=== PATIENT | male | born 1935 | race Caucasian/White ===

== ENCOUNTER → 2017-04-15 11:48 | Outpatient (CLI) | payer MEDICARE, SELFPAY ==
[2017-04-15 09:27] VITALS: BP 134/61; PULSE 59; RESP 16; TEMP 36.6; O2SAT 95; BMI 31.5
--- NOTE | 2017-04-15 09:35 | SDCEKG_ITS ---
Test Reason : Blood Pressure : / mmHG Vent. Rate : 053 BPM Atrial Rate : 053 BPM P-R Int : 226 ms QRS Dur : 088 ms QT Int : 392 ms P-R-T Axes : 031 030 054 degrees QTc Int : 367 ms Sinus bradycardia with 1st degree A-V block Otherwise normal ECG Confirmed by SUSAN HUDSON, LIANET ([id number]), fan mail editor NICKOLAS CAR ([id number]) on 04/18/2017 1:09:29 PM Referred By: Vincent Bennett Confirmed By:LIANET DAVIS MD
[2017-04-15 09:57] LABS: Hematocrit 47.8 % (40-54); Hemoglobin 15.9 g/dl (13.0-16.5); Mean Corp Hgb Conc 33.3 g/gl (32-36); Mean Corpuscular Hgb 31.1 pg (27.0-32.0); Mean Corpuscular Volume 93.4 fL (80-94); Mean Platelet Vol. 9.5 fl (6.2-12.0); Platelet Count 196 K/mm3 (150-450); RBC Distribution Width CV 12.6 % (11.6-14.6); RBC Distribution Width SD 42.6 fl (35.1-43.9); Red Blood Count 5.12 M/mm3 (4.6-6.2); Scan Indicated on CBC? Y/N NO; White Blood Count 6.9 K/mm3 (4.4-11.0)
[2017-04-15 10:30] LABS: Hemoglobin A1c 5.7 % (4.2-6.3)
[2017-04-15 10:33] LABS: Anion Gap 7 (5-15); BUN 23 mg/dL (7-18); BUN/Creat Ratio 14.9 RATIO (10-20); Chloride 103 mmol/L (98-107); Creatinine, Serum 1.54 mg/dL (0.70-1.30); EST Glomerular Filtration Rate 46 mL/min (>60); Est Glom Filt Rate - Afr Amer 56 mL/min (>60); Estimated Creatinine Clearance 37.01 ml/min; Glucose 100 mg/dL (70-110); Potassium 4.5 mmol/L (3.5-5.1); Sodium Level 137 mmol/L (136-145); Thyroid Stim Hormone (TSH) 4.84 uIU/mL (0.358-3.74)
--- OUTSIDE RECORDS SUMMARY | 2017-05-24 13:21 | XMS RPT_ITS | Clinical Summary ---
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 stenosis stenosis, CT) MANAGER INSIDE-C left Family Z82.49 Active Alexx A Family history history of (ICD-10-CM 04/23 04/23 Shields of ischemic ischemic ) MANAGER INSIDE-C heart disease heart disease and other and other diseases of the diseases of circulatory the system circulatory system Chest pain, 957205835 Resolved Alexx A Angina pectoris unspecified (SNOMED 04/20 04/[address]) MANAGER INSIDE-C Body mass Z68.30 Active Alexx A Body mass index index (BMI) (ICD-10-CM 04/23 04/23 Shields (BMI) 30.0-30.9, ) MANAGER INSIDE-C 30.0-30.9, adult adult Chest pain, 223853867 Removed Yahaira Angina pectoris unspecified (SNOMED 04/20 04/[address]) RN Carotid [id number] Inactive Yahaira Carotid bruit bruit, left (SNOMED 04/20 04/[address]) RN Hyperlipidemi 39665099 Active Yahaira Hyperlipidemia a (SNOMED 04/20 04/[address]) RN Hypertension 34399227 Active Yahaira Hypertensive (SNOMED 04/20 04/[address]) RN Medications Medication Instructions Start Stop Generic Name NDC Provider Date Date CLOPIDOGREL One tablet by CLOPIDOGREL [id number] Yahaira BISULFATE 75 MG TABS mouth daily 2/02 BISULFATE Roseann Escobedo PA-C PRAVASTATIN SODIUM One tablet by PRAVASTATIN SODIUM 30228264435 Yahaira 20 MG TABS mouth daily 04/20 L Mik SALVADOR LEVOTHYROXINE SODIUM One tablet by LEVOTHYROXINE SODIUM 83819861550 Yahaira 50 MCG TABS mouth daily 04/20 L Mik SALVADOR HYDROCHLOROTHIAZIDE One tablet by HYDROCHLOROTHIAZIDE 36924832758 Lilly M 25 MG TABS mouth daily 04/24 MADELEINE Lea HYDROCHLOROTHIAZIDE One tablet by HYDROCHLOROTHIAZIDE 24992970400 Lilly M 25 MG TABS mouth daily 04/24 04/24 MADELEINE Lea ASPIRIN EC 81 MG One tablet by ASPIRIN 71003379212 Yahaira TBEC mouth daily 04/20 L Mik SALVADOR BENICAR 40 MG TABS One tablet by OLMESARTAN MEDOXOMIL 81986023814 Yahaira mouth daily 04/20 L Mik SALVADOR VITAMIN D 2000 UNIT One tablet by CHOLECALCIFEROL 95607066859 Alexx A TABS mouth daily 04/23 Shields MANAGER INSIDE-C CO Q-10 100 MG CAPS One tablet by COENZYME Q10 86707353636 Alexx A mouth daily 04/23 Shields MANAGER INSIDE-C VITAMIN B-12 1000 One tablet by CYANOCOBALAMIN 77247708012 Alexx A MCG TABS mouth daily 04/23 Shields MANAGER INSIDE-C GLUCOSAMINE-CHONDROI One tablet by GLUCOSAMINE-CHONDROI 42708099483 Alexx A TIN CAPS mouth daily 04/23 TIN CAPS Shields MANAGER INSIDE-C [facility] SAW PALMETTO 450 One tablet by SAW PALMETTO 72050404959 Alexx A MG CAPS mouth daily 04/23 (SERENOA REPENS) Shields MANAGER INSIDE-C PRAVASTATIN SODIUM One tablet by PRAVASTATIN SODIUM 37544188598 Alexx A 20 MG TABS mouth daily 04/20 [facility] MANAGER INSIDE-C LEVOTHYROXINE SODIUM One tablet by LEVOTHYROXINE SODIUM 50630629882 Alexx A 50 MCG TABS mouth daily 04/20 [facility]s MANAGER INSIDE-C Medications Administered No information available. 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 Dietary management education, guidance, and counseling (procedure) MEDS REVIEW Done Documentation of current medications ( procedure) Plan of Care Type Date Detail Appointment 02:30 PM Tom Melton MD, [address], [address] , [place], [address], Referral Vascular Surgery Hernan Abbott MD, [address], [place], [address] Pending order Carotid duplex Pending order DJN Pending order Follow Up Appt 6 months Procedures Code Procedure Name Date Entry Date [id number] Vascular Surgery CD Carotid duplex F/U DJN DJN FUA 6 months Follow Up Appt 6 months Vital Signs Date Name Value Unit Description BMI (Body Mass Index) 31.75 kg/m2 Body Mass Index [Ratio] BP Diastolic 70 mm[Hg] blood pressure, diastolic - 8462-4 BP Systolic 152 mm[Hg] blood pressure, systolic - 8480-6 BSA (Body Surface Area) 2.13 body surface area Heart Rate 60 /min pulse rate E&M - 8867-4 Height 69 [in_us] height E&M - 8302-2 O2 % BldC Oximetry 96 pulse oximetry, first reading Respiratory Rate 16 /min respiratory rate E&M - 9279-1 Weight Measured 215 [lb_av] weight E&M - 3141-9
--- OUTSIDE RECORDS SUMMARY | 2017-05-24 13:21 | XMS RPT_ITS | Clinical Summary ---
:1935 External Reference #:[id number] Author Organization 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0-30.9, adult adult Chest pain, 777057523 Removed Yahaira Angina pectoris unspecified (SNOMED 04/20 04/[address]) RN Carotid [id number] Inactive Yahaira Carotid bruit bruit, left (SNOMED 04/20 04/[address]) RN Hyperlipidemi 26527788 Active Yahaira Hyperlipidemia a (SNOMED 04/20 04/[address]) RN Hypertension 53350858 Active Yahaira Hypertensive (SNOMED 04/20 04/[address]) RN Medications Medication Instructions Start Stop Generic Name NDC Provider Date Date CLOPIDOGREL One tablet by CLOPIDOGREL 26036000286 Yahaira BISULFATE 75 MG TABS mouth daily 05/03 BISULFATE Roseann Escobedo PA-C FISH OIL CAPS One tablet by OMEGA-3 FATTY ACIDS 31567182860 [place] S mouth daily CAPS MD Yamila LORATADINE 10 MG as needed LORATADINE 22126597845 Matheus S TABS MD Yamila PRAVASTATIN SODIUM One tablet by PRAVASTATIN SODIUM 98142220196 Yahaira 20 MG TABS mouth daily 04/20 L Mik SALVADOR LEVOTHYROXINE SODIUM One tablet by LEVOTHYROXINE SODIUM 56818809833 Yahaira 50 MCG TABS mouth daily 04/20 L Mik SALVADOR HYDROCHLOROTHIAZIDE One tablet by HYDROCHLOROTHIAZIDE 90015538417 Lilly M 25 MG TABS mouth daily 04/24 MADELEINE Lea HYDROCHLOROTHIAZIDE One tablet by HYDROCHLOROTHIAZIDE 53144562384 Lilly M 25 MG TABS mouth daily 04/24 04/24 MADELEINE Lea ASPIRIN EC 81 MG One tablet by ASPIRIN 03731228804 Yahaira TBEC mouth daily 04/20 L Mik SALVADOR BENICAR 40 MG TABS One tablet by OLMESARTAN MEDOXOMIL 17081791485 Yahaira mouth daily 04/20 L Mik SALVADOR VITAMIN D 2000 UNIT One tablet by CHOLECALCIFEROL 79254417795 Alexx A TABS mouth daily 04/23 [facility]s TRADITIONAL MAORI HEALTH PRACTITIONER-C CO Q-10 100 MG CAPS One tablet by COENZYME Q10 19839116517 Alexx A mouth daily 04/23 Shields TRADITIONAL MAORI HEALTH PRACTITIONER-C VITAMIN B-12 1000 One tablet by CYANOCOBALAMIN 18749815049 Alexx A MCG TABS mouth daily 04/23 Shields TRADITIONAL MAORI HEALTH PRACTITIONER-C GLUCOSAMINE-CHONDROI One tablet by GLUCOSAMINE-CHONDROI 23001797109 Alexx A TIN CAPS mouth daily 04/23 TIN CAPS Shields TRADITIONAL MAORI HEALTH PRACTITIONER-C [facility] SAW PALMETTO 450 One tablet by SAW PALMETTO 12922409089 Alexx A MG CAPS mouth daily 04/23 (SERENOA REPENS) Shields TRADITIONAL MAORI HEALTH PRACTITIONER-C PRAVASTATIN SODIUM One tablet by PRAVASTATIN SODIUM 84098709378 Alexx A 20 MG TABS mouth daily 04/20 Shields TRADITIONAL MAORI HEALTH PRACTITIONER-C LEVOTHYROXINE SODIUM One tablet by LEVOTHYROXINE SODIUM 36103212813 Alexx A 50 MCG TABS mouth daily 04/20 Shields TRADITIONAL MAORI HEALTH PRACTITIONER-C Medications Administered No information available. Allergies, Adverse Reactions, Alerts Allergy Name Reaction Description Start Date Severity Status Provider CRESTOR Myalgia Severe Active Alexx A Shields TRADITIONAL MAORI HEALTH PRACTITIONER-C LIPITOR depression Severe Active Alexx A Shields TRADITIONAL MAORI HEALTH PRACTITIONER-C SULFA Itching Severe Active Yahaira Houser RN Results Date Name Value Unit Range Flag Description Clinical Lists Update: Preload SMOK STATUS Never smoker Tobacco use [facility] Office Visit DIET RN CARDIAC REHAB yes Dietary management education, guidance, and counseling (procedure) MEDS REVIEW Done Documentation of current medications ( procedure) Plan of Care Type Date Detail Appointment 09:30 AM Yahaira Escobedo PA-C, [address], [address], [place], [address], Referral Vascular Surgery Hernan Abbott MD, [address] [facility] [address], [place], [address] Pending order MMM Pending order Follow Up Appt 6 months Pending order Follow Up Appt Other Pending order *Hepatic Function Panel Pending order *Lipid Profile CC PCP Pending order Echocardiogram (complete) Pending order Echocardiogram (complete) Pending order Carotid duplex Pending order DJN Pending order Follow Up Appt 6 months Procedures Code Procedure Name Date Entry Date F/U MMM MMM FUA 6 months Follow Up Appt 6 months F/U Appt Follow Up Appt Other [id number] Vascular Surgery CD Carotid duplex F/U DJN DJN FUA 6 months Follow Up Appt 6 months Vital Signs Date Name Value Unit Description BMI (Body Mass Index) 30.42 kg/m2 Body Mass Index [Ratio] BP Diastolic 70 mm[Hg] blood pressure, diastolic - 8462-4 BP Systolic 136 mm[Hg] blood pressure, systolic - 8480-6 Heart Rate 56 /min pulse rate E&M - 8867-4 Height 69 [in_us] height E&M - 8302-2 Respiratory Rate 16 /min respiratory rate E&M - 9279-1 Weight Measured 206 [lb_av] weight E&M - 3141-9 BSA (Body Surface Area) 2.13 body surface area O2 % BldC Oximetry 96 pulse oximetry, first reading
--- OUTSIDE RECORDS SUMMARY | 2017-05-24 13:21 | XMS RPT_ITS | Clinical Summary ---
:1935 External Reference #:[id number] Author Organization [facility] Address [address] [place] [address] Phone Care Team Providers Name Role Phone Vincent Bennett MD Conditions or Problems Problem Name Problem Onset Status Entry Provider Comment Standard Annotate Code Date Date Description Abnormal [id number] Active Lilly Whitfield Electrocardiogra electrocardi (SNOMED yuan Lea abnormal ogram CT) RN Body mass Z68.30 Active Matheus Drew Body mass index index (BMI) (ICD-10-CM MD Yamila (BMI) 30.0-30.9, 30.0-30.99, ) adult adult Carotid 13603840 Active Alexx A Carotid artery artery (SNOMED 04/20 04/20 Shields stenosis stenosis, CT) 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 Family Z82.49 Active Alexx A Family history history of (ICD-10-CM 04/23 04/23 Shields of ischemic ischemic ) COPIER AND PRINTER FIELD TECHNICIAN-C heart disease heart and other disease and diseases of the other circulatory diseases of system the circulatory system Chest pain, 593933530 2017/0 Resolved Alexx A Angina pectoris unspecified (SNOMED 04/20 04/[address]) COPIER AND PRINTER FIELD TECHNICIAN-C Body mass Z68.30 Active Alexx A Body mass index index (BMI) (ICD-10-CM 04/23 04/23 Shields (BMI) 30.0-30.9, 30.0-30.9, ) COPIER AND PRINTER FIELD TECHNICIAN-C adult adult Chest pain, 207539357 Removed Yahaira Angina pectoris unspecified (SNOMED 04/20 04/[address]) RN Carotid 057353849 Inactive Yahaira Carotid bruit bruit, left (SNOMED 04/20 04/[address]) RN Hyperlipidem 53172706 Active Yahaira Hyperlipidemia ia (SNOMED 04/20 04/[address]) RN Hypertension 49167495 Active Yahaira Hypertensive (SNOMED 04/20 04/[address]) RN Medications Medication Instructions Start Stop Generic Name ND Provider Date Date CLOPIDOGREL One tablet by CLOPIDOGREL 47825918993 Yahaira BISULFATE 75 MG TABS mouth daily 05/03 BISULFATE Yuan Escobedo PA-C FISH OIL CAPS One tablet by OMEGA-3 FATTY ACIDS 80491161531 [place] S mouth daily CAPS MD Yamila LORATADINE 10 MG as needed LORATADINE 37804764286 [place] S TABS MD Yamila PRAVASTATIN SODIUM One tablet by PRAVASTATIN SODIUM 16266118813 Yahaira 20 MG TABS mouth daily 04/20 L Mik SALVADOR LEVOTHYROXINE SODIUM One tablet by LEVOTHYROXINE SODIUM 04558928531 Yahaira 50 MCG TABS mouth daily 04/20 L Mik SALVADOR HYDROCHLOROTHIAZIDE One tablet by HYDROCHLOROTHIAZIDE 18769921785 Lilly M 25 MG TABS mouth daily 04/24 MADELEINE Lea HYDROCHLOROTHIAZIDE One tablet by HYDROCHLOROTHIAZIDE 34551008034 Lilly M 25 MG TABS mouth daily 04/24 04/24 MADELEINE Lea ASPIRIN EC 81 MG One tablet by ASPIRIN 77296733434 Yahaira TBEC mouth daily 04/20 L Mik SALVADOR BENICAR 40 MG TABS One tablet by OLMESARTAN MEDOXOMIL 48936594909 Yahaira mouth daily 04/20 L Mik RN VITAMIN D 2000 UNIT One tablet by CHOLECALCIFEROL 18212317254 Alexx A TABS mouth daily 04/23 Shields COPIER AND PRINTER FIELD TECHNICIAN-C CO Q-10 100 MG CAPS One tablet by COENZYME Q10 68609212016 Alexx A mouth daily 04/23 Shields COPIER AND PRINTER FIELD TECHNICIAN-C VITAMIN B-12 1000 One tablet by CYANOCOBALAMIN 46706697260 Alexx A MCG TABS mouth daily 04/23 Shields COPIER AND PRINTER FIELD TECHNICIAN-C GLUCOSAMINE-CHONDROI One tablet by GLUCOSAMINE-CHONDROI 46711623817 Alexx A TIN CAPS mouth daily 04/23 TIN CAPS Shields COPIER AND PRINTER FIELD TECHNICIAN-C [facility] SAW PALMETTO 450 One tablet by SAW PALMETTO 21551555447 Alexx A MG CAPS mouth daily 04/23 (SERENOA REPENS) Shields COPIER AND PRINTER FIELD TECHNICIAN-C PRAVASTATIN SODIUM One tablet by PRAVASTATIN SODIUM 77266057637 Alexx A 20 MG TABS mouth daily 04/20 Shields COPIER AND PRINTER FIELD TECHNICIAN-C LEVOTHYROXINE SODIUM One tablet by LEVOTHYROXINE SODIUM 19014578487 Alexx A 50 MCG TABS mouth daily 04/20 Shields COPIER AND PRINTER FIELD TECHNICIAN-C Medications Administered No information available. 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 Dietary management education, guidance, and counseling (procedure) MEDS REVIEW Done Documentation of current medications ( procedure) Clinical Lists Update: Preload CARDEFECHO 65 % Left ventricular Ejection fraction Lab Report: CREATININE FINGERSTICK ZZ-GE-unk 32.0000 mL/min >60 L GE use only - for [employer] import when terms are not otherwise specified Plan of Care Type Date Detail Appointment 09:30 AM Yahaira Escobedo PA-C, [address], [address], [place], [address], Referral Vascular Surgery Hernan Abbott MD, [address] [facility] [address], [place], [address] Pending order MMM Pending order Follow Up Appt 6 months Pending order Follow Up Appt Other Pending order *Hepatic Function Panel Pending order *Lipid Profile CC PCP Pending order Echocardiogram (complete) Pending order Carotid duplex Pending order DJN Pending order Follow Up Appt 6 months Procedures Code Procedure Name Date Entry Date Echo Echocardiogram (complete) F/U MMM MMM FUA 6 months Follow Up Appt 6 months F/U Appt Follow Up Appt Other [id number] Vascular Surgery CD Carotid duplex F/U DJN [...]
--- OUTSIDE RECORDS SUMMARY | 2017-05-24 13:21 | XMS RPT_ITS | Clinical Summary ---
:1935 External Reference #:[id number] Author Organization [place] [email or web address] Address [facility] [place] [address] Phone Care Team Providers Name Role Phone Candy Gunter RN Unavailable Unavailable Conditions or Problems Problem Name Problem Onset Status Entry Provider Comment Standard Annotate Code Date Date Description Abnormal 167473412 Active Lilly Whitfield Electrocardiogra electrocardi (SNOMED yuan Lea abnormal ogram CT) MADELEINE Body mass Z68.30 Active Matheus Drew Body mass index index (BMI) (ICD-10-CM MD Yamila (BMI) 30.0-30.9, 30.0-30.99, ) adult adult Carotid 02143649 Active Alexx A Carotid artery artery (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/20 04/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 stenosis stenosis, CT) TRUCKING SUPERVISOR-C left Family Z82.49 Active Alexx A Family history history of (ICD-10-CM 04/23 04/23 Shields of ischemic ischemic ) TRUCKING SUPERVISOR-C heart disease heart and other disease and diseases of the other circulatory diseases of system the circulatory system Chest pain, 433365750 2017/0 Resolved Alexx A Angina pectoris unspecified (SNOMED 04/20 04/[address]) TRUCKING SUPERVISOR-C Body mass Z68.30 Active Alexx A Body mass index index (BMI) (ICD-10-CM 04/23 04/23 Shields (BMI) 30.0-30.9, 30.0-30.9, ) TRUCKING SUPERVISOR-C adult adult Chest pain, 026394421 2017/0 Removed Yahaira Angina pectoris unspecified (SNOMED 04/20 04/[address]) MADELEINE Carotid 395202472 Inactive Yahaira Carotid bruit bruit, left (SNOMED 04/20 04/[address]) RN Hyperlipidem 81796312 Active Yahaira Hyperlipidemia ia (SNOMED 04/20 04/[address]) RN Hypertension 35612211 Active Yahaira Hypertensive (SNOMED 04/20 04/[address]) RN Medications Medication Instructions Start Stop Generic Name NDC Provider Date Date CLOPIDOGREL One tablet by CLOPIDOGREL 81409601439 Yahaira BISULFATE 75 MG TABS mouth daily 05/03 BISULFATE Yuan Escobedo PA-C FISH OIL CAPS One tablet by OMEGA-3 FATTY ACIDS 89478569224 [place] S mouth daily CAPS MD Yamila LORATADINE 10 MG as needed LORATADINE 57315154118 Matheus S TABS MD Yamila PRAVASTATIN SODIUM One tablet by PRAVASTATIN SODIUM 83453878369 Yahaira 20 MG TABS mouth daily 04/20 L Mik SALVADOR LEVOTHYROXINE SODIUM One tablet by LEVOTHYROXINE SODIUM 12998588927 Yahaira 50 MCG TABS mouth daily 04/20 L Mik RN HYDROCHLOROTHIAZIDE One tablet by HYDROCHLOROTHIAZIDE 67616568453 Lilly M 25 MG TABS mouth daily 04/24 [facility], RN HYDROCHLOROTHIAZIDE One tablet by HYDROCHLOROTHIAZIDE 57593290351 Lilly M 25 MG TABS mouth daily 04/24 04/24 Venu, RN ASPIRIN EC 81 MG One tablet by ASPIRIN 82025304760 Yahaira TBEC mouth daily 04/20 L Mik RN BENICAR 40 MG TABS One tablet by OLMESARTAN MEDOXOMIL 78581996505 Yahaira mouth daily 04/20 L Mik RN VITAMIN D 2000 UNIT One tablet by CHOLECALCIFEROL 23828215846 Alexx A TABS mouth daily 04/23 Shields TRUCKING SUPERVISOR-C CO Q-10 100 MG CAPS One tablet by COENZYME Q10 05596334497 Alexx A mouth daily 04/23 Shields TRUCKING SUPERVISOR-C VITAMIN B-12 1000 One tablet by CYANOCOBALAMIN 88738476159 Alexx A MCG TABS mouth daily 04/23 Shields TRUCKING SUPERVISOR-C GLUCOSAMINE-CHONDROI One tablet by GLUCOSAMINE-CHONDROI 29916522098 Alexx A TIN CAPS mouth daily 04/23 TIN CAPS Shields TRUCKING SUPERVISOR-C [facility] SAW PALMETTO 450 One tablet by SAW PALMETTO 22486701440 Alexx A MG CAPS mouth daily 04/23 (SERENOA REPENS) Shields TRUCKING SUPERVISOR-C PRAVASTATIN SODIUM One tablet by PRAVASTATIN SODIUM 99920212833 Alexx A 20 MG TABS mouth daily 04/20 Shields TRUCKING SUPERVISOR-C LEVOTHYROXINE SODIUM One tablet by LEVOTHYROXINE SODIUM 44782884145 Alexx A 50 MCG TABS mouth daily 04/20 Shields TRUCKING SUPERVISOR-C Medications Administered No information available. 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 Dietary management education, guidance, and counseling (procedure) MEDS REVIEW Done Documentation of current medications ( procedure) Clinical Lists Update: Preload CARDEFECHO 65 % Left ventricular Ejection fraction Plan of Care Type Date Detail Appointment 09:30 AM Yahaira Escobedo PA-C, [address], [address], [place], [address], Referral Vascular Surgery Hernan Abbott MD, [address], [facility] [address], [place], [address] Pending order MMM Pending order Follow Up [...] months F/U Appt Follow Up Appt Other [id number] Vascular Surgery CD Carotid duplex F/U DJN [...]
--- OUTSIDE RECORDS SUMMARY | 2017-05-24 13:21 | XMS RPT_ITS | Clinical Summary ---
:1935 External Reference #:[id number] Author Organization [facility] Address [address] [place] [address] Phone Care Team Providers Name Role Phone Candy Gunter RN Unavailable Unavailable Conditions or Problems Problem Name Problem Onset Status Entry Provider Comment Standard Annotate Code Date Date Description Carotid [id number] Active Alexx A Carotid artery artery (SNOMED 04/20 04/20 [facility] stenosis stenosis, CT) LEAD MECHANICAL ENGINEER-C left Family Z82.49 Active Alexx A Family history history of (ICD-10-CM 04/23 04/23 Shields of ischemic ischemic ) LEAD MECHANICAL ENGINEER-C heart disease heart disease and other and other diseases of the diseases of circulatory the system circulatory system Chest pain, 148262452 Resolved Alexx A Angina pectoris unspecified (SNOMED 04/20 04/[address]) LEAD MECHANICAL ENGINEER-C Body mass Z68.30 Active Alexx A Body mass index index (BMI) (ICD-10-CM 04/23 04/23 Shields (BMI) 30.0-30.9, ) LEAD MECHANICAL ENGINEER-C 30.0-30.9, adult adult Chest pain, 136905099 Removed Yahaira Angina pectoris unspecified (SNOMED 04/20 04/[address]) RN Carotid [id number] Inactive Yahaira Carotid bruit bruit, left (SNOMED 04/20 04/[address]) RN Hyperlipidemi 54065284 Active Yahaira Hyperlipidemia a (SNOMED 04/20 04/[address]) RN Hypertension 44287010 Active Yahaira Hypertensive (SNOMED 04/20 04/[address]) RN Medications Medication Instructions Start Stop Generic Name [facility] Provider Date Date CLOPIDOGREL One tablet by CLOPIDOGREL 48252661290 Yahaira BISULFATE 75 MG TABS mouth daily 2/02 BISULFATE Roseann Escobedo PA-C PRAVASTATIN SODIUM One tablet by PRAVASTATIN SODIUM 60159543100 Yahaira 20 MG TABS mouth daily 04/20 L Mik SALVADOR LEVOTHYROXINE SODIUM One tablet by LEVOTHYROXINE SODIUM 98053351262 Yahaira 50 MCG TABS mouth daily 04/20 L Mik SALVADOR HYDROCHLOROTHIAZIDE One tablet by HYDROCHLOROTHIAZIDE 05786510962 Lilly M 25 MG TABS mouth daily 04/24 MADELEINE Lea HYDROCHLOROTHIAZIDE One tablet by HYDROCHLOROTHIAZIDE 30968828401 Lilly M 25 MG TABS mouth daily 04/24 04/24 MADELEINE Lea ASPIRIN EC 81 MG One tablet by ASPIRIN 90690552889 Yahaira TBEC mouth daily 04/20 L Mik SALVADOR BENICAR 40 MG TABS One tablet by OLMESARTAN MEDOXOMIL 01627309530 Yahaira mouth daily 04/20 L Mik SALVADOR VITAMIN D 2000 UNIT One tablet by CHOLECALCIFEROL 17531598515 Alexx A TABS mouth daily 04/23 [facility] LEAD MECHANICAL ENGINEER-C CO Q-10 100 MG CAPS One tablet by COENZYME Q10 59241383152 Alexx A mouth daily 04/23 [facility] LEAD MECHANICAL ENGINEER-C VITAMIN B-12 1000 One tablet by CYANOCOBALAMIN 87050044744 Alexx A MCG TABS mouth daily 04/23 [facility] LEAD MECHANICAL ENGINEER-C GLUCOSAMINE-CHONDROI One tablet by GLUCOSAMINE-CHONDROI 66171667250 Alexx A TIN CAPS mouth daily 04/23 TIN CAPS Shields LEAD MECHANICAL ENGINEER-C [facility] SAW PALMETTO 450 One tablet by SAW PALMETTO 40857478746 Alexx A MG CAPS mouth daily 04/23 (SERENOA REPENS) [facility]s LEAD MECHANICAL ENGINEER-C PRAVASTATIN SODIUM One tablet by PRAVASTATIN SODIUM 06596526568 Alexx A 20 MG TABS mouth daily 04/20 [facility] LEAD MECHANICAL ENGINEER-C LEVOTHYROXINE SODIUM One tablet by LEVOTHYROXINE SODIUM 22291502801 Alexx A 50 MCG TABS mouth daily 04/20 [facility] LEAD MECHANICAL ENGINEER-C Medications Administered No information available. 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
--- OUTSIDE RECORDS SUMMARY | 2017-05-24 13:21 | XMS RPT_ITS | Clinical Summary ---
:1935 External Reference #:[id number] Author Organization [facility] Address [address] [place] [id number] Phone Care Team Providers Name Role Phone MADELEINE Lea, Lilly Whitfield Unavailable Unavailable Conditions or Problems Problem Name Problem Onset Status Entry Provider Comment Standard Annotate Code Date Date Description Abnormal [id number] Active Lilly Whitfield Electrocardiogra electrocardi (SNOMED yuan Lea abnormal ogram CT) RN Body mass Z68.30 Active Matheus Drew Body mass index index (BMI) (ICD-10-CM MD Yamila (BMI) 30.0-30.9, 30.0-30.99, ) adult adult Carotid 90724930 Active Alexx A Carotid artery artery (SNOMED 04/20 04/20 [facility]s stenosis stenosis, CT) 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-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 Family Z82.49 Active Alexx A Family history history of (ICD-10-CM 04/23 04/23 Shields of ischemic ischemic ) 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-C heart disease heart and other disease and diseases of the other circulatory diseases of system the circulatory system Chest pain, 334325097 2017/0 Resolved Alexx A Angina pectoris unspecified (SNOMED 04/20 04/[address]) 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-C Body mass Z68.30 Active Alexx A Body mass index index (BMI) (ICD-10-CM 04/23 04/23 Shields (BMI) 30.0-30.9, 30.0-30.9, ) 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-C adult adult Chest pain, 517743488 2017/0 Removed Yahaira Angina pectoris unspecified (SNOMED 04/20 04/[address]) MADELEINE Carotid 178664545 Inactive Yahaira Carotid bruit bruit, left (SNOMED 04/20 04/[address]) RN Hyperlipidem 96695258 Active Yahaira Hyperlipidemia ia (SNOMED 04/20 04/[address]) RN Hypertension 80453514 Active Yahaira Hypertensive (SNOMED 04/20 04/[address]) RN Medications Medication Instructions Start Stop Generic Name NDC Provider Date Date CLOPIDOGREL One tablet by CLOPIDOGREL 50710799664 Yahaira BISULFATE 75 MG TABS mouth daily 05/03 BISULFATE Yuan Escobedo PA-C FISH OIL CAPS One tablet by OMEGA-3 FATTY ACIDS 23569017359 Baldwin S mouth daily CAPS MD Yamila LORATADINE 10 MG as needed LORATADINE 92072038661 Matheus S TABS MD Yamila PRAVASTATIN SODIUM One tablet by PRAVASTATIN SODIUM 52569352930 Yahaira 20 MG TABS mouth daily 04/20 L Mik SALVADOR LEVOTHYROXINE SODIUM One tablet by LEVOTHYROXINE SODIUM 26092201331 Yahaira 50 MCG TABS mouth daily 04/20 L Mik RN HYDROCHLOROTHIAZIDE One tablet by HYDROCHLOROTHIAZIDE 34214239848 Lilly M 25 MG TABS mouth daily 04/24 [facility], RN HYDROCHLOROTHIAZIDE One tablet by HYDROCHLOROTHIAZIDE 44279143021 Lilly M 25 MG TABS mouth daily 04/24 04/24 Venu RN ASPIRIN EC 81 MG One tablet by ASPIRIN 60632658140 Yahaira TBEC mouth daily 04/20 L Mik RN BENICAR 40 MG TABS One tablet by OLMESARTAN MEDOXOMIL 65005370779 Yahaira mouth daily 04/20 L Mik RN VITAMIN D 2000 UNIT One tablet by CHOLECALCIFEROL 14334999166 Alexx A TABS mouth daily 04/23 [facility] 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-C CO Q-10 100 MG CAPS One tablet by COENZYME Q10 99405481251 Alexx A mouth daily 04/23 [facility] 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-C VITAMIN B-12 1000 One tablet by CYANOCOBALAMIN 82135852974 Alexx A MCG TABS mouth daily 04/23 [facility] 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-C GLUCOSAMINE-CHONDROI One tablet by GLUCOSAMINE-CHONDROI 97972350504 Alexx A TIN CAPS mouth daily 04/23 TIN CAPS [facility] 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-C [facility] SAW PALMETTO 450 One tablet by SAW PALMETTO 14448033031 Alexx A MG CAPS mouth daily 04/23 (SERENOA REPENS) Shields 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-C PRAVASTATIN SODIUM One tablet by PRAVASTATIN SODIUM 96249509212 Alexx A 20 MG TABS mouth daily 04/20 [facility] 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-C LEVOTHYROXINE SODIUM One tablet by LEVOTHYROXINE SODIUM 98748023244 Alexx A 50 MCG TABS mouth daily 04/20 [facility] 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-C Medications Administered No information available. 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
--- OUTSIDE RECORDS SUMMARY | 2017-05-24 13:21 | XMS RPT_ITS | Clinical Summary ---
:1935 External Reference #:[id number] Author Organization [place] [email or web address] [facility] Address [address] [place] [phone] Phone Care Team Providers Name Role Phone MADELEINE Lea, Lilly Whitfield Unavailable Unavailable Conditions or Problems Problem Name Problem Onset Status Entry Provider Comment Standard Annotate Code Date Date Description Abnormal [id number] Active Lilly Whitfield Electrocardiogra electrocardi (SNOMED yuan Lea abnormal ogram CT) RN Body mass Z68.30 Active Matheus Drew Body mass index index (BMI) (ICD-10-CM MD Yamila (BMI) 30.0-30.9, 30.0-30.99, ) adult adult Carotid 74425616 Active Alexx A Carotid artery artery (SNOMED 04/20 04/20 Shields stenosis stenosis, CT) 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 Family Z82.49 Active Alexx A Family history history of (ICD-10-CM 04/23 04/23 Shields of ischemic ischemic ) MARKETING ANALYTICS SPECIALIST-C heart disease heart and other disease and diseases of the other circulatory diseases of system the circulatory system Chest pain, 122475856 2017/0 Resolved Alexx A Angina pectoris unspecified (SNOMED 04/20 04/[address]) MARKETING ANALYTICS SPECIALIST-C Body mass Z68.30 Active Alexx A Body mass index index (BMI) (ICD-10-CM 04/23 04/23 Shields (BMI) 30.0-30.9, 30.0-30.9, ) MARKETING ANALYTICS SPECIALIST-C adult adult Chest pain, 576884837 2017/0 Removed Yahaira Angina pectoris unspecified (SNOMED 04/20 04/[address]) MADELEINE Carotid 107550753 Inactive Yahaira Carotid bruit bruit, left (SNOMED 04/20 04/[address]) RN Hyperlipidem 99792623 Active Yahaira Hyperlipidemia ia (SNOMED 04/20 04/[address]) RN Hypertension 95256797 Active Yahaira Hypertensive (SNOMED 04/20 04/[address]) RN Medications Medication Instructions Start Stop Generic Name NDC Provider Date Date CLOPIDOGREL One tablet by CLOPIDOGREL 28857002441 Yahaira BISULFATE 75 MG TABS mouth daily 05/03 BISULFATE Yuan Escobedo PA-C FISH OIL CAPS One tablet by OMEGA-3 FATTY ACIDS 62085321650 [place] S mouth daily CAPS MD Yamila LORATADINE 10 MG as needed LORATADINE 49606539367 Matheus S TABS MD Yamila PRAVASTATIN SODIUM One tablet by PRAVASTATIN SODIUM 74812514380 Yahaira 20 MG TABS mouth daily 04/20 L Mik SALVADOR LEVOTHYROXINE SODIUM One tablet by LEVOTHYROXINE SODIUM 82907652814 Yahaira 50 MCG TABS mouth daily 04/20 L Mik RN HYDROCHLOROTHIAZIDE One tablet by HYDROCHLOROTHIAZIDE 97175586226 Lilly M 25 MG TABS mouth daily 04/24 [facility] HYDROCHLOROTHIAZIDE One tablet by HYDROCHLOROTHIAZIDE 98906692733 Lilly M 25 MG TABS mouth daily 04/24 04/24 Venu RN ASPIRIN EC 81 MG One tablet by ASPIRIN 73999998151 Yahaira TBEC mouth daily 04/20 L Mik RN BENICAR 40 MG TABS One tablet by OLMESARTAN MEDOXOMIL 80379634984 Yahaira mouth daily 04/20 L Mik RN VITAMIN D 2000 UNIT One tablet by CHOLECALCIFEROL 47134337173 Alexx A TABS mouth daily 04/23 [facility] MARKETING ANALYTICS SPECIALIST-C CO Q-10 100 MG CAPS One tablet by COENZYME Q10 53738140652 Alexx A mouth daily 04/23 [facility] MARKETING ANALYTICS SPECIALIST-C VITAMIN B-12 1000 One tablet by CYANOCOBALAMIN 27167505555 Alexx A MCG TABS mouth daily 04/23 [facility] MARKETING ANALYTICS SPECIALIST-C GLUCOSAMINE-CHONDROI One tablet by GLUCOSAMINE-CHONDROI 01321301293 Alexx A TIN CAPS mouth daily 04/23 TIN CAPS [facility] MARKETING ANALYTICS SPECIALIST-C [facility] SAW PALMETTO 450 One tablet by SAW PALMETTO 58236145157 Alexx A MG CAPS mouth daily 04/23 (SERENOA REPENS) [facility] MARKETING ANALYTICS SPECIALIST-C PRAVASTATIN SODIUM One tablet by PRAVASTATIN SODIUM 18633413650 Alexx A 20 MG TABS mouth daily 04/20 [facility] MARKETING ANALYTICS SPECIALIST-C LEVOTHYROXINE SODIUM One tablet by LEVOTHYROXINE SODIUM 19970102519 Alexx A 50 MCG TABS mouth daily 04/20 [facility] MARKETING ANALYTICS SPECIALIST-C Medications Administered No information available. 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
--- OUTSIDE RECORDS SUMMARY | 2017-05-24 13:22 | XMS RPT_ITS ---
:1935 Author Organization OHIP Support Name Relationship Address Phone R Unavailable Unavailable Unavailable VANESSA, TERESSA Unavailable [address] + [place] [address] R Unavailable Unavailable Unavailable VANESSA, TERESSA Unavailable [address] + [place] [address] R Unavailable Unavailable Unavailable VANESSA, TERESSA Unavailable [address] + [place] [address] R Unavailable Unavailable Unavailable VANESSA, TERESSA Unavailable [address] + [place] [address] R Unavailable Unavailable Unavailable VANESSA, TERESSA Unavailable [address] + [place] [address] R Unavailable Unavailable Unavailable VANESSA, TERESSA Unavailable [address] + [place] [address] R Unavailable Unavailable Unavailable VANESSA, TERESSA Unavailable [address] + [place] [address] R Unavailable Unavailable Unavailable VANESSA, TERESSA Unavailable [address] + [place] [address] R Unavailable Unavailable Unavailable VANESSA, TERESSA Unavailable [address] + [place] [address] R Unavailable Unavailable Unavailable VANESSA, TERESSA Unavailable [address] + [place] [address] R Unavailable Unavailable Unavailable VANESSA, TERESSA Unavailable [address] + [place] [address] R Unavailable Unavailable Unavailable VANESSA, TERESSA Unavailable [address] + [place] [address] R Unavailable Unavailable Unavailable VANESSA, TERESSA Unavailable [address] + [place] [address] VANESSA, TERESSA Unavailable [address] + [place] [address] Care Team Providers Name Role Phone Julian Elizondo Attending Unavailable Sergio, Julian Primary Care Unavailable Sergio Julian Attending Unavailable Sergio, Julian Primary Care Unavailable Matheus Driscoll Attending Unavailable Sergio, Julian Primary Care Unavailable Cebul, Vincent Attending Unavailable Sergio, Julian Referring Unavailable Sergio, Julian Primary Care Unavailable Cebul, Vincent Attending Unavailable Sergio, Julian Primary Care Unavailable Cebul, Vincent Admitting Unavailable Cebul, Vincent Attending Unavailable Cebul, Vincent Referring Unavailable Sergio, Julian Primary Care Unavailable Sergio, Julian Primary Care Unavailable Imamura, Yoichi Admitting Unavailable Jess, Papa S. Consulting Unavailable Sementi, Kimberly Attending Unavailable Cebul, Vincent Consulting Unavailable Imamura, Yoichi Admitting Unavailable Sergio, Julian Primary Care Unavailable Jess, Papa S. Consulting Unavailable Paintsil [place] Attending Unavailable Cebul, Vincent Consulting Unavailable Imamura, Yoichi Consulting Unavailable Imamura, Yoichi Admitting Unavailable Veronica Rodrigues PA-C Attending Unavailable Sergio, Julian Primary Care Unavailable Jess, Papa S. Consulting Unavailable Cebul, Vincent Consulting Unavailable Sementi, Kimberly Consulting Unavailable Imamura, Yoichi Admitting Unavailable Sementi, Kimberly Attending Unavailable Sergio, Julian Primary Care Unavailable Jess, Papa S. Consulting Unavailable Cebul, Vincent Consulting Unavailable Sementi, Kimberly Consulting Unavailable Imamura, Yoichi Admitting Unavailable Sementi, Kimberly Attending Unavailable Sergio, Julian Primary Care Unavailable Jess, Papa S. Consulting Unavailable Cebul, Vincent Consulting Unavailable Sementi, Kimberly Consulting Unavailable Imamura, Yoichi Admitting Unavailable Sementi, Kimbelry Attending Unavailable Sergio, Julian Primary Care Unavailable Jess, Papa S. Consulting Unavailable Cebul, Vincent Consulting Unavailable Sementi, Kimberly Consulting Unavailable Lilia FERNANDEZ Amanda Attending Unavailable Sergio, Julian Referring Unavailable Sergio, Julian Primary Care Unavailable Greg Davis Attending Unavailable Cebul, Vincent Referring Unavailable Sergio, Julian Attending Unavailable PROBLEMS PROBLEMS DATE TYPE CONDITION / CODE ATTENDING STATUS SOURCE 04/25/2017 Unknown R20.2 - Paresthesia Sementi, Active [facility] of skin / [facility] R20.2(ICD-10) Hospital Repository 04/20/2017 Unknown G89.18 - Other acute Sementi, Active [facility] postprocedural pain Kimberly [facility] / G89.18(ICD-10) Hospital Repository 05/21/2017 Unknown R00.1 - Bradycardia, [place], Active [facility] unspecified / Greg [facility] R00.1(ICD-10) Hospital Repository 04/16/2017 Unknown I65.29 - Occlusion Vincent Bennett Active [facility] and stenosis of Community unspecified carotid Hospital artery / Repository I65.29(ICD-10) 04/16/2017 Unknown I65.22 - Occlusion Cebul, Vincent Active [facility] and stenosis of left Community carotid artery / Hospital I65.22(ICD-10) Repository 01/30/2017 Unknown ATHSCL HEART DISEASE Yamila, [place]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 [facility] Hospital / I25.10(ICD-10) Repository 12/21/2016 Admitting Unknown / Julian Elizondo Active [facility] diagnosis UNK([facility] [place] [facility] Unknown) Repository 10/25/2016 Unknown OTHER GENERAL Julian Elizondo Active [facility] SYMPTOMS AND SIGNS / Community R68.89(ICD-10) Hospital Repository 10/25/2016 Unknown ELEVATED PROSTATE Julian Elizondo Active [facility] SPECIFIC ANTIGEN Community [PSA] / Hospital R97.20(ICD-10) Repository 08/09/2016 Admitting PURE Julian Elizondo Active [facility] diagnosis HYPERCHOLESTEROLEMIA Community , UNSPECIFIED / Hospital E78.00(ICD-10) Repository 08/09/2016 Admitting HYPOTHYROIDISM, Julian Elizondo Active [facility] diagnosis UNSPECIFIED / Community E03.9(ICD-10) Hospital Repository 08/09/2016 Admitting ENCOUNTER FOR Julian Elizondo Active [facility] diagnosis SCREENING FOR Community MALIGNANT NEOPLASM Hospital / Z12.5(ICD-10) Repository PROCEDURES PROCEDURES No Procedure Records FoundRESULTS RESULTS SURGERY VISIT REPORT Observed: 05/02/2017 Status: F Source: [facility] 12:12 PM [facility] RE[facility]ITORY [facility] [address] [place] [address] [place] [address] [id number] VISITDate of Service: 05/01/17MR#: [id number] Acct: [id number]: BREE MENDEZ Rep #: [id number]: 1935 Provider: Veronica Rodrigues PA-CAge/Sex: 82/M Location: [facility] [place].WSAStatus: SignedIntakeVital Signs05/01/17 Blood Pressure 144/ Blood Pressure Location Lt gcstnkis77/31/18 Blood Pressure Position Cbvotfa58/31/18 Respiratory Rate Pulse Rate 62IntakeVisit Reasons: Surgery F/U carotid 04/19 RCInterpreter Required: NoIs patient in pain?: NoAllergiesSulfa (Sulfonamide Antibiotics) Allergy (Verified 05/01/17 13:40)ItchingMedicationsOlmesartan Medoxomil [Benicar] 40 mg PO DAILY 03/10/16 [History Confirmed 04/17/17]aspirin 81 mg tablet,delayed release 81 mg PO QHS 04/10/17 [History Confirmed 04/17/17]coenzyme Q10 200 mg capsule 200 mg PO DAILY 04/10/17 [History Confirmed 04/17/17]levothyroxine 50 mcg tablet 75 mcg PO DAILY tab 04/10/17 [History Confirmed 04/17/17]omega 3-tru-oze-fish oil 1,000 mg (120 mg- 180 mg) capsule 1,000 mg PO DAILY 04/10/17 [HistoryConfirmed 04/17/17]tamsulosin 0.4 mg capsule 0.4 mg PO DAILY 04/10/17 [History Confirmed 04/17/17]Cyanocobalamin ( Vitamin B-12) [Vitamin B-12] 1,000 mcg SL DAILY 04/15/17 [History Jisunxvgh50/17/18]Hydrocodone Bitart/Apap 5-325 [Reading 5MG-325MG] 1 tab PO Q6H PRN PRN #8 tab 04/19/17 [Rx]Acetaminophen [Tylenol Tablet] 650 mg PO Q4H PRN PRN tab 04/20/17 [Rx]Aspirin [Aspirin, Baby] 81 mg PO DAILY@0800 tab.chew 04/20/17 [Rx]Pantoprazole Sodium [Protonix] 20 mg PO DAILY tab 04/20/17 [Rx] atorvastatin 20 mg tablet 20 mg PO QDAY 05/01/17 [History Confirmed 05/01/17]PFSHMedical HistoryCarotid stenosis (Chronic)HTN (hypertension) (Chronic)Osteoarthritis (Acute)Hypothyroidism (Acute)Substernal precordial chest pain (Acute)Surgical HistoryS/P colonoscopy (Acute)Family HistoryBrother Heart diseaseHypertensionSister Breast cancerSocial HistorySmoking Status: Never smokeralcohol intake: neverHPIHPIHPI: BREE MENDEZ, is a 82 M I am following for carotid stenosis. Dr. Bennett performed a leftcarotid endarterectomy on 04/19/17. Patient tolerated the procedure well. Patient deniesdizziness, blurred vision, weakness in extremities, stroke- like symptoms.ExamNeckOther: left neck incision- c/d/i. No erythema or signs of infection. Incision nicely healed. Nocarotid bruit noted.NeuroCranial Nerves: CN's II-XI intact bilaterallyAssessment AND PlanProblems1. Stenosis of left carotid artery I65.22Plan- Obtain left carotid ultrasound in 6 weeks- Obtain bilateral carotid ultrasound in 1 year- Follow-up as neededOrdersOrders:CodingLevel of Care CodeGlobal Post OpDiagnosesStenosis of left carotid artery I65.22Laterality: left 1212 <Electronically signed by Veronica Rodrigues PA-C>Date Veronica MARCELINOCCosigner Signature: Date (if applicable)CC: Julian Elizondo MD CONSULTATION Observed: 04/27/2017 Status: F Source: [place] 11:14 PM [facility] [id number] [id number]/18/18 1233MR#: [id number] Acct: [id number]: BREE MENDEZ Celestino Rep #: [id number]: [birth year] From: Papa Mercado MDPCP: Julian Elizondo MD Status: DIS IN YLocation: [facility] [id number] List(1) StrokeStatus: AcuteQualifiers:CVA mechanism: stenosis Precerebral and cerebral artery: carotid artery Laterality ofaffected vessel: left Qualified Code(s): I63.232 - Cerebral infarction due to unspecifiedocclusion or stenosis of left carotid arteries(2) Carotid stenosisStatus: ChronicQualifiers:Reason for ConsultDate of Consultation: 04/18/17Reason for Consultation: strokeHistory of Present Illness:The patient is a 82 year old CM with PMH HTN, Left ICA stenosis (70-99%), hypothyroidismadmitted with right sided numbness. Per patient he has sudden onset right sided numbnessyesterday (04/17/17) around 2:30 pm and was feeling as if his right side was heavy, haddifficulty in walking, symptoms lasted for about 2-3 hours before completely resolving, patienthas been scheduled for left CEA tomorrow Saturday (04/19/17) by Dr. Bennett as outpatient prior tothis event due to 70-99% stenosis of the left ICA, carotid ultrasound done in the ED followingthis admission showed proximal Left ICA high velocities of 345/123 cm/sec with a stenosis inthe range of >70%, MRI brain done on admission showed small left precentral thrombo-embolicacute infarct, MRA head/neck reported to show some Left M2 irregularities and left ICA 70% stenosis. At present patient denies any neurological symptoms, MAST, visual disturbances, focalmotor weakness or sensory loss. Per patient he has been on ASA and Plavix for the past year orso, started by Cardiology. Has been on Pravastatin since Lipitor caused him to have depressionper patient. Patient lives with , denies any frequent falls, does not use cane or walker toambulate, does not need any assistance for his ADLs. [] Past Medical HistoryPast Medical History (Chronic Problems):Chronic Problems (Last Updated 04/10/17 @ 14:27 by Sangita Barclay)Carotid stenosis (Chronic)HTN (hypertension) (Chronic)AllergiesSulfa (Sulfonamide Antibiotics) Allergy (Verified 04/17/17 13:55)ItchingHome Medications:Ambulatory OrdersMedication Instructions RecordedOlmesartan Medoxomil [Benicar] 40 mg PO DAILY aspirin 81 mg tablet,delayed 81 mg PO QHS 04/10/17releaseclopidogrel 75 mg tablet 75 mg PO QHS 04/10/17urgical History: tonsillectomyPsychiatric History: No pertinent psych hxLives: Spouse/ Significant OtherSmoking Status: Never smokerTobacco Use: Non-smokerAlcohol: NoneDrugs: None- *Family History MaternalFamily History:Family History (Last Updated 04/10/17 @ 14:27 by Sangita Barclay) BrotherHeart diseaseHypertensionSisterBreast cancerHistory Items: No pertinent history PaternalFamily History:Family History (Last Updated 04/10/17 @ 14:27 by Sangita Barclay)BrotherHeart diseaseHypertensionSisterBreast cancerHistory Items: Heart DiseaseReview of SystemsConstitutional: Reports: - - complete ROS negative except as documented in HPIPatient Problems:Active and Suspected Problems (Last Updated 04/10/17 @ 14:27 by Sangita Barclay)Paresthesia and pain of right extremity (Acute)Stroke (Acute)- Physical ExamGeneral: Alert, Oriented x3, CooperativeHEENT: Atraumatic, PERRLA, EOMI, NormocephalicNeck: Supple, No JVD, Negative Carotid BruitsLungs: Clear to auscultation, Normal air movementCardiovascular: Regular rate, No murmursAbdomen: Bowel Sounds Present, Soft, Non TenderExtremities: No edema, Capillary Refill Less than 3 SecondsSkin: No rashes, No breakdownMusculoskeletal: No Tenderness to Palpation of Joints or ExtremitiesNeurological: - - consious, alert, AoAx3, CN 2-12 grossly intact, power 5/5 all 4 extremities,no sensory loss, no cerebellar signs, Reflexes + B/L B/S/T/K/A, gait deferred, NIHSS 0, mRS 0at presentPsych/Mental Status: Normal Affect, AppropriateVital SignsTemp Pulse Resp BP Pulse Ox98 F 58 L 18 141/68 H 12:15 04/18/17 12:15 04/18/17 12:15 04/18/17 12:15 04/18/17 12:15Oxygen Delivery Method Room AirWeight: 91.535 kgBody Mass Index (BMI) 30.7Intake and Output for Last 24 HoursIntake Total 1240 / 1240Balance 1240 / 1240Laboratory Tests Past 24 HrsWBC 7.5RBC 4.56 LHgb 14.6Hct 42.0MCV 92.1MCH 32.0MCHC 34.8RDW 12.3RDW Differential 40.5Plt Count 203MPV 9.6Assessment/PlanActive and Suspected Problems (Last Updated 04/10/17 @ 14:27 by Sangita Barclay)Paresthesia and pain of right extremity (Acute)Stroke (Acute)The patient is a 82 year old CM with PMH HTN, Left ICA stenosis (70-99%), hypothyroidismadmitted with right sided numbness. Per patient he has sudden onset right sided numbnessyesterday (04/17/17) around 2:30 pm and was feeling as if his right side was heavy, haddifficulty in walking, symptoms lasted for about 2-3 hours before completely resolving, patienthas been scheduled for left CEA tomorrow Saturday (04/19/17) by Dr. Bennett as outpatient prior tothis event due to 70-99% stenosis of the left ICA, carotid ultrasound done in the ED followingthis admission showed proximal Left ICA high velocities of 345/123 cm/sec with a stenosis inthe range of > 70%, MRI brain done on admission showed small left precentral thrombo-embolicacute infarct, MRA head/neck reported to show some Left M2 irregularities and left ICA 70%stenosis. At present patient denies any neurological symptoms, MAST, visual disturbances, focalmotor weakness or sensory loss. Per patient he has been on ASA and Plavix for the past year orso, started by Cardiology. Has been on Pravastatin since Lipitor caused him to have depressionper patient. Patient lives with , denies any frequent falls, does not use cane or walker toambulate, does not need any assistance for his ADLsImpressionLeft MCA acute small athero-embolic stroke possibly secondary to Severe Left ICA stenosisPlan-On ASA/Plavix-Change Pravastatin to Lipitor to 40 mg PO q hs-MRI images reviewed- small acute athero-embolic left MCA lexinm-XQO-63-Recommend TTE, and Ody3y-Mkcpbng for Left CEA tomorrow (04/19/17) by Dr. Bennett. Discussed the same with Dr. Bennett andDr. Gastelum and agree with Left CEA.-Avoid hypotension prior to the surgery-GI/VT prophylaxis-Follow up with Neurology as outpatient in 2-3 weeks after discharge-Please call with questions if any-Thank you for allowing us to participate in patient's care and managementI spent 60 minutes taking history, doing physical examination, reviewing medical records,coordinating care and counseling the patient.Code VisitInpatient E AND M: [id number] Init Hosp L304/27/17 2314 <Electronically signed by Papa Mercado MD>Date Papa Mercado [facility] [place] Signature (if applicable): Date CC: Naif Mercado MD; Julian Elizondo MD; Vincent Bennett MD Signed 12 LEAD ELECTROCARDIOGRAM Observed: 04/24/2017 Status: F Source: [place] 11:19 AM [facility] [place] RE[facility]ITORY [facility] [id number] [facility] [place], [place] [id number] Lead EKG004/19/17 0515#: [id number] Acct: [id number]: BREE MENDEZ Rep #: [id number]: [birth year] From: Greg Arreola Dr: Kimberly Gastelum Status: DIS INOrdering Dr: Roseann Gastelum DO Date: 04/19/17Location: PCU Sex: M CAdmitted: 04/17/17Test Reason : AM EKGBlood Pressure : / mmHGVent. Rate : 054 BPM Atrial Rate : 054 BPMP-R Int : 228 ms QRS Dur : 092 msQT Int : 412 ms P-R-T Axes : 057 023 063 degreesQTc Int : 390 msSinus bradycardia with 1st degree A-V blockConfirmed by GREG DAVIS MD ([id number]), film or videotape editor NICKOLAS CAR ([id number]) on 11:19:43 AMReferred By: DR GASTELUM Confirmed By:GREG DAVIS MD 1119Date Greg Davis MDCC: Julian Eliznodo MD Signed 12 LEAD ELECTROCARDIOGRAM Observed: 04/22/2017 Status: F Source: [place] 3:24 PM [facility] REPOSITORY [facility] [address] [place], [place] [id number] Lead EKG004/17/17 1512MR#: [id number] Acct: [id number]: BREE EMNDEZ Rep #: [id number]: [birth year] From: Greg Davis MDAttending Dr: Kimberly Gastelum Status: DIS INOrdering Dr: Jai Cosme MD Date: 04/17/17Location: [facility] Sex: M CAdmitted: 04/17/17Test Reason :Blood Pressure : / mmHGVent. Rate : 052 BPM Atrial Rate : 052 BPMP-R Int : 220 ms QRS Dur : 080 msQT Int : 400 ms P -R-T Axes : 046 036 068 degreesQTc Int : 372 msSinus bradycardia with 1st degree A-V blockOtherwise normal ECGConfirmed by GREG DAVIS MD ([id number]), film or videotape editor NICKOLAS CAR ([id number]) on 04/22/2017 3:23:54 PMReferred By: BA Confirmed By :GREG DAVIS MD04/22/17 1523Date Greg Davis MDCC: Julian Elizondo MD Signed DISCHARGE SUMMARY Observed: 04/20/2017 Status: F Source: [place] 1:12 PM [facility] [place] RE[facility]ITORY [facility] [id number] [id number] Wemcviu11/20/18 1252MR#: [id number] Acct: [id number]: BREE MENDEZ Celestino Rep #: [id number]: 1935 82 From: Roseann Gastelum DOPCP: Julian Elizondo MD Status: ADM IN YLocation: [facility] [id number] Date and Diagnosis - Problem ListPatient Problems:Active and Suspected Problems (Last Updated @ 14:27 by Sangita Barclay)Paresthesia and pain of right extremity (Acute)Stroke (Acute)Date of Admission: 04/17/17Date of Discharge: 04/20/17- Primary Discharge DiagnosisActive and Suspected Problems (Last Updated 04/10/17 @ 14:27 by Sangita Barclay)Paresthesia and pain of right extremity (Acute)Ischemic CVA left postcentral gyrus - likely embolic due to irreg plaque in the L Internalcarotid (Acute)S/ P Left CEA 04/[address] Vincent BennettHyponatremia - resolved- Secondary Discharge DiagnosisChronic Problems (Last Updated 04/10/17 @ 14:27 by Sangita Barclay)L Carotid stenosis (Chronic)HTN (hypertension) (Chronic)CRF stage IIIHypothyroidismHLDBPHHospital Course and TreatmentImaging Results:Clinical Impression(s) from Imaging StudiesBrain CT 04/17/17 15:00IMPRESSION:Chronic involutional changes of the brain.Electronically Signed:Adonis Zeng MD at 15:55 ESTTel [phone], Service support , Aygoy X-Ray 04/17/17 15:00IMPRESSION:Hyperinflation. No acute abnormality is seen.Electronically Signed:Adonis Zeng MD at 15:24 ESTTel [phone], Service support , Alzps MRI 04/18/17 19:48IMPRESSION:1. Small isolated area of acute ischemic infarct in the cortex of the leftpostcentral gyrus.2. The rest of the brain parenchyma is normal.Electronically Signed:Nishant Quintero MD at 8:25 ESTTel , Service support , Nhqc MRA 04/18/17 19:54IMPRESSION:1. Proximally 70% irregular stenosis of the left proximal internal carotidartery near the distal end of the left internal carotid artery bulb.2. Widely patent left common carotid artery, left common carotidbifurcation and left internal carotid artery bulb.3. Normal right common carotid artery, right common carotid bifurcationand right internal carotid artery.4. Normal cervical segments of both vertebral arteries, the right isslightly more dominant.Electronically Signed: Nishant Quintero MD at 8:44 ESTTel , Service support , Jnqi MRA 04/18/17 19:55IMPRESSION:1. Abnormal MRA showing irregular narrowing involving two M2 segments ofthe left middle cerebral artery. They are suspicious for recanalizedemboli.2. The remainder of the intracranial circulation is normal.Electronically Signed:Nishant Quintero MD at 8:40 ESTTel , Service support , Gkdbbgbvde Results - last 24 hrWBC 8.2RBC 4.46 LHgb 14.1Hct 41.8MCV 93.7MCH 31.6MCHC 33.7WBCRBCHgbHctMCVMCHMCHCRDWRDW DifferentialPlt CountMPVSodiumPotassiumChlorideECHO -ejection fraction 65% with +1 eccentric pulmonary valve insufficiencyDr. Vincent Bennett-vascular surgeryDrKatiuska Mercado-neurologyOperations: - - Left carotid endarterectomy 04/19/[address] Vincent Boschrocedures: 2-D EchocardiogramSummary of Care Provided:Patient is an 82-year-old male with a history of hypertension, hypothyroidism, chronic renalfailure stage III and carotid stenosis who [facility]2017 complaining of numbness and tingling in his right arm. Symptoms resolvedspontaneously after a few hours. He awoke with the symptoms in the morning. He had a knownhistory of a 70-80% stenosis of the left carotid artery. He was scheduled for carotidendarterectomy with Dr. Vincent Bennett on 04/19/2017. Vital signs at presentation to theemergency room were temp 97.5, pulse rate 57, blood pressure 154/75, 99% on room air. CBC wasnormal. Sodium was mildly decreased at 133 and the BUN was 22 with a creatinine of 1.48. Thisis within his baseline. GFR is 50. CT brain showed chronic involutional changes only. He wasadmitted to the hospital and MRI and MRA of the head and neck has been ordered. Dr. Rai consulted. He had been taking both aspirin and Plavix as an outpatient and thesemedications were continued. He was also on pravastatin. Echocardiogram was ordered and showeda 65% EF with no wall motion abnormalities and no significant valvular heart disease. MRI ofthe brain showed a small isolated area of acute ischemic infarct in the cortex of the leftpostcentral gyrus. MRA of the neck showed a 70% irregular stenosis of the left proximalinternal carotid artery near the distal end of the left internal carotid artery bulb. Therewas a widely patent left common carotid artery, left common carotid bifurcation and leftinternal carotid artery bulb. The right common carotid was normal and so was the rightinternal carotid artery. MRA of the head showed irregular narrowing involving two M2 segmentsof the left middle cerebral artery suspicious for recanalized emboli. He was seen inconsultation by Dr. Avendano who recommended that Dr. Bennett proceed with the planned L CEA on04/19. He had no intraoperative complications and the post operative course was unremarkable.04/20/2017 he was afebrile with stable vital signs. Pulse rate was 53 and the blood pressurewas 116/65. Respiratory rate was 18 and he was 95-98% saturated on room air. CBC on the dateof discharge was stable. BMP revealed a very mild increase in creatinine to 1.[address] Bennett recommended discharge. He will follow up with Dr. Bennett in the office in 10 days.He will follow up with Dr. Avendano in 2-3 weeks. Will continue ASA and Plavix and statin.He was given a requisition to obtain a BMP on 04/25 and the results will be sent to Dr. Elizondo.PE:alert and oriented X3, pleasant and in no apparent distressLungs - CTAHeart regular, no gallop and no rubTelemetry - SB with no ectopyno peripheral edemaThis note was generated with InSample dictation software. It may contain incorrect words,spelling, and punctuation that were not noted in checking the note before signing.Discharge Diet: Light diet - advance as tolerated - if you have questions about your dietinstructions, please talk to you doctor.Discharge Activity: May Not Drive - for 1 week or while taking narcotic pain medicine.May shower in (days) : 4 - May shower on SaturdayCall your doctor if your incision/area has: Continuous Slow Oozing, Sudden Increased Bleeding,Increased Pain/ Swelling, Increased Redness, Foul Smelling DischargeCall your doctor if you observe: Fever of 101 or HigherSuture Line Care: Avoid Pulling/Pushing, Avoid Pinching/BendingAdditional Dressing/Incision Instructions:: You may apply a dry gauze dressing as needed toprotect the incision from clothing. You may remove the Steri-Strips in 1 weekHome Medications: Medications to take at DischargeOlmesartan Medoxomil [Benicar] 40 mg PO DAILY aspirin 81 mg tablet,delayed release 81 mg PO QHS 04/10/17clopidogrel 75 mg tablet 75 mg PO QHS 04/10/17coenzyme Q10 200 mg capsule 200 mg PO DAILY 04/10/17levothyroxine 50 mcg tablet 75 mcg PO DAILY tab 04/10/17omega 7-fxq-hih-fish oil 1,000 mg (120 mg- 180 mg) capsule 1,000 mg PO DAILY 04/10/17tamsulosin 0.4 mg capsule 0.4 mg PO DAILY 04/10/17Cyanocobalamin (Vitamin B-12) [Vitamin B-12] 1,000 mcg SL DAILY 04/15/17Pravastatin [Pravachol] 20 mg PO QHS 04/15/17Hydrocodone Bitart/Apap 5- 325 [Reading 5MG-325MG] 1 tablet PO Q6H PRN PRN #8 tablet 04/19/17Acetaminophen [ Tylenol Tablet] 650 mg PO Q4H PRN PRN tablet 04/20/17Aspirin [Aspirin, Baby] 81 mg PO DAILY@0800 tab.chew 04/20/17Pantoprazole Sodium [Protonix] 20 mg PO DAILY tablet 04/20/17ollowing Prescrptions Were Given to Patient:Hydrocodone Bitart/Apap 5- 325 [Reading 5MG-325MG] 1 tablet PO Q6H PRN PRN #8 tabletPRN Reason: PainPrimary Care Physician:Julian Elizondo MD [Primary Care Provider] -Please Follow Up With: Vincent Bennett MD - [phone]: Call to make an appointment to be seen in about 10 days.Disposition: HomeMinutes spent on discharge:: 35Patient Condition :: GoodMeaningful Use InfoMeaningful Use Diagnoses (Choose all that apply): Ischemic CVA- CVA TherapyAssessed for PT,OT and/or ST?: Yes- Ischemic StrokeAntithrombotic order at d/c?: YesDx of Atrial fib/flutter?: NoAnticoagulant at discharge?: NoReason anticoagulant not ordered: Treatment not IndicatedStatins at discharge?: YesPrimary Dx Acute Ischemic CVA?: YesIV tPA ordered during stay?: NoReason IV t-PA not ordered: Treatment not IndicatedCode VisitInpatient E AND M: 57063 Disch Hosp04/20/17 1312 <Electronically signed by Roseann Gastelum DO>Date Roseann Gastelum DOCosigner Signature (if applicable): Date CC: Naif Mercado MD; Kimberly Gastelum; Julian Elizondo MD; Vincent Bennett MD Signed DISCHARGE INSTRUCTION Observed: 04/20/2017 Status: F Source: [place] 12:52 PM [facility] [place] [facility] [id number] [id number] for Home/Discharge Ghlfrazjlmpe03/19/18 0704MR #: [id number] Acct: [id number]: BREE MENDEZ Celestino Rep #: [id number]: 1935 82 From: Vincent Bennett MDPCP: Julian Elizondo MD Status: ADM INADDENDUM by Kimberly Gastelum on 04/20/17 at 1252Follow up with Dr. Mercado in 2-3 weeks in the neurology office.BMP req given for 04/25 due to mild increase in the creat post CEA.Date Roseann Gastelum DOcc: Naif Mercado MD; Julian Elizondo MD; Vincent Bennett MD * SignedDischarge Diet: Light diet - advance as tolerated - if you have questions about your dietinstructions, please talk to you doctor.Discharge Activity: May Not Drive - for 1 week or while taking narcotic pain medicine.May shower in (days): 4 - May shower on SaturdayLifting Restrictions: 10 poundsCall your doctor if your incision/area has: Continuous Slow Oozing, Sudden Increased Bleeding,Increased Pain/ Swelling, Increased Redness, Foul Smelling DischargeCall your doctor if you observe: Fever of 101 or HigherSuture Line Care: Avoid Pulling/Pushing, Avoid Pinching/BendingAdditional Dressing/Incision Instructions:: You may apply a dry gauze dressing as needed toprotect the incision from clothing. You may remove the Steri-Strips in 1 weekAllergies/Adverse Reactions:AllergiesSulfa (Sulfonamide Antibiotics) Allergy (Verified 04/17/17 13:55)ItchingMedications to take at DischargeOlmesartan Medoxomil [Benicar] 40 mg PO DAILY 03/10/16aspirin 81 mg tablet,delayed release 81 mg PO QHS 04/10/17clopidogrel 75 mg tablet 75 mg PO QHS 04/10/17coenzyme Q10 200 mg capsule 200 mg PO DAILY 04/10/17levothyroxine 50 mcg tablet 75 mcg PO DAILY tab omega 2-ipu-qzq-fish oil 1,000 mg (120 mg-180 mg) capsule 1,000 mg PO DAILY 04/10/17tamsulosin 0.4 mg capsule 0.4 mg PO DAILY 04/10/17Cyanocobalamin ( Vitamin B-12) [Vitamin B-12] 1,000 mcg SL DAILY 04/15/17Pravastatin [Pravachol] 20 mg PO QHS 04/15/17Hydrocodone Bitart/Apap 5-325 [Reading 5MG-325MG] 1 tablet PO Q6H PRN PRN #8 tablet 04/19/17The following prescriptions were given:Hydrocodone Bitart/Apap 5 -325 [Reading 5MG-325MG] 1 tablet PO Q6H PRN PRN #8 tabletPRN Reason: PainPrimary Care Physician:Julian Elizondo MD [Primary Care Provider] -Please Follow Up With: Vincent Bennett MD - [phone]: Call to make an appointment to be seen in about 10 days.04/20/17 1054 <Electronically signed by Vincent Bennett MD& gt;Date Vincent Bennett MDCC: Naif Mercado MD; Julian Elizondo MD; Vincent Bennett MD BEDSIDE GLUCOSE Collected: 04/20/2017 Status: F Source: [place] 11:47 AM [facility] [place] REPOSITORY TYPE CODE TESTS RESULT OUT OF REFERENCE UNITS RANGE LAB L501.080 High 70-110 mg/dL BEDSIDE 158 GLU Result Comment: MANAGEMENT OF PATIENT CARE PER NURSING PROTOCOL Performed By: #### L501.080 ####[facility] LaboratoryPoint of [id number] [place] [address] OPERATIVE REPORT Observed: 04/20/2017 Status: F Source: [place] 10:54 AM [facility] [place] REPOSITORY [facility]ITALMedical Records [id number] [address] [id number] Wrpebk84/19/18 0659MR#: [id number] Acct: [id number]: BREE MENDEZ Rep #: [id number]: 1935 82 From: Vincent Bennett MDPCP: Julian Elizondo MD Status: ADM IN YLocation: PCU [id number] List(1) StrokeStatus: AcuteQualifiers:CVA mechanism: stenosis Precerebral and cerebral artery: carotid artery Laterality ofaffected vessel: left Qualified Code(s): I63.232 - Cerebral infarction due to unspecifiedocclusion or stenosis of left carotid arteries(2) Carotid stenosisStatus: ChronicQualifiers:Report of OperationDate of Procedure: 04/19/17Pre-Operative Diagnosis: Left hemispheric stroke with critical stenosis left internal carotidarteryPost-Operative Diagnosis: SameSurgery/Procedure Performed :: Left radial arterial line placement. Left carotid endarterectomywith bovine patch angioplastyDescription of Surgical Findings::Timeout and informed consent was obtained. At the bedside Christian test performed demonstratingadequate ulnar flow. The left wrist was gently extended. It was prepped with Betadine. 1%lidocaine was used as a local anesthetic. A 20-gauge aero kit Angiocath was inserted into thevessel and with Seldinger wire technique advanced. It was secured skin with 3-0 silk. OpSitedressing was applied followed by Hilary wrap. Patient tired procedure well no apparentcomplication and hand was viable and good waveform was obtained.82-year -old gentleman was taken the operative. He was placed supine on the table. Heunderwent general endotracheal intubation anesthesia. Ancef 2 g are given intravenouslypreoperatively. The left neck was sterilely prepped and draped. An oblique incision was madealong the anterior border the sternocleidomastoid. Sharp dissection carried down through thesubstance tissue. The platysma was incised. The sternocleidomastoid was reflected laterally.The internal jugular vein was reflected laterally. The facial vein was secured with 3-0 Vicrylligatures. The carotid bulb was identified dissection was formed down along the commoncarotid. Circumferential control was obtained with a Soriano tie of Dacron tape which wasloosely placed. At this point the patient received 10,000 units of heparin based upon bodyweight. Sharp dissection was used to identify the internal jugular carotid. The vagus nervecurled around the anterior surface and had to be carefully dissected free. Then a Dacron tapewas placed around the internal carotid and Elise tourniquet placed. Circumferential controlwas obtained of the external carotid and a vessel loop was placed. After adequate circlingtime a Granado clamp was placed on the internal carotid a peripheral vascular DeBakey on thecommon carotid and on the external carotid 11 blade was used to make an arteriotomy which wasextended with Soriano scissors a #10 USCI style shunt was placed cephalad and proximally. Anendarterectomy was performed of the layer of the external elastic lamina. The plaque wassharply transected proximally and then the plaque had a significant posterior component thatextended cephalad. Able to clean the get the plaque removed. I performed an inversionendarterectomy of the external carotid. Further debris was carefully removed. A singletacking suture of 7-0 Prolene was used cephalad. Then a 0.8 x 80 mm bovine patch was shaped toform and a patch angioplasty created with a running 6-0 Prolene. Prior to completion thevessel was irrigated the shunt was removed there was good antegrade retrograde flow the patchangioplasty completed a couple repair sutures of 7-0 Prolene required. There appeared to begood flow. Cerebral oximetry remained very stable throughout the entire procedure.The patient then in aliquots received a total 30 mg of protamine. The patient had beendiffusely oozy throughout the procedure because of his preoperative anticoagulation. I thenused FloSeal. I approximated the platysma with a running 3-0 Vicryl. The skin edges wereapproximated running septic or 5-0 Vicryl. The dheeraj-incisional areas anesthetized with 10 ccof 0.5% Marcaine. Steri-Strips Telfa tape dressings applied. Sponge instrument and needlecounts were reported to the surgeon to be correct. Blood loss was approximately 300 cc. Hetolerated procedure well and appeared to awake neurologically intact. He was taken to therecovery area in satisfactory condition without apparent complication.Specimens plaque. Drains none. Blood loss 300 cc.Vincent Bennett M.D., F.A.C.S.Type of Anesthesia:: GeneralAnesthesiologist: Baljit Victor04/20/17 1054 <Electronically signed by Vincent Bennett MD>Date Vincent Bennett [facility]: Naif Mercado MD; Julian Elizondo MD; Vincent Bennett MD Signed CBC-COMPLETE BLOOD CNT Collected: 04/20/2017 Status: F Source: [place] NO DIFF 5:19 AM [facility] REPOSITORY TYPE CODE TESTS RESULT OUT OF RANGE REFERENCE UNITS LAB L100.1000 Normal 4.4-11.0 K/mm3 WBC 8.2 LAB L100.1200 Low 4.6-6.2 M/mm3 RBC 4.46 LAB L100.1300 Normal 13.0-16.5 g/dl HGB 14.1 LAB L100.1400 Normal 40-54 % HCT 41.8 LAB L100.1500 Normal 80-94 fL MCV 93.7 LAB L100.1600 Normal 27.0-32.0 pg MCH 31.6 LAB L100.1700 Normal 32-36 g/gl MCHC 33.7 LAB L100.1810 Normal 11.6-14.6 % RDW 12.5 CV LAB L100.1820 Normal 35.1-43.9 fl RDW 41.9 SD LAB L100.1900 Normal 150-450 K/mm3 PLT 199 LAB L100.2000 Normal 6.2-12.0 fl MPV 9.2 Performed By: #### L100.0500 ####[facility] [address] [place], [place], [address] BASIC METABOLIC Collected: 04/20/2017 Status: F Source: [place] PROFILE (BMP) 5:19 AM [facility] REPOSITORY TYPE CODE TESTS RESULT OUT OF RANGE REFERENCE UNITS LAB L501.0100 High 70-110 mg/dL GLU 112 Result Comment: Fasting Glucose result from 110 to <126 mg/dLsuggests IMPAIRED HOMEOSTASIS per A.D.A. criteria. LAB L501.1000 Normal 7-18 mg/dL BUN 17 LAB L501.1100 High 0.70-1.30 mg/dL CREAT,SERUM 1.57 Result Comment: The validity of the calculated GFR AND GFRAA in patients over70 years has not been determined. Clinical correlation isessential. LAB L501.1110 Low >60 mL/min EST GFR 45 Result Comment: Non- GFR Calc LAB L501.1115 Low >60 mL/min EST GFR - AA 55 Result Comment: GFR Calc LAB L501.1255 Normal ml/min Estimated 36.31 CRCL LAB L501.1300 Normal 10-20 RATIO BUN/CRE 10.8 LAB L501.2200 Normal 8.5-10 mg/dL CA 8.6 .1 LAB L501.5300 Normal 136-14 mmol/L NA 137 5 LAB L501.5600 Normal 3.5-5. mmol/L K 4.6 1 LAB L501.5900 Normal 98-107 mmol/L CL 99 LAB L501.6100 Normal 21.0-3 mmol/L CO2 31.0 2.0 LAB L501.6200 Normal 5-15 GAP 7 Performed By: #### L500.2500 ####[facility] [address] [place], [place], [address] BEDSIDE GLUCOSE Collected: 04/19/2017 Status: F Source: [place] 3:09 PM [facility] REPOSITORY TYPE CODE TESTS RESULT OUT OF REFERENCE UNITS RANGE LAB L501.080 High 70-110 mg/dL BEDSIDE 111 GLU Result Comment: MANAGEMENT OF PATIENT CARE PER NURSING PROTOCOL Performed By: #### L501.080 ####[facility] LaboratoryPoint of [address] [place], [place] [address] BEDSIDE GLUCOSE Collected: 04/19/2017 Status: F Source: [place] 5:58 AM [facility] REPOSITORY TYPE CODE TESTS RESULT OUT OF REFERENCE UNITS RANGE LAB L501.080 High 70-110 mg/dL BEDSIDE 127 GLU Result Comment: MANAGEMENT OF PATIENT CARE PER NURSING PROTOCOL Performed By: #### L501.080 ####[facility] LaboratoryPoint of [address] [place], [place] [address] CBC-COMPLETE BLOOD CNT Collected: 04/19/2017 Status: F Source: [place] NO DIFF 4:54 AM [facility] REPOSITORY TYPE CODE TESTS RESULT OUT OF RANGE REFERENCE UNITS LAB L100.1000 Normal 4.4-11.0 K/mm3 WBC 8.9 LAB L100.1200 Normal 4.6-6.2 M/mm3 RBC 4.63 LAB L100.1300 Normal 13.0-16.5 g/dl HGB 14.7 LAB L100.1400 Normal 40-54 % HCT 41.8 LAB L100.1500 Normal 80-94 fL MCV 90.3 LAB L100.1600 Normal 27.0-32.0 pg MCH 31.7 LAB L100.1700 Normal 32-36 g/gl MCHC 35.2 LAB L100.1810 Normal 11.6-14.6 % RDW 12.0 CV LAB L100.1820 Normal 35.1-43.9 fl RDW 39.2 SD LAB L100.1900 Normal 150-450 K/mm3 PLT 193 LAB L100.2000 Normal 6.2-12.0 fl MPV 9.2 Performed By: #### L100.0500 ####[facility] [address] [place], [place], [id number] BASIC METABOLIC Collected: 04/19/2017 Status: F Source: [place] PROFILE (BMP) 4:54 AM [facility] REPOSITORY TYPE CODE TESTS RESULT OUT OF RANGE REFERENCE UNITS LAB L501.0100 Normal 70-110 mg/dL GLU 104 LAB L501.1000 High 7-18 mg/dL BUN 19 LAB L501.1100 High 0.70-1.30 mg/dL 1.44 CREAT,SERUM Result Comment: The validity of the calculated GFR AND GFRAA in patients over70 years has not been determined. Clinical correlation isessential. LAB L501.1110 Low >60 mL/min EST GFR 50 Result Comment: Non- GFR Calc LAB L501.1115 Normal >60 mL/min EST GFR - 61 AA Result Comment: GFR Calc LAB L501.1255 Normal ml/min Estimated 39.58 CRCL LAB L501.1300 Normal 10-20 RATIO BUN/CRE 13.2 LAB L501.2200 Normal 8.5-10 mg/dL CA 8.5 .1 LAB L501.5300 Low 136-14 mmol/L NA 132 5 LAB L501.5600 Normal 3.5-5. mmol/L K 4.4 1 LAB L501.5900 Normal 98-107 mmol/L CL 99 LAB L501.6100 Normal 21.0-3 mmol/L CO2 24.0 2.0 LAB L501.6200 Normal 5-15 GAP 9 Performed By: #### L500.2500 ####[facility] [address] [place], [address] PLAQUE Observed: 04/19/2017 Status: F Source: [place] 12:00 AM [facility] REPOSITORY Patient: BREE MENDEZ : 1935 (82/M) Acct Num: [id number] Phys: Kimberly Gastelum Unit Num: [id number] Loc: [facility] [id number] Specimen: [id number] Received: 04/19/171413 Spec Type: PLAQUE TISSUES TISSUES: PLAQUE GROSS DESCRIPTION Received in fixative is one container labeled with the patient's name and designated carotid plaque. The specimen consists of a previously opened tubular piece of paulino- yellow indurated tissue measuring 4 cm in length and 0.8 cmin diameter. Sections show the lumen is focally almost obliterated. The entirespecimen is submitted in one cassette. / KARTHIK:ariana 04/19/17 TC:5 CPT: 50070 HEADER OPERATION: Carotid endarterectomy with patchy angioplasty PRE-OP DIAGNOSIS: Carotid stenosis TISSUE SUBMITTED: Carotid plaque MICROSCOPIC DIAGNOSIS Carotid plaque, endarterectomy: Atherosclerotic tissue with focal calcification (plaque). KARTHIK:ariana 04/22/17 Signed _ Tesfaye Badillo 04/22/17 <signature on file> Performed By: #### PPLAQ ####[facility] [address] [place], [address] CONSULTATION Observed: 04/18/2017 Status: F Source: [place] 3:39 PM [facility] [place] [facility]ORY [facility] [id number] [id number]/18/18 1519#: [id number] Acct: [id number]: BREE MENDEZ Rep #: [id number]: [birth year] 82 From: Veronica Rodrigues PA-CPCP: Julian Elizondo MD Status: ADM IN YLocation: [facility] [id number] List(1) Carotid stenosisStatus: ChronicQualifiers:Reason for ConsultDate of Consultation: 04/18/17Reason for Consultation: Carotid stenosisHistory of Present Illness:The patient is a 82 year old M who presented to the ED with complaint of heaviness and numbnessof the right upper extremity. He also noted difficulty with balance and trouble walking.Patient has known left carotid stenosis. He is scheduled to undergo a left carotidendarterectomy tomorrow, 04/19, with Dr. Bennett. At present patient notes currently his symptomshave resolved. He denies numbness and tingling of the upper and lower extremities, slurredspeech, difficulty with walking, syncope, dizziness, lightheadedness. Patient does note onoccasion his legs feel tingly, which he attributes to his blood thinners. Patient had aproximal Left ICA with high velocities of 345/123 cm/sec with a stenosis in the range of >70%,MRI brain done on admission showed small left precentral thrombo-embolic acute infarct, MRAhead/neck reported to show some Left M2 irregularities and left ICA 70% stenosis. Patient iscurrently maintained on daily aspirin and Plavix.Patient's previous history per Dr. Bennett as an outpatient: BREE MENDEZ, is a 82 M who presents to the office today for surgical consultation regardingextracranial carotid artery occlusive disease. The patient states that a full year ago [facility]. He had jaw pain chest pain. He had a stresstest that was not remarkable. On April 25, 2016 he had carotid duplex imaging obtainedbecause he had carotid bruits. Peak systolic velocity within the right distal internal carotidwas 148 cm/s felt to be consistent with less than 50% stenosis but probably is in the range of50-69% stenosis. On the left however peak systolic velocity was 412 cm/s with an end-diastolicvelocity of 125. This was felt to be consistent with greater than 70% stenosis and actuallybased upon the current findings very likely could be greater than 80% stenosis. The patienthowever fully aware of the situation elected not to pursue recommended referral and treatmentof his extracranial carotid artery occlusive disease. More recently January 28, 2017 at [facility] he had an echocardiogram. This demonstrates an ejection fraction of65%. Some mild focal aortic valve calcification. It was again recommended to him that he haveconsultation regarding his carotids. He appears now in evaluation.The patient notes that he has had some problems with leg pain. He is on Pravachol he stoppedthat temporarily. Then he thought some of his discomfort was due to clopidogrel so he stoppedthat. He tried to increase his aspirin from 81 mg to 325 mg but he did not tolerate thatcomplaining of fiery chest discomfort. Unclear whether this could have been reflux. He doeshave a remote history of peptic ulcer disease.Fortunately he is currently back on his clopidogrel and atorvastatin and low-dose aspirin.He does state that he goes from a sitting position to a standing position that he does getlight headed. He denies any previous history of TIA or CVA. He denies any speech deficit.There has been no focal motor or sensory loss.Past Medical HistoryPast Medical History (Chronic Problems):Chronic Problems (Last Updated 04/10/17 @ 14:27 by Sangita Barclay) Carotid stenosis (Chronic)HTN (hypertension) (Chronic)AllergiesSulfa (Sulfonamide Antibiotics) Allergy (Verified 04/17/17 13:55)ItchingHome Medications: Ambulatory OrdersMedication Instructions RecordedOlmesartan Medoxomil [Benicar] 40 mg PO DAILY 03/10/16aspirin 81 mg tablet,delayed 81 mg PO QHS 04/10/17releaseclopidogrel 75 mg tablet 75 mg PO QHS 04/10/17urgical History: tonsillectomyPsychiatric History: No pertinent psych hxLives: Spouse/ Significant OtherSmoking Status: Never smokerTobacco Use: Non-smokerAlcohol: NoneDrugs: None- *Family History MaternalFamily History:Family History (Last Updated 04/10/17 @ 14:27 by Sangita Barclay)BrotherHeart diseaseHypertensionSisterBreast cancerHistory Items: No pertinent history PaternalFamily History:Family History (Last Updated 04/10/17 @ 14:27 by Sangita Barclay)BrotherHeart diseaseHypertensionSisterBreast cancerHistory Items: Heart DiseaseReview of SystemsConstitutional: Denies: Chills, Fever, Weight ChangeEyes: Denies: Double vision, Vision ChangeHEENT: Denies: Head Aches, Sinus Congestion , Sinus DrainageCardiovascular: Denies: Chest Pain, PalpitationsRespiratory: Denies: Cough, Shortness of breath at rest, Sputum productionGastrointestinal: Denies: Abdominal Pain, Nausea, VomitingGenitourinary: Denies: DysuriaMusculoskeletal: Denies: Joint Pain, Joint TendernessSkin: Denies: Rash, WoundsNeurological: Denies: Balance problems, Blurred vision, Double vision, Change in Speech,Slurred speech, Confusion, Focal weakness, Numbness, TinglingPsychiatric: Denies: Anxiety, Depression, Homicidal Ideations, Suicidal IdeationsHematologic/ Lymphatic: Reports: Easy Bruising, Easy BleedingPatient Problems:Active and Suspected Problems ( Last Updated 04/10/17 @ 14:27 by Sangita Barclay)Paresthesia and pain of right extremity (Acute)Stroke (Acute)- Physical ExamGeneral: Alert, Oriented x3, CooperativeHEENT: Atraumatic, PERRLA, EOMI, NormocephalicNeck: Carotid Bruits, BilateralLungs: Clear to auscultation, Normal air movementCardiovascular: Regular rate, Regular Rhythm, MurmurAbdomen: Bowel Sounds Present, Soft, Non TenderExtremities: No edema, Capillary Refill Less than 3 SecondsSkin: No rashes, No breakdownMusculoskeletal: No Tenderness to Palpation of Joints or ExtremitiesNeurological: Cranial nerves II-XII grossly intactPsych/Mental Status: Normal Affect, AppropriateVital SignsTemp Pulse Resp BP Pulse Ox98 F 58 L 18 141/68 H 12:15 04/18/17 12:15 04/18/17 12:15 04/18/17 12:15 04/18/17 12:15Oxygen Delivery Method Room AirWeight: 201 lb 12.802 ozBody Mass Index (BMI) 30.7Intake and Output for Last 24 HoursIntake Total 1240 / 1240Balance 1240 / 1240Laboratory Tests Past 24 HrsWBC 7.5Assessment/PlanActive and Suspected Problems (Last Updated 04/10/17 @ 14:27 by Sangita Barclay)Paresthesia and pain of right extremity (Acute)Stroke (Acute)I am following this patient in conjunction with Dr. Bennett.Impression: Left carotid stenosis. Left MCA strokePlan: Patient discussed with Dr. Bennett. Dr. Bennett and Dr. Mercado agree that patient isstable to proceed with left carotid endarterectomy tomorrow 04/19. Patient may continue hisanticoagulants today. NPO after midnight tonight. Patient, his and son have had theopportunity to ask and have questions answered. Patient verbally understands the risks versusbenefits. He is agreeable to proceed with the proposed procedure. 1539 <Electronically signed by Veronica Rodrigues PA-C>Date Veronica MARCELINOCCosigner Signature (if applicable): Date _CC: Naif Mercado MD; Julian Elizondo MD; Vincent Bennett MD Signed ECHO, COMPLETE W/ Observed: 04/18/2017 Status: F Source: [place] CONTRAST 3:12 PM [facility] [address] [place] [address]Htcb Complete W/ Wzyejhac42/18/18 0817MR#: [id number] Acct: [id number]: BREE MENDEZ Rep #: [id number]: 1935 82 From: Mina Saldana MDAttodilia Dr: Kimberly Gastelum Status: ADM INOrdering Dr: Ken George MD Date: 04/17/17Location: PCU Sex: M CAdmitted: 04/17/17Reason For Study: TIA/CVAProcedureThis was a 2D Doppler, Color Flow transthoracic echocardiogram. Exam performed portable inpatientroom.Left VentricleNormal size and thickness. The estimated ejection fraction is 65 % .Right VentricleNormal right ventricle.AtriaNormal left atrium. Normal right atrium.Mitral ValveThe mitral valve is structurally normal. No prolapse or stenosis seen. Trivial mitral valveinsufficiency.Tricuspid ValveTrivial tricuspid valve insufficiency.Aortic ValveAortic sclerosis, no stenosis.Pulmonic ValveMild (1+) eccentric pulmonic valve insufficiency.Great VesselsNot well visualized.Pericardium/PleuralNo pericardial effusion.MedicationDiluted definity 2ml given slow IV push to enhance endocardial definition.MMode/2D Measurements AND CalculationsLVIDd: 3.6 cm IVSd: 0.90 cm LVOT diam: 2.1 cmLVIDs: 2.4 cm LVPWd: 1.4 cm LVOT area: 3.5 [id number]: 3.7 cm FS: 35.2 % __Ao root diam: 3.1 cm LAV(MOD-bp): 76.2 mlLAV(MOD-bp) Indexed: 37.2 ml/m2 LA A4 area: 25.4 cm2LAV(MOD-sp2): 63.1 mlLAV(MOD-sp4): 88.7 ml ___RA A4 area: 13.5 [id number] MeasurementsMV dec time: 0.22 secDoppler Measurements AND CalculationsMV E max altaf: 78.3 cm/sec Lat Peak E' Altaf: 11.9 cm/sec Med Peak E' Altaf: 8.0 cm/secMV A max altaf: 96.0 cm/sec E/E' lat: 6.6 E/E' med: 9.8MV E/A: 0.82 MV V2 max: 109.8 cm/sec MV P1/2t max altaf: 111.7 cm/sec Ao V2 max: 221.5 cm/secMV max P.8 mmHg MV P1/2t: 88.9 msec Ao max P.7 mmHgMV V2 mean: 55.3 cm/sec MV dec slope: 368.0 cm/sec2 Ao V2 mean: 142.2 cm/secMV mean P.5 mmHg MVA(P1/2t): 2.5 cm2 Ao mean P.5 mmHgMV V2 VTI: 44.6 cm Ao V2 VTI : 43.6 cmMVA(VTI): 2.3 cm2 TODD(I,D): 2.3 cm2AVA(V,D): 2.0 cm2 ____LV V1 max: 126.4 cm/sec SV(LVOT): 100.8 ml TR max altaf: 263.4 cm/secLV V1 max P.4 mmHg TR max P.7 mmHgLV V1 mean P.8 mmHgLV V1 mean: 76.6 cm/secLV V1 VTI: 29.1 cmInterpretation SummaryThe estimated ejection fraction is 65 %.Mild (1+) eccentric pulmonic valve insufficiency.Technically difficult study Ordering Physician: Ken GeorgeReferring Physician: Vincent Bennett DPerformed By: Joe Chen RCS 04/18/17 1511Date Mina Saldana MDCC: Julian Elizondo MD; Ken George M.D. Date Dictated: 04/18/17 0817Date Transcribed: 151Transcriptionist:Signed 12 LEAD ELECTROCARDIOGRAM Observed: 04/18/2017 Status: F Source: [place] 1:09 PM [facility] REPOSITORY [facility]ITAL[facility] [address] [place] [address] [place]04/15/17 0930MR#: [id number] Acct: [id number]: BREE MENDEZ Rep #: [id number]: [birth year] From: Greg Davis MDAttending Dr: Vincent Bennett MD Status: PRE INOrdering Dr: Joe Tipton MD Date: 04/15/17Location: [facility] [place] Sex: M CAdmitted:Test Reason : Blood Pressure : / mmHGVent. Rate : 053 BPM Atrial Rate : 053 BPMP-R Int : 226 ms QRS Dur : 088 msQT Int : 392 ms P-R-T Axes : 031 030 054 degreesQTc Int : 367 msSinus bradycardia with 1st degree A-V blockOtherwise normal ECGConfirmed by SUSAN HUDSON, GREG ([id number]), film or videotape editor NICKOLAS CAR ([id number]) on 04/18/2017 1:09:29 PMReferred By: Vincent Bennett Confirmed By:GREG DAVIS MD04/18/17 1309Date Greg Davis MDCC: Julian Elizondo MD; Vincent Bennett MD Date Dictated: 04/15/17929Date Transcribed: 04/15/17929Transcriptionist:Signed CBC-COMPLETE BLOOD CNT Collected: 04/18/2017 Status: F Source: [place] NO DIFF 4:55 AM [facility] [place] REPOSITORY TYPE CODE TESTS RESULT OUT OF RANGE REFERENCE UNITS LAB L100.1000 Normal 4.4-11.0 K/mm3 WBC 7.5 LAB L100.1200 Low 4.6-6.2 M/mm3 RBC 4.56 LAB L100.1300 Normal 13.0-16.5 g/dl HGB 14.6 LAB L100.1400 Normal 40-54 % HCT 42.0 LAB L100.1500 Normal 80-94 fL MCV 92.1 LAB L100.1600 Normal 27.0-32.0 pg MCH 32.0 LAB L100.1700 Normal 32-36 g/gl MCHC 34.8 LAB L100.1810 Normal 11.6-14.6 % RDW 12.3 CV LAB L100.1820 Normal 35.1-43.9 fl RDW 40.5 SD LAB L100.1900 Normal 150-450 K/mm3 PLT 203 LAB L100.2000 Normal 6.2-12.0 fl MPV 9.6 Performed By: #### L100.0500 ####[facility] [address] [place], [place], [address] BASIC METABOLIC Collected: 04/18/2017 Status: F Source: [place] PROFILE (BMP) 4:55 AM [facility] [place] REPOSITORY TYPE CODE TESTS RESULT OUT OF RANGE REFERENCE UNITS LAB L501.0100 Normal 70-110 mg/dL GLU 89 LAB L501.1000 High 7-18 mg/dL BUN 21 LAB L501.1100 High 0.70-1.30 mg/dL 1.44 CREAT,SERUM Result Comment: The validity of the calculated GFR AND GFRAA in patients over70 years has not been determined. Clinical correlation isessential. LAB L501.1110 Low >60 mL/min EST GFR 50 Result Comment: Non- GFR Calc LAB L501.1115 Normal >60 mL/min EST GFR - 61 AA Result Comment: GFR Calc LAB L501.1255 Normal ml/min Estimated 39.58 CRCL LAB L501.1300 Normal 10-20 RATIO BUN/CRE 14.6 LAB L501.2200 Low 8.5-10 mg/dL CA 8.3 .1 LAB L501.5300 Normal 136-14 mmol/L NA 136 5 LAB L501.5600 Normal 3.5-5. mmol/L K 4.5 1 LAB L501.5900 Normal 98-107 mmol/L CL 103 LAB L501.6100 Normal 21.0-3 mmol/L CO2 25.0 2.0 LAB L501.6200 Normal 5-15 GAP 8 Performed By: #### L500.2500, L500.4100 ####[facility] [address] [place], [address] LIPID PROFILE Collected: 04/18/2017 Status: F Source: [place] 4:55 AM [facility] REPOSITORY TYPE CODE TESTS RESULT OUT OF RANGE REFERENCE UNITS LAB L501.4900 Normal 200 mg/dL CHOL 152 Result Comment: <200 mg/dL Desirable 200-240 mg/dL Borderline >240 mg/dL High Risk LAB L501.5000 Normal mg/dL TRIG 144 Result Comment: The drugs N-Acetylcysteine and Metamizole may falselydepress this assay.Serum Triglycerides Reference Interval Normal <150 mg/dL Borderline high 150 - 199 mg/ dL High 200 - 499 mg/dL Very High > or = 500 mg/dL LAB L501.6400 Normal mg/dL HDL 41 Result Comment: The drugs N-Acetylcysteine and Metamizole may falselydepress this assay. Reference Range HDL <40 mg/dL Low HDL Cholesterol HDL >or= 60 mg/dL High HDL Cholesterol LAB L501.6500 Normal 0-130 mg/dL LDL 82 LAB L501.6600 Normal 5-40 mg/dL VLDL 29 Performed By: #### L500.2500, L500.4100 ####[facility] [address] [place], [address] HEMOGLOBIN A1C Collected: 04/18/2017 Status: F Source: [place] 4:55 AM [facility] [place] REPOSITORY TYPE CODE TESTS RESULT OUT OF RANGE REFERENCE UNITS LAB L501.9985 Normal 4.2-6.3 % HGB 5.7 A1C Performed By: #### L501.9985 ####[facility] [address] [place], [address] HISTORY AND PHYSICAL Observed: 04/17/2017 Status: F Source: [place] EXAM 8:20 PM [facility] [place] REPOSITORY [facility]ITALMedical Records [address] [place], [place] [address]Ohigymd and Qlxhnqcg34/17/18 [facility]#: [id number] Acct: [id number]: BREE MENDEZ Rep #: [id number]: 1935 82 From: Ken George MDPCP: Julian Elizondo MD Status: ADM STEFF YLocation: [facility] [id number] List(1) Paresthesia and pain of right extremityStatus: Acute(2) Carotid stenosisStatus: ChronicQualifiers:(3) HTN (hypertension)Status: ChronicQualifiers:Hypertension type: essential hypertension Qualified Code(s): I10 - Essential (primary)hypertension(4) HypothyroidismStatus: AcuteQualifiers:Hypothyroidism type: acquired Qualified Code(s): E03.9 - Hypothyroidism, unspecifiedHistory of Present IllnessDate of Admission: Chief Complaint: Numbness, tingling of right arm.Patient is an 82 years old male presents with complaining of numbness and tingling ofright arm. He woke up with numbness of right shoulder, which extends to distal arm and handslater in the morning. Initially, he indicated that he had weakness, but he was able to movehis arm with ease, and there was no apparent loss of motor strength. Numbness and tingling aremostly in the posterior aspect of arm, and inner arm is spared. He had some numbness andtingling of lateral hand and palm. The symptoms resolved spontaneously after few hours. Hehas known left carotid artery stenosis, 70 to 80%. In fact, he was scheduled for surgery on04/19/17. He denied of previous stroke , and did not have any problems with right arm in thepast, although he reports past history of left arm pain with left jaw pain. He had cardiacwork-up at that time. He denied of any smoking, but uses chew tobacco.Past Medical HistoryPast Medical History (Chronic Problems):Chronic Problems (Last Updated 04/10/17 @ 14:27 by Sangita Barclay)Carotid stenosis (Chronic)HTN (hypertension) (Chronic)AllergiesSulfa (Sulfonamide Antibiotics) Allergy (Verified 04/17/17 13:55)ItchingHome Medications:Ambulatory OrdersMedication Instructions RecordedOlmesartan Medoxomil [Benicar] 40 mg PO DAILY 03/10/16aspirin 81 mg tablet,delayed 81 mg PO QHS 04/10/17releaseclopidogrel 75 mg tablet 75 mg PO QHS 04/10/17urgical History: tonsillectomyPsychiatric History: No pertinent psych hxSmoking Status: Never smoker- *Family History MaternalFamily History: Family History (Last Updated 04/10/17 @ 14:27 by Sangita Barclay)BrotherHeart diseaseHypertensionSisterBreast cancerHistory Items: No pertinent history PaternalFamily History:Family History (Last Updated 04/10/17 @ 14:27 by Sangita Barclay)BrotherHeart diseaseHypertensionSisterBreast cancerHistory Items: Heart DiseaseReview of SystemsComment: ROS: In general: Patient has been in good health, denied of any constitutionalsymptoms, such as weight loss, or gain, fever, chills, or night sweats. Patient denied of anyprofound fatigue. HEENT: Unremarkable. Patient denied of any dizziness, chronic headache,blurred vision, double vision, dry mouth, or nasal congestion. CV/respiratory: There is noexertional shortness of breath , chest pain, palpitation, wheezing, cough, claudication, coldfeet, or peripheral edema. GI: Patient denied any abdominal pain, nausea, vomiting, diarrhea,constipation, melena, or hematochezia. : Patient denied any significant urinary symptoms.Neurology: see HPI. There is no history of seizure as an adult. Psychological: Unremarkable.. Endocrine: Unremarkable. Musculoskeletal: Unremarkable.VTE Information - Inpt OnlyVTE Present on Admission: NoVTE Mechan Device Prophylaxis: SCD'sVTE Pharm Prophylaxis ordered?: YesPatient Problems:Active and Suspected Problems (Last Updated 04/10/17 @ 14:27 by Sangita Barclay) Paresthesia and pain of right extremity (Acute)Objective:In general, patient is a well- nourished and developed adult.HEENT: Head is atraumatic, and normocephalic. Pupils are equal, round, and reactive to lightand accommodations. Neck is supple. There is no lymphadenopathy, or thyromegaly. Oral mucosa ispink, and moist. There are no lesions.Heart: Auscultation is normal with regular rhythm and rate. There is no extra heart sounds, ormurmurs. S1 and S2 are present. Point of maximal impulse is not displaced.Lungs: Lungs are clear to auscultation bilaterally. There is no wheezing, or crackles.Abdomen: Abdominal wall is non-tender, and non-distended. There is no palpable mass ororganomegaly. Normoactive bowel sounds are present.Extremities : There is no cyanosis or clubbing. Peripheral pulses are palpable. There is noedema.Skin: There are no any skin discoloration or lesions.Neurological: CN II - XII are intact. Sensory and motor functions are grossly normal with noobvious deficit. Cerebellar functions are within normal range. Gait was not tested.- Physical ExamVital SignsTemp Pulse Resp BP Pulse Ox97.9 F 52 L 16 137/70 H 18:10 04/17/17 18: 18 04/17/17 18:10 04/17/17 18:11 04/17/17 18:10Oxygen Delivery Method Room AirWeight: 201 lb 12.8 ozBody Mass Index (BMI) 30.7Diagnostic DataBrain CT 04/17/17 15:00IMPRESSION:Chronic involutional changes of the brain.Electronically Signed:Adonis Zeng MD at 15:55 ESTTel [phone], Service support , Awjic X-Ray 04/17 15:00IMPRESSION:Hyperinflation. No acute abnormality is seen.Electronically Signed:Adonis Zeng MD at 15:24 ESTTel [phone], Service support , Nvtvjpgtqr/PlanActive and Suspected Problems ( Last Updated 04/10/17 @ 14:27 by Sangita Barclay)Paresthesia and pain of right extremity (Acute)Patient is an 82 years old male presents with complaining of numbness and tingling ofright arm. He woke up with numbness of right shoulder , which extends to distal arm and handslater in the morning. Initially, he indicated that he had weakness, but he was able to movehis arm with ease, and there was no apparent loss of motor strength. Numbness and tingling aremostly in the posterior aspect of arm, and inner arm is spared. He had some numbness andtingling of lateral hand and palm. The symptoms resolved spontaneously after few hours. Hehas known left carotid artery stenosis, 70 to 80%. In fact, he was scheduled for surgery on04/19/17. He denied of previous stroke, and did not have any problems with right arm in thepast, although he reports past history of left arm pain with left jaw pain. He had cardiacwork-up at that time. He denied of any smoking, but uses chew tobacco.# 1 Paresthesia of right arm.Resolved spontaneously. TIA vs. peripheral neuropathy. He was scheduled to haveendoarterectomy of left carotid artery stenosis. Consult Dr. Bennett.Neuro-check per protocol.Neurology consult.Set up MRI/MRA of head, neck and 2D-echocardiogram.#2 Essential hypertension.Maintain permissive hypertension. Hold oral antihypertensive for now.#3 Carotid artery stenosis.70-80% lesion, unchanged.Surgery consult as above.#4 Hypothyroidism.Continue current medications.VTE prophylaxis: Lovenox SQ.GI prophylaxis: PPI po.Patient is full code.Disposition : to be determined.Code VisitInpatient CECI: 06695 Init Hosp L304/17/172019 <Electronically signed by Ken George MD>Date Ken George MDCosigner Signature: Date (if applicable)CC: Julian Elizondo MD; Ken George M.D. Signed BRAIN WITHOUT Observed: 04/17/2017 Status: F Source: [place] CONTRAST 8:00 PM [facility] [place] REPOSITORY [facility]ITALImaging [address] [place], [place] [address]Geekl without ContrastMR#: [id number] Acct: [id number]: BREE MENDEZ Rep #: [id number]: [birth year] M 82 From: Nishant Quintero MDPCP: Julian Elizondo MD Status: ADM INOStudy: Brain without Contrast Date of Exam: 04/18/17Exam# [id number] Ordering Dr: Ken George MDSTUDY: MRI BRAIN WITHOUT CONTRASTREASON FOR EXAM: Male, 82 years old. Numbness and tingling in the rightarm.TECHNIQUE: Standardized multiplanar fat and water weighted pulsesequences were obtained.COMPARISON: CT brain without contrast 04/17/2017. FINDINGS:Small area restricted diffusion in the left postcentral gyrus is confirmedon the ADC map (series 4, image 22; series 400, image 22). This isconsistent with an acute ischemic infarct. This is not visible on T2 andFLAIR sequences.Normal size of the ventricles and extra-axial spaces for the patient's age.Normal white matter tracts of the supratentorial brain.Normal bilateral basal ganglia. Normal thalami. There is no extra-axialfluid accumulation.Normal flow voids within the major intracranial circulation suggestingpatency by spin echo criteria.Normal sella turcica, pituitary gland, infundibular stalk, optic chiasm andhypothalamus. Normal tectal plate and pineal gland.Normal midbrain, nallely and medulla. Normal cerebellum. Normal basalcisterns. Normal bilateral temporal bones. Normal bilateral internalauditory canals.No demonstrated orbital abnormality, within the constraints of a routinebrain study. Normal visualized paranasal sinuses. Normal calvarium andskull base. Normal visualized soft tissue structures. Normal visualizedupper cervical spine. ORDER #: [id number] MRI/Brain without ContrastIMPRESSION:1. Small isolated area of acute ischemic infarct in the cortex of the leftpostcentral gyrus.2. The rest of the brain parenchyma is normal.Electronically Signed:Nishant Quintero MD at 8:25 ESTTel , Service support , FF: Julian Elizondo MD; Ken George M.D. Accounts Receivable Representative:Signed MRA HEAD ONLY WITHOUT Observed: 04/17/2017 Status: F Source: [place] CONTRAST 8:00 PM [facility] [place] REPOSITORY [facility]ITALIm[facility] [address] [place], [place] [address]FWA Head ONLY without ContrastMR#: [id number] Acct: [id number]: BREE MENDEZ Rep #: [id number]: [birth year] M 82 From: Nishant Quintero MDPCP: Julian Elizondo MD Status: ADM INOStudy: MRA Head ONLY without Contrast Date of Exam: 04/18/17Exam# [id number] Ordering Dr: Ken George MDSTUDY: MRA OF THE HEAD WITHOUT CONTRASTREASON FOR EXAM: Male, 82 years old. Numbness and tingling of the rightarm.TECHNIQUE: 3-D hkae-qm-cuewgk (TOF) imaging was performed with MIPs. Thestudy was performed unenhanced.COMPARISON: None. FINDINGS:Normal bilateral petrous carotid arteries. Normal right cavernous carotidartery with a normal supraclinoid bifurcation. Normal left cavernouscarotid artery with a normal supraclinoid bifurcation.Normal right A1 segment of the anterior cerebral artery. Mildlyhypoplastic but normal left A1 segment of the anterior cerebral artery.Normal intact anterior communicating artery (ACOM). Normal bilateral T4vswuzuhb of the anterior cerebral arteries.Normal right M1 and M2 segments of the middle cerebral arteries, with anormal M1 bifurcation. Normal left M1 segment. There are 2 M2 segmentswith irregular narrowing and a smaller caliber compared to the right MCAcirculation. They are suspicious for recanalized emboli.No visible right posterior communicating artery (PCOM). No visible leftposterior communicating artery (PCOM).Normal bilateral vertebral arteries. Normal basilar artery with a normalbasilar bifurcation. The visualized bilateral superior cerebellar (SCA)arteries are normal.Normal bilateral P1, P2 and visualized P3 segments of the posteriorcerebral arteries.There is no demonstrated aneurysm of the deering of Lorenz. Small acutecortical gyral ischemic infarct in the left post central gyrus. ORDER #: [id number] MRI/MRA Head ONLY without ContrastIMPRESSION:1. Abnormal MRA showing irregular narrowing involving two M2 segments ofthe left middle cerebral artery. They are suspicious for recanalizedemboli.2. The remainder of the intracranial circulation is normal.Electronically Signed:Nishant Quintero MD at 8:40 ESTTel , Service support , YJ: Julian Elizondo MD; Ken George M.D. Accounts Receivable Representative:Signed MRA NECK WITHOUT Observed: 04/17/2017 Status: F Source: [place] CONTRAST 8:00 PM [facility] [address] [place] [address]GRY Neck without ContrastMR#: [id number] Acct: [id number]: BREE MENDEZ Rep #: [id number]: [birth year] M 82 From: Nishant Quintero MDPCP: Julian Elizondo MD Status: ADM INOStudy: MRA Neck without Contrast Date of Exam: 04/18/17Exam# [id number] Ordering Dr: Ken George MDSTUDY: MRA NECK WITHOUT CONTRASTREASON FOR EXAM: Male, 82 years old. Numbness and tingling in the rightarm. Known left carotid stenosis.TECHNIQUE: Source images were obtained, MIPs were performed. The studywas performed unenhanced.COMPARISON: None. FINDINGS:RIGHT CAROTID ARTERIES:Normal right common carotid artery (CCA). Normal right internal carotidbulb. Normal origin of the right internal carotid (ICA) artery without ahemodynamically significant stenosis. Normal visualized cervical portionof the right internal carotid artery.Normal origin of the right external carotid artery (ECA).LEFT CAROTID ARTERIES:Normal left common carotid artery (CCA). Normal left common carotidbifurcation. Normal left internal carotid bulb. Normal origin of theleft internal carotid (ICA) artery but there is irregular 70% stenosis ofthe left proximal internal carotid artery near the distal end of the leftinternal carotid artery bulb. Normal remaining visualized cervical portionof the left internal carotid artery.Normal origin of the left external carotid artery (ECA).VERTEBRAL ARTERIES:Normal antegrade flow within the bilateral vertebral artery without ahemodynamically significant stenosis. The right vertebral artery isslightly more dominant. ORDER #: [id number] MRI/MRA Neck without ContrastIMPRESSION:1. Proximally 70% irregular stenosis of the left proximal internal carotidartery near the distal end of the left internal carotid artery bulb.2. Widely patent left common carotid artery, left common carotidbifurcation and left internal carotid artery bulb.3. Normal right common carotid artery, right common carotid bifurcationand right internal carotid artery.4. Normal cervical segments of both vertebral arteries, the right isslightly more dominant.Electronically Signed:Nishant Quintero MD at 8:44 ESTTel , Service support , VI: Julian Elizondo MD; Ken George M.D. Accounts Receivable Representative:Signed EMERGENCY DEPARTMENT Observed: 04/17/2017 Status: F Source: [place] SUMMARY 5:30 PM [facility] [place] REPOSITORY [facility]ITALMedical Records [address] [place], [place] [address]Nzsytpjxc Department Queyypv31/17/18 1725MR#: [id number] Acct: [id number]: VANESSABREE Rep #: [id number]: 1935 82 From: Jai Cosme MDPCP: Julian Elizondo MD Status: REG ER- ER Visit SummaryDate of Service: 04/17/17Chief Complaint: Right arm numbnessHistory of Present Illness: The patient is a 82 M with right arm complete numbness, more on thedorsum he thinks, that started about an hour and a half prior to arrival. It is starting toimprove. He initially tells me that it felt weak and he was having trouble moving it, but thenstates he does not think it was week and it was more just numb. He said he was having sometrouble walking at the time but did not notice specifically one leg or the other being weakcompared with the other. He denies any facial symptoms, his states he did not have afacial droop or any trouble speaking. No syncope, headache, nausea/vomiting, or neck pain. Hehas left carotid stenosis, it was diagnosed a year ago but he recently just followed up withsurgery to have it addressed, he had a repeat ultrasound that showed no changes, and thatultrasound was performed 3 days ago. He has a left carotid endarterectomy scheduled 2 daysfrom now at this hospital with Dr. Bennett. Patient takes aspirin and Plavix, no anticoagulants.He has been compliant with those medications.Physical Examination: Blood pressure in the 150s, he is alert and oriented 3, his heart isregular with a 2/6 systolic murmur and no carotid bruits audible. Other than decreasedsensation on the dorsum of his hand, now his neurologic exam is normal, he has no pronatordrift of his right arm, no aphasia or dysarthria, etc. His NIHSS is 1. The rest of his examis unremarkable.Test Results: CT head shows no acute abnormalities, chest x-ray showed no acute abnormalities,blood work shows chronic renal insufficiency that is actually better compared with his priorlabs, creatinine 1.48 down from 1.54. Troponin within normal limits. EKG shows sinus rhythmat 52 no acute injury pattern, there is no dysrhythmia. Emergency left carotid artery duplexDoppler shows no changes compared with 3 days ago, there is more than 70% stenosis but theartery is open.Emergency Department Course and Treatment: Given his NIH score of only 1, and relatively rapidimprovement of symptoms, no stroke team was activated, and no IV TPA was indicated, this wasfollowed by complete resolution of his symptoms within another 1-2 hours of his ED visit. Idiscussed with Dr. Vincent Bennett who wanted the ultrasound done emergently to reassess forpossible occlusion, I discussed with him afterwards, he will see the patient in the morning ifadmitted. Discussed with neurology who recommends giving him more IV fluids to help augmenthis blood pressure a little , as it is in the 140 range right now. Discussed with Dr. Georgefor admission to PCU.Treatment Plan: Admit PCU further testing and evaluationDisposition: AdmitImpression: TIALeft carotid stenosisThis note was generated with InSample dictation software. It may contain incorrect words,spelling, and punctuation that were not noted in review of the chart prior to signingED Disposition- Plan for ED Patient:Disposition: Acute Care Hospital [facility] Complaint: Upper Extremity InjuryReferrals:Julian Elizondo MD [Primary Care Provider] -What to do if you have ProblemsFor any increased pain, shortness of breath, bleeding, nausea or vomiting, chest pain, or anyunexpected problems, contact your Primary Care Provider. Call [facility] [facility] ([phone])or report to the closest Emergency Room.Call 911 if necessary.04/17/17 1730 <Electronically signed by Jai Cosme MD> Date Jai Cosme MDCosigner Signature (If Indicated): Date ___CC: Julian Elizondo MD CAROTID DUPLEX Observed: 04/17/2017 Status: F Source: [place] ULTR[place]OUND 4:33 PM [facility] REPOSITORY [facility] [address] [place] [address]Mkxliec Mwwjvtwvah73/17/18 1609MR#: [id number] Acct: [id number]: BREE MENDEZ Rep #: [id number]: 1935 82 From: Vincent Arreola Dr: Status: REG EROrdering Dr: Tom Arrieta DO Date: 04/17/17Location: ED Sex: M CAdmitted:Reason For Study: RT arm numbnessLt. Velocities/BPProx CCA 75.0/15.2 cm/sec.Mid CCA 86.2/ 21.1 cm/sec.Dist CCA 78.0/19.3 cm/sec.Prox ICA 375.0/123.0 cm/sec.Mid ICA 249.0/54.3 cm/sec.Dist ICA 89.1/20.5 cm/sec.Lt. ICA/CCA = 4.4.Prox ECA 156.0/21.6 cm/sec.Lt. Vert. 45.1/12.3 cm/sec.Left ExtracranialThere is homogeneous, smooth atherosclerotic plaque noted in the left common carotid artery.Thereis heterogeneous, irregular atherosclerotic plaque noted in the left internal carotid artery.Thereis heterogeneous, irregular atherosclerotic plaque noted in the left external carotid artery.Antegrade flow is noted in the left vertebral artery.ProcedureCarotid Duplex 29976. Exam performed portable in ED.Interpretation SummaryExtensive plague and >70% and likely >80% stenosis left internal carotid.Mild disease left external carotidPatent and antegrade left vertebral Ordering Physician: Tom ArrietaRefzamzam Physician: Vincent Bennett DPerformed By: Esperanza De RVTElectronically signed by: Vincent Bennett MD on 2017 04:33 PM04/17/17 1633Date Vincent Bennett MDCC: Tom Arrieta DO; Julian Elizondo MD Date Dictated: 04/17/17 1609Date Transcribed: 1633Transcriptionist:Signed BEDSIDE GLUCOSE Collected: 04/17/2017 Status: F Source: [place] 3:29 PM [facility] REPOSITORY TYPE CODE TESTS RESULT OUT OF REFERENCE UNITS RANGE LAB L501.080 High 70-110 mg/dL BEDSIDE 117 GLU Result Comment: MANAGEMENT OF PATIENT CARE PER NURSING PROTOCOL Performed By: #### L501.080 ####[facility] LaboratoryCalvin Ville [address] [place] [address] CBC W/DIFF, AUTOMATED Collected: 04/17/2017 Status: F Source: [place] 3:15 PM [facility] REPOSITORY TYPE CODE TESTS RESULT OUT OF RANGE REFERENCE UNITS LAB L100.1000 Normal 4.4-11.0 K/mm3 WBC 7.7 LAB L100.1200 Normal 4.6-6.2 M/mm3 RBC 4.93 LAB L100.1300 Normal 13.0-16.5 g/dl HGB 15.5 LAB L100.1400 Normal 40-54 % HCT 45.7 LAB L100.1500 Normal 80-94 fL MCV 92.7 LAB L100.1600 Normal 27.0-32.0 pg MCH 31.4 LAB L100.1700 Normal 32-36 g/gl MCHC 33.9 LAB L100.1810 Normal 11.6-14.6 % RDW 12.5 CV LAB L100.1820 Normal 35.1-43.9 fl RDW 41.9 SD LAB L100.1900 Normal 150-450 K/mm3 PLT 201 LAB L100.2000 Normal 6.2-12.0 fl MPV 9.3 LAB L100.2100 Normal 47-70 % NEUT% 67.5 LAB L100.2200 Normal 19-41 % LY% 21.6 LAB L100.2300 Normal 0-10 % MONO% 8.2 LAB L100.2400 Normal 0-5 % EO% 2.1 LAB L100.2500 Normal 0-1 % BASO% 0.3 LAB L100.2550 Normal 0.0-0.9 % IM 0.300 GRAN % Result Comment: IG% - Immature Granulocytes (promyelocytes, myelocytes andmetamyelocytes) > 1% indicates that a LEFT SHIFT is Present. LAB L100.2620 Normal 2.0-7.7 X10 3/uL Absolute Neut 5.2 LAB L100.2720 Normal 0.83-4.51 X10 3/ul Absolute Lymph 1.66 Performed By: #### L100.0100 ####[facility] [address] [facility]. [place], [place], [address] PROTHROMBIN TIME W/INR Collected: 04/17/2017 Status: F Source: [place] 3:15 PM [facility] REPOSITORY TYPE CODE TESTS RESULT OUT OF RANGE REFERENCE UNITS LAB L300.4150 Normal 11.7-14.9 SECONDS PROTIME 13.0 LAB L300.4200 Normal INR 1.0 Performed By: #### L300.3900, L300.4310 ####[facility] [address] [facility] [place], [address] PARTIAL THROMBOPLAST Collected: 04/17/2017 Status: F Source: [place] TIME 3:15 PM [facility] REPOSITORY TYPE CODE TESTS RESULT OUT OF RANGE REFERENCE UNITS LAB L300.4310 Normal 24.1-36.2 Seconds PTT 31.3 Performed By: #### L300.3900, L300.4310 ####[facility] [address] [place], [address] BASIC METABOLIC Collected: 04/17/2017 Status: F Source: [place] PROFILE (BMP) 3:15 PM [facility] REPOSITORY Order Comment: 'TROP' Serial specimen #1, #2, #3, or #4: 1 TYPE CODE TESTS RESULT OUT OF RANGE REFERENCE UNITS LAB L501.0100 High 70-110 mg/dL GLU 113 Result Comment: Fasting Glucose result from 110 to <126 mg/dLsuggests IMPAIRED HOMEOSTASIS per A.D.A. criteria. LAB L501.1000 High 7-18 mg/dL BUN 22 LAB L501.1100 High 0.70-1.30 mg/dL CREAT,SERUM 1.48 Result Comment: The validity of the calculated GFR AND GFRAA in patients over70 years has not been determined. Clinical correlation isessential. LAB L501.1110 Low >60 mL/min EST GFR 49 Result Comment: Non- GFR Calc LAB L501.1115 Low >60 mL/min EST GFR - AA 59 Result Comment: GFR Calc LAB L501.1255 Normal ml/min Estimated 38.51 CRCL LAB L501.1300 Normal 10-20 RATIO BUN/CRE 14.9 LAB L501.2200 Normal 8.5-10 mg/dL CA 8.8 .1 LAB L501.5300 Low 136-14 mmol/L NA 133 5 LAB L501.5600 Normal 3.5-5. mmol/L K 4.6 1 LAB L501.5900 Normal 98-107 mmol/L CL 99 LAB L501.6100 Normal 21.0-3 mmol/L CO2 26.0 2.0 LAB L501.6200 Normal 5-15 GAP 8 Performed By: #### L500.2500, L501.4010 ####[facility] [address] [place], [address] TROPONIN-I Collected: 04/17/2017 Status: F Source: [place] 3:15 PM [facility] REPOSITORY Order Comment: 'TROP' Serial specimen #1, #2, #3, or #4: 1 TYPE CODE TESTS RESULT OUT OF RANGE REFERENCE UNITS LAB L501.4010 Normal <0.06 ng/mL < TROPONIN-I 0.02 Result Comment: TROPONIN-I EXPECTED VALUES <0.05 NEGATIVE 0.06 - 0.59 AT RISK OF MS > OR = 0.60 SUGGEST MS Performed By: #### L500.2500, L501.4010 ####[facility] [address] [place], [address] CHEST 1 VIEW Observed: 04/17/2017 Status: F Source: [place] 3:02 PM [facility] REPOSITORY [facility]OSPITALImaging [address] [place], [place] [address]Hmutw 1 ViewMR#: [id number] Acct: [id number]: BREE MENDEZ Rep #: [id number]: 1935 M 82 From: Adonis Zeng MDPCP: Julian Elizondo MD Status: PRE ERStudy: Chest 1 View Date of Exam: Exam# [id number] Ordering Dr: Jai Cosme MDSTUDY: X-RAY CHESTREASON FOR EXAM: Male, 82 years old. Right arm numbness.TECHNIQUE: Single AP portable view of the chest.COMPARISON: Comparison is made with prior study dated December 10, 2015. FINDINGS:EKG electrodes are seen.Hyperinflation. There is no demonstrated pleural abnormality.Normal size heart. Normal mediastinum and johnathon. Normal visualizedpulmonary arteries. There is atherosclerotic tortuosity of the aortic archand descending thoracic aorta.Normal visualized thoracic spine. Normal visualized ribs, clavicles, andshoulders.There is no demonstrated abnormality of the visualized soft tissuestructures of the upper abdomen. ORDER #: [id number] RAD/Chest 1 ViewIMPRESSION:Hyperinflation. No acute abnormality is seen.Electronically Signed:Adonis Zeng MD at 15:24 ESTTel [phone], Service support , XK: JAI COSME MD; Julian Elizondo MD Accounts Receivable Representative:Signed BRAIN/HEAD WITHOUT Observed: 04/17/2017 Status: F Source: [place] CONTRAST 3:02 PM [facility] REPOSITORY [facility]ITALIm[facility] [address] [address]Wvwcp/Head without ContrastMR#: [id number] Acct: [id number]: BREE MENDEZ Rep #: [id number]: [birth year] M 82 From: Adonis Zeng MDPCP: Julian Elizondo MD Status: REG ERStudy: Brain/Head without Contrast Date of Exam: 04/17/17Exam# [id number] Ordering Dr: Jai Cosme MDSTUDY: CT BRAIN WITHOUT CONTRASTREASON FOR EXAM: Male, 82 years old. Right arm weakness and numbness.RADIATION DOSAGE (If Supplied By Facility): CTDIvol = ( 60.81 ) mGy, DLP =( 1021.47 ) mGycmTECHNIQUE: Transaxial CT imaging of the brain was performed withoutadministration of intravenous contrast material.Individualized dose optimization techniques were used for this CT.COMPARISON: None. FINDINGS:Normal soft tissue structures. Normal calvarium.There is mild cerebral atrophy with widening of the extra-axial spaces andventricular dilatation. Normal white matter tracts of the cerebralhemispheres. Normal basal ganglia and thalami. Normal brainstem. Thereis mild cerebellar atrophy.There is no intracranial hemorrhage. There are no findings of an acuteischemic infarction. Atherosclerotic calcification of the cavernousportions of the internal carotid arteries bilaterally.Normal visualized paranasal sinuses. ORDER #: [id number] CT/ Brain/Head without ContrastIMPRESSION:Chronic involutional changes of the brain.Electronically Signed:Adonis Zeng MD at 15:55 ESTTel [phone], Service support , QY: JAI COSME MD; Julian Elizondo MD Accounts Receivable Representative:Signed CBC-COMPLETE BLOOD CNT Collected: 04/15/2017 Status: F Source: [place] NO DIFF 9:45 AM [facility] REPOSITORY TYPE CODE TESTS RESULT OUT OF RANGE REFERENCE UNITS LAB L100.1000 Normal 4.4-11.0 K/mm3 WBC 6.9 LAB L100.1200 Normal 4.6-6.2 M/mm3 RBC 5.12 LAB L100.1300 Normal 13.0-16.5 g/dl HGB 15.9 LAB L100.1400 Normal 40-54 % HCT 47.8 LAB L100.1500 Normal 80-94 fL MCV 93.4 LAB L100.1600 Normal 27.0-32.0 pg MCH 31.1 LAB L100.1700 Normal 32-36 g/gl MCHC 33.3 LAB L100.1810 Normal 11.6-14.6 % RDW 12.6 CV LAB L100.1820 Normal 35.1-43.9 fl RDW 42.6 SD LAB L100.1900 Normal 150-450 K/mm3 PLT 196 LAB L100.2000 Normal 6.2-12.0 fl MPV 9.5 Performed By: #### L100.0500 ####[facility] [address] [facility] [place], [address] HEMOGLOBIN A1C Collected: 04/15/2017 Status: F Source: [place] 9:45 AM [facility] REPOSITORY TYPE CODE TESTS RESULT OUT OF RANGE REFERENCE UNITS LAB L501.9985 Normal 4.2-6.3 % HGB 5.7 A1C Performed By: #### L501.9985 ####[facility] [address] [facility] [place], [address] BASIC METABOLIC Collected: 04/15/2017 Status: F Source: [place] PROFILE (BMP) 9:45 AM [facility] REPOSITORY TYPE CODE TESTS RESULT OUT OF RANGE REFERENCE UNITS LAB L501.0100 Normal 70-110 mg/dL GLU 100 LAB L501.1000 High 7-18 mg/dL BUN 23 LAB L501.1100 High 0.70-1.30 mg/dL 1.54 CREAT,SERUM Result Comment: The validity of the calculated GFR AND GFRAA in patients over70 years has not been determined. Clinical correlation isessential. LAB L501.1110 Low >60 mL/min EST GFR 46 Result Comment: Non- GFR Calc LAB L501.1115 Low >60 mL/min EST GFR - AA 56 Result Comment: GFR Calc LAB L501.1255 Normal ml/min Estimated 37.01 CRCL LAB L501.1300 Normal 10-20 RATIO BUN/CRE 14.9 LAB L501.2200 Normal 8.5-10 mg/dL CA 9.0 .1 LAB L501.5300 Normal 136-14 mmol/L NA 137 5 LAB L501.5600 Normal 3.5-5. mmol/L K 4.5 1 LAB L501.5900 Normal 98-107 mmol/L CL 103 LAB L501.6100 Normal 21.0-3 mmol/L CO2 27.0 2.0 LAB L501.6200 Normal 5-15 GAP 7 Performed By: #### L500.2500, L501.9520 ####[facility] [address] [place], [address] THYROID STIM HORMONE Collected: 04/15/2017 Status: F Source: [place] (TSH) 9:45 AM [facility] REPOSITORY TYPE CODE TESTS RESULT OUT OF RANGE REFERENCE UNITS LAB L501.9520 High 0.358-3.74 uIU/mL TSH 4.84 Performed By: #### L500.2500, L501.9520 ####[facility] [address] [place], [address] CAROTID DUPLEX Observed: 04/11/2017 Status: F Source: [place] ULTR[place] 5:21 PM [facility] REPOSITORY [facility]ITALCardi[facility] [address] [place], [place] [address]Oohtutw Duplex Copcdhffeu42/11/18 1407MR#: [id number] Acct: [id number]: BREE MENDEZ Rep #: [id number]: 1935 82 From: Vincent Bennett MDAttending Dr: Vincent Bennett MD Status: REG CLIOrdering Dr: Vincent Bennett MD Date: 04/11/17Location: CT Sex: M CAdmitted:Reason For Study: Carotid stenosisRt. Velocities/BP Lt. Velocities/BPProx CCA 118.0/86.2 cm/sec. Prox CCA 117.0/18.8 cm/sec.Mid CCA 86.2/17.6 cm/sec. Mid CCA 94.4/17.0 cm/ sec.Dist CCA 75.0/17.6 cm/sec. Dist CCA 82.1/17.0 cm/sec.Prox ICA 123.0/34.6 cm/sec. Prox ICA 379.0/119.0 cm/sec.Mid ICA 111.0/29.9 cm/sec. Mid ICA 164.0/38.3 cm/sec.Dist ICA 96.7/30.1 cm/sec. Dist ICA 103.0/24.0 cm/ sec.Rt. ICA/CCA = 1.4. Lt. ICA/CCA = 4.0.Prox ECA 108.0/17.6 cm/sec. Prox ECA 189.0/22.6 cm/sec.Rt. Vert. 71.5/17.0 cm/sec. Lt. Vert. 44.6/11.1 cm/sec.Right ExtracranialThere is homogeneous, smooth atherosclerotic plaque noted in the right common carotid artery.Thereis homogeneous, irregular atherosclerotic plaque noted in the right internal carotid artery.Thereis intimal thickening but no significant atherosclerotic plaque noted in the right externalcarotidartery. Antegrade flow is noted in the right vertebral artery.Left ExtracranialThere is intimal thickening but no significant atherosclerotic plaque noted in the left commoncarotid artery. There is heterogeneous, irregular atherosclerotic plaque noted in the leftinternalcarotid artery. There is heterogeneous, irregular atherosclerotic plaque noted in the leftexternalcarotid artery. Antegrade flow is noted in the left vertebral artery.ProcedureCarotid Duplex 78795. Exam performed in department.Interpretation SummaryMinimal calcific plague at the proximal right internal carotid with < 50% stenosis.Normal flow right external carotid.Extensive irregular calcific and soft plague at the proximal left internal carotid with >70%stenosis.Moderate disease left external carotidPatent and antegrade vertebrals bilaterally. Ordering Physician: Eulalia Bennett Physician: Venkat Elizondo M.D.Performed By: Esperanza De T 04/11/17 1720Date _ Vincent Bennett MDCC: Julian Elizondo MD; Vincent Bennett MD Date Dictated: 04/11/17 1407Date Transcribed: 04/11/17 1720Transcriptionist:Signed CREATININE FINGERSTICK Collected: 04/11/2017 Status: F Source: [place] 1:15 PM [facility] REPOSITORY TYPE CODE TESTS RESULT OUT OF REFERENCE UNITS RANGE LAB L9100.0210 High 0.70-1.30 mg/dL CREATININE WB 2.1 LAB L9100.0220 Low >60 mL/min EGFR WB 32.0000 Performed By: #### L9100.0200 ####[facility] LaboratoryPoint of [address] [place] [address] SURGERY VISIT REPORT Observed: 04/10/2017 Status: F Source: [place] 4:34 PM [facility] REPOSITORY [facility] [address] [place] [address] [id number] VISITDate of Service: 04/10/17MR#: [id number] Acct: [id number]: BREE MENDEZ Rep #: [id number]: 1935 Provider: Vincent Bennett MDAge/Sex: 82/M Location: [facility] [place].WSAStatus: SignedIntakeVital Signs04/10/17 Height 5 ft 8 in04/10/17 Weight: 210 lb 6 oz04/10/17 Body Mass Index (BMI) 31.901 Blood Pressure 148/73IntakeVisit Reasons: CAROTID PER CAMMIEChief Complaint: carotid stenosisInterpreter Required: NoIs patient in pain?: NoAllergiesSulfa ( Sulfonamide Antibiotics) Allergy (Verified 04/10/17 14:28)ItchingMedicationsOlmesartan Medoxomil [Benicar] 40 mg PO DAILY 03/10/16 [History Confirmed 04/10/17]Pravastatin [ Pravachol] 20 mg PO QHS #60 tab 03/12/16 [Rx Confirmed 04/10/17]aspirin 81 mg tablet, delayed release 81 mg PO QDAY 04/10/17 [History Confirmed 04/10/17]clopidogrel 75 mg tablet 75 mg PO QDAY 04/10/17 [History Confirmed 04/10/17]coenzyme Q10 200 mg capsule 200 mg PO QDAY 04/10/17 [History Confirmed 04/10/17]levothyroxine 50 mcg tablet 75 mcg PO DAILY tab 04/10/17 [History Confirmed 04/10/17]omega 4-xxi-lwx-fish oil 1,000 mg (120 mg-180 mg) capsule cap PO 04/10/17 [History Wxwkhahgw11/10/18]tamsulosin 0.4 mg capsule 0.4 mg PO QDAY 04/10/17 [History Confirmed 04/10/17]PFSHMedical HistoryCarotid stenosis (Acute)HTN (hypertension) (Chronic)Osteoarthritis (Acute)Hypothyroidism (Acute)Substernal precordial chest pain (Acute)Surgical HistoryS/P colonoscopy (Acute)Family HistoryBrother Heart diseaseHypertensionSister Breast cancerSocial HistorySmoking Status: Never smokeralcohol intake: neverHPIHPIHPI: BREE MENDEZ, is a 82 M who presents to the office today for surgical consultationregarding extracranial carotid artery occlusive disease. The patient states that a full yearago he was hospitalized at the [facility]. He had jaw pain chest pain. He hada stress test that was not remarkable. On April 25, 2016 he had carotid duplex imagingobtained because he had carotid bruits. Peak systolic velocity within the right distalinternal carotid was 148 cm/s felt to be consistent with less than 50% stenosis but probably isin the range of 50-69% stenosis. On the left however peak systolic velocity was 412 cm/s withan end-diastolic velocity of 125. This was felt to be consistent with greater than 70%stenosis and actually based upon the current findings very likely could be greater than 80%stenosis. The patient however fully aware of the situation elected not to pursue recommendedreferral and treatment of his extracranial carotid artery occlusive disease. More recentlyOct2016 at the [facility] he had an echocardiogram. This demonstratesan ejection fraction of 65%. Some mild focal aortic valve calcification. It was againrecommended to him that he have consultation regarding his carotids. He appears now inevaluation.The patient notes that he has had some problems with leg pain. He is on Pravachol he stoppedthat temporarily. Then he thought some of his discomfort was due to clopidogrel so he stoppedthat. He tried to increase his aspirin from 81 mg to 325 mg but he did not tolerate thatcomplaining of fiery chest discomfort. Unclear whether this could have been reflux. He doeshave a remote history of peptic ulcer disease.Fortunately he is currently back on his clopidogrel and atorvastatin and low-dose aspirin.He does state that he goes from a sitting position to a standing position that he does getlight headed. He denies any previous history of TIA or CVA. He denies any speech deficit.There has been no focal motor or sensory loss.ROSGeneralGeneral: No weight change, appetite, fatigue, colon cancer, breast cancer or weaknessHEENTHEENT: No difficulty swallowing, eye injury, eye surgery, swollen glands or hoarsenessEndoEndocrine: Yes thyroid disease and diabetes mellitus;no thyroid cancer, Hair loss, heat intolerance or cold intoleranceSkinSkin: No rash or changing molesBreastBreast: No left breast lump, right breast lump, nipple discharge, breast pain, abnormalmammogram, abnormal US or breast enlargementMuscMusculoskeletal: Yes arthritis;no back problems, rheumatoid arthritis, gout or joint painCardioCardiovascular: Yes murmur and high blood pressure;no pacemaker, heart disease, atrial fibrillation, heart attack, heart stent, palpitations, shortness of breat with exertion or chest painPsychPsychiatric: No depression, anxiety or hearing voicesRespRespiratory: No shortness of breath, No sleep apnea, No cough, No COPD, No asthma, Noemphysema, No wheezingGastroGastrointestinal: No abdominal pain, No nausea or vomiting, No diarrhea, No constipation, Noblood in stool, No acid reflux, No hemorrhoids, No ulcers, No gallbladder problem, Noblack,tarry stoolsHemaHematologic: Yes blood thinners, No blood disorders, No bleeding, No anemia, No blood clotsNeuroNeurologic: No system reviewed and no additional complaints, except as docu, No as per HPI, Noabnormal walking, No abnormal hearing, No abnormal movements, No abnormal speech, No behavioralchanges, No burning sensations, No confusion, No seizure-like activity, No unsteadiness, Nodizziness, No localized weakness, No frequent falls, No headache(s), No lack of coordination,No loss of vision, No memory loss, Yes numbness, No other visual disturbances, No radiatingpain, No restless legs, No sensory deficit, No fainting, No tingling, No tremor(s), Noweakness, No otherExamConstGeneral: cooperative, healthy appearingNutritional Appearance: average body habitusHENMTHead: normal to inspectionEyesGeneral: appearance normal, both eyes and all related structuresNeckNeck: normal visual inspectionNeck mass: NoChestBreast Palpation: No nipple dischargeRespAuscultation: clear to auscultation bilaterallyCardioRate: regular rateRhythm: regular rhythmHeart Sounds: murmurBruits: carotid bruit bilaterallyPulses: brachial pulses present, radial pulses present, femoral pulses present, poplitealpulses present, posterior tibial pulses present, dorsalis pedis pulses presentSkinGeneral: no rashes or lesions notedNeuroCranial Nerves: CN's II-XI intact bilaterallyExtremGeneral: no clubbing, cyanosis or edemaPsychAffect: normal affectAssessment AND PlanProblems1. Stenosis of left carotid artery I65.22; I65.22; I65.22PlanI have instructed the patient that he had high-grade stenosis of his left carotid identified 1year ago. It is of note that he has remained symptom-free. I strongly recommend to himhowever in addition to medical maximization of his care including blood pressure and lipidmanagement that he pursue further diagnostic imaging with likely potential strongrecommendations for intervention particularly regarding his left carotid stenosis. In detail Katelynrj discussed with him treatment options. I have discussed with him the technique, benefits,risks and alternatives of the left carotid endarterectomy with patch angioplasty. Noguarantees of success have been offered.He has had an opportunity to ask and have questions answered. It is apparent that the patienthas had a period of time where he is been off and on his routine medications apparentlycomplaining of some intolerances. I would be very uncomfortable with the degree of his carotidstenosis if he were to continue to vary his current program.I have recommended to him a CTA of the carotids. I will then have him in short order return new office for consultation. At this point if his carotid is still patent I will likely berecommending a left carotid endarterectomy with patch angioplasty and arterial line monitoring.I very much appreciate the kind opportunity of assisting with his surgical careCc: Dr. Driscoll and Dr. Sarai Bennett M.D., F.A.C.S.OrdersOrders:01/16 1634 <Electronically signed by Vincent Bennett MD>Date Vincent Bennett [facility]ANDosigner Signature: Date (if applicable)CC: Matheus Driscoll MD; Julian Elizondo MD ECHOCARDIOGRAM COMPLETE Observed: 01/28/2017 Status: F Source: [place] 2:26 PM [facility] REPOSITORY [facility]ITALCard[facility] [address] [place], [place] [address]Yelj Cgfkfsjn64/30/17 1252#: [id number] Acct: [id number]: BREE MENDEZ Rep #: [id number]: [birth year] From: Matheus Driscoll MDAttending Dr: Matheus Driscoll MD Status: REG CLIOrdering Dr: Matheus Driscoll MD Date: 01/28Location: CV[facility] Sex: M CAdmitted:Reason For Study: CAD/ASHDProcedureThis was a 2D Doppler, Color Flow transthoracic echocardiogram. Exam performed in department.Left VentricleNormal LV size. Left ventricular systolic function is normal. The estimated ejection fractionis 65%. No regional wall motion abnormalities noted.Right VentricleNormal RV size. Normal systolic function.AtriaNormal left atrium. Normal right atrium.Mitral ValveNormal mitral valve.Tricuspid ValveNormal tricuspid valve.Aortic ValveTrisinus/trileaflet aortic valve. Mild focal aortic valve calcification.Pulmonic ValveNormal pulmonic valve.Great VesselsNormal aortic root. The pulmonary artery is normal size. Normal inferior vena cava.Pericardium/PleuralNo pericardial effusion.MMode/2D Measurements AND CalculationsLVIDd: 4.4 cm IVSd: 0.79 cm LVOT diam: 2.1 cmLVIDs: 2.8 cm LVPWd: 0.92 cm LVOT area: 3.3 yn3THLt: 4.0 cm FS: 36.0 % __Ao root diam: 3.5 cm LAV(MOD-bp): 41.3 ml LA A4 area: 14.1 cm2LA dimension: 3.2 cm LAV(MOD-bp) Indexed: 21.8 ml/m2LAV(MOD-sp2): 49.7 mlLAV(MOD-sp4): 31.7 ml RA A4 area: 14.4 [id number] Measurements AND CalculationsMV E max altaf: 110.2 cm/ sec Lat Peak E' Altaf: 7.6 cm/sec Med Peak E' Altaf: 7.4 cm/secMV A max altaf: 101.9 cm/sec E/E' lat: 14.5 E/E' med: 14.9MV E/A: 1.1 ____MV P1/2t max altaf: 110.6 cm/sec Ao V2 max: 262.7 cm/sec LV V1 max: 148.2 cm/ secMV P1/2t: 85.4 msec Ao max P.7 mmHg LV V1 max P.8 mmHgMV dec slope: 379.2 cm/sec2 Ao V2 mean: 162.8 cm/sec LV V1 mean P.9 mmHgMVA(P1/2t): 2.6 cm2 Ao mean P.2 mmHg LV V1 mean: 91.8 cm/secAo V2 VTI: 51.0 cm LV V1 VTI: 30.3 cmAVA(I,D): 2.0 cm2AVA(V, D): 1.9 cm2 ____SV(LVOT) : 100.1 ml PA V2 max: 198.0 cm/sec PI dec slope: 133.6 cm/sec2 TR max altaf: 281.8 cm/secTR max P.8 mmHgInterpretation SummaryNormal LV size.Left ventricular systolic function is normal.The estimated ejection fraction is 65 % .Mild focal aortic valve calcification. Ordering Physician: Tiff Driscoll Physician: JULIAN ELIZONDOPerformed By: Cathy Allred RDCS, RVT 01/28/17 1425Date Matheus Driscoll MDCC: Matheus Driscoll MD; Julian Elizondo MD Date Dictated: 01/28/17 1252Date Transcribed: 01/28/17 1425Transcriptionist:Signed UA COMPLETE Collected: 12/21/2016 Status: F Source: [facility] 9:45 AM [facility] REPOSITORY TYPE CODE TESTS RESULT OUT OF RANGE REFERENCE UNITS LAB L600.37763 Normal UA YELLOW COLOR Result Comment: YELLOW LAB L600.82597 Normal CLEAR UA APPEARANCE CLEAR Result Comment: CLEAR LAB L600.07830 Normal 1.005-1.030 UA 1.007 SPEC GRAV Result Comment: 1.007 LAB L600.47743 Normal 5-6 6.0 UA PH Result Comment: 6.0 LAB L600.42919 Normal NORMAL MG/DL UA NEGATIVE GLUCOSE Result Comment: NEGATIVE LAB L600.84415 Normal NEGATIVE MG/DL UA NEGATIVE KETONE Result Comment: NEGATIVE LAB L600.64024 Normal NEGATIVE MG/DL UA BILIRUBIN NEGATIVE Result Comment: NEGATIVE LAB L600.07647 Normal NORMAL MG/DL UA UROBILINOGEN NORMAL Result Comment: NORMAL LAB L600.34005 Normal NEGATIVE MG/DL UA PROTEIN NEGATIVE Result Comment: NEGATIVE LAB L600.87516 Normal NEGATIVE AVTAR/UL UA NEGATIVE BLOOD Result Comment: NEGATIVE LAB L600.49401 Normal NEGATIVE UA NEGATIVE NITRITE Result Comment: NEGATIVE LAB L600.57578 Normal NEGATIVE MELA/uL UA LK ESTERASE NEGATIVE Result Comment: NEGATIVE LAB L600.61022 Normal N UA COMMENT * Result Comment: *MICROSCOPIC NOT PERFORMED BASED ON CHEMICAL DETERMINATIONS. Performed By: #### L600.71581 ####[facility] [id number] [place], [place] [address]Vy# [phone] CBC W/DIFF Collected: 12/21/2016 Status: F Source: [facility] 9:45 AM [facility] REPOSITORY TYPE CODE TESTS RESULT OUT OF RANGE REFERENCE UNITS LAB L200.28555 Normal 4.5-11.0 K/CU MM WBC 7.4 LAB L200.02332 Normal 4.50-6.00 M/CU MM RBC 5.01 LAB L200.50619 Normal 13.5-17.5 G/DL HGB 15.7 LAB L200.52219 Normal 41.0-53.0 % HCT 46.4 LAB L200.48633 Normal 80.0-99.0 fl MCV 92.6 LAB L200.47223 Normal 32.0-36.0 GM/DL MCHC 33.8 LAB L200.27680 Normal 11-14.5 RDW 12.4 LAB L200.29028 Normal 9.4-12.4 MPV 9.5 LAB L200.33513 Normal 150-450 K/CU MM PLT 200 LAB L200.71057 Normal 45-75 % NEUTROPHILS % 66.3 LAB L200.48590 Normal Less than 2 % IMMATURE GRAN % 0.3 LAB L200.99708 Normal 20-40 % LYMPH % 21.4 LAB L200.39375 Normal 2-10 % MONOCYTE % 8.8 LAB L200.27232 Normal 0-5 % EOSINOPHIL % 2.8 LAB L200.01016 Normal 0-2 % BASOPHIL % 0.4 LAB L200.11355 Normal 2.0-8.3 K/CU MM NEUTROPHIL ABS 4.90 LAB L200.75292 Normal Less than 2 K/CU MM IMMATR GRAN ABS 0.00 LAB L200.16382 Normal 0.9-4.4 K/CU MM LYMPH ABS 1.60 LAB L200.72659 Normal 0.1-1.1 K/CU MM MONO ABS 0.70 LAB L200.08728 Normal 0-0.5 K/CU MM EOS ABS 0.20 LAB L200.56037 Normal 0-0.2 K/CU MM BASO ABS 0.00 LAB L200.47975 Normal Less than 1 % NRBC 0.0 Performed By: #### L200.07515, L550.73881 ####[facility] [id number] [place] [address]Ph# [phone] HGB A1C GLYCOHB Collected: 12/21/2016 Status: F Source: [facility] 9:45 AM [facility] REPOSITORY TYPE CODE TESTS RESULT OUT OF RANGE REFERENCE UNITS LAB L550.71288 Normal 4.3-6.0 % HGB A1C 5.9 GLYCOHB Performed By: #### L200.23843, L550.03344 ####[facility] W[address] [place] [address]# [phone] CMP Collected: 12/21/2016 Status: F Source: [facility] 9:45 AM [facility] REPOSITORY TYPE CODE TESTS RESULT OUT OF RANGE REFERENCE UNITS LAB L500.31324 Normal 136-145 MMOL/L NA 139 LAB L500.50392 Normal 3.5-5.1 MMOL/L K 4.6 LAB L500.41916 Normal 98-107 MMOL/L CL 104 LAB L500.41526 Normal 21-32 MMOL/L CO2 25 LAB L500.95527 Normal 5-16 MMOL/L AGAP 10 LAB L500.21633 Normal 70-100 MG/DL GLU 99 Result Comment: 21-180-Wxxfht Fasting; 583-666-Rbsamgom Fasting; greaterthan 126 on more than one result-Diabetes. ADA guidelines LAB L500.97757 High 7-26 MG/DL BUN 27 LAB L500.68160 High 0.670-1.170 MG/DL CREAT 1.520 Result Comment: Patients receiving either N-Acetylcysteine (NAC) orMetamizole prior to venipuncture, may have falsely depressedresults. LAB L500.82459 Normal 15-24 BUN/CREA 18 LAB L500.38709 Normal 6.0-8.5 GM/DL TP 7.2 LAB L500.69222 Normal 3.2-5.0 GM/DL ALBUMIN 4.1 LAB L500.06247 Normal 2.2-4.2 GM/DL GLOBULIN 3.1 LAB L500.18948 Normal 0.8-2.0 A/G RATIO 1.3 LAB L500.15746 Normal 8.5-10.1 MG/DL CALCIUM TOTAL 9.2 LAB L500.61088 Normal 0.2-1.0 MG/DL BILI TOTAL 0.8 LAB L500.64953 Normal 8-34 U/L SGOT (AST) 22 LAB L500.56814 Normal 13-61 IU/L SGPT (ALT) 23 LAB L500.04405 Normal 45-117 U/L ALK PHOS 77 Performed By: #### L500.84038, L500.39791, L500.45925, L500.65634, L500.76536 ####[facility] [id number] [address]# GFR EST Collected: 12/21/2016 Status: F Source: [facility] 9:45 AM [facility] REPOSITORY TYPE CODE TESTS RESULT OUT OF RANGE REFERENCE UNITS LAB L500.46249 Normal ML/MIN IF 44 non-AFR AMER LAB L500.45488 Normal ML/MIN IF 54 AMER Performed By: #### L500.81734, L500.22808, L500.98281, L500.63738, L500.89541 ####[facility] [id number] [address]# [phone] LIPID Collected: 12/21/2016 Status: F Source: [facility] 9:45 AM [facility] REPOSITORY TYPE CODE TESTS RESULT OUT OF RANGE REFERENCE UNITS LAB L500.92868 Normal 30-149 MG/DL TRIG 142 Result Comment: Patients receiving either N-Acetylcysteine (NAC) orMetamizole prior to venipuncture, may have falsely depressedresults. LAB L500.18557 Normal 0-199 MG/DL CHOL 173 LAB L500.47389 Normal GREATER [place] 40 MG/DL HDL DIRECT 44 Result Comment: Patients receiving Metamizole prior to venipuncture, mayhave falsely depressed results. LAB L500.21548 Normal 0-129 MG/DL LDL 101 Result Comment: ___CHOLESTEROL/HDL RATIO RISK___ CHD RISK = Total CHOL LDL HDL (CHOL/HDL) Recommended <200 <130 >35 <3.4 Borderline 200-239 130-159 3.4-4.99 High >240 >160 >5.0 Performed By: #### L500.10930, L500.80368, L500.06646, L500.25914, L500.22949 ####[facility] Y[address]YJ35[address] [place], [place] [address]Hg# PSA SCREEN Collected: 12/21/2016 Status: F Source: [facility] 9:45 AM [facility] REPOSITORY TYPE CODE TESTS RESULT OUT OF REFERENCE UNITS RANGE LAB L500.94465 High 0.0-4.0 NG/ML PSA 4.46 SCREEN Performed By: #### L500.92989, L500.52557, L500.77182, L500.45348, L500.43726 ####[facility] [id number] [place], [place] [address]Cc# [phone] TSH Collected: 12/21/2016 Status: F Source: [facility] 9:45 AM [place] [facility] REPOSITORY TYPE CODE TESTS RESULT OUT OF RANGE REFERENCE UNITS LAB L500.33477 Normal 0.358-3.740 UIU/ML TSH 1.490 Result Comment: 3rd generation ultra sensitive TSH Performed By: #### L500.90329, L500.37782, L500.66176, L500.08859, L500.12770 ####[facility] [id number] [place], [place] [address]Tg# THYROID STIM HORMONE Collected: 09/06/2016 Status: F Source: [facility] (T[facility]) 10:19 AM [facility] REPOS[facility]ORY TYPE CODE TESTS RESULT OUT OF RANGE REFERENCE UNITS LAB L501.9520 Normal 0.358-3.74 uIU/mL TSH 1.25 Performed By: #### L501.9520, L501.9940 ####[facility] [address] [place], [place], [id number] PSA,TOTAL- DIAGNOSTIC Collected: 09/06/2016 Status: F Source: [facility] 10:19 AM [facility] REPOSITORY TYPE CODE TESTS RESULT OUT OF RANGE REFERENCE UNITS LAB L501.9940 Normal 0.0-4.0 ng/mL PSA, 3.79 DIAGNOSTIC Result Comment: This test was performed using the TPSA assay method for theClipik chemistry system. Values obtained with differentassay methods cannot be used interchangably.When changing PSA assays in the course of monitoring apatient, additional sequential testing should be carriedout to confirm baseline values. Performed By: #### L501.9520, L501.9940 ####[facility] [address] [place], [place], [id number] LIVER PROFILE Collected: 06/20/2016 Status: F Source: [place] 9:16 AM [facility] REPOSITORY TYPE CODE TESTS RESULT OUT OF RANGE REFERENCE UNITS LAB L501.1500 Normal 6.4-8.2 g/dL T 7.5 PROT LAB L501.1800 Normal 3.4-5.0 g/dL ALB 3.9 LAB L501.1950 High 2.3-3.5 g/dL GLOB 3.6 LAB L501.4100 Normal 15-37 U/L AST 22 LAB L501.4305 Normal 45-117 U/L ALK P 63 LAB L501.4405 Normal 12-78 U/L ALT 26 LAB L501.4600 Normal 0.20-1.00 mg/dL T 0.80 BILI LAB L501.4700 Normal 0.00-0.30 mg/dL D 0.15 BILI Performed By: #### L500.3400, L500.4100, L501.9520, L501.9910 ####[facility] [address] [place], [address] LIPID PROFILE Collected: 06/20/2016 Status: F Source: [place] 9:16 AM [facility] REPOSITORY TYPE CODE TESTS RESULT OUT OF RANGE REFERENCE UNITS LAB L501.4900 Normal 200 mg/dL CHOL 172 Result Comment: <200 mg/dL Desirable 200-240 mg/dL Borderline >240 mg/dL High Risk LAB L501.5000 Normal mg/dL TRIG 131 Result Comment: The drugs N-Acetylcysteine and Metamizole may falsely deressthis assay.Serum Triglycerides Reference Interval Normal <150 mg/dL Borderline high 150 - 199 mg/ dL High 200 - 499 mg/dL Very High > or = 500 mg/dL LAB L501.6400 Normal mg/dL HDL 51 Result Comment: The drugs N-Acetylcysteine and Metamizole may falsely deressthis assay. Reference Range HDL <40 mg/dL Low HDL Cholesterol HDL >or= 60 mg/dL High HDL Cholesterol LAB L501.6500 Normal 0-130 mg/dL LDL 95 LAB L501.6600 Normal 5-40 mg/dL VLDL 26 Performed By: #### L500.3400, L500.4100, L501.9520, L501.9910 ####[facility] [address] [place], [address] THYROID STIM HORMONE Collected: 06/20/2016 Status: F Source: [facility] (TSH) 9:16 AM [facility] REPOSITORY TYPE CODE TESTS RESULT OUT OF RANGE REFERENCE UNITS LAB L501.9520 High 0.358-3.74 uIU/mL TSH 3.78 Performed By: #### L500.3400, L500.4100, L501.9520, L501.9910 ####[facility] [address] [place], [address] PSA,TOTAL - ANNUAL Collected: 06/20/2016 Status: F Source: [facility] SCRE[place] 9:16 AM [facility] REPOSITORY TYPE CODE TESTS RESULT OUT OF REFERENCE UNITS RANGE LAB L501.9910 High 0.00-4.00 ng/mL PSA,TOT 4.07 SCREEN Result Comment: This test was performed using the TPSA assay method for [employer] chemistry system. Values obtained with differentassay methods cannot be used interchangably.When changing PSA assays in the course of monitoring apatient, additional sequential testing should be carriedout to confirm baseline values. Performed By: #### L500.3400, L500.4100, L501.9520, L501.9910 ####[facility] [address] [place], [address] ALLERGIES ALLERGIES DATE TYPE / CODE NAME / CODE REACTION SEVERITY SOURCE 05/01/2017 Drug Sulfa Itching Unknown [facility] Allergy/4160 ([facility] 37414(SNOMED Antibiotics)/ Repository CT) [id number](RX NORM) 07/06/2015 Drug Sulfa Itching [facility] Allergy/4160 ([facility] 82998(SNOMED Antibiotics)/ Repository CT) [id number](RX NORM) 07/06/2015 Allergy/4201 Sulfa Itching [facility] 92387(SNOMED ([facility]) Antibiotics) Repository ENCOUNTERS ENCOUNTERS ADMIT/DISCHARGE ACCOUNT ADMITTING ENCOUNTER LOCATION SOURCE NUMBER CLASS 05/01/2017/ [id number] Ambulatory BMSBuilding:B Stephan 8 9 [facility] Repository 04/17/2017/ [id number] Imamura, Inpatient Sanjiv Sanjiv 8 [address] [facility] ing:PCURoom: Repository [id number]: 1 04/17/2017 [id number] Imamura, Ambulatory BMSBuilding:B Sanjiv 4 Yoichi MS.[facility] Repository 04/17/2017 [id number] Imamura, Ambulatory BMSBuilding:W Sanjiv 6 Yoichi [facility] Repository 04/17/2017 [id number] Imamura, Ambulatory BMSBuilding:B Stephan 9 [place] [facility] Repository 04/17/2017 [id number] Imamura, Ambulatory BMSBuilding:B Stephan 7 [place] [facility] Repository 04/17/2017 [id number] Imamura, Ambulatory BMSBuilding:B Stephan 9 [place] [facility] Repository 04/15/2017 [id number] Vincent Bennett Ambulatory Sanjiv Stephan 0 [facility] Hospital ing:PAT Repository 04/15/2017 [id number] Ambulatory BMSBuilding:W Stephan 4 [facility] Repository 04/11/2017 [id number] Ambulatory Sanjiv Stephan [address] [facility] ing:CT Repository 04/10/2017/ [id number] Ambulatory BMSBuilding:B Sanjiv 8 2 [facility] Repository 01/28/2017 [id number] Ambulatory Sanjiv Stephan 5 [facility] Hospital ing:[facility] Repository 12/21/2016 [id number] [address] [place]H.[facility] Repository 09/06/2016 [id number] Ambulatory Stephan Stephan [address] [facility] ing:LAB.FUTUR Repository E 06/20/2016 [id number] Ambulatory Sanjiv Sanjiv [address] [facility] ing:MTLAB Repository PAYERS PAYERS ENCOUNTER GUARANTOR PAYER SUBSCRIBER SOURCE 05/01/2017 BREE Tirado Primary BREE [id number] Insurance:JAK HEARD: [facility] MEDICARE [facility] [id number] Number: Repository [address]Mug: [id number] [phone] Date:2512-29-89QE [address] () [address]609[address]LMCXQDUEYAL MERAZ [address]ZW: 05/01/2017 Secondary NOT GIVENUNK Stephan Insurance:SELF PAY [facility]: Effective Repository Date:2017-04-22 04/17/2017 BREE Tirado Primary BREE Tirado Stephan [id number] Insurance:ANTHEM [facility]EDD[facility] OPolicy [id number] [facility] Number: Repository [address]Gxm: [id number] [phone] Date:1476-24-20LN [address] () [address]BXPEAT[place], [place] [address]FO: 04/17/2017 Secondary NOT GIVENUNK Sanjiv Insurance:SELF PAY [facility] Number: Effective Repository Date:2017-04-17 04/17/2017 BREE Tirado Primary BREE Tirado Sanjiv [id number] Insurance:ANTHEM [facility]EDDOB[facility] [id number] General Hospital[place] Number: Repository [address]Afv: [id number] [phone] Date:2855-38-65[address] () [address], [place] [address]KP: 04/17/2017 Secondary NOT GIVENUNK Sanjiv Insurance:SELF PAY Community [facility] Number: Effective Repository Date:2017-04-17 04/17/2017 BREE Tirado Primary BREE Tirado Stephan [id number] Insurance:ANTHEM REEDDOB: [facility] [id number] [facility] Number: Repository [id number]: [id number] [phone] Date:4964-57-10QQ [address] () [address]FO, [place] [address]PW: 04/17/2017 Secondary NOT GIVENUNK Sanjiv Insurance:SELF PAY Community [facility] Number: Effective Repository Date:2017-04-17 04/17/2017 BREE Tirado Primary BREE Tirado Stephan [id number] Insurance:ANTHEM REEDDOB: Community [address] MED[address] PPOPolicy [id number] General Hospital, [place] Number: Repository [address]Goc: [id number] [phone] Date:9989-13-44LY [address] () [address]NHDSW, [place] [address]TC: 04/17/2017 Secondary NOT GIVENUNK Stephan Insurance:SELF PAY [facility] Number: Effective Repository Date:2017-04-17 04/17/2017 BREE Tirado Primary BREE Tirado Stephan [id number] Insurance:ANTHEM REEDDOB: Community [address] MED[address] PPOPolicy [id number] General Hospital, [place] Number: Repository [address]Rny: [id number] [phone] Date:3075-56-53RL [address] () [address], [place] [address]SU: 04/17/2017 Secondary NOT GIVENUNK Sanjiv Insurance:SELF PAY [facility] Number: Effective Repository Date:2017-04-17 04/17/2017 BREE Tirado Primary BREE Tirado Sanjiv [id number] Insurance:ANTHEM REEDDOB: Community [address] MED[address]ARE PPOPolicy [id number] General Hospital, [place] Number: Repository [address]Eot: [id number] [phone] Date:2230-72-77PJ [address] () [address]OGDHKQ, [place] [address]NX: 04/17/2017 Secondary NOT GIVENUNK Sanjiv Insurance:SELF PAY [facility] Number: Effective Repository Date:2017-04-17 04/15/2017 BREE Tirado Primary BREE Tirado Stephan [id number] Insurance:ANTHEM REEDDOB: Community [address] MED[address] PPOPolicy [id number] General Hospital, [place] Number: Repository [address]Nrn: [id number] [phone] Date:0446-03-18MO [address] () [address]CSWWYJT, [place] [address]NJ: 04/15/2017 Secondary NOT GIVENUNK Sanjiv Insurance:SELF PAY Community [facility] Number: Effective Repository Date:2017-04-12 04/15/2017 BREE Tirado Primary BREE Tirado Stephan [id number] Insurance:ANTHEM REEDDOB: [facility] PPOPolicy [id number] General Hospital, [place] Number: Repository [id number]: [id number] [phone] Date:7313-47-87NA [address] () [address]IMSLTUR, [place] [address]ZB: 04/15/2017 Secondary NOT GIVENUNK Sanjiv Insurance:SELF PAY [facility] Number: Effective Repository Date:2017-04-15 04/11/2017 BREE Tirado Primary BREE Tirado Stephan [id number] Insurance:ANTHEM REEDDOB: [facility] [id number] General Hospital[place] Number: Repository [address]Fjv: [id number] [phone] Date:1048-96-15NM [address] () [address], [place] [address]OW: 04/11/2017 Secondary NOT GIVENUNK Sanjiv Insurance:SELF PAY [facility] Number: Effective Repository Date:2017-04-10 04/10/2017 BREE Tirado Primary BREE Tirado Sanjiv [id number] Insurance:ANTHEM REEDDOB: [facility] [id number] General Hospital, [place] Number: Repository [address]Xik: [id number] [phone] Date:9405-82-33YR [address] () [address]20[address]ZN[place], [place] [address]NL: 04/10/2017 Secondary NOT GIVENUNK Stephan Insurance:SELF PAY Community [facility] Number: Effective Repository Date:2017-04-08 01/28/2017 BREE Tirado Primary BREE Tirado Sanjiv [id number] Insurance:ANTHEM REEDDOB: [facility] [id number] Rehabilitation Hospital [place] Number: Repository [address]Zem: [phone] [id number] [phone] (HP) Date:5954-41-51SJ [address]ZNSOJ [place] [address]EJ: 12/21/2016 BREE L Primary BREE [facility]ING [facility] [id number] Insurance:[facility] RDWEST MEDICARE [place] PLANSPolicy Number: [id number]: (419) [id number] [phone] (HP) Date:1993-42-33TF [address]NFSA[address] [place] [address]RK: 09/06/2016 BREE L Primary BREE L Sanjiv [id number] [facility] MEDICARE [facility] [id number] Number: Repository [address]Oom: [phone] [id number] [phone] (HP) Date:3886-93-33YY [address]PJNRWPS [place] [address]YP: 06/20/2016 BREE L Primary BREE L Sanjiv [id number] Insurance[facility] MEDICARE [facility] [id number] Number: Repository [address]Nfs: [phone] [id number] [phone] (HP) Date:7569-85-78NW [address]ZYJQYXJ, [place] [address]FZ:
== END ==
PROVIDERS: Anesthesiology; Visit Provider Surgery
DX: Z01.810 Encounter for preprocedural cardiovascular examination (principal); R00.1 Bradycardia, unspecified; I44.0 Atrioventricular block, first degree
CPT/HCPCS: 80048; 83036; 84443; 85027; 93005

== ENCOUNTER 2017-04-17 13:52 | Inpatient (IN) | payer MEDICARE, SELFPAY ==
[2017-04-17] VITALS (13 sets, daily range): BP systolic 113–154; BP diastolic 60–79; PULSE 46–57; RESP 6–18; TEMP 36.4–37.1; O2SAT 94–99; BMI 31.4; BMI 30.7
--- NOTE | 2017-04-17 15:00 | EKG12_ITS ---
Test Reason : Blood Pressure : / mmHG Vent. Rate : 052 BPM Atrial Rate : 052 BPM P-R Int : 220 ms QRS Dur : 080 ms QT Int : 400 ms P-R-T Axes : 046 036 068 degrees QTc Int : 372 ms Sinus bradycardia with 1st degree A-V block Otherwise normal ECG Confirmed by SUSAN HUDSON, LIANET ([id number]), pictures editor NICKOLAS CAR ([id number]) on 04/22/2017 3:23:54 PM Referred By: BA Confirmed By:LIANET DAVIS MD
--- NOTE | 2017-04-17 15:00 | RAD_ITS ---
STUDY: X-RAY CHEST REASON FOR EXAM: Male, 82 years old. Right arm numbness. TECHNIQUE: Single AP portable view of the chest. COMPARISON: Comparison is made with prior study dated December 10, 2015. FINDINGS: EKG electrodes are seen. Hyperinflation. There is no demonstrated pleural abnormality. Normal size heart. Normal mediastinum and johnathon. Normal visualized pulmonary arteries. There is atherosclerotic tortuosity of the aortic arch and descending thoracic aorta. Normal visualized thoracic spine. Normal visualized ribs, clavicles, and shoulders. There is no demonstrated abnormality of the visualized soft tissue structures of the upper abdomen. RAD/Chest 1 View IMPRESSION: Hyperinflation. No acute abnormality is seen. Electronically Signed: Adonis Zeng MD at 15:24 EST Tel [phone], Service support ,
--- NOTE | 2017-04-17 15:00 | CT_ITS ---
STUDY: CT BRAIN WITHOUT CONTRAST REASON FOR EXAM: Male, 82 years old. Right arm weakness and numbness. RADIATION DOSAGE (If Supplied By Facility): CTDIvol = ( 60.81 ) mGy, DLP = ( 1021.47 ) mGycm TECHNIQUE: Transaxial CT imaging of the brain was performed without administration of intravenous contrast material. Individualized dose optimization techniques were used for this CT. COMPARISON: None. FINDINGS: Normal soft tissue structures. Normal calvarium. There is mild cerebral atrophy with widening of the extra-axial spaces and ventricular dilatation. Normal white matter tracts of the cerebral hemispheres. Normal basal ganglia and thalami. Normal brainstem. There is mild cerebellar atrophy. There is no intracranial hemorrhage. There are no findings of an acute ischemic infarction. Atherosclerotic calcification of the cavernous portions of the internal carotid arteries bilaterally. Normal visualized paranasal sinuses. CT/Brain/Head without Contrast IMPRESSION: Chronic involutional changes of the brain. Electronically Signed: Adonis Zeng MD at 15:55 EST Tel [phone], Service support ,
[2017-04-17 15:30] LABS: Absolute Lymphocyte Count 1.66 X10^3/ul (0.83-4.51); Absolute Neutrophil Count 5.2 X10^3/uL (2.0-7.7); Basophil# 0.02 X10^3/uL; Basophil% 0.3 % (0-1); Eosinophil# 0.16 X10^3/uL; Eosinophils% 2.1 % (0-5); Hematocrit 45.7 % (40-54); Hemoglobin 15.5 g/dl (13.0-16.5); Lymphocyte # 1.66 X10^3/ul (4.0); Lymphocyte % 21.6 % (19-41); Mean Corp Hgb Conc 33.9 g/gl (32-36); Mean Corpuscular Hgb 31.4 pg (27.0-32.0); Mean Corpuscular Volume 92.7 fL (80-94); Mean Platelet Vol. 9.3 fl (6.2-12.0); Monocyte# 0.63 X10^3/uL; Monocyte% 8.2 % (0-10); Neutrophil # 5.19 X10^3/uL (2.7-7.7); Neutrophil % 67.5 % (47-70); Platelet Count 201 K/mm3 (150-450); RBC Distribution Width CV 12.5 % (11.6-14.6); RBC Distribution Width SD 41.9 fl (35.1-43.9); Red Blood Count 4.93 M/mm3 (4.6-6.2); White Blood Count 7.7 K/mm3 (4.4-11.0)
[2017-04-17 15:32] LABS: POSITIVE COUNT NO; POSITIVE DIFFERENTIAL NO; POSITIVE MORPHOLOGY NO
[2017-04-17 15:36] LABS: Bedside Glucose 117 mg/dL (70-110)
[2017-04-17 15:42] LABS: Partial Thromboplast Time 31.3 Seconds (24.1-36.2)
[2017-04-17 15:54] LABS: Anion Gap 8 (5-15); BUN 22 mg/dL (7-18); BUN/Creat Ratio 14.9 RATIO (10-20); Calcium,Total 8.8 mg/dL (8.5-10.1); Chloride 99 mmol/L (98-107); Creatinine, Serum 1.48 mg/dL (0.70-1.30); EST Glomerular Filtration Rate 49 mL/min (>60); Est Glom Filt Rate - Afr Amer 59 mL/min (>60); Estimated Creatinine Clearance 38.51 ml/min; Glucose 113 mg/dL (70-110); Potassium 4.6 mmol/L (3.5-5.1); Sodium Level 133 mmol/L (136-145)
--- NOTE | 2017-04-17 16:00 | CDU_ITS ---
Reason For Study: RT arm numbness Lt. Velocities/BP Prox CCA 75.0/15.2 cm/sec. Mid CCA 86.2/21.1 cm/sec. Dist CCA 78.0/19.3 cm/sec. Prox ICA 375.0/123.0 cm/sec. Mid ICA 249.0/54.3 cm/sec. Dist ICA 89.1/20.5 cm/sec. Lt. ICA/CCA = 4.4. Prox ECA 156.0/21.6 cm/sec. Lt. Vert. 45.1/12.3 cm/sec. Left Extracranial There is homogeneous, smooth atherosclerotic plaque noted in the left common carotid artery. There is heterogeneous, irregular atherosclerotic plaque noted in the left internal carotid artery. There is heterogeneous, irregular atherosclerotic plaque noted in the left external carotid artery. Antegrade flow is noted in the left vertebral artery. Procedure Carotid Duplex [id number]. Exam performed portable in ED. Interpretation Summary Extensive plague and >70% and likely >80% stenosis left internal carotid. Mild disease left external carotid Patent and antegrade left vertebral Ordering Physician: Tom Arrieta Referring Physician: Vincent Bennett Performed By: Esperanza De RVT
--- NOTE | 2017-04-17 16:30 | NURSING ---
DR Radha ZIMMERMAN PAGED NEUROLOGY PAGED
--- NOTE | 2017-04-17 17:25 | ED.VISSUMM ---
- ER Visit Summary Date of Service: 04/17/17 Chief Complaint: Right arm numbness History of Present Illness: The patient is a 82 M with right arm complete numbness, more on the dorsum he thinks, that started about an hour and a half prior to arrival. It is starting to improve. He initially tells me that it felt weak and he was having trouble moving it, but then states he does not think it was week and it was more just numb. He said he was having some trouble walking at the time but did not notice specifically one leg or the other being weak compared with the other. He denies any facial symptoms, his states he did not have a facial droop or any trouble speaking. No syncope, headache, nausea/vomiting, or neck pain. He has left carotid stenosis, it was diagnosed a year ago but he recently just followed up with surgery to have it addressed, he had a repeat ultrasound that showed no changes, and that ultrasound was performed 3 days ago. He has a left carotid endarterectomy scheduled 2 days from now at this hospital with Dr. Bennett. Patient takes aspirin and Plavix, no anticoagulants. He has been compliant with those medications. Physical Examination: Blood pressure in the 150s, he is alert and oriented ?3, his heart is regular with a 2/6 systolic murmur and no carotid bruits audible. Other than decreased sensation on the dorsum of his hand, now his neurologic exam is normal, he has no pronator drift of his right arm, no aphasia or dysarthria, etc. His NIHSS is 1. The rest of his exam is unremarkable. Test Results: CT head shows no acute abnormalities, chest x-ray showed no acute abnormalities, blood work shows chronic renal insufficiency that is actually better compared with his prior labs, creatinine 1.48 down from 1.54. Troponin within normal limits. EKG shows sinus rhythm at 52 no acute injury pattern, there is no dysrhythmia. Emergency left carotid artery duplex Doppler shows no changes compared with 3 days ago, there is more than 70% stenosis but the artery is open. Emergency Department Course and Treatment: Given his NIH score of only 1, and relatively rapid improvement of symptoms, no stroke team was activated, and no IV TPA was indicated, this was followed by complete resolution of his symptoms within another 1-2 hours of his ED visit. I discussed with Dr. Vincent Bennett who wanted the ultrasound done emergently to reassess for possible occlusion, I discussed with him afterwards, he will see the patient in the morning if admitted. Discussed with neurology who recommends giving him more IV fluids to help augment his blood pressure a little, as it is in the 140 range right now. Discussed with Dr. George for admission to PCU. Treatment Plan: Admit PCU further testing and evaluation Disposition: Admit Impression: TIA Left carotid stenosis This note was generated with [employer] dictation software. It may contain incorrect words, spelling, and punctuation that were not noted in review of the chart prior to signing ED Disposition - Plan for ED Patient: Disposition: Acute Care Hospital [facility] Chief Complaint: Upper Extremity Injury Referrals: Julian Hill MD [Primary Care Provider] -
--- NOTE | 2017-04-17 17:30 | ED.DCSUM_ITS ---
- ER Visit Summary Date of Service: 04/17/17 Chief Complaint: Right arm numbness History of Present Illness: The patient is a 82 M with right arm complete numbness, more on the dorsum he thinks, that started about an hour and a half prior to arrival. It is starting to improve. He initially tells me that it felt weak and he was having trouble moving it, but then states he does not think it was week and it was more just numb. He said he was having some trouble walking at the time but did not notice specifically one leg or the other being weak compared with the other. He denies any facial symptoms, his states he did not have a facial droop or any trouble speaking. No syncope , headache, nausea/vomiting, or neck pain. He has left carotid stenosis, it was diagnosed a year ago but he recently just followed up with surgery to have it addressed, he had a repeat ultrasound that showed no changes, and that ultrasound was performed 3 days ago. He has a left carotid endarterectomy scheduled 2 days from now at this hospital with Dr. Bennett. Patient takes aspirin and Plavix, no anticoagulants. He has been compliant with those medications. Physical Examination: Blood pressure in the 150s, he is alert and oriented ?3, his heart is regular with a 2/6 systolic murmur and no carotid bruits audible. Other than decreased sensation on the dorsum of his hand, now his neurologic exam is normal, he has no pronator drift of his right arm, no aphasia or dysarthria, etc. His NIHSS is 1. The rest of his exam is unremarkable. Test Results: CT head shows no acute abnormalities, chest x-ray showed no acute abnormalities, blood work shows chronic renal insufficiency that is actually better compared with his prior labs, creatinine 1.48 down from 1.54. Troponin within normal limits. EKG shows sinus rhythm at 52 no acute injury pattern, there is no dysrhythmia. Emergency left carotid artery duplex Doppler shows no changes compared with 3 days ago, there is more than 70% stenosis but the artery is open. Emergency Department Course and Treatment: Given his NIH score of only 1, and relatively rapid improvement of symptoms, no stroke team was activated, and no IV TPA was indicated, this was followed by complete resolution of his symptoms within another 1-2 hours of his ED visit. I discussed with Dr. Vincent Bennett who wanted the ultrasound done emergently to reassess for possible occlusion, I discussed with him afterwards, he will see the patient in the morning if admitted. Discussed with neurology who recommends giving him more IV fluids to help augment his blood pressure a little, as it is in the 140 range right now. Discussed with Dr. George for admission to PCU. Treatment Plan: Admit PCU further testing and evaluation Disposition: Admit Impression: TIA Left carotid stenosis This note was generated with [employer] dictation software. It may contain incorrect words, spelling, and punctuation that were not noted in review of the chart prior to signing ED Disposition - Plan for ED Patient: Disposition: Acute Care Hospital [facility] Chief Complaint: Upper Extremity Injury Referrals: Julian Hill MD [Primary Care Provider] -
--- NOTE | 2017-04-17 19:55 | ECHOCS_ITS ---
Reason For Study: TIA/CVA Procedure This was a 2D Doppler, Color Flow transthoracic echocardiogram. Exam performed portable in patient room. Left Ventricle Normal size and thickness. The estimated ejection fraction is 65 %. Right Ventricle Normal right ventricle. Atria Normal left atrium. Normal right atrium. Mitral Valve The mitral valve is structurally normal. No prolapse or stenosis seen. Trivial mitral valve insufficiency. Tricuspid Valve Trivial tricuspid valve insufficiency. Aortic Valve Aortic sclerosis, no stenosis. Pulmonic Valve Mild (1+) eccentric pulmonic valve insufficiency. Great Vessels Not well visualized. Pericardium/Pleural No pericardial effusion. Medication Diluted definity 2ml given slow IV push to enhance endocardial definition. MMode/2D Measurements & Calculations LVIDd: 3.6 cm IVSd: 0.90 cm LVOT diam: 2.1 cm LVIDs: 2.4 cm LVPWd: 1.4 cm LVOT area: 3.5 cm2 RVDd: 3.7 cm FS: 35.2 % Ao root diam: 3.1 cm LAV(MOD-bp): 76.2 ml LAV(MOD-bp) Indexed: 37.2 ml/m2 LA A4 area: 25.4 cm2 LAV(MOD-sp2): 63.1 ml LAV(MOD-sp4): 88.7 ml RA A4 area: 13.5 cm2 Time Measurements MV dec time: 0.22 sec Doppler Measurements & Calculations MV E max altaf: 78.3 cm/sec Lat Peak E' Altaf: 11.9 cm/sec Med Peak E' Altaf: 8.0 cm/sec MV A max altaf: 96.0 cm/sec E/E' lat: 6.6 E/E' med: 9.8 MV E/A: 0.82 MV V2 max: 109.8 cm/sec MV P1/2t max altaf: 111.7 cm/sec Ao V2 max: 221.5 cm/sec MV max P.8 mmHg MV P1/2t: 88.9 msec Ao max P.7 mmHg MV V2 mean: 55.3 cm/sec MV dec slope: 368.0 cm/sec2 Ao V2 mean: 142.2 cm/sec MV mean P.5 mmHg MVA(P1/2t): 2.5 cm2 Ao mean P.5 mmHg MV V2 VTI: 44.6 cm Ao V2 VTI: 43.6 cm MVA(VTI): 2.3 cm2 TODD(I,D): 2.3 cm2 TODD(V,D): 2.0 cm2 LV V1 max: 126.4 cm/sec SV(LVOT): 100.8 ml TR max altaf: 263.4 cm/sec LV V1 max P.4 mmHg TR max P.7 mmHg LV V1 mean P.8 mmHg LV V1 mean: 76.6 cm/sec LV V1 VTI: 29.1 cm Interpretation Summary The estimated ejection fraction is 65 %. Mild (1+) eccentric pulmonic valve insufficiency. Technically difficult study Ordering Physician: Ken George Referring Physician: Vincent Bennett Performed By: Joe Chen RCS
--- NOTE | 2017-04-17 20:05 | PCM.HP.STD ---
Problem List (1) Paresthesia and pain of right extremity Status: Acute (2) Carotid stenosis Status: Chronic Qualifiers: (3) HTN (hypertension) Status: Chronic Qualifiers: Hypertension type: essential hypertension Qualified Code(s): I10 - Essential (primary) hypertension (4) Hypothyroidism Status: Acute Qualifiers: Hypothyroidism type: acquired Qualified Code(s): E03.9 - Hypothyroidism, unspecified History of Present Illness Date of Admission: 04/17/17 Chief Complaint: Numbness, tingling of right arm. Patient is an 82 years old male presents with complaining of numbness and tingling of right arm. He woke up with numbness of right shoulder, which extends to distal arm and hands later in the morning. Initially, he indicated that he had weakness, but he was able to move his arm with ease, and there was no apparent loss of motor strength. Numbness and tingling are mostly in the posterior aspect of arm, and inner arm is spared. He had some numbness and tingling of lateral hand and palm. The symptoms resolved spontaneously after few hours. He has known left carotid artery stenosis, 70 to 80%. In fact, he was scheduled for surgery on 04/19/17. He denied of previous stroke, and did not have any problems with right arm in the past, although he reports past history of left arm pain with left jaw pain. He had cardiac work-up at that time. He denied of any smoking, but uses chew tobacco. Past Medical History Past Medical History (Chronic Problems): Chronic Problems (Last Updated 04/10/17 @ 14:27 by Sangita Barclay) Carotid stenosis (Chronic) HTN (hypertension) (Chronic) Allergies Sulfa (Sulfonamide Antibiotics) Allergy (Verified 04/17/17 13:55) Itching Home Medications: Ambulatory Orders Medication Instructions Recorded Olmesartan Medoxomil [Benicar] 40 mg PO DAILY 03/10/16 aspirin 81 mg tablet,delayed 81 mg PO QHS 04/10/17 release clopidogrel 75 mg tablet 75 mg PO QHS 04/10/17 coenzyme Q10 200 mg capsule 200 mg PO DAILY 04/10/17 levothyroxine 50 mcg tablet 75 mcg PO DAILY tab 04/10/17 omega [id number]-huz-uje-fish oil 1,000 mg 1,000 mg PO DAILY 04/10/17 (120 mg-180 mg) capsule tamsulosin 0.4 mg capsule 0.4 mg PO DAILY 04/10/17 Cyanocobalamin (Vitamin B-12) 1,000 mcg SL DAILY 04/15/17 [Vitamin B-12] Pravastatin [Pravachol] 20 mg PO QHS 04/15/17 Surgical History: tonsillectomy Psychiatric History: No pertinent psych hx Smoking Status: Never smoker - *Family History Maternal Family History: Family History (Last Updated 04/10/17 @ 14:27 by Sangita Barclay) Brother Heart disease Hypertension Sister Breast cancer History Items: No pertinent history Paternal Family History: Family History (Last Updated 04/10/17 @ 14:27 by Sangita Barclay) Brother Heart disease Hypertension Sister Breast cancer History Items: Heart Disease Review of Systems Comment: ROS: In general: Patient has been in good health, denied of any constitutional symptoms, such as weight loss, or gain, fever, chills, or night sweats. Patient denied of any profound fatigue. HEENT: Unremarkable. Patient denied of any dizziness, chronic headache, blurred vision, double vision, dry mouth, or nasal congestion. CV/respiratory: There is no exertional shortness of breath, chest pain, palpitation, wheezing, cough, claudication, cold feet, or peripheral edema. GI: Patient denied any abdominal pain, nausea, vomiting, diarrhea, constipation, melena, or hematochezia. : Patient denied any significant urinary symptoms. Neurology: see HPI. There is no history of seizure as an adult. Psychological: Unremarkable. ?. Endocrine: Unremarkable. Musculoskeletal: Unremarkable. VTE Information - Inpt Only VTE Present on Admission: No VTE Mechan Device Prophylaxis: SCD's VTE Pharm Prophylaxis ordered?: Yes Patient Problems: Active and Suspected Problems (Last Updated 04/10/17 @ 14:27 by Sangita Barclay) Paresthesia and pain of right extremity (Acute) Objective: In general, patient is a well-nourished and developed adult. HEENT: Head is atraumatic, and normocephalic. Pupils are equal, round, and reactive to light and accommodations. Neck is supple. There is no lymphadenopathy, or thyromegaly. Oral mucosa is pink, and moist. There are no lesions. Heart: Auscultation is normal with regular rhythm and rate. There is no extra heart sounds, or murmurs. S1 and S2 are present. Point of maximal impulse is not displaced. Lungs: Lungs are clear to auscultation bilaterally. There is no wheezing, or crackles. Abdomen: Abdominal wall is non-tender, and non-distended. There is no palpable mass or organomegaly. Normoactive bowel sounds are present. Extremities: There is no cyanosis or clubbing. Peripheral pulses are palpable. There is no edema. Skin: There are no any skin discoloration or lesions. Neurological: CN II - XII are intact. Sensory and motor functions are grossly normal with no obvious deficit. Cerebellar functions are within normal range. Gait was not tested. - Physical Exam Vital Signs Temp Pulse Resp BP Pulse Ox 97.9 F 52 L 16 137/70 H 95 04/17/17 18:10 04/17/17 18:18 04/17/17 18:10 04/17/17 18:11 04/17/17 18:10 Oxygen Delivery Method Room Air Weight: 201 lb 12.8 oz Body Mass Index (BMI) 30.[address] 04/17/17 15:00 IMPRESSION: Chronic involutional changes of the brain. Electronically Signed: Adonis Zeng MD at 15:55 EST Tel [phone], Service support , Chest X-Ray 04/17/17 15:00 IMPRESSION: Hyperinflation. No acute abnormality is seen. Electronically Signed: Adonis Zeng MD at 15:24 EST Tel [phone], Service support , Assessment/Plan Active and Suspected Problems (Last Updated 04/10/17 @ 14:27 by Sangita Barclay) Paresthesia and pain of right extremity (Acute) Patient is an 82 years old male presents with complaining of numbness and tingling of right arm. He woke up with numbness of right shoulder, which extends to distal arm and hands later in the morning. Initially, he indicated that he had weakness, but he was able to move his arm with ease, and there was no apparent loss of motor strength. Numbness and tingling are mostly in the posterior aspect of arm, and inner arm is spared. He had some numbness and tingling of lateral hand and palm. The symptoms resolved spontaneously after few hours. He has known left carotid artery stenosis, 70 to 80%. In fact, he was scheduled for surgery on 04/19/17. He denied of previous stroke, and did not have any problems with right arm in the past, although he reports past history of left arm pain with left jaw pain. He had cardiac work-up at that time. He denied of any smoking, but uses chew tobacco. #1 Paresthesia of right arm. Resolved spontaneously. TIA vs. peripheral neuropathy. He was scheduled to have endoarterectomy of left carotid artery stenosis. Consult Dr. Bennett. Neuro-check per protocol. Neurology consult. Set up MRI/MRA of head, neck and 2D-echocardiogram. #2 Essential hypertension. Maintain permissive hypertension. Hold oral antihypertensive for now. #3 Carotid artery stenosis. 70-80% lesion, unchanged. Surgery consult as above. #4 Hypothyroidism. Continue current medications. VTE prophylaxis: Lovenox SQ. GI prophylaxis: PPI po. Patient is full code. Disposition: to be determined. Code Visit Inpatient E&M: 00739 Init Hosp L3
--- NOTE | 2017-04-17 20:15 | HP.PCM_ITS ---
Problem List (1) Paresthesia and pain of right extremity Status: Acute (2) Carotid stenosis Status: Chronic Qualifiers: (3) HTN (hypertension) Status: Chronic Qualifiers: Hypertension type: essential hypertension Qualified Code(s): I10 - Essential (primary) hypertension (4) Hypothyroidism Status: Acute Qualifiers: Hypothyroidism type: acquired Qualified Code(s): E03.9 - Hypothyroidism, unspecified History of Present Illness Date of Admission: 04/17/17 Chief Complaint: Numbness, tingling of right arm. Patient is an 82 years old male presents with complaining of numbness and tingling of right arm. He woke up with numbness of right shoulder, which extends to distal arm and hands later in the morning. Initially, he indicated that he had weakness, but he was able to move his arm with ease, and there was no apparent loss of motor strength. Numbness and tingling are mostly in the posterior aspect of arm, and inner arm is spared. He had some numbness and tingling of lateral hand and palm. The symptoms resolved spontaneously after few hours. He has known left carotid artery stenosis, 70 to 80%. In fact, he was scheduled for surgery on 04/19/17. He denied of previous stroke, and did not have any problems with right arm in the past, although he reports past history of left arm pain with left jaw pain. He had cardiac work-up at that time. He denied of any smoking, but uses chew tobacco. Past Medical History Past Medical History (Chronic Problems): Chronic Problems (Last Updated 04/10/17 @ 14:27 by Sangita Barclay) Carotid stenosis (Chronic) HTN (hypertension) (Chronic) Allergies Sulfa (Sulfonamide Antibiotics) Allergy (Verified 04/17/17 13:55) Itching Home Medications: Ambulatory Orders Medication Instructions Recorded Olmesartan Medoxomil [Benicar] 40 mg PO DAILY 03/10/16 aspirin 81 mg tablet,delayed 81 mg PO QHS 04/10/17 release clopidogrel 75 mg tablet 75 mg PO QHS 04/10/17 coenzyme Q10 200 mg capsule 200 mg PO DAILY 04/10/17 levothyroxine 50 mcg tablet 75 mcg PO DAILY tab 04/10/17 omega 3-wos-flx-fish oil 1,000 mg 1,000 mg PO DAILY 04/10/17 (120 mg-180 mg) capsule tamsulosin 0.4 mg capsule 0.4 mg PO DAILY 04/10/17 Cyanocobalamin (Vitamin B-12) 1,000 mcg SL DAILY 04/15/17 [Vitamin B-12] Pravastatin [Pravachol] 20 mg PO QHS 04/15/17 Surgical History: tonsillectomy Psychiatric History: No pertinent psych hx Smoking Status: Never smoker - *Family History Maternal Family History: Family History (Last Updated 04/10/17 @ 14:27 by Sangita Barclay) Brother Heart disease Hypertension Sister Breast cancer History Items: No pertinent history Paternal Family History: Family History (Last Updated 04/10/17 @ 14:27 by Sangita Barclay) Brother Heart disease Hypertension Sister Breast cancer History Items: Heart Disease Review of Systems Comment: ROS: In general: Patient has been in good health, denied of any constitutional symptoms, such as weight loss, or gain, fever, chills, or night sweats. Patient denied of any profound fatigue. HEENT: Unremarkable. Patient denied of any dizziness, chronic headache, blurred vision, double vision, dry mouth, or nasal congestion. CV/respiratory: There is no exertional shortness of breath, chest pain, palpitation, wheezing, cough, claudication, cold feet, or peripheral edema. GI: Patient denied any abdominal pain, nausea, vomiting, diarrhea, constipation, melena, or hematochezia. : Patient denied any significant urinary symptoms. Neurology: see HPI. There is no history of seizure as an adult. Psychological: Unremarkable. ?. Endocrine: Unremarkable. Musculoskeletal: Unremarkable. VTE Information - Inpt Only VTE Present on Admission: No VTE Mechan Device Prophylaxis: SCD's VTE Pharm Prophylaxis ordered?: Yes Patient Problems: Active and Suspected Problems (Last Updated 04/10/17 @ 14:27 by Sangita Barclay) Paresthesia and pain of right extremity (Acute) Objective: In general, patient is a well-nourished and developed adult. HEENT: Head is atraumatic, and normocephalic. Pupils are equal, round, and reactive to light and accommodations. Neck is supple. There is no lymphadenopathy, or thyromegaly. Oral mucosa is pink, and moist. There are no lesions. Heart: Auscultation is normal with regular rhythm and rate. There is no extra heart sounds, or murmurs. S1 and S2 are present. Point of maximal impulse is not displaced. Lungs: Lungs are clear to auscultation bilaterally. There is no wheezing, or crackles. Abdomen: Abdominal wall is non-tender, and non-distended. There is no palpable mass or organomegaly. Normoactive bowel sounds are present. Extremities: There is no cyanosis or clubbing. Peripheral pulses are palpable. There is no edema. Skin: There are no any skin discoloration or lesions. Neurological: CN II - XII are intact. Sensory and motor functions are grossly normal with no obvious deficit. Cerebellar functions are within normal range. Gait was not tested. - Physical Exam Vital Signs Temp Pulse Resp BP Pulse Ox 97.9 F 52 L 16 137/70 H 95 04/17/17 18:10 04/17/17 18:18 04/17/17 18:10 04/17/17 18:11 04/17/17 18:10 Oxygen Delivery Method Room Air Weight: 201 lb 12.8 oz Body Mass Index (BMI) 30.[address] 04/17/17 15:00 IMPRESSION: Chronic involutional changes of the brain. Electronically Signed: Adonis Zeng MD at 15:55 EST Tel [phone], Service support , Chest X-Ray 04/17/17 15:00 IMPRESSION: Hyperinflation. No acute abnormality is seen. Electronically Signed: Adonis Zeng MD at 15:24 EST Tel [phone], Service support , Assessment/Plan Active and Suspected Problems (Last Updated 04/10/17 @ 14:27 by Sangita Barclay) Paresthesia and pain of right extremity (Acute) Patient is an 82 years old male presents with complaining of numbness and tingling of right arm. He woke up with numbness of right shoulder, which extends to distal arm and hands later in the morning. Initially, he indicated that he had weakness, but he was able to move his arm with ease, and there was no apparent loss of motor strength. Numbness and tingling are mostly in the posterior aspect of arm, and inner arm is spared. He had some numbness and tingling of lateral hand and palm. The symptoms resolved spontaneously after few hours. He has known left carotid artery stenosis, 70 to 80%. In fact, he was scheduled for surgery on 04/19/17. He denied of previous stroke, and did not have any problems with right arm in the past, although he reports past history of left arm pain with left jaw pain. He had cardiac work-up at that time. He denied of any smoking, but uses chew tobacco. #1 Paresthesia of right arm. Resolved spontaneously. TIA vs. peripheral neuropathy. He was scheduled to have endoarterectomy of left carotid artery stenosis. Consult Dr. Bennett. Neuro-check per protocol. Neurology consult. Set up MRI/MRA of head, neck and 2D-echocardiogram. #2 Essential hypertension. Maintain permissive hypertension. Hold oral antihypertensive for now. #3 Carotid artery stenosis. 70-80% lesion, unchanged. Surgery consult as above. #4 Hypothyroidism. Continue current medications. VTE prophylaxis: Lovenox SQ. GI prophylaxis: PPI po. Patient is full code. Disposition: to be determined. Code Visit Inpatient E&M: 34070 Init Hosp L3
[2017-04-17] MEDS: Famotidine 20 MG Tablet PO (22:19)
[2017-04-17] MEDS: Pravastatin 20 MG Tablet PO (22:19)
[2017-04-17] MEDS: Clopidogrel Bisulfate 75 MG Tablet PO (22:19)
[2017-04-18] VITALS (13 sets, daily range): BP systolic 97–153; BP diastolic 47–123; PULSE 46–74; RESP 16–18; TEMP 36.4–36.8; O2SAT 94–97; BMI 30.7
[2017-04-18 05:46] LABS: Hemoglobin 14.6 g/dl (13.0-16.5); Mean Corp Hgb Conc 34.8 g/gl (32-36); Mean Corpuscular Volume 92.1 fL (80-94); Mean Platelet Vol. 9.6 fl (6.2-12.0); Platelet Count 203 K/mm3 (150-450); RBC Distribution Width CV 12.3 % (11.6-14.6); RBC Distribution Width SD 40.5 fl (35.1-43.9); Red Blood Count 4.56 M/mm3 (4.6-6.2); White Blood Count 7.5 K/mm3 (4.4-11.0)
[2017-04-18 05:49] LABS: Scan Indicated on CBC? Y/N NO
[2017-04-18 06:00] LABS: Anion Gap 8 (5-15); BUN 21 mg/dL (7-18); BUN/Creat Ratio 14.6 RATIO (10-20); Calcium,Total 8.3 mg/dL (8.5-10.1); Chloride 103 mmol/L (98-107); Cholesterol 152 mg/dL (200); Creatinine, Serum 1.44 mg/dL (0.70-1.30); EST Glomerular Filtration Rate 50 mL/min (>60); Est Glom Filt Rate - Afr Amer 61 mL/min (>60); Estimated Creatinine Clearance 39.58 ml/min; Glucose 89 mg/dL (70-110); High Density Lipoprotein 41 mg/dL; Potassium 4.5 mmol/L (3.5-5.1); Sodium Level 136 mmol/L (136-145); Triglycerides 144 mg/dL; Very Low Density Lipoprotein 29 mg/dL (5-40)
[2017-04-18] MEDS: Enoxaparin 40 MG/0.4 ML Syringe SC (06:13)
[2017-04-18] MEDS: Levothyroxine 75 MCG Tablet PO (06:13)
--- NOTE | 2017-04-18 06:45 | PCM.PN.BLA ---
Progress Note Pt seen with Veronica Rodrigues and presentation reviewed Awaiting MRI and Neurology Currently plan to proceed with Left CEA tomorrow unless findings suggest against Shaunna
--- NOTE | 2017-04-18 07:01 | PN_ITS ---
Patient Problems: Active and Suspected Problems (Last Updated 04/10/17 @ 14:27 by Sangita Barclay) Paresthesia and pain of right extremity (Acute) Stroke (Acute) Subjective: Patient is an 82-year-old male with a history of hypertension, hypothyroidism, chronic renal failure stage III and carotid stenosis who presented to [facility] emergency room on 04/17/2017 complaining of numbness and tingling in his right arm. Symptoms resolved spontaneously after a few hours. He awoke with the symptoms in the morning. He has a known history of a 70-80% stenosis of the left carotid artery. He was scheduled for carotid endarterectomy with Dr. Vincent Bennett on 04/19/2017. Vital signs at presentation to the emergency room were temp 97.5, pulse rate 57, blood pressure 154/75, 99% on room air. CBC was normal. Sodium was mildly decreased at 133 and the BUN was 22 with a creatinine of 1.48. This is within his baseline. GFR is 50. CT brain showed chronic involutional changes only. He was admitted to the hospital and MRI and MRA of the head and neck has been ordered. Dr. Mercado has been consulted. He has been taking both aspirin and Plavix as an outpatient. He is also on pravastatin. Echocardiogram was ordered but the patient recently had an echocardiogram in December 2016 and it showed an ejection fraction of 65% with mild focal aortic valve calcification and no wall motion abnormalities. MRI of the brain shows a small isolated area of acute ischemic infarct in the cortex of the left postcentral gyrus. MRA of the neck shows a 70% irregular stenosis of the left proximal internal carotid artery near the distal end of the left internal carotid artery bulb. There is a widely patent left common carotid artery, left common carotid bifurcation and left internal carotid artery bulb. The right common carotid is normal and so is the right internal carotid artery. MRA of the head showed irregular narrowing involving to M2 segments of the left middle cerebral artery suspicious for recanalized emboli. - Physical Exam General: Alert, Oriented x3, Cooperative, No apparent distress, Well developed, Well nourished HEENT: Atraumatic, PERRLA, EOMI, Normocephalic Oral: Dry Mucosa Neck: Supple, No JVD, No Nuchal Rigidity, Trachea Midline Lungs: Clear to auscultation, Normal air movement, No rhonchi, No wheeze, No rales Cardiovascular: Regular rate, Regular Rhythm, Normal S1, Normal S2, No murmurs, No rub noted, No Gallop Abdomen: Bowel Sounds Present, Soft, Non Tender, Non-Distended, Obese Extremities: No clubbing, No cyanosis, No edema, No Calf Tenderness Skin: No rashes Musculoskeletal: Arthritic Changes Neurological: Cranial nerves II-XII grossly intact, Neuro grossly intact, - - no focal neurologic findings Psych/Mental Status: Appropriate Vital Signs Temp Pulse Resp BP Pulse Ox 98.2 F 57 L 16 136/71 H 95 04/18/17 06:10 04/18/17 06:10 04/18/17 06:10 04/18/17 06:10 04/18/17 06:10 Oxygen Delivery Method Room Air Weight: 201 lb 12.8 oz Body Mass Index (BMI) 30.7 Intake and Output for Last 24 Hours 04/16/17 04/17/17 04/18/17 23:59 23:59 23:59 Intake Total 1120 / 1120 Balance 1120 / 1120 Laboratory Tests Past 24 Hrs 04/18/17 04/18/17 04:55 04:55 WBC 7.5 RBC 4.56 L Hgb 14.6 Hct 42.0 MCV 92.1 MCH 32.0 MCHC 34.8 RDW 12.3 RDW Differential 40.5 Plt Count 203 MPV 9.6 Sodium 136 Potassium 4.5 Chloride 103 Carbon Dioxide 25.0 Anion Gap 8 BUN 21 H Creatinine 1.44 H Estim Creat Clear Calc 39.58 Est GFR (MDRD) Af Amer 61 Est GFR (MDRD) Non-Af 50 L BUN/Creatinine Ratio 14.6 Glucose 89 Calcium 8.3 L Triglycerides 144 Cholesterol 152 LDL Cholesterol 82 VLDL Cholesterol 29 HDL Cholesterol 41 Assessment/Plan Active and Suspected Problems (Last Updated 04/10/17 @ 14:27 by Sangita Barclay) Paresthesia and pain of right extremity (Acute) Stroke (Acute) Impressions 1. 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 Irregular plaque causing a 70% stenosis in the left internal carotid artery 3. Hypertension 4. Hypothyroidism 5. BPH 6. Hyperlipidemia 7. Stage III chronic renal failure 8. Hyponatremia-resolved Discussed with Dr. Mercado who reviewed all the imaging and feels the patient can go to surgery with Dr. Bennett in the AM. discussed with Dr. Bennett...plan on surgery 04/19 Code Visit Inpatient E&M: 54227 Subs Hosp L2
[2017-04-18] MEDS: Aspirin 81 MG TAB.CHEW PO (08:10)
[2017-04-18] MEDS: Pantoprazole Sodium 20 MG Tablet PO (10:09)
[2017-04-18] MEDS: Famotidine 20 MG Tablet PO ×2 (10:09→21:38)
[2017-04-18] MEDS: Glucerna Shake 120 ML LIQUID PO ×2 (11:49→16:36)
--- NOTE | 2017-04-18 12:43 | CON.PCM_ITS ---
Problem List (1) Stroke Status: Acute Qualifiers: CVA mechanism: stenosis Precerebral and cerebral artery: carotid artery Laterality of affected vessel: left Qualified Code(s): I63.232 - Cerebral infarction due to unspecified occlusion or stenosis of left carotid arteries (2) Carotid stenosis Status: Chronic Qualifiers: Reason for Consult Date of Consultation: 04/18/17 Reason for Consultation: stroke History of Present Illness: The patient is a 82 year old CM with PMH HTN, Left ICA stenosis (70-99%), hypothyroidism admitted with right sided numbness. Per patient he has sudden onset right sided numbness yesterday (04/17/17) around 2:30 pm and was feeling as if his right side was heavy, had difficulty in walking, symptoms lasted for about 2-3 hours before completely resolving, patient has been scheduled for left CEA tomorrow Saturday (04/19/17) by Dr. Bennett as outpatient prior to this event due to 70-99% stenosis of the left ICA, carotid ultrasound done in the ED following this admission showed proximal Left ICA high velocities of 345/123 cm/ sec with a stenosis in the range of >70%, MRI brain done on admission showed small left precentral thrombo-embolic acute infarct, MRA head/neck reported to show some Left M2 irregularities and left ICA 70% stenosis. At present patient denies any neurological symptoms, MAST, visual disturbances, focal motor weakness or sensory loss. Per patient he has been on ASA and Plavix for the past year or so, started by Cardiology. Has been on Pravastatin since Lipitor caused him to have depression per patient. Patient lives with , denies any frequent falls , does not use cane or walker to ambulate, does not need any assistance for his ADLs. [] Past Medical History Past Medical History (Chronic Problems): Chronic Problems (Last Updated 04/10/17 @ 14:27 by Sangita Barclay) Carotid stenosis (Chronic) HTN (hypertension) (Chronic) Allergies Sulfa (Sulfonamide Antibiotics) Allergy (Verified 04/17/17 13:55) Itching Home Medications: Ambulatory Orders Medication Instructions Recorded Olmesartan Medoxomil [Benicar] 40 mg PO DAILY 03/10/16 aspirin 81 mg tablet,delayed 81 mg PO QHS 04/10/17 release clopidogrel 75 mg tablet 75 mg PO QHS 04/10/17 coenzyme Q10 200 mg capsule 200 mg PO DAILY 04/10/17 levothyroxine 50 mcg tablet 75 mcg PO DAILY tab 04/10/17 omega 8-tuy-dnb-fish oil 1,000 mg 1,000 mg PO DAILY 04/10/17 (120 mg-180 mg) capsule tamsulosin 0.4 mg capsule 0.4 mg PO DAILY 04/10/17 Cyanocobalamin (Vitamin B-12) 1,000 mcg SL DAILY 04/15/17 [Vitamin B-12] Pravastatin [Pravachol] 20 mg PO QHS 04/15/17 Surgical History: tonsillectomy Psychiatric History: No pertinent psych hx Lives: Spouse/ Significant Other Smoking Status: Never smoker Tobacco Use: Non-smoker Alcohol: None Drugs: None - *Family History Maternal Family History: Family History (Last Updated 04/10/17 @ 14:27 by Sangita Barclay) Brother Heart disease Hypertension Sister Breast cancer History Items: No pertinent history Paternal Family History: Family History (Last Updated 04/10/17 @ 14:27 by Sangita Barclay) Brother Heart disease Hypertension Sister Breast cancer History Items: Heart Disease Review of Systems Constitutional: Reports: - - complete ROS negative except as documented in HPI Patient Problems: Active and Suspected Problems (Last Updated 04/10/17 @ 14:27 by Sangita Barclay) Paresthesia and pain of right extremity (Acute) Stroke (Acute) - Physical Exam General: Alert, Oriented x3, Cooperative HEENT: Atraumatic, PERRLA, EOMI, Normocephalic Neck: Supple, No JVD, Negative Carotid Bruits Lungs: Clear to auscultation, Normal air movement Cardiovascular: Regular rate, No murmurs Abdomen: Bowel Sounds Present, Soft, Non Tender Extremities: No edema, Capillary Refill Less than 3 Seconds Skin: No rashes, No breakdown Musculoskeletal: No Tenderness to Palpation of Joints or Extremities Neurological: - - consious, alert, AoAx3, CN 2-12 grossly intact, power 5/5 all 4 extremities, no sensory loss, no cerebellar signs, Reflexes + B/L B/S/T/K/A, gait deferred, NIHSS 0, mRS 0 at present Psych/Mental Status: Normal Affect, Appropriate Vital Signs Temp Pulse Resp BP Pulse Ox 98 F 58 L 18 141/68 H 97 01/18/18 12:15 04/18/17 12:15 04/18/17 12:15 04/18/17 12:15 04/18/17 12:15 Oxygen Delivery Method Room Air Weight: 91.535 kg Body Mass Index (BMI) 30.7 Intake and Output for Last 24 Hours 04/16/17 04/17/17 04/18/17 23:59 23:59 23:59 Intake Total 1240 / 1240 Balance 1240 / 1240 Laboratory Tests Past 24 Hrs 04/18/17 04/18/17 04:55 04:55 WBC 7.5 RBC 4.56 L Hgb 14.6 Hct 42.0 MCV 92.1 MCH 32.0 MCHC 34.8 RDW 12.3 RDW Differential 40.5 Plt Count 203 MPV 9.6 Sodium 136 Potassium 4.5 Chloride 103 Carbon Dioxide 25.0 Anion Gap 8 BUN 21 H Creatinine 1.44 H Estim Creat Clear Calc 39.58 Est GFR (MDRD) Af Amer 61 Est GFR (MDRD) Non-Af 50 L BUN/Creatinine Ratio 14.6 Glucose 89 Calcium 8.3 L Triglycerides 144 Cholesterol 152 LDL Cholesterol 82 VLDL Cholesterol 29 HDL Cholesterol 41 Assessment/Plan Active and Suspected Problems (Last Updated 04/10/17 @ 14:27 by Sangita Barclay) Paresthesia and pain of right extremity (Acute) Stroke (Acute) The patient is a 82 year old CM with PMH HTN, Left ICA stenosis (70-99%), hypothyroidism admitted with right sided numbness. Per patient he has sudden onset right sided numbness yesterday (04/17/17) around 2:30 pm and was feeling as if his right side was heavy, had difficulty in walking, symptoms lasted for about 2-3 hours before completely resolving, patient has been scheduled for left CEA tomorrow Saturday (04/19/17) by Dr. Bennett as outpatient prior to this event due to 70-99% stenosis of the left ICA, carotid ultrasound done in the ED following this admission showed proximal Left ICA high velocities of 345/123 cm/ sec with a stenosis in the range of >70%, MRI brain done on admission showed small left precentral thrombo-embolic acute infarct, MRA head/neck reported to show some Left M2 irregularities and left ICA 70% stenosis. At present patient denies any neurological symptoms, MAST, visual disturbances, focal motor weakness or sensory loss. Per patient he has been on ASA and Plavix for the past year or so, started by Cardiology. Has been on Pravastatin since Lipitor caused him to have depression per patient. Patient lives with , denies any frequent falls , does not use cane or walker to ambulate, does not need any assistance for his ADLs Impression Left MCA acute small athero-embolic stroke possibly secondary to Severe Left ICA stenosis Plan -On ASA/Plavix -Change Pravastatin to Lipitor to 40 mg PO q hs -MRI images reviewed- small acute athero-embolic left MCA stroke -LDL-82 -Recommend TTE, and Hba1c -Planned for Left CEA tomorrow (04/19/17) by Dr. Bennett. Discussed the same with Dr. Bennett and Dr. Ernst and agree with Left CEA. -Avoid hypotension prior to the surgery -GI/VT prophylaxis -Follow up with Neurology as outpatient in 2-3 weeks after discharge -Please call with questions if any -Thank you for allowing us to participate in patient's care and management I spent 60 minutes taking history, doing physical examination, reviewing medical records, coordinating care and counseling the patient. Code Visit Inpatient E&M: 38671 Init Hosp L3
--- NOTE | 2017-04-18 13:21 | CASEMGMT ---
Face to Face with patient for initial transition planning/care coordination assessment. MADELEINE SINGH introduced self and role at [facility], pt voices understanding and consents to assessment at this time. Pt sitting up in bed in no distress at this time. Pt A/O x4 at this time and answers all questions appropriately at this time. Care providers, pharmacy, and demographics verified. See attached link. Pt voices no further concerns/needs at this time. Advised pt to ask for CM to any further questions/concerns/needs arise, voices understanding. PLAN: [place] MADELEINE SINGH
--- NOTE | 2017-04-18 13:30 | NURSING ---
Spoke with and patient regarding Dr. Bennett calling to notify that nephrology is ok with endarctectomy in am. Verbalize understanding.
[2017-04-18 14:08] LABS: Hemoglobin A1c 5.7 % (4.2-6.3)
--- NOTE | 2017-04-18 15:19 | PCM.CONS.GEN ---
Problem List (1) Carotid stenosis Status: Chronic Qualifiers: Reason for Consult Date of Consultation: 04/18/17 Reason for Consultation: Carotid stenosis History of Present Illness: The patient is a 82 year old M who presented to the ED with complaint of heaviness and numbness of the right upper extremity. He also noted difficulty with balance and trouble walking. Patient has known left carotid stenosis. He is scheduled to undergo a left carotid endarterectomy tomorrow, 04/19, with Dr. Bennett. At present patient notes currently his symptoms have resolved. He denies numbness and tingling of the upper and lower extremities, slurred speech, difficulty with walking, syncope, dizziness, lightheadedness. Patient does note on occasion his legs feel tingly, which he attributes to his blood thinners. Patient had a proximal Left ICA with high velocities of 345/123 cm/sec with a stenosis in the range of >70%, MRI brain done on admission showed small left precentral thrombo-embolic acute infarct, MRA head/neck reported to show some Left M2 irregularities and left ICA 70% stenosis. Patient is currently maintained on daily aspirin and Plavix. Patient's previous history per Dr. Bennett as an outpatient: BREE MENDEZ, is a 82 M who presents to the office today for surgical consultation regarding extracranial carotid artery occlusive disease. The patient states that a full year ago he was hospitalized at the [facility]. He had jaw pain chest pain. He had a stress test that was not remarkable. On April 25, 2016 he had carotid duplex imaging obtained because he had carotid bruits. Peak systolic velocity within the right distal internal carotid was 148 cm/s felt to be consistent with less than 50% stenosis but probably is in the range of 50-69% stenosis. On the left however peak systolic velocity was 412 cm/s with an end-diastolic velocity of 125. This was felt to be consistent with greater than 70% stenosis and actually based upon the current findings very likely could be greater than 80% stenosis. The patient however fully aware of the situation elected not to pursue recommended referral and treatment of his extracranial carotid artery occlusive disease. More recently January 28, 2017 at the [facility] he had an echocardiogram. This demonstrates an ejection fraction of 65%. Some mild focal aortic valve calcification. It was again recommended to him that he have consultation regarding his carotids. He appears now in evaluation. The patient notes that he has had some problems with leg pain. He is on Pravachol he stopped that temporarily. Then he thought some of his discomfort was due to clopidogrel so he stopped that. He tried to increase his aspirin from 81 mg to 325 mg but he did not tolerate that complaining of fiery chest discomfort. Unclear whether this could have been reflux. He does have a remote history of peptic ulcer disease. Fortunately he is currently back on his clopidogrel and atorvastatin and low-dose aspirin. He does state that he goes from a sitting position to a standing position that he does get light headed. He denies any previous history of TIA or CVA. He denies any speech deficit. There has been no focal motor or sensory loss. Past Medical History Past Medical History (Chronic Problems): Chronic Problems (Last Updated 04/10/17 @ 14:27 by Sangita Barclay) Carotid stenosis (Chronic) HTN (hypertension) (Chronic) Allergies Sulfa (Sulfonamide Antibiotics) Allergy (Verified 04/17/17 13:55) Itching Home Medications: Ambulatory Orders Medication Instructions Recorded Olmesartan Medoxomil [Benicar] 40 mg PO DAILY 03/10/16 aspirin 81 mg tablet,delayed 81 mg PO QHS 04/10/17 release clopidogrel 75 mg tablet 75 mg PO QHS 04/10/17 coenzyme Q10 200 mg capsule 200 mg PO DAILY 04/10/17 levothyroxine 50 mcg tablet 75 mcg PO DAILY tab 04/10/17 omega 1-jsa-iny-fish oil 1,000 mg 1,000 mg PO DAILY 04/10/17 (120 mg-180 mg) capsule tamsulosin 0.4 mg capsule 0.4 mg PO DAILY 04/10/17 Cyanocobalamin (Vitamin B-12) 1,000 mcg SL DAILY 04/15/17 [Vitamin B-12] Pravastatin [Pravachol] 20 mg PO QHS 04/15/17 Surgical History: tonsillectomy Psychiatric History: No pertinent psych hx Lives: Spouse/ Significant Other Smoking Status: Never smoker Tobacco Use: Non-smoker Alcohol: None Drugs: None - *Family History Maternal Family History: Family History (Last Updated 04/10/17 @ 14:27 by Sangita Barclay) Brother Heart disease Hypertension Sister Breast cancer History Items: No pertinent history Paternal Family History: Family History (Last Updated 04/10/17 @ 14:27 by Sangita Barclay) Brother Heart disease Hypertension Sister Breast cancer History Items: Heart Disease Review of Systems Constitutional: Denies: Chills, Fever, Weight Change Eyes: Denies: Double vision, Vision Change HEENT: Denies: Head Aches, Sinus Congestion, Sinus Drainage Cardiovascular: Denies: Chest Pain, Palpitations Respiratory: Denies: Cough, Shortness of breath at rest, Sputum production Gastrointestinal: Denies: Abdominal Pain, Nausea, Vomiting Genitourinary: Denies: Dysuria Musculoskeletal: Denies: Joint Pain, Joint Tenderness Skin: Denies: Rash, Wounds Neurological: Denies: Balance problems, Blurred vision, Double vision, Change in Speech, Slurred speech, Confusion, Focal weakness, Numbness, Tingling Psychiatric: Denies: Anxiety, Depression, Homicidal Ideations, Suicidal Ideations Hematologic/ Lymphatic: Reports: Easy Bruising, Easy Bleeding Patient Problems: Active and Suspected Problems (Last Updated 04/10/17 @ 14:27 by Sangita Barclay) Paresthesia and pain of right extremity (Acute) Stroke (Acute) - Physical Exam General: Alert, Oriented x3, Cooperative HEENT: Atraumatic, PERRLA, EOMI, Normocephalic Neck: Carotid Bruits, Bilateral Lungs: Clear to auscultation, Normal air movement Cardiovascular: Regular rate, Regular Rhythm, Murmur Abdomen: Bowel Sounds Present, Soft, Non Tender Extremities: No edema, Capillary Refill Less than 3 Seconds Skin: No rashes, No breakdown Musculoskeletal: No Tenderness to Palpation of Joints or Extremities Neurological: Cranial nerves II-XII grossly intact Psych/Mental Status: Normal Affect, Appropriate Vital Signs Temp Pulse Resp BP Pulse Ox 98 F 58 L 18 141/68 H 97 04/18/17 12:15 04/18/17 12:15 04/18/17 12:15 04/18/17 12:15 04/18/17 12:15 Oxygen Delivery Method Room Air Weight: 201 lb 12.802 oz Body Mass Index (BMI) 30.7 Intake and Output for Last 24 Hours 04/16/17 04/17/17 04/18/17 23:59 23:59 23:59 Intake Total 1240 / 1240 Balance 1240 / 1240 Laboratory Tests Past 24 Hrs 04/18/17 04/18/17 04/18/17 04:55 04:55 04:55 WBC 7.5 RBC 4.56 L Hgb 14.6 Hct 42.0 MCV 92.1 MCH 32.0 MCHC 34.8 RDW 12.3 RDW Differential 40.5 Plt Count 203 MPV 9.6 Sodium 136 Potassium 4.5 Chloride 103 Carbon Dioxide 25.0 Anion Gap 8 BUN 21 H Creatinine 1.44 H Estim Creat Clear Calc 39.58 Est GFR (MDRD) Af Amer 61 Est GFR (MDRD) Non-Af 50 L BUN/Creatinine Ratio 14.6 Glucose 89 Hemoglobin A1c 5.7 Calcium 8.3 L Triglycerides 144 Cholesterol 152 LDL Cholesterol 82 VLDL Cholesterol 29 HDL Cholesterol 41 Assessment/Plan Active and Suspected Problems (Last Updated 04/10/17 @ 14:27 by Sangita Barclay) Paresthesia and pain of right extremity (Acute) Stroke (Acute) I am following this patient in conjunction with Dr. Bennett. Impression: Left carotid stenosis. Left MCA stroke Plan: Patient discussed with Dr. Bennett. Dr. Bennett and Dr. Mercado agree that patient is stable to proceed with left carotid endarterectomy tomorrow 04/19. Patient may continue his anticoagulants today. NPO after midnight tonight. Patient, his and son have had the opportunity to ask and have questions answered. Patient verbally understands the risks versus benefits. He is agreeable to proceed with the proposed procedure.
[2017-04-18] MEDS: Tamsulosin HCl 0.4 MG Capsule PO (16:36)
--- NOTE | 2017-04-18 17:27 | PCM.PN.BLA ---
Progress Note Discussed with Dr Mercado Will proceed with Left CEA tomorrow Pt has had a pre-operative stroke and is at increased risk of additional event I concur that proceeding with definite treatment of his left carotid is indicated at this time. Shaunna
--- NOTE | 2017-04-18 19:48 | MRI_ITS ---
STUDY: MRI BRAIN WITHOUT CONTRAST REASON FOR EXAM: Male, 82 years old. Numbness and tingling in the right arm. TECHNIQUE: Standardized multiplanar fat and water weighted pulse sequences were obtained. COMPARISON: CT brain without contrast 04/17/2017. FINDINGS: Small area restricted diffusion in the left postcentral gyrus is confirmed on the ADC map (series 4, image 22; series 400, image 22). This is consistent with an acute ischemic infarct. This is not visible on T2 and FLAIR sequences. Normal size of the ventricles and extra-axial spaces for the patient's age. Normal white matter tracts of the supratentorial brain. Normal bilateral basal ganglia. Normal thalami. There is no extra-axial fluid accumulation. Normal flow voids within the major intracranial circulation suggesting patency by spin echo criteria. Normal sella turcica, pituitary gland, infundibular stalk, optic chiasm and hypothalamus. Normal tectal plate and pineal gland. Normal midbrain, nallely and medulla. Normal cerebellum. Normal basal cisterns. Normal bilateral temporal bones. Normal bilateral internal auditory canals. No demonstrated orbital abnormality, within the constraints of a routine brain study. Normal visualized paranasal sinuses. Normal calvarium and skull base. Normal visualized soft tissue structures. Normal visualized upper cervical spine. MRI/Brain without Contrast IMPRESSION: 1. Small isolated area of acute ischemic infarct in the cortex of the left postcentral gyrus. 2. The rest of the brain parenchyma is normal. Electronically Signed: Nishant Quintero MD at 8:25 EST , Service support ,
--- NOTE | 2017-04-18 19:54 | MRI_ITS ---
STUDY: MRA NECK WITHOUT CONTRAST REASON FOR EXAM: Male, 82 years old. Numbness and tingling in the right arm. Known left carotid stenosis. TECHNIQUE: Source images were obtained, MIPs were performed. The study was performed unenhanced. COMPARISON: None. FINDINGS: RIGHT CAROTID ARTERIES: Normal right common carotid artery (CCA). Normal right internal carotid bulb. Normal origin of the right internal carotid (ICA) artery without a hemodynamically significant stenosis. Normal visualized cervical portion of the right internal carotid artery. Normal origin of the right external carotid artery (ECA). LEFT CAROTID ARTERIES: Normal left common carotid artery (CCA). Normal left common carotid bifurcation. Normal left internal carotid bulb. Normal origin of the left internal carotid (ICA) artery but there is irregular 70% stenosis of the left proximal internal carotid artery near the distal end of the left internal carotid artery bulb. Normal remaining visualized cervical portion of the left internal carotid artery. Normal origin of the left external carotid artery (ECA). VERTEBRAL ARTERIES: Normal antegrade flow within the bilateral vertebral artery without a hemodynamically significant stenosis. The right vertebral artery is slightly more dominant. MRI/MRA Neck without Contrast IMPRESSION: 1. Proximally 70% irregular stenosis of the left proximal internal carotid artery near the distal end of the left internal carotid artery bulb. 2. Widely patent left common carotid artery, left common carotid bifurcation and left internal carotid artery bulb. 3. Normal right common carotid artery, right common carotid bifurcation and right internal carotid artery. 4. Normal cervical segments of both vertebral arteries, the right is slightly more dominant. Electronically Signed: Nishant Quintero MD at 8:44 EST , Service support ,
--- NOTE | 2017-04-18 19:55 | MRI_ITS ---
STUDY: MRA OF THE HEAD WITHOUT CONTRAST REASON FOR EXAM: Male, 82 years old. Numbness and tingling of the right arm. TECHNIQUE: 3-D aefe-vn-iytntw (TOF) imaging was performed with MIPs. The study was performed unenhanced. COMPARISON: None. FINDINGS: Normal bilateral petrous carotid arteries. Normal right cavernous carotid artery with a normal supraclinoid bifurcation. Normal left cavernous carotid artery with a normal supraclinoid bifurcation. Normal right A1 segment of the anterior cerebral artery. Mildly hypoplastic but normal left A1 segment of the anterior cerebral artery. Normal intact anterior communicating artery (ACOM). Normal bilateral A2 segments of the anterior cerebral arteries. Normal right M1 and M2 segments of the middle cerebral arteries, with a normal M1 bifurcation. Normal left M1 segment. There are 2 M2 segments with irregular narrowing and a smaller caliber compared to the right MCA circulation. They are suspicious for recanalized emboli. No visible right posterior communicating artery (PCOM). No visible left posterior communicating artery (PCOM). Normal bilateral vertebral arteries. Normal basilar artery with a normal basilar bifurcation. The visualized bilateral superior cerebellar (SCA) arteries are normal. Normal bilateral P1, P2 and visualized P3 segments of the posterior cerebral arteries. There is no demonstrated aneurysm of the pokagon of Lorenz. Small acute cortical gyral ischemic infarct in the left post central gyrus. MRI/MRA Head ONLY without Contrast IMPRESSION: 1. Abnormal MRA showing irregular narrowing involving two M2 segments of the left middle cerebral artery. They are suspicious for recanalized emboli. 2. The remainder of the intracranial circulation is normal. Electronically Signed: Nishant Quintero MD at 8:40 EST , Service support ,
[2017-04-18] MEDS: Clopidogrel Bisulfate 75 MG Tablet PO (21:35)
[2017-04-18] MEDS: Atorvastatin Calcium 40 MG Tablet PO (21:35)
[2017-04-19] VITALS (30 sets, daily range): BP systolic 106–151; BP diastolic 54–83; PULSE 42–83; RESP 14–18; TEMP 36.6–37; O2SAT 90–99; BMI 30.7
--- NOTE | 2017-04-19 | PLAQ_PTH ---
PATIENT: BREE MENDEZ LOC: [facility] U#:[id number] AGE/SX: 82/M ROOM: [facility] RE04/17/[address]: Dr. Ida Ernst DO : 1935 BED: 1 DIS: 04/20/2017 SPEC #: [id number] RECD: 04/19/17 14:14 STATUS: HARI REQ #: [id number] JENNIFER: 04/19/17 00:[address]: Vincent Bennett DEPT: SURGICAL PATHOLOGY RECD BY: Alen Tovar ENTERED: 04/19/17 14:14 SP TYPE: PLAQUE OTHR DR: DO Dr. Julian Castro MD Dr. Ramnath S Ramanathan, MD Yoichi Imamura, MD Tissues: PLAQUE Procedures: Surgery Specimen Level III Comments: @ Ordering doctor for DEC edited from to @ by JAGRUTI at 04/19/17 1513 @ Ordering doctor for SUIII edited from to @ by JAGRUTI at 04/19/17 1513 @ Submitting doctor edited from to @ by RGOOD at 04/19/17 1513 HEADER OPERATION: Carotid endarterectomy with patchy angioplasty PRE-OP DIAGNOSIS: Carotid stenosis TISSUE SUBMITTED: Carotid plaque MICROSCOPIC DIAGNOSIS Carotid plaque, endarterectomy: Atherosclerotic tissue with focal calcification (plaque). KARTHIK:ariana 04/22/17 GROSS DESCRIPTION Received in fixative is one container labeled with the patient's name and designated carotid plaque. The specimen consists of a previously opened tubular piece of paulino-yellow indurated tissue measuring 4 cm in length and 0.8 cm in diameter. Sections show the lumen is focally almost obliterated. The entire specimen is submitted in one cassette. / KARTHIK:ariana 04/19/17 TC:5 CPT: 40871
[2017-04-19 05:03] LABS: Hematocrit 41.8 % (40-54); Hemoglobin 14.7 g/dl (13.0-16.5); Mean Corp Hgb Conc 35.2 g/gl (32-36); Mean Corpuscular Hgb 31.7 pg (27.0-32.0); Mean Corpuscular Volume 90.3 fL (80-94); Mean Platelet Vol. 9.2 fl (6.2-12.0); Platelet Count 193 K/mm3 (150-450); RBC Distribution Width SD 39.2 fl (35.1-43.9); Red Blood Count 4.63 M/mm3 (4.6-6.2); White Blood Count 8.9 K/mm3 (4.4-11.0)
[2017-04-19 05:05] LABS: Scan Indicated on CBC? Y/N NO
[2017-04-19 05:15] LABS: Anion Gap 9 (5-15); BUN 19 mg/dL (7-18); BUN/Creat Ratio 13.2 RATIO (10-20); Calcium,Total 8.5 mg/dL (8.5-10.1); Chloride 99 mmol/L (98-107); Creatinine, Serum 1.44 mg/dL (0.70-1.30); EST Glomerular Filtration Rate 50 mL/min (>60); Est Glom Filt Rate - Afr Amer 61 mL/min (>60); Estimated Creatinine Clearance 39.58 ml/min; Glucose 104 mg/dL (70-110); Potassium 4.4 mmol/L (3.5-5.1); Sodium Level 132 mmol/L (136-145)
--- NOTE | 2017-04-19 05:55 | EKG12_ITS ---
Test Reason : AM EKG Blood Pressure : / mmHG Vent. Rate : 054 BPM Atrial Rate : 054 BPM P-R Int : 228 ms QRS Dur : 092 ms QT Int : 412 ms P-R-T Axes : 057 023 063 degrees QTc Int : 390 ms Sinus bradycardia with 1st degree A-V block Confirmed by SUSAN HUDSON, LIANET ([id number]), editor magazine NICKOLAS CAR ([id number]) on 04/24/2017 11:19:43 AM Referred By: DR GASTELUM Confirmed By:LIANET DAVIS MD
[2017-04-19 06:06] LABS: Bedside Glucose 127 mg/dL (70-110)
--- NOTE | 2017-04-19 07:01 | OP.PCM_ITS ---
Problem List (1) Stroke Status: Acute Qualifiers: CVA mechanism: stenosis Precerebral and cerebral artery: carotid artery Laterality of affected vessel: left Qualified Code(s): I63.232 - Cerebral infarction due to unspecified occlusion or stenosis of left carotid arteries (2) Carotid stenosis Status: Chronic Qualifiers: Report of Operation Date of Procedure: 04/19/17 Pre-Operative Diagnosis: Left hemispheric stroke with critical stenosis left internal carotid artery Post-Operative Diagnosis: Same Surgery/Procedure Performed:: Left radial arterial line placement. Left carotid endarterectomy with bovine patch angioplasty Description of Surgical Findings:: Timeout and informed consent was obtained. At the bedside Christian test performed demonstrating adequate ulnar flow. The left wrist was gently extended. It was prepped with Betadine. 1% lidocaine was used as a local anesthetic. A 20- gauge aero kit Angiocath was inserted into the vessel and with Seldinger wire technique advanced. It was secured skin with 3-0 silk. OpSite dressing was applied followed by Hilary wrap. Patient tired procedure well no apparent complication and hand was viable and good waveform was obtained. 82-year-old gentleman was taken the operative. He was placed supine on the table. He underwent general endotracheal intubation anesthesia. Ancef 2 g are given intravenously preoperatively. The left neck was sterilely prepped and draped. An oblique incision was made along the anterior border the sternocleidomastoid. Sharp dissection carried down through the substance tissue. The platysma was incised. The sternocleidomastoid was reflected laterally. The internal jugular vein was reflected laterally. The facial vein was secured with 3-0 Vicryl ligatures. The carotid bulb was identified dissection was formed down along the common carotid. Circumferential control was obtained with a Soriano tie of Dacron tape which was loosely placed. At this point the patient received 10,000 units of heparin based upon body weight. Sharp dissection was used to identify the internal jugular carotid. The vagus nerve curled around the anterior surface and had to be carefully dissected free. Then a Dacron tape was placed around the internal carotid and Elise tourniquet placed. Circumferential control was obtained of the external carotid and a vessel loop was placed. After adequate circling time a Granado clamp was placed on the internal carotid a peripheral vascular DeBakey on the common carotid and on the external carotid 11 blade was used to make an arteriotomy which was extended with Soriano scissors a #10 USCI style shunt was placed cephalad and proximally. An endarterectomy was performed of the layer of the external elastic lamina. The plaque was sharply transected proximally and then the plaque had a significant posterior component that extended cephalad. Able to clean the get the plaque removed. I performed an inversion endarterectomy of the external carotid. Further debris was carefully removed. A single tacking suture of 7-0 Prolene was used cephalad. Then a 0.8 x 80 mm bovine patch was shaped to form and a patch angioplasty created with a running 6 -0 Prolene. Prior to completion the vessel was irrigated the shunt was removed there was good antegrade retrograde flow the patch angioplasty completed a couple repair sutures of 7-0 Prolene required. There appeared to be good flow. Cerebral oximetry remained very stable throughout the entire procedure. The patient then in aliquots received a total 30 mg of protamine. The patient had been diffusely oozy throughout the procedure because of his preoperative anticoagulation. I then used FloSeal. I approximated the platysma with a running 3-0 Vicryl. The skin edges were approximated running septic or 5-0 Vicryl. The dheeraj-incisional areas anesthetized with 10 cc of 0.5% Marcaine. Steri-Strips Telfa tape dressings applied. Sponge instrument and needle counts were reported to the surgeon to be correct. Blood loss was approximately 300 cc. He tolerated procedure well and appeared to awake neurologically intact. He was taken to the recovery area in satisfactory condition without apparent complication. Specimens plaque. Drains none. Blood loss 300 cc. Vincent Bennett M.D., F.A.C.S. Type of Anesthesia:: General Anesthesiologist: Baljit Victor
--- NOTE | 2017-04-19 07:04 | PCM.DC.GS ---
Discharge Diet: Light diet - advance as tolerated - if you have questions about your diet instructions, please talk to you doctor. Discharge Activity: May Not Drive - for 1 week or while taking narcotic pain medicine. May shower in (days): 4 - May shower on Saturday Lifting Restrictions: 10 pounds Call your doctor if your incision/area has: Continuous Slow Oozing, Sudden Increased Bleeding, Increased Pain/ Swelling, Increased Redness, Foul Smelling Discharge Call your doctor if you observe: Fever of 101 or Higher Suture Line Care: Avoid Pulling/Pushing, Avoid Pinching/Bending Additional Dressing/Incision Instructions:: You may apply a dry gauze dressing as needed to protect the incision from clothing. You may remove the Steri-Strips in 1 week Allergies/Adverse Reactions: Allergies Sulfa (Sulfonamide Antibiotics) Allergy (Verified 04/17/17 13:55) Itching Medications to take at Discharge Olmesartan Medoxomil [Benicar] 40 mg PO DAILY 03/10/16 aspirin 81 mg tablet,delayed release 81 mg PO QHS 04/10/17 clopidogrel 75 mg tablet 75 mg PO QHS 04/10/17 coenzyme Q10 200 mg capsule 200 mg PO DAILY 04/10/17 levothyroxine 50 mcg tablet 75 mcg PO DAILY tab 04/10/17 omega 7-qoc-qbc-fish oil 1,000 mg (120 mg-180 mg) capsule 1,000 mg PO DAILY 04/10/17 tamsulosin 0.4 mg capsule 0.4 mg PO DAILY 04/10/17 Cyanocobalamin (Vitamin B-12) [Vitamin B-12] 1,000 mcg SL DAILY 04/15/17 Pravastatin [Pravachol] 20 mg PO QHS 04/15/17 Hydrocodone Bitart/Apap 5-325 [[place]field 5MG-325MG] 1 tablet PO Q6H PRN PRN #8 tablet 04/19/17 The following prescriptions were given: Hydrocodone Bitart/Apap 5-325 [[place]field 5MG-325MG] 1 tablet PO Q6H PRN PRN #8 tablet PRN Reason: Pain Primary Care Physician: Julian Hill MD [Primary Care Provider] - Please Follow Up With: Vincent Bennett MD - [phone] When: Call to make an appointment to be seen in about 10 days.
[2017-04-19] MEDS: Cefazolin 2 GM in Syringe IV (07:32)
[2017-04-19] MEDS: Bupivacaine Mpf 0.5% 30 ML VIAL (09:21)
--- NOTE | 2017-04-19 10:53 | SUR.PHASEI ---
NEURO ASSESSMENT UNCHANGED SINCE ARRIVAL TO PACU: EQUAL AND STRONG HAND GRASPS, MOVING ALL EXTREMITIES EASILY. OBEYING ALL VERBAL COMMANDS, VOICE STRONG, MOVING TONGUE NORMALLY. HE DOES REPORT SOME MINOR THROAT DISCOMFORT.
[2017-04-19] MEDS: Aspirin 81 MG TAB.CHEW PO (15:19)
[2017-04-19] MEDS: Levothyroxine 75 MCG Tablet PO (15:19)
[2017-04-19] MEDS: Famotidine 20 MG Tablet PO (15:20)
[2017-04-19] MEDS: Pantoprazole Sodium 20 MG Tablet PO (15:20)
[2017-04-19] MEDS: Cefazolin 1 GM/50 ML BAG IV ×2 (15:20→22:07)
[2017-04-19] MEDS: Glucerna Shake 120 ML LIQUID PO ×2 (15:24→19:36)
[2017-04-19 15:36] LABS: Bedside Glucose 111 mg/dL (70-110)
[2017-04-19] MEDS: HYDROcodone Bitartrate/Apap 5/325 Tablet PO ×2 (16:59→23:17)
--- NOTE | 2017-04-19 18:19 | PCM.PROGNOTE ---
Patient Problems: Active and Suspected Problems (Last Updated 04/10/17 @ 14:27 by Sangita Barclay) Paresthesia and pain of right extremity (Acute) Stroke (Acute) Subjective: S/P CEA on the left 04/19/[address] Bennett Seen and examined post operatively bradycardic into the low 40's at times. BP is stable He is 93-94 % saturated on RA All lab was reviewed. Creat is stable at 1.44...consistent with stage 3 CRF No complaints - Physical Exam General: Alert, Oriented x3, Cooperative, No apparent distress HEENT: Atraumatic Oral: Moist Mucosa Neck: Trachea Midline, - - the bandage over the left carotid is dry Lungs: Clear to auscultation Cardiovascular: Regular Rhythm, Normal S1, Normal S2, No rub noted, No Gallop Abdomen: Bowel Sounds Present, Soft, Non Tender, Non-Distended, Obese Extremities: No clubbing, No cyanosis, No edema Neurological: Cranial nerves II-XII grossly intact, Neuro grossly intact Vital Signs Temp Pulse Resp BP Pulse Ox 97.9 F 70 16 128/57 H 93 04/19/17 15:50 04/19/17 15:57 04/19/17 15:50 04/19/17 15:50 04/19/17 15:50 Oxygen Flow Rate 2 Oxygen Delivery Method Room Air Weight: 201 lb 12.802 oz Body Mass Index (BMI) 30.7 Finger Stick Blood Glucose 117 Intake and Output for Last 24 Hours 04/17/17 04/18/17 04/19/17 23:59 23:59 23:59 Intake Total 1460 / 1460 1900 / 1900 Output Total 950 / 950 Balance 1460 / 1460 950 / 950 Laboratory Tests Past 24 Hrs 04/19/17 04/19/17 04:54 04:54 WBC 8.9 RBC 4.63 Hgb 14.7 Hct 41.8 MCV 90.3 MCH 31.7 MCHC 35.2 RDW 12.0 RDW Differential 39.2 Plt Count 193 MPV 9.2 Sodium 132 L Potassium 4.4 Chloride 99 Carbon Dioxide 24.0 Anion Gap 9 BUN 19 H Creatinine 1.44 H Estim Creat Clear Calc 39.58 Est GFR (MDRD) Af Amer 61 Est GFR (MDRD) Non-Af 50 L BUN/Creatinine Ratio 13.2 Glucose 104 Calcium 8.5 POC Glucose 04/19/17 04/19/17 15:09 05:58 POC Glucose 111 H 127 H Assessment/Plan Active and Suspected Problems (Last Updated 04/10/17 @ 14:27 by Sangita Barclay) Paresthesia and pain of right extremity (Acute) Stroke (Acute) Impressions 1. 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 Irregular plaque causing a 70% stenosis in the left internal carotid artery 3. Hypertension 4. Hypothyroidism 5. BPH 6. Hyperlipidemia 7. Stage III chronic renal failure 8. Hyponatremia-resolved Seen after L CEA. Stable and doing well. Probable DC tomorrow. Code Visit Inpatient E&M: 79683 Subs Hosp L1
[2017-04-19] MEDS: Tamsulosin HCl 0.4 MG Capsule PO (19:36)
[2017-04-19] MEDS: Atorvastatin Calcium 40 MG Tablet PO (22:08)
[2017-04-20] VITALS (8 sets, daily range): BP systolic 107–132; BP diastolic 52–68; PULSE 50–83; RESP 16–18; TEMP 36.3–36.8; O2SAT 95–98; BMI 30.7
[2017-04-20 05:40] LABS: Hematocrit 41.8 % (40-54); Hemoglobin 14.1 g/dl (13.0-16.5); Mean Corp Hgb Conc 33.7 g/gl (32-36); Mean Corpuscular Hgb 31.6 pg (27.0-32.0); Mean Corpuscular Volume 93.7 fL (80-94); Mean Platelet Vol. 9.2 fl (6.2-12.0); Platelet Count 199 K/mm3 (150-450); RBC Distribution Width CV 12.5 % (11.6-14.6); RBC Distribution Width SD 41.9 fl (35.1-43.9); Red Blood Count 4.46 M/mm3 (4.6-6.2); White Blood Count 8.2 K/mm3 (4.4-11.0)
[2017-04-20 05:45] LABS: Scan Indicated on CBC? Y/N NO
--- NOTE | 2017-04-20 05:46 | PCM.CAROT ---
General Carotid Note - Subjective Post-Op Day #: 1 - Objective Vital Signs Temp Pulse Resp BP Pulse Ox 98.0 F 55 L 16 114/54 L 96 04/20/17 04:53 04/20/17 04:53 04/20/17 04:53 04/20/17 04:53 04/20/17 04:53 Laboratory Tests Past 24 Hrs 04/20/17 04/20/17 05:19 05:19 WBC 8.2 RBC 4.46 L Hgb 14.1 Hct 41.8 MCV 93.7 MCH 31.6 MCHC 33.7 RDW 12.5 RDW Differential 41.9 Plt Count 199 MPV 9.2 Sodium Pending Potassium Pending Chloride Pending Carbon Dioxide Pending Anion Gap Pending BUN Pending Creatinine Pending Est GFR (MDRD) Af Amer Pending Est GFR (MDRD) Non-Af Pending BUN/Creatinine Ratio Pending Glucose Pending Calcium Pending Neck: Supple, - - clean incision on left, mild ecchymosis Neurological: Cranial nerves II-XII grossly intact Cardiovascular: Regular rate - Assessment/Plan Pt has performed well with left CEA May be discharged Clopidogrel is no longer needed for carotid occlusive disease--recommend ASA 81mg daily Will follow up in office in 10 days Thank you
[2017-04-20 06:03] LABS: Anion Gap 7 (5-15); BUN 17 mg/dL (7-18); BUN/Creat Ratio 10.8 RATIO (10-20); Calcium,Total 8.6 mg/dL (8.5-10.1); Chloride 99 mmol/L (98-107); Creatinine, Serum 1.57 mg/dL (0.70-1.30); EST Glomerular Filtration Rate 45 mL/min (>60); Est Glom Filt Rate - Afr Amer 55 mL/min (>60); Estimated Creatinine Clearance 36.31 ml/min; Glucose 112 mg/dL (70-110); Potassium 4.6 mmol/L (3.5-5.1); Sodium Level 137 mmol/L (136-145)
[2017-04-20] MEDS: Levothyroxine 75 MCG Tablet PO (06:06)
[2017-04-20] MEDS: Famotidine 20 MG Tablet PO (08:13)
[2017-04-20] MEDS: Aspirin 81 MG TAB.CHEW PO (08:13)
[2017-04-20] MEDS: Glucerna Shake 120 ML LIQUID PO ×2 (08:14→11:50)
[2017-04-20] MEDS: Pantoprazole Sodium 20 MG Tablet PO (08:17)
[2017-04-20 11:51] LABS: Bedside Glucose 158 mg/dL (70-110)
--- NOTE | 2017-04-20 12:52 | PCM.DC.SUM ---
Discharge Date and Diagnosis - Problem List Patient Problems: Active and Suspected Problems (Last Updated 04/10/17 @ 14:27 by Sangita Barclay) Paresthesia and pain of right extremity (Acute) Stroke (Acute) Date of Admission: 04/17/17 Date of Discharge: 04/20/17 - Primary Discharge Diagnosis Active and Suspected Problems (Last Updated 04/10/17 @ 14:27 by Sangita Barclay) Paresthesia and pain of right extremity (Acute) Ischemic CVA left postcentral gyrus - likely embolic due to irreg plaque in the L Internal carotid (Acute) S/P Left CEA 04/[address] Vincent Bennett Hyponatremia - resolved - Secondary Discharge Diagnosis Chronic Problems (Last Updated 04/10/17 @ 14:27 by Sangita Barclay) L Carotid stenosis (Chronic) HTN (hypertension) (Chronic) CRF stage III Hypothyroidism HLD BPH Hospital Course and Treatment Imaging Results: Clinical Impression(s) from Imaging Studies Brain CT 04/17/17 15:00 IMPRESSION: Chronic involutional changes of the brain. Electronically Signed: Adonis Zeng MD at 15:55 EST Tel [phone], Service support , Chest X-Ray 04/17/17 15:00 IMPRESSION: Hyperinflation. No acute abnormality is seen. Electronically Signed: Adonis Zeng MD at 15:24 EST Tel [phone], Service support , Brain MRI 04/18/17 19:48 IMPRESSION: 1. Small isolated area of acute ischemic infarct in the cortex of the left postcentral gyrus. 2. The rest of the brain parenchyma is normal. Electronically Signed: Nishant Quintero MD at 8:25 EST , Service support , Neck MRA 04/18/17 19:54 IMPRESSION: 1. Proximally 70% irregular stenosis of the left proximal internal carotid artery near the distal end of the left internal carotid artery bulb. 2. Widely patent left common carotid artery, left common carotid bifurcation and left internal carotid artery bulb. 3. Normal right common carotid artery, right common carotid bifurcation and right internal carotid artery. 4. Normal cervical segments of both vertebral arteries, the right is slightly more dominant. Electronically Signed: Nishant Quintero MD at 8:44 EST , Service support , Head MRA 04/18/17 19:55 IMPRESSION: 1. Abnormal MRA showing irregular narrowing involving two M2 segments of the left middle cerebral artery. They are suspicious for recanalized emboli. 2. The remainder of the intracranial circulation is normal. Electronically Signed: Nishant Quintero MD at 8:40 EST , Service support , Laboratory Results - last 24 hr 04/19/17 04/20/17 04/20/17 15:09 05:19 05:19 WBC 8.2 RBC 4.46 L Hgb 14.1 Hct 41.8 MCV 93.7 MCH 31.6 MCHC 33.7 RDW 12.5 RDW Differential 41.9 Plt Count 199 MPV 9.2 Sodium 137 Potassium 4.6 Chloride 99 Carbon Dioxide 31.0 Anion Gap 7 BUN 17 Creatinine 1.57 H Estim Creat Clear Calc 36.31 Est GFR (MDRD) Af Amer 55 L Est GFR (MDRD) Non-Af 45 L BUN/Creatinine Ratio 10.8 Glucose 112 H Calcium 8.6 POC Glucose 111 H 04/20/17 11:47 WBC RBC Hgb Hct MCV MCH MCHC RDW RDW Differential Plt Count MPV Sodium Potassium Chloride Carbon Dioxide Anion Gap BUN Creatinine Estim Creat Clear Calc Est GFR (MDRD) Af Amer Est GFR (MDRD) Non-Af BUN/Creatinine Ratio Glucose Calcium POC Glucose 158 H ECHO -ejection fraction 65% with +1 eccentric pulmonary valve insufficiency Dr. Vincent Bennett-vascular surgery Dr. Mercado-neurology Operations: - - Left carotid endarterectomy 04/19/[address] Vincent Bennett Procedures: 2-D Echocardiogram Summary of Care Provided: Patient is an 82-year-old male with a history of hypertension, hypothyroidism, chronic renal failure stage III and carotid stenosis who presented to [facility] emergency room on 04/17/2017 complaining of numbness and tingling in his right arm. Symptoms resolved spontaneously after a few hours. He awoke with the symptoms in the morning. He had a known history of a 70-80% stenosis of the left carotid artery. He was scheduled for carotid endarterectomy with Dr. Vincent Bennett on 04/19/2017. Vital signs at presentation to the emergency room were temp 97.5, pulse rate 57, blood pressure 154/75, 99% on room air. CBC was normal. Sodium was mildly decreased at 133 and the BUN was 22 with a creatinine of 1.48. This is within his baseline. GFR is 50. CT brain showed chronic involutional changes only. He was admitted to the hospital and MRI and MRA of the head and neck has been ordered. Dr. Mercado was consulted. He had been taking both aspirin and Plavix as an outpatient and these medications were continued. He was also on pravastatin. Echocardiogram was ordered and showed a 65% EF with no wall motion abnormalities and no significant valvular heart disease. MRI of the brain showed a small isolated area of acute ischemic infarct in the cortex of the left postcentral gyrus. MRA of the neck showed a 70% irregular stenosis of the left proximal internal carotid artery near the distal end of the left internal carotid artery bulb. There was a widely patent left common carotid artery, left common carotid bifurcation and left internal carotid artery bulb. The right common carotid was normal and so was the right internal carotid artery. MRA of the head showed irregular narrowing involving two M2 segments of the left middle cerebral artery suspicious for recanalized emboli. He was seen in consultation by Dr. Avendano who recommended that Dr. Bennett proceed with the planned L CEA on 04/19. He had no intraoperative complications and the post operative course was unremarkable. 04/20/2017 he was afebrile with stable vital signs. Pulse rate was 53 and the blood pressure was 116/65. Respiratory rate was 18 and he was 95-98% saturated on room air. CBC on the date of discharge was stable. BMP revealed a very mild increase in creatinine to 1.[address] Bennett recommended discharge. He will follow up with Dr. Bennett in the office in 10 days. He will follow up with Dr. Avendano in 2-3 weeks. Will continue ASA and Plavix and statin. He was given a requisition to obtain a BMP on 04/25 and the results will be sent to Dr. Hill. PE: alert and oriented X3, pleasant and in no apparent distress Lungs - CTA Heart regular, no gallop and no rub Telemetry - SB with no ectopy no peripheral edema This note was generated with [employer] dictation software. It may contain incorrect words, spelling, and punctuation that were not noted in checking the note before signing. Discharge Diet: Light diet - advance as tolerated - if you have questions about your diet instructions, please talk to you doctor. Discharge Activity: May Not Drive - for 1 week or while taking narcotic pain medicine. May shower in (days): 4 - May shower on Saturday Call your doctor if your incision/area has: Continuous Slow Oozing, Sudden Increased Bleeding, Increased Pain/ Swelling, Increased Redness, Foul Smelling Discharge Call your doctor if you observe: Fever of 101 or Higher Suture Line Care: Avoid Pulling/Pushing, Avoid Pinching/Bending Additional Dressing/Incision Instructions:: You may apply a dry gauze dressing as needed to protect the incision from clothing. You may remove the Steri-Strips in 1 week Home Medications: Medications to take at Discharge Olmesartan Medoxomil [Benicar] 40 mg PO DAILY 03/10/16 aspirin 81 mg tablet,delayed release 81 mg PO QHS 04/10/17 clopidogrel 75 mg tablet 75 mg PO QHS 04/10/17 coenzyme Q10 200 mg capsule 200 mg PO DAILY 04/10/17 levothyroxine 50 mcg tablet 75 mcg PO DAILY tab 04/10/17 omega 2-pda-fkg-fish oil 1,000 mg (120 mg-180 mg) capsule 1,000 mg PO DAILY 04/10/17 tamsulosin 0.4 mg capsule 0.4 mg PO DAILY 04/10/17 Cyanocobalamin (Vitamin B-12) [Vitamin B-12] 1,000 mcg SL DAILY 04/15/17 Pravastatin [Pravachol] 20 mg PO QHS 04/15/17 Hydrocodone Bitart/Apap 5-325 [[place] 5MG-325MG] 1 tablet PO Q6H PRN PRN #8 tablet 04/19/17 Acetaminophen [Tylenol Tablet] 650 mg PO Q4H PRN PRN tablet 04/20/17 Aspirin [Aspirin, Baby] 81 mg PO DAILY@0800 tab.chew 04/20/17 Pantoprazole Sodium [Protonix] 20 mg PO DAILY tablet 04/20/17 Following Prescrptions Were Given to Patient: Hydrocodone Bitart/Apap 5-325 [[place] 5MG-325MG] 1 tablet PO Q6H PRN PRN #8 tablet PRN Reason: Pain Primary Care Physician: Julian Hill MD [Primary Care Provider] - Please Follow Up With: Vincent Bennett MD - [phone] When: Call to make an appointment to be seen in about 10 days. Disposition: Home Minutes spent on discharge:: 35 Patient Condition:: Good Meaningful Use Info Meaningful Use Diagnoses (Choose all that apply): Ischemic CVA - CVA Therapy Assessed for PT,OT and/or ST?: Yes - Ischemic Stroke Antithrombotic order at d/c?: Yes Dx of Atrial fib/flutter?: No Anticoagulant at discharge?: No Reason anticoagulant not ordered: Treatment not Indicated Statins at discharge?: Yes Primary Dx Acute Ischemic CVA?: Yes IV tPA ordered during stay?: No Reason IV t-PA not ordered: Treatment not Indicated Code Visit Inpatient E&M: 25701 Disch Hosp
--- NOTE | 2017-04-20 13:11 | DS.PCM_ITS ---
Discharge Date and Diagnosis - Problem List Patient Problems: Active and Suspected Problems (Last Updated 04/10/17 @ 14:27 by Sangita Barclay) Paresthesia and pain of right extremity (Acute) Stroke (Acute) Date of Admission: 04/17/17 Date of Discharge: 04/20/17 - Primary Discharge Diagnosis Active and Suspected Problems (Last Updated 04/10/17 @ 14:27 by Sangita Barclay) Paresthesia and pain of right extremity (Acute) Ischemic CVA left postcentral gyrus - likely embolic due to irreg plaque in the L Internal carotid (Acute) S/P Left CEA 04/[address] Vincent Bennett Hyponatremia - resolved - Secondary Discharge Diagnosis Chronic Problems (Last Updated 04/10/17 @ 14:27 by Sangita Barclay) L Carotid stenosis (Chronic) HTN (hypertension) (Chronic) CRF stage III Hypothyroidism HLD BPH Hospital Course and Treatment Imaging Results: Clinical Impression(s) from Imaging Studies Brain CT 04/17/17 15:00 IMPRESSION: Chronic involutional changes of the brain. Electronically Signed: Adonis Zeng MD at 15:55 EST Tel [phone], Service support , Chest X-Ray 04/17/17 15:00 IMPRESSION: Hyperinflation. No acute abnormality is seen. Electronically Signed: Adonis Zeng MD at 15:24 EST Tel [phone], Service support , Brain MRI 04/18/17 19:48 IMPRESSION: 1. Small isolated area of acute ischemic infarct in the cortex of the left postcentral gyrus. 2. The rest of the brain parenchyma is normal. Electronically Signed: Nishant Quintero MD at 8:25 EST , Service support , Neck MRA 04/18/17 19:54 IMPRESSION: 1. Proximally 70% irregular stenosis of the left proximal internal carotid artery near the distal end of the left internal carotid artery bulb. 2. Widely patent left common carotid artery, left common carotid bifurcation and left internal carotid artery bulb. 3. Normal right common carotid artery, right common carotid bifurcation and right internal carotid artery. 4. Normal cervical segments of both vertebral arteries, the right is slightly more dominant. Electronically Signed: Nishant Quintero MD at 8:44 EST , Service support , Head MRA 04/18/17 19:55 IMPRESSION: 1. Abnormal MRA showing irregular narrowing involving two M2 segments of the left middle cerebral artery. They are suspicious for recanalized emboli. 2. The remainder of the intracranial circulation is normal. Electronically Signed: Nishant Quintero MD at 8:40 EST , Service support , Laboratory Results - last 24 hr 04/19/17 04/20/17 04/20/17 15:09 05:19 05:19 WBC 8.2 RBC 4.46 L Hgb 14.1 Hct 41.8 MCV 93.7 MCH 31.6 MCHC 33.7 RDW 12.5 RDW Differential 41.9 Plt Count 199 MPV 9.2 Sodium 137 Potassium 4.6 Chloride 99 Carbon Dioxide 31.0 Anion Gap 7 BUN 17 Creatinine 1.57 H Estim Creat Clear Calc 36.31 Est GFR (MDRD) Af Amer 55 L Est GFR (MDRD) Non-Af 45 L BUN/Creatinine Ratio 10.8 Glucose 112 H Calcium 8.6 POC Glucose 111 H 04/20/17 11:47 WBC RBC Hgb Hct MCV MCH MCHC RDW RDW Differential Plt Count MPV Sodium Potassium Chloride Carbon Dioxide Anion Gap BUN Creatinine Estim Creat Clear Calc Est GFR (MDRD) Af Amer Est GFR (MDRD) Non-Af BUN/Creatinine Ratio Glucose Calcium POC Glucose 158 H ECHO -ejection fraction 65% with +1 eccentric pulmonary valve insufficiency Dr. Vincent Bennett-vascular surgery Dr. Mercado-neurology Operations: - - Left carotid endarterectomy 04/19/[address] Vincent Bennett Procedures: 2-D Echocardiogram Summary of Care Provided: Patient is an 82-year-old male with a history of hypertension, hypothyroidism, chronic renal failure stage III and carotid stenosis who presented to [facility] emergency room on 04/17/2017 complaining of numbness and tingling in his right arm. Symptoms resolved spontaneously after a few hours. He awoke with the symptoms in the morning. He had a known history of a 70-80% stenosis of the left carotid artery. He was scheduled for carotid endarterectomy with Dr. Vincent Bennett on 04/19/2017. Vital signs at presentation to the emergency room were temp 97.5, pulse rate 57, blood pressure 154/75, 99% on room air. CBC was normal. Sodium was mildly decreased at 133 and the BUN was 22 with a creatinine of 1.48. This is within his baseline. GFR is 50. CT brain showed chronic involutional changes only. He was admitted to the hospital and MRI and MRA of the head and neck has been ordered. Dr. Mercado was consulted. He had been taking both aspirin and Plavix as an outpatient and these medications were continued. He was also on pravastatin. Echocardiogram was ordered and showed a 65% EF with no wall motion abnormalities and no significant valvular heart disease. MRI of the brain showed a small isolated area of acute ischemic infarct in the cortex of the left postcentral gyrus. MRA of the neck showed a 70% irregular stenosis of the left proximal internal carotid artery near the distal end of the left internal carotid artery bulb. There was a widely patent left common carotid artery, left common carotid bifurcation and left internal carotid artery bulb. The right common carotid was normal and so was the right internal carotid artery. MRA of the head showed irregular narrowing involving two M2 segments of the left middle cerebral artery suspicious for recanalized emboli. He was seen in consultation by Dr. Avendano who recommended that Dr. Bennett proceed with the planned L CEA on 04/19. He had no intraoperative complications and the post operative course was unremarkable. 04/20/2017 he was afebrile with stable vital signs. Pulse rate was 53 and the blood pressure was 116/65. Respiratory rate was 18 and he was 95-98% saturated on room air. CBC on the date of discharge was stable. BMP revealed a very mild increase in creatinine to 1.[address] Bennett recommended discharge. He will follow up with Dr. Bennett in the office in 10 days. He will follow up with Dr. Avendano in 2-3 weeks. Will continue ASA and Plavix and statin. He was given a requisition to obtain a BMP on 04/25 and the results will be sent to Dr. Hill. PE: alert and oriented X3, pleasant and in no apparent distress Lungs - CTA Heart regular, no gallop and no rub Telemetry - SB with no ectopy no peripheral edema This note was generated with [employer] dictation software. It may contain incorrect words, spelling, and punctuation that were not noted in checking the note before signing. Discharge Diet: Light diet - advance as tolerated - if you have questions about your diet instructions, please talk to you doctor. Discharge Activity: May Not Drive - for 1 week or while taking narcotic pain medicine. May shower in (days): 4 - May shower on Saturday Call your doctor if your incision/area has: Continuous Slow Oozing, Sudden Increased Bleeding, Increased Pain/ Swelling, Increased Redness, Foul Smelling Discharge Call your doctor if you observe: Fever of 101 or Higher Suture Line Care: Avoid Pulling/Pushing, Avoid Pinching/Bending Additional Dressing/Incision Instructions:: You may apply a dry gauze dressing as needed to protect the incision from clothing. You may remove the Steri- Strips in 1 week Home Medications: Medications to take at Discharge Olmesartan Medoxomil [Benicar] 40 mg PO DAILY 03/10/16 aspirin 81 mg tablet,delayed release 81 mg PO QHS 04/10/17 clopidogrel 75 mg tablet 75 mg PO QHS 04/10/17 coenzyme Q10 200 mg capsule 200 mg PO DAILY 04/10/17 levothyroxine 50 mcg tablet 75 mcg PO DAILY tab 04/10/17 omega 7-zud-lix-fish oil 1,000 mg (120 mg-180 mg) capsule 1,000 mg PO DAILY 01/16 tamsulosin 0.4 mg capsule 0.4 mg PO DAILY 04/10/17 Cyanocobalamin (Vitamin B-12) [Vitamin B-12] 1,000 mcg SL DAILY 04/15/17 Pravastatin [Pravachol] 20 mg PO QHS 04/15/17 Hydrocodone Bitart/Apap 5-325 [[place] 5MG-325MG] 1 tablet PO Q6H PRN PRN #8 tablet 04/19/17 Acetaminophen [Tylenol Tablet] 650 mg PO Q4H PRN PRN tablet 04/20/17 Aspirin [Aspirin, Baby] 81 mg PO DAILY@0800 tab.chew 04/20/17 Pantoprazole Sodium [Protonix] 20 mg PO DAILY tablet 04/20/17 Following Prescrptions Were Given to Patient: Hydrocodone Bitart/Apap 5-325 [[place] 5MG-325MG] 1 tablet PO Q6H PRN PRN #8 tablet PRN Reason: Pain Primary Care Physician: Julian Hill MD [Primary Care Provider] - Please Follow Up With: Vincent Bennett MD - [phone] When: Call to make an appointment to be seen in about 10 days. Disposition: Home Minutes spent on discharge:: 35 Patient Condition:: Good Meaningful Use Info Meaningful Use Diagnoses (Choose all that apply): Ischemic CVA - CVA Therapy Assessed for PT,OT and/or ST?: Yes - Ischemic Stroke Antithrombotic order at d/c?: Yes Dx of Atrial fib/flutter?: No Anticoagulant at discharge?: No Reason anticoagulant not ordered: Treatment not Indicated Statins at discharge?: Yes Primary Dx Acute Ischemic CVA?: Yes IV tPA ordered during stay?: No Reason IV t-PA not ordered: Treatment not Indicated Code Visit Inpatient E&M: 40358 Disch Hosp
--- NOTE | 2017-04-20 16:16 | NURSING ---
REVIEWED AND AGREED W/ Ariane NARANJO'S CHARTING.
== END 2017-04-20 14:49 | disposition home or self-care (01) | DRG 39 ==
LOC: ED 17:30 → PCU 04-18 06:08
PROVIDERS: Psychiatry & Neurology Neurology; Surgery; Admitting Provider Hospitalist; Emergency Provider Emergency Medicine; Family Provider Family Medicine; PCP Family Medicine; Visit Provider Internal Medicine
PROC: 03CL0ZZ Extirpation of Matter from Left Internal Carotid Artery, Open Approach (ICD-10-PCS; CPT 35301; principal; 2017-04-19 06:55)
DX: I63.40 Cerebral infarction due to embolism of unspecified cerebral artery (principal); N18.3 Chronic kidney disease, stage 3 (moderate); E03.9 Hypothyroidism, unspecified; I12.9 Hypertensive chronic kidney disease with stage 1 through stage 4 chronic kidney disease, or unspecified chronic kidney disease; E78.5 Hyperlipidemia, unspecified; N40.0 Benign prostatic hyperplasia without lower urinary tract symptoms; R20.2 Paresthesia of skin; R29.701 NIHSS score 1; Z72.0 Tobacco use; I65.22 Occlusion and stenosis of left carotid artery
CPT/HCPCS: 36415; 70450; 70544; 70547; 70551; 71045; 80048; 80061; 82962; 83036; 84443; 84484; 85025; 85027; 85610; 85730; 88304; 88311; 92523; 93005; 93306; 93882; 97165; 97802; 99283; J7030; J7040; J7120; Q9957; A4216; C8929; J2405

== ENCOUNTER → 2017-10-16 10:00 | Outpatient (CLI) | payer MEDICARE, SELFPAY ==
--- NOTE | 2017-10-16 10:01 | CDU_ITS ---
Reason For Study: F/U LT CEA Lt. Velocities/BP Prox CCA 94.4/12.9 cm/sec. Mid CCA 108.0/15.8 cm/sec. Dist CCA 97.9/22.9 cm/sec. Prox ICA 266.0/73.0 cm/sec. Mid ICA 229.0/62.9 cm/sec. Dist ICA 186.0/49.8 cm/sec. Lt. ICA/CCA = 2.5. Prox ECA 257.0/22.3 cm/sec. Lt. Vert. 47.9/13.8 cm/sec. Left Extracranial There is homogeneous, smooth atherosclerotic plaque noted in the left common carotid artery. There is homogeneous, smooth atherosclerotic plaque noted in the left internal carotid artery. There is heterogeneous, irregular atherosclerotic plaque noted in the left external carotid artery. Antegrade flow is noted in the left vertebral artery. Procedure Carotid Duplex 47787. Exam performed in department. Interpretation Summary Post operative changes of the left carotid bulb and proximal internal carotid. Smooth focal stenosis at the proximal left internal carotid with >70% stenosis based upon velocity although the vessel appears to have better patency on b-mode. Moderate disease left external carotid Patent and antegrade left vertebral Findings are improved since 04/17/17. Ordering Physician: Veronica Rodrigues Referring Physician: Vincent Bennett MD Performed By: Esperanza De RVT
== END ==
PROVIDERS: Family Provider Family Medicine; PCP Family Medicine; Visit Provider Physician Assistant
DX: I65.22 Occlusion and stenosis of left carotid artery (principal)
CPT/HCPCS: 93882

== ENCOUNTER → 2017-12-16 09:53 | Outpatient (CLI) | payer MEDICARE, SELFPAY ==
[2017-12-16 11:56] LABS: Color, Urine Straw (Yellow); Glucose, Dipstick Normal (Normal); Ketone-Dipstick Negative (Negative); Leukocyte Esterase-Dipstick Negative /ul (Negative); Nitrite-Dipstick Negative (Negative); Occult Blood-Urine Negative /ul (Negative); Protein-Dipstick Negative (Negative); Specific Gravity, Urine 1.005 (1.002-1.030); Urine Bilirubin Dipstick Negative (Negative); Urine Clarity Clear (Clear); Urine Urobilinogen Normal (Normal)
[2017-12-16 12:20] LABS: Absolute Lymphocyte Count 1.67 X10^3/ul (0.83-4.51); Absolute Neutrophil Count 4.6 X10^3/uL (2.0-7.7); Basophil# 0.03 X10^3/uL; Basophil% 0.4 % (0-1); Eosinophil# 0.23 X10^3/uL; Eosinophils% 3.2 % (0-5); Hematocrit 45.3 % (40-54); Hemoglobin 15.1 g/dl (13.0-16.5); Lymphocyte # 1.67 X10^3/ul (4.0); Lymphocyte % 22.9 % (19-41); Mean Corp Hgb Conc 33.3 g/gl (32-36); Mean Corpuscular Hgb 31.3 pg (27.0-32.0); Mean Corpuscular Volume 93.8 fL (80-94); Mean Platelet Vol. 9.6 fl (6.2-12.0); Monocyte# 0.75 X10^3/uL; Monocyte% 10.3 % (0-10); Neutrophil # 4.59 X10^3/uL (2.7-7.7); Neutrophil % 62.9 % (47-70); Platelet Count 204 K/mm3 (150-450); RBC Distribution Width SD 43.4 fl (35.1-43.9); Red Blood Count 4.83 M/mm3 (4.6-6.2); White Blood Count 7.3 K/mm3 (4.4-11.0)
[2017-12-16 12:25] LABS: POSITIVE COUNT NO; POSITIVE DIFFERENTIAL NO; POSITIVE MORPHOLOGY NO
[2017-12-16 12:33] LABS: Hemoglobin A1c 5.7 % (4.2-6.3)
[2017-12-16 12:43] LABS: ALB/GLOB Ratio 1.1 RATIO (0.9-2.4); AST(SGOT) 21 U/L (15-37); Alanine Aminotransfer ALT/SGPT 30 U/L (16-61); Albumin, Serum 3.8 g/dL (3.2-5.0); Alkaline Phosphatase 100 U/L (45-117); Anion Gap 8 (5-15); BUN 24 mg/dL (7-18); BUN/Creat Ratio 15.3 RATIO (10-20); Calcium,Total 8.8 mg/dL (8.5-10.1); Chloride 104 mmol/L (98-107); Cholesterol 136 mg/dL (200); Creatinine, Serum 1.57 mg/dL (0.70-1.30); EST Glomerular Filtration Rate 45 mL/min (>60); Est Glom Filt Rate - Afr Amer 55 mL/min (>60); Globulin 3.5 g/dL (2.2-4.2); Glucose 95 mg/dL (74-106); High Density Lipoprotein 42 mg/dL; PSA,Total - Annual Screen 5.47 ng/mL (0.00-4.00); Potassium 4.7 mmol/L (3.5-5.1); Protein, Total 7.3 g/dL (6.4-8.2); Sodium Level 137 mmol/L (136-145); Thyroid Stim Hormone (TSH) 2.76 uIU/mL (0.358-3.74); Triglycerides 102 mg/dL; Very Low Density Lipoprotein 20 mg/dL (5-40)
== END ==
PROVIDERS: Family Provider Family Medicine; PCP Family Medicine; Visit Provider Family Medicine
DX: Z00.00 Encounter for general adult medical examination without abnormal findings (principal); E11.9 Type 2 diabetes mellitus without complications; I10 Essential (primary) hypertension; E03.9 Hypothyroidism, unspecified; E78.00 Pure hypercholesterolemia, unspecified; Z12.5 Encounter for screening for malignant neoplasm of prostate
CPT/HCPCS: 36415; 80053; 80061; 81002; 83036; 84153; 84443; 85025; G0103

== ENCOUNTER 2018-03-28 01:48 | Observation (INO) | payer MEDICARE, SELFPAY ==
[2018-03-28] VITALS (9 sets, daily range): BP systolic 127–172; BP diastolic 65–81; PULSE 51–58; RESP 16–18; TEMP 36.6–36.8; O2SAT 92–96; BMI 29.6; BMI 31.5
--- NOTE | 2018-03-28 02:17 | RAD_ITS ---
HISTORY: chest pain, leg weakness EXAM: XR Chest 1 View: Portable COMPARISON: 04/17/2017 FINDINGS: EKG leads in place. Portable lordotic technique. Normal heart size. Prominent lung volumes. No vascular congestion, pleural effusion, or acute pulmonary infiltration. No pneumothorax. The bony thorax appears intact. IMPRESSION: No acute disease or significant change. at 0251 Reported and signed by: Reed Corea MD Electronically Signed: Reed Corea, at 2:50 EST Tel , Service support , RAD/Chest 1 View (Portable)
--- NOTE | 2018-03-28 02:17 | EKG12_ITS ---
Test Reason : Blood Pressure : / mmHG Vent. Rate : 056 BPM Atrial Rate : 056 BPM P-R Int : 214 ms QRS Dur : 088 ms QT Int : 414 ms P-R-T Axes : 046 -13 049 degrees QTc Int : 399 ms Sinus bradycardia with 1st degree A-V block Otherwise normal ECG Confirmed by SUSAN HUDSON, LIANET ([id number]), film editor supervisor NICKOLAS CAR ([id number]) on 03/31/2018 1:25:23 PM Referred By: BA Confirmed By:LIANET DAVIS MD
--- NOTE | 2018-03-28 02:23 | ED.DCSUM_ITS ---
History of Present Illness Chief Complaint: Weakness Informant: Patient Onset: Hours - 1 Context: Sudden Onset Timing: Intermittent, Lasts - 5 min Quality: Racing heartbeat Location: Chest Current Severity: Gone Maximum Severity: Severe Worsened by: Nothing Relieved by: Nothing Associated Symptoms: Hollis extremely weak. Jaw discomfort. No cp, sob, presyncope. Narrative: Never had this happen before. Had a left carotid endarterectomy remotely, but no cardiac history. Negative stress test about a year ago. No history of heart catheterization. Feels better now. - Past Medical History (1) Carotid stenosis Status: Chronic (2) HTN (hypertension) Status: Chronic (3) Hyperlipidemia Status: Chronic (4) Hypothyroidism Status: Chronic (5) Osteoarthritis Status: Chronic Past Medical History - Allergies and Home Meds Allergies/Adverse Reactions: Allergies Sulfa (Sulfonamide Antibiotics) Allergy (Verified 03/28/18 01:50) Itching atorvastatin [From Lipitor] Adverse Reaction (Severe, Verified 03/28/18 01:50) Depression rosuvastatin [From Crestor] Adverse Reaction (Severe, Verified 03/28/18 01:50) Myalgia Primary Care Physician: Julian Hill MD [Primary Care Provider] - Surgical History: tonsillectomy, - - Carpal tunnel Smoking Status: Never smoker Drugs: None - Family History Maternal Family History: Family History (Last Reviewed 07/17/17 @ 09:35 by Deneen Uriostegui) Brother Heart disease Hypertension Sister Breast cancer Father Myocardial infarction Family History: Reports: No pertinent history Paternal Family History: Family History (Last Reviewed 07/17/17 @ 09:35 by Deneen Uriostegui) Brother Heart disease Hypertension Sister Breast cancer Father Myocardial infarction Family History: Reports: Heart Disease Review of Systems General: Reports: Malaise, - - No lightheadedness or presyncope/syncope. Denies: Chills, Fever, Sweats Eyes: Denies: Visual changes - bilaterally, Diplopia ENT: Reports: - - Jaw pain. See HPI. Cardiovascular: Reports: Palpitations, Heart racing. Denies: Chest pain Respiratory: Denies: Dyspnea, Cough, Dyspnea on exertion, Orthopnea Gastrointestinal: Denies: Abdominal pain, Nausea, Vomiting, Diarrhea, Melena, Hematochezia Genitourinary: Denies: Dysuria, Hematuria, Frequency Musculoskeletal: Denies: Neck pain, Back pain, Swelling, Extremity Pain Skin: Denies: Rash Neurological: Denies: Headache, Weakness, Numbness Psych: Denies: Depression, Anxiety Endocrine: Denies: Polyuria, Polydipsia Hematologic: Reports: Easy bruising. Denies: Lymphadenopathy Allergy: Denies: Swelling of the mouth, Swelling of the tongue Physical Exam Vital Signs/Narrative: Vital Signs Temp Pulse Resp BP Pulse Ox 03/28/18 01:50 97.8 F 58 L 17 172/77 H 96 Inital Vital Signs reviewed: Yes General: Well nourished, Well developed, - - Well-appearing, NAD, conversive Head: Normocephalic, Atraumatic Eyes: Perrl, EOMI ENT: Moist mucous membranes, No rhinorrhea Neck: Supple, Nontender, No JVD Cardiovascular: Regular rate, Regular rhythm, Normal S1, Normal S2, Murmur - 2/6 systolic decrescendo. Negative for: Tachycardia Respiratory: No distress, CTA bilaterally, Chest nontender Abdomen: Soft, Nontender, Nondistended, Normal bowel sounds Back: Nontender, Normal Inspection Extremities: Nontender - No calf tenderness bilaterally., No edema Skin: Normal color, No rash Neurological: Alert, Oriented x3, Cranial nerves II-XII grossly intact, Normal Strength, Normal Sensation Psychological: Normal affect Diagnostic/Tx/Re-eval Impressions Chest X-Ray 03/28/18 02:17 03/28/18 02:17 Chest 1 View (Portable) [RAD] Stat Laboratory Results 03/28/18 03/28/18 02:22 02:22 WBC 7.1 RBC 4.52 L Hgb 14.3 Hct 41.8 MCV 92.5 MCH 31.6 MCHC 34.2 RDW 12.6 RDW Differential 41.8 Plt Count 178 MPV 9.3 Immature Gran % (Auto) 0.300 Neut % (Auto) 58.8 Lymph % (Auto) 24.7 [place] % (Auto) 10.7 H Eos % (Auto) 5.1 H Baso % (Auto) 0.4 Absolute Neuts (auto) 4.2 Absolute Lymphs (auto) 1.75 Total Counted Not Reportable Sodium 142 Potassium 4.1 Chloride 108 H Carbon Dioxide 26.0 Anion Gap 8 BUN 21 H Creatinine 1.63 H Estim Creat Clear Calc 36.70 Est GFR (MDRD) Af Amer 53 L Est GFR (MDRD) Non-Af 43 L BUN/Creatinine Ratio 12.9 Glucose 110 H Calcium 8.4 L Troponin I < 0.015 - Rhythm Strip Rhythm Strip: Sinus Rhythm Rate: 55 Ectopy: None - EKG Initial EKG Interpretation: No Acute Injury Pattern, Sinus Bradycardia, AV Block - First- degree Prior: Unchanged - Medical Decision Making Other than mild renal insufficiency, patient's workup is negative. He had no further events while here in the emergency department. My concern is that he was having jaw discomfort at the same time of the palpitations. I am concerned about a transient dysrhythmia and possible anginal equivalent. I think he should be observed for further evaluation and cycling of enzymes. Patient is comfortable with this plan. Discussed with hospitalist. Given a baby aspirin, he already took a baby aspirin less than 24 hours ago. ED Disposition - Plan for ED Patient: Disposition: Acute Care Hospital [facility] Chief Complaint: Weakness Diagnosis: Palpitations, Anginal equivalent Referrals: Julian Hill MD [Primary Care Provider] -
[2018-03-28] MEDS: 0.9% Normal Saline 1,000 ML 150 ML IV (02:32)
[2018-03-28 02:33] LABS: Absolute Lymphocyte Count 1.75 X10^3/ul (0.83-4.51); Absolute Neutrophil Count 4.2 X10^3/uL (2.0-7.7); Basophil# 0.03 X10^3/uL; Basophil% 0.4 % (0-1); Eosinophil# 0.36 X10^3/uL; Eosinophils% 5.1 % (0-5); Hematocrit 41.8 % (40-54); Hemoglobin 14.3 g/dl (13.0-16.5); Lymphocyte # 1.75 X10^3/ul (4.0); Lymphocyte % 24.7 % (19-41); Mean Corp Hgb Conc 34.2 g/gl (32-36); Mean Corpuscular Hgb 31.6 pg (27.0-32.0); Mean Corpuscular Volume 92.5 fL (80-94); Mean Platelet Vol. 9.3 fl (6.2-12.0); Monocyte# 0.76 X10^3/uL; Monocyte% 10.7 % (0-10); Neutrophil # 4.17 X10^3/uL (2.7-7.7); Neutrophil % 58.8 % (47-70); Platelet Count 178 K/mm3 (150-450); RBC Distribution Width CV 12.6 % (11.6-14.6); RBC Distribution Width SD 41.8 fl (35.1-43.9); Red Blood Count 4.52 M/mm3 (4.6-6.2); White Blood Count 7.1 K/mm3 (4.4-11.0)
[2018-03-28 02:48] LABS: Anion Gap 8 (5-15); BUN 21 mg/dL (7-18); BUN/Creat Ratio 12.9 RATIO (10-20); Calcium,Total 8.4 mg/dL (8.5-10.1); Chloride 108 mmol/L (98-107); Creatinine, Serum 1.63 mg/dL (0.70-1.30); EST Glomerular Filtration Rate 43 mL/min (>60); Est Glom Filt Rate - Afr Amer 53 mL/min (>60); Glucose 110 mg/dL (74-106); Potassium 4.1 mmol/L (3.5-5.1); Sodium Level 142 mmol/L (136-145)
[2018-03-28 03:17] LABS: POSITIVE COUNT NO; POSITIVE DIFFERENTIAL NO; POSITIVE MORPHOLOGY NO
--- NOTE | 2018-03-28 04:01 | HP.PCM_ITS ---
Problem List (1) Dysrhythmia, cardiac Status: Acute History of Present Illness Date of Admission: 03/28/18 Chief Complaint: Racing Heart The patient is a 83 year old M with a significant history of hypertension; chronic bradycardia; carotid stenosis status post left endarterectomy who presented with about 5 minutes episode of a racing heart that started an hour before his presentation to the emergency department. Also also at about the same time he had weakness in his legs and he felt cold. He reported that he has some dull ache to his left jaw. However he is unsure whether this pain was any different from the pain he has had ever since he had a carotid endarterectomy in April 2017. He reported that he always has numbness at his left jaw ever since his carotid endarterectomy. He reports pain in his left shoulder. He thinks this pain is chronic and is not related with this episode of heart racing. He attributes his left shoulder pain to osteoarthritis from overuse. He denies any nausea, vomiting or diaphoresis. He reports that about 15 years ago he was evaluated with a heart monitor for an extended period of time and it was found that he had bradycardia at night. EKG obtained by paramedics showed sinus rhythm with first-degree AV block. At emergency department his EKG was not different from that of the paramedics. He reports chronic neck pain and chronic back pain Report that he had a brother who had heart problems at the age of 20 years but lived long. He also reports a brother who had heart problems at age 85. Further he reports a brother who had aortic aneurysm. Patient was admitted because emergency department doctor was concerned about his jaw pain which is an angina equivalent. Past Medical History Past Medical History (Chronic Problems): Chronic Problems (Last Reviewed 03/28/18 @ 05:17 by Jarred Paris MD) Hyperlipidemia (Chronic) Abnormal electrocardiogram (Chronic) Carotid stenosis (Chronic) HTN (hypertension) (Chronic) Osteoarthritis (Chronic) Hypothyroidism (Chronic) Medical History: Medical History (Last Reviewed 03/28/18 @ 05:17 by Jarred Paris MD) Hyperlipidemia (Chronic) E78.5 Carotid stenosis (Chronic) I65.29 HTN (hypertension) (Chronic) I10 Osteoarthritis (Chronic) M19.90 Hypothyroidism (Chronic) E03.9 Allergies Sulfa (Sulfonamide Antibiotics) Allergy (Verified 03/28/18 01:50) Itching atorvastatin [From Lipitor] Adverse Reaction (Severe, Verified 03/28/18 01:50) Depression rosuvastatin [From Crestor] Adverse Reaction (Severe, Verified 03/28/18 01:50) Myalgia Home Medications: Ambulatory Orders Medication Instructions Recorded Olmesartan Medoxomil [Benicar] 40 mg PO DAILY 03/10/16 aspirin 81 mg tablet,delayed 81 mg PO QHS 04/10/17 release coenzyme Q10 200 mg capsule 200 mg PO DAILY 04/10/17 levothyroxine 50 mcg tablet 75 mcg PO DAILY tab 04/10/17 tamsulosin 0.4 mg capsule 0.4 mg PO DAILY 04/10/17 Cyanocobalamin (Vitamin B-12) 1,000 mcg SL DAILY 04/15/17 [Vitamin B-12] Aspirin [Aspirin, Baby] 81 mg PO DAILY@0800 tab.chew 04/20/17 atorvastatin 20 mg tablet 20 mg PO QDAY 05/01/17 Surgical History: Surgical History (Last Reviewed 03/28/18 @ 05:17 by Jarred Paris MD) History of carpal tunnel surgery (Resolved) Z92.89 left History of tonsillectomy (Resolved) Z90.89 S/P colonoscopy (Resolved) Z98.890 Surgical History: tonsillectomy, - - Carpal tunnel Lives: Spouse/ Significant Other Smoking Status: Never smoker Drugs: None - *Family History Maternal Family History: Family History (Last Reviewed 03/28/18 @ 05:17 by Jarred Paris MD) Brother Heart disease Hypertension Sister Breast cancer Father Myocardial infarction History Items: No pertinent history Paternal Family History: Family History (Last Reviewed 03/28/18 @ 05:17 by Jarred Paris MD) Brother Heart disease Hypertension Sister Breast cancer Father Myocardial infarction History Items: Heart Disease Review of Systems Constitutional: Reports: Weakness. Denies: Chills, Fever, Weight Change HEENT: Denies: Head Aches, Sinus Congestion, Sinus Drainage Cardiovascular: Denies: Chest Pain, Palpitations Respiratory: Denies: Cough, Shortness of breath at rest, Sputum production Gastrointestinal: Denies: Abdominal Pain, Nausea, Vomiting Genitourinary: Denies: Dysuria Musculoskeletal: Reports: Neck Pain, Shoulder Pain. Denies: Joint Tenderness Skin: Denies: Rash, Wounds Neurological: Denies: Numbness, Tingling, Focal weakness Psychiatric: Denies: Anxiety, Depression, Homicidal Ideations, Suicidal Ideations Hematologic/ Lymphatic: Denies: Easy Bruising, Easy Bleeding VTE Information - Inpt Only VTE Present on Admission: No VTE Mechan Device Prophylaxis: None VTE Pharm Prophylaxis ordered?: Yes Patient Problems: Active and Suspected Problems (Last Reviewed 03/28/18 @ 05:17 by Jarred lion MD) Palpitations (Acute) Anginal equivalent (Acute) Dysrhythmia, cardiac (Acute) - Physical Exam General: Alert, Oriented x3, Cooperative HEENT: Atraumatic, PERRLA, EOMI, Normocephalic Neck: Supple, No JVD, Negative Carotid Bruits Lungs: Clear to auscultation, Normal air movement Cardiovascular: No murmurs, Bradycardic Abdomen: Bowel Sounds Present, Soft, Non Tender Extremities: No edema, Capillary Refill Less than 3 Seconds Skin: No rashes, No breakdown Musculoskeletal: No Tenderness to Palpation of Joints or Extremities Neurological: Cranial nerves II-XII grossly intact Psych/Mental Status: Normal Affect, Appropriate Vital Signs Temp Pulse Resp BP Pulse Ox 97.8 F 58 L 17 172/77 H 95 03/28/18 01:50 03/28/18 01:50 03/28/18 01:50 03/28/18 01:50 03/28/18 02:31 Oxygen Delivery Method Room Air Weight: 93.6 kg Body Mass Index (BMI) 29.6 Finger Stick Blood Glucose 117 Laboratory Tests Past 24 Hrs 03/28/18 03/28/18 02:22 02:22 WBC 7.1 RBC 4.52 L Hgb 14.3 Hct 41.8 MCV 92.5 MCH 31.6 MCHC 34.2 RDW 12.6 RDW Differential 41.8 Plt Count 178 MPV 9.3 Immature Gran % (Auto) 0.300 Neut % (Auto) 58.8 Lymph % (Auto) 24.7 [place] % (Auto) 10.7 H Eos % (Auto) 5.1 H Baso % (Auto) 0.4 Absolute Neuts (auto) 4.2 Absolute Lymphs (auto) 1.75 Total Counted Not Reportable Sodium 142 Potassium 4.1 Chloride 108 H Carbon Dioxide 26.0 Anion Gap 8 BUN 21 H Creatinine 1.63 H Estim Creat Clear Calc 36.70 Est GFR (MDRD) Af Amer 53 L Est GFR (MDRD) Non-Af 43 L BUN/Creatinine Ratio 12.9 Glucose 110 H Calcium 8.4 L Troponin I < 0.015 Assessment/Plan All Active Problems (Last Reviewed 03/28/18 @ 05:17 by Jarred Paris MD) Palpitations (Acute) Anginal equivalent (Acute) Dysrhythmia, cardiac (Acute) History of carpal tunnel surgery (Resolved) History of tonsillectomy (Resolved) Stroke (Acute) Paresthesia and pain of right extremity (Acute) S/P colonoscopy (Resolved) Substernal precordial chest pain (Acute) The patient is a 83 year old M with a significant history of hypertension; chronic bradycardia; carotid stenosis status post left endarterectomy who presented with about 5 minutes episode of a racing heart; bilateral leg weakness; generalized weakness; and jaw pain which he is uncertain whether is any different from his chronic neck pain that developed after left sided carotid embolectomy. Dysrhythmia Differential diagnoses include angina. Review of old records show that patient had echocardiogram on 04/17/2017. That echocardiogram was unremarkable except for 1+ eccentric pulmonic valve insufficiency. Further stress test on 03/10/2016 was not remarkable for inducible ischemia. Also cardiology reports on 04/15/2017 showed that patient has bradycardia with first-degree AV block. Patient saw LATASHA Hernandez and Dr. Driscoll, on 07/17/2017 for cardiovascular follow-up. His visit was unremarkable. Admit to a monitored bed on PCU CXR independently reviewed confirms no acute cardia primary process. EKG independently reviewed confirms sinus bradycardia with first-degree AV block. At home patient takes aspirin 81 mg twice daily. Reportedly he first takes the stomach if he takes high-dose aspirin. Aspirin twice daily continued. Continue home Lipitor with co-Q10. Serial cardiac enzymes Stat EKG as needed for chest pain Stress test in the AM if the cardiac enzymes are negative Consider further long-term heart monitoring upon discharge. CKD stage III His creatinine on admission was 1.63 which is stable. Hypertension On admission his blood pressure was not within goal. Benicar continued Hypothyroidism Synthroid continued We will check a TSH because of arrhythmia. DVT prophylaxis Subcutaneous Heparin. Code Visit OBSV E&M: 61312 Initial observation care L3
--- NOTE | 2018-03-28 04:54 | EKG12_ITS ---
Test Reason : PALPITATIONS Blood Pressure : / mmHG Vent. Rate : 052 BPM Atrial Rate : 052 BPM P-R Int : 210 ms QRS Dur : 088 ms QT Int : 410 ms P-R-T Axes : 005 -06 053 degrees QTc Int : 381 ms Sinus bradycardia with 1st degree A-V block Otherwise normal ECG Confirmed by SUSAN HUDSON, LIANET ([id number]), marketing editor NICKOLAS CAR ([id number]) on 03/31/2018 1:33:03 PM Referred By: BRIAN Confirmed By:LIANET DAVIS MD
[2018-03-28] MEDS: Losartan Potassium 100 MG Tablet PO (05:51)
[2018-03-28] MEDS: Levothyroxine 75 MCG Tablet PO (05:51)
[2018-03-28 06:08] LABS: International Normalized Ratio 1.1; Prothrombin Time (Protime)PT. 13.9 SECONDS (11.7-14.9)
[2018-03-28 06:09] LABS: Partial Thromboplast Time 28.6 Seconds (24.1-36.2)
[2018-03-28 06:21] LABS: Cholesterol 134 mg/dL (200); High Density Lipoprotein 45 mg/dL; Thyroid Stim Hormone (TSH) 5.17 uIU/mL (0.358-3.74); Triglycerides 94 mg/dL; Very Low Density Lipoprotein 19 mg/dL (5-40)
[2018-03-28] MEDS: Cyanocobalamin 500 MCG Tablet 1000 MCG PO (10:29)
[2018-03-28] MEDS: Tamsulosin HCl 0.4 MG Capsule PO (10:30)
--- NOTE | 2018-03-28 14:14 | STRESSREP ---
Stress Test Report Date: 03/28/2018 Procedure: Exercise tolerance test/imaging study Indications: Rotations; jaw discomfort my: Peripheral arterial occlusive disease Consent: Per the patient Procedure: The patient exercised on a Sravan protocol for 5 minutes completing Stage I and 2 minutes of Stage II achieving a peak heart rate of 137 bpm (98 % predicted maximal heart rate) with a peak blood pressure 170/82 mmHg and a peak MET capacity of 7 METs. The baseline ECG demonstrated sinus bradycardia. The peak exercise ECG demonstrated no obvious. There were no cardiac dysrhythmias pretest, during exercise, or recovery. The functional capacity was considered average. There was no complaint of chest discomfort during exercise or recovery. The examination was discontinued secondary to dyspnea. Impression: 1. Technically adequate (percent predicted maximal heart rate greater than 85%) exercise tolerance test 2. Peak exercise ECG demonstrated no obvious ECG changes 3. There were no cardiac dysrhythmias pretest, during exercise, or recovery 4. Nuclear images pending Myocardial perfusion imaging study: Technique: The patient was injected with 14.6 mCi of technetium 99m Cardiolite and subsequently rest SPECT Cardiolite nuclear imaging was obtained in the horizontal long, vertical long, and short axis views. The patient exercised on a Sravan protocol for 5 minutes completing Stage I and 2 minutes of Stage II achieving a peak heart rate of 137 bpm (98 % predicted maximal heart rate) with a peak blood pressure 170/82 mmHg and a peak MET capacity of 7 METs. The patient was injected with 45.8 mCi of technetium 99m Cardiolite and subsequently stress SPECT Cardiolite nuclear imaging was obtained in the horizontal long, vertical long, and short axis views. A gated Cardiolite study at peak stress was obtained. Interpretation: Rest and stress SPECT Cardiolite nuclear imaging status post realignment, normalization, and attenuation correction, demonstrates the appearance of relative uniform tracer uptake and myocardial perfusion appearing within normal limits. There is end systolic thickening and brightening. The gated Cardiolite study demonstrates myocardial thickening and inward wall motion. The reported LVEF is 74 %. Impression: 1. Rest and stress SPECT Cardiolite nuclear imaging demonstrate relative uniform tracer uptake and myocardial perfusion appearing within normal limits. 2. The gated Cardiolite study reports an LVEF of 74 %. This note was generated with [employer] software. It may contain incorrect words, spelling, and punctuation that were not noted in checking the note before signing.
--- NOTE | 2018-03-28 14:18 | STRESSREP_ITS ---
Stress Test Report Date: 03/28/2018 Procedure: Exercise tolerance test/imaging study Indications: Rotations; jaw discomfort my: Peripheral arterial occlusive disease Consent: Per the patient Procedure: The patient exercised on a Sravan protocol for 5 minutes completing Stage I and 2 minutes of Stage II achieving a peak heart rate of 137 bpm (98 % predicted maximal heart rate) with a peak blood pressure 170/82 mmHg and a peak MET capacity of 7 METs. The baseline ECG demonstrated sinus bradycardia. The peak exercise ECG demonstrated no obvious. There were no cardiac dysrhythmias pretest, during exercise, or recovery. The functional capacity was considered average. There was no complaint of chest discomfort during exercise or recovery. The examination was discontinued secondary to dyspnea. Impression: 1. Technically adequate (percent predicted maximal heart rate greater than 85%) exercise tolerance test 2. Peak exercise ECG demonstrated no obvious ECG changes 3. There were no cardiac dysrhythmias pretest, during exercise, or recovery 4. Nuclear images pending Myocardial perfusion imaging study: Technique: The patient was injected with 14.6 mCi of technetium 99m Cardiolite and subsequently rest SPECT Cardiolite nuclear imaging was obtained in the horizontal long, vertical long, and short axis views. The patient exercised on a Sravan protocol for 5 minutes completing Stage I and 2 minutes of Stage II achieving a peak heart rate of 137 bpm (98 % predicted maximal heart rate) with a peak blood pressure 170/82 mmHg and a peak MET capacity of 7 METs. The patient was injected with 45.8 mCi of technetium 99m Cardiolite and subsequently stress SPECT Cardiolite nuclear imaging was obtained in the horizontal long, vertical l mari, and short axis views. A gated Cardiolite study at peak stress was obtained. Interpretation: Rest and stress SPECT Cardiolite nuclear imaging status post realignment, normalization, and attenuation correction, demonstrates the appearance of relative uniform tracer uptake and myocardial perfusion appearing within normal limits. There is end systolic thickening and brightening. The gated Cardiolite study demonstrates myocardial thickening and inward wall motion. The reported LVEF is 74 %. Impression: 1. Rest and stress SPECT Cardiolite nuclear imaging demonstrate relative uniform tracer uptake and myocardial perfusion appearing within normal limits. 2. The gated Cardiolite study reports an LVEF of 74 %. This note was generated with [email or web address] software. It may contain incorrect words, spelling, and punctuation that were not noted in checking the note before signing.
--- NOTE | 2018-03-28 14:49 | DCINST_ITS ---
- Discharge Diagnoses Current Active Problems: Current Active and Chronic Problems (Last Reviewed 03/28/18 @ 05:17 by Jarred Paris MD) Palpitations (Acute) Anginal equivalent (Acute) Dysrhythmia, cardiac (Acute) You will use the following diet at home:: No restrictions Your food should be the consistency of: Regular Your liquids should be the consistency of: Regular/Thin Discharge Activity: Return to Normal Activity Weight Bearing Status: Full weight bearing Allergies/Adverse Reactions: Allergies Sulfa (Sulfonamide Antibiotics) Allergy (Verified 03/28/18 01:50) Itching atorvastatin [From Lipitor] Adverse Reaction (Severe, Verified 03/28/18 01:50) Depression rosuvastatin [From Crestor] Adverse Reaction (Severe, Verified 03/28/18 05:06) Myalgia Medications to take at Discharge Olmesartan Medoxomil [Benicar] 40 mg PO DAILY 03/10/16 aspirin 81 mg tablet,delayed release 81 mg PO QHS 04/10/17 coenzyme Q10 200 mg capsule 200 mg PO DAILY 04/10/17 levothyroxine 50 mcg tablet 75 mcg PO DAILY tab 04/10/17 tamsulosin 0.4 mg capsule 0.4 mg PO DAILY 04/10/17 Cyanocobalamin (Vitamin B-12) [Vitamin B-12] 1,000 mcg SL DAILY 04/15/17 Aspirin [Aspirin, Baby] 81 mg PO DAILY@0800 tab.chew 04/20/17 atorvastatin 20 mg tablet 20 mg PO QDAY 05/01/17 Primary Care Physician: Julian Hill MD [Primary Care Provider] - Please follow up with your Primary Care Physician in: in 2 weeks Test Results: Test results from this visit will be discussed in further detail at your follow- up appointment, if applicable.
--- NOTE | 2018-03-30 17:53 | PCM.DC.SUM ---
Discharge Date and Diagnosis Date of Admission: 03/28/18 Date of Discharge: 03/28/18 - Primary Discharge Diagnosis #1 palpitations-etiology unknown #2 hypertension #3 osteoarthritis #4 chronic kidney disease stage III secondary to hypertension #5 cerebrovascular disease - Secondary Discharge Diagnosis Chronic Problems (Last Reviewed 03/28/18 @ 05:17 by Jarred Paris MD) Hyperlipidemia (Chronic) Abnormal electrocardiogram (Chronic) Carotid stenosis (Chronic) HTN (hypertension) (Chronic) Osteoarthritis (Chronic) Hypothyroidism (Chronic) Hospital Course and Treatment Operations: None, - - Left carotid endarterectomy 04/19/[address] Vincent Bennett Procedures: Nuclear stress test Summary of Care Provided: The patient is a 83 year old M who was seen in the emergency room at [facility] with chief complaint of palpitations, he did not complain of any chest pain, he complained of some jaw discomfort. He did not complain of any shortness of breath. Workup in the emergency room including cardiac enzymes, EKG, and chest x-ray was unremarkable. Patient's creatinine was elevated at 1.63. Patient was placed and observation status on PCU, cardiac enzymes were cycled and these remained normal, patient underwent a pharmacological nuclear stress test that was negative for reversible ischemia. Physical exam: On examination he appeared in good health and spirits. Vital signs as documented. Skin warm and dry and without overt rashes. Neck without JVD. Lungs clear. Heart exam notable for regular rhythm, normal sounds and absence of murmurs, rubs or gallops. Abdomen unremarkable and without evidence of organomegaly, masses, or abdominal aortic enlargement. Extremities nonedematous. Neuro: Cranial nerves II through XII are grossly intact, no focal motor deficits were noted. Psych: Patient was alert and oriented x3, he was not depressed or anxious. On 03/28/18, patient was seen and examined and felt to be stable condition for discharge home - Physical Exam Vital Signs Temp Pulse Resp BP Pulse Ox 98 F 52 L 18 135/81 H 94 03/28/18 15:01 03/28/18 15:01 03/28/18 15:01 03/28/18 15:01 03/28/18 15:01 Oxygen Delivery Method Room Air Weight: 96.8 kg Body Mass Index (BMI) 31.5 Finger Stick Blood Glucose 117 Intake and Output for Last 24 Hours 03/28/18 03/29/18 03/30/18 23:59 23:59 23:59 Intake Total 400 / 400 Balance 400 / 400 Discharge Activity: Return to Normal Activity Weight Bearing Status: Full weight bearing Home Medications: Medications to take at Discharge Olmesartan Medoxomil [Benicar] 40 mg PO DAILY 03/10/16 aspirin 81 mg tablet,delayed release 81 mg PO QHS 04/10/17 coenzyme Q10 200 mg capsule 200 mg PO DAILY 04/10/17 levothyroxine 50 mcg tablet 75 mcg PO DAILY tab 04/10/17 tamsulosin 0.4 mg capsule 0.4 mg PO DAILY 04/10/17 Cyanocobalamin (Vitamin B-12) [Vitamin B-12] 1,000 mcg SL DAILY 04/15/17 Aspirin [Aspirin, Baby] 81 mg PO DAILY@0800 tab.chew 04/20/17 atorvastatin 20 mg tablet 20 mg PO QDAY 05/01/17 Primary Care Physician: Julian Hill MD [Primary Care Provider] - Please follow up with your Primary Care Physician in: in 2 weeks Disposition: Home Minutes spent on discharge:: 25 Patient Condition:: Stable Medical Necessity - Tobacco Use Smoking Status: Never smoker Meaningful Use Info Meaningful Use Diagnoses (Choose all that apply): None applicable Code Visit OBSV E&M: 52873 Observ/hosp same date L3
--- NOTE | 2018-03-30 17:59 | DS.PCM_ITS ---
Discharge Date and Diagnosis Date of Admission: 03/28/18 Date of Discharge: 03/28/18 - Primary Discharge Diagnosis #1 palpitations-etiology unknown #2 hypertension #3 osteoarthritis #4 chronic kidney disease stage III secondary to hypertension #5 cerebrovascular disease - Secondary Discharge Diagnosis Chronic Problems (Last Reviewed 03/28/18 @ 05:17 by Jarred Paris MD) Hyperlipidemia (Chronic) Abnormal electrocardiogram (Chronic) Carotid stenosis (Chronic) HTN (hypertension) (Chronic) Osteoarthritis (Chronic) Hypothyroidism (Chronic) Hospital Course and Treatment Operations: None, - - Left carotid endarterectomy 04/19/[address] Vincent Bennett Procedures: Nuclear stress test Summary of Care Provided: The patient is a 83 year old M who was seen in the emergency room at [facility] with chief complaint of palpitations, he did not complain of any chest pain, he complained of some jaw discomfort. He did not complain of a [place] shortness of breath. Workup in the emergency room including cardiac enzymes, EKG, and chest x-ray was unremarkable. Patient's creatinine was elevated at 1.63. Patient was placed and observation status on PCU, cardiac enzymes were cycled and these remained normal, patient underwent a pharmacological nuclear stress test that was negative for reversible ischemia. Physical exam: On examination he appeared in good health and spirits. Vital signs as documented. Skin warm and dry and without overt rashes. Neck without JVD. Lungs clear. Heart exam notable for regular rhythm, normal sounds and a bsence of murmurs, rubs or gallops. Abdomen unremarkable and without evidence of organomegaly, masses, or abdominal aortic enlargement. Extremities nonedematous. Neuro: Cranial nerves II through XII are grossly intact, no focal motor deficits were noted. Psych: Patient was alert and oriented x3, he was not depressed or anxious. On 03/28/18, patient was seen and examined and felt to be stable condition for discharge home - Physical Exam Vital Signs Temp Pulse Resp BP Pulse Ox 98 F 52 L 18 135/81 H 94 03/28/18 15:01 03/28/18 15:01 03/28/18 15:01 03/28/18 15:01 03/28/18 15:01 Oxygen Delivery Method Room Air Weight: 96.8 kg Body Mass Index (BMI) 31.5 Finger Stick Blood Glucose 117 Intake and Output for Last 24 Hours 03/28/18 03/29/18 03/30/18 23:59 23:59 23:59 Intake Total 400 / 400 Balance 400 / 400 Discharge Activity: Return to Normal Activity Weight Bearing Status: Full weight bearing Home Medications: Medications to take at Discharge Olmesartan Medoxomil [Benicar] 40 mg PO DAILY 03/10/16 aspirin 81 mg tablet,delayed release 81 mg PO QHS 04/10/17 coenzyme Q10 200 mg capsule 200 mg PO DAILY 04/10/17 levothyroxine 50 mcg tablet 75 mcg PO DAILY tab 04/10/17 tamsulosin 0.4 mg capsule 0.4 mg PO DAILY 04/10/17 Cyanocobalamin (Vitamin B-12) [Vitamin B-12] 1,000 mcg SL DAILY 04/15/17 Aspirin [Aspirin, Baby] 81 mg PO DAILY@0800 tab.chew 04/20/17 atorvastatin 20 mg tablet 20 mg PO QDAY 05/01/17 Primary Care Physician: Julian Hill MD [Primary Care Provider] - Please follow up with your Primary Care Physician in: in 2 weeks Disposition: Home Minutes spent on discharge:: 25 Patient Condition:: Stable Medical Necessity - Tobacco Use Smoking Status: Never smoker Meaningful Use Info Meaningful Use Diagnoses (Choose all that apply): None applicable Code Visit OBSV E&M: 10757 Observ/hosp same date L3
== END 2018-03-28 14:48 | disposition home or self-care (01) ==
LOC: ED 04:20 → PCU 04:36
PROVIDERS: Admitting Provider Hospitalist; Emergency Provider Emergency Medicine; Family Provider Family Medicine; PCP Family Medicine; Visit Provider Internal Medicine
DX: R00.2 Palpitations (principal); M19.90 Unspecified osteoarthritis, unspecified site; I12.9 Hypertensive chronic kidney disease with stage 1 through stage 4 chronic kidney disease, or unspecified chronic kidney disease; N18.3 Chronic kidney disease, stage 3 (moderate); Z79.899 Other long term (current) drug therapy; Z79.82 Long term (current) use of aspirin; E78.5 Hyperlipidemia, unspecified; E03.9 Hypothyroidism, unspecified; I44.0 Atrioventricular block, first degree; I77.9 Disorder of arteries and arterioles, unspecified; R00.1 Bradycardia, unspecified; R06.00 Dyspnea, unspecified; R68.84 Jaw pain; R01.1 Cardiac murmur, unspecified; I67.9 Cerebrovascular disease, unspecified
CPT/HCPCS: 36415; 71045; 78452; 80048; 80061; 84443; 84484; 85025; 85610; 85730; 93005; 93017; 96360; 96361; 99218; 99285; A9500; J7030; A4216; G0378

== ENCOUNTER → 2018-04-10 12:38 | Outpatient (CLI) | payer MEDICARE, SELFPAY ==
[2018-03-28 05:03] VITALS: BMI 31.5
--- NOTE | 2018-04-10 12:59 | CDU_ITS ---
Reason For Study: Carotid stenosis Rt. Velocities/BP Lt. Velocities/BP Prox CCA 85.6/16.4 cm/sec. Prox CCA 78.6/18.8 cm/sec. Mid CCA 78.6/18.2 cm/sec. Mid CCA 86.8/21.1 cm/sec. Dist CCA 75.6/15.8 cm/sec. Dist CCA 89.1/23.5 cm/sec. Prox ICA 93.2/25.8 cm/sec. Prox ICA 140.0/34.4 cm/sec. Mid ICA 91.5/27.0 cm/sec. Mid ICA 150.0/47.1 cm/sec. Dist ICA 93.3/28.7 cm/sec. Dist ICA 133.0/44.2 cm/sec. Rt. ICA/CCA = 1.2. Lt. ICA/CCA = 1.7. Prox ECA 120.0/21.1 cm/sec. Prox ECA 170.0/26.5 cm/sec. Rt. Vert. 61.3/15.7 cm/sec. Lt. Vert. 33.8/11.0 cm/sec. Right Extracranial There is intimal thickening but no significant atherosclerotic plaque noted in the right common carotid artery. There is intimal thickening but no significant atherosclerotic plaque noted in the right internal carotid artery. There is homogeneous, smooth atherosclerotic plaque noted in the right external carotid artery. Antegrade flow is noted in the right vertebral artery. Left Extracranial There is intimal thickening but no significant atherosclerotic plaque noted in the left common carotid artery. There is homogeneous, smooth atherosclerotic plaque noted in the left internal carotid artery. There is homogeneous, irregular atherosclerotic plaque noted in the left external carotid artery. Antegrade flow is noted in the left vertebral artery. Procedure Carotid Duplex 95043. Exam performed in department. Interpretation Summary Mild plague at the proximal right internal carotid with <50% stenosis. Normal flow right external carotid Post operative changes of the left carotid bulb and proximal internal carotid with intimal thickening and minimal smooth plague with 50-69% stenosis based upon velocities. Moderate disease left external carotid Patent and antegrade vertebrals bilaterally Improvement is noted on the left from the previous post operative exam of 10/16/17. Ordering Physician: Veronica Rodrigues PA-C Referring Physician: Vincent Bennett MD Performed By: Esperanza De RVT
== END ==
PROVIDERS: Family Provider Family Medicine; PCP Family Medicine; Referring Provider Physician Assistant; Visit Provider Physician Assistant
DX: I65.22 Occlusion and stenosis of left carotid artery (principal)
CPT/HCPCS: 93880

== ENCOUNTER → 2018-05-05 08:48 | Outpatient (CLI) | payer MEDICARE, SELFPAY ==
[2018-04-15 09:23] VITALS: BMI 32.5
[2018-04-24 08:02] VITALS: BMI 32.5
--- NOTE | 2018-05-05 08:54 | ECHOD_ITS ---
Reason For Study: murmur Procedure This was a 2D Doppler, Color Flow transthoracic echocardiogram. Exam performed in department. Left Ventricle Normal LV size. Left ventricular systolic function is normal. The estimated ejection fraction is 60 %. Transmitral and pulmonary venous doppler flow suggestive of impaired relaxation of left ventricle. No regional wall motion abnormalities noted. Right Ventricle Normal RV size. Normal systolic function. Atria Normal left atrium. Normal right atrium. Mitral Valve Normal mitral valve. Tricuspid Valve Normal tricuspid valve. Mild to moderate (1-2+) tricuspid valve insufficiency. Pulmonary artery systolic pressure is 35 mmHg. Aortic Valve Trisinus/trileaflet aortic valve. Moderate focal aortic valve calcification. Pulmonic Valve Normal pulmonic valve. Great Vessels Normal aortic root. The pulmonary artery is normal size. Normal inferior vena cava. Pericardium/Pleural No pericardial effusion. MMode/2D Measurements & Calculations LVIDd: 4.3 cm IVSd: 0.86 cm LVOT diam: 2.0 cm LVIDs: 2.8 cm LVPWd: 0.93 cm LVOT area: 3.2 cm2 RVDd: 3.1 cm FS: 35.1 % Ao root diam: 4.1 cm LAV(MOD-bp): 58.2 ml LA A4 area: 14.6 cm2 LAV(MOD-bp) Indexed: 27.6 ml/m2 LAV(MOD-sp2): 72.9 ml LAV(MOD-sp4): 36.6 ml LA dimension(2D): 3.9 cm RA A4 area: 13.0 cm2 Time Measurements MV dec time: 0.31 sec Doppler Measurements & Calculations MV E max altaf: 85.1 cm/sec Lat Peak E' Altaf: 8.6 cm/sec Med Peak E' Altaf: 5.1 cm/sec MV A max altaf: 98.4 cm/sec E/E' lat: 9.8 E/E' med: 16.7 MV E/A: 0.86 Ao V2 max: 235.6 cm/sec LV V1 max: 142.5 cm/sec SV(LVOT): 95.4 ml Ao max P.2 mmHg LV V1 max P.1 mmHg Ao V2 mean: 166.2 cm/sec LV V1 mean P.4 mmHg Ao mean P.3 mmHg LV V1 mean: 99.7 cm/sec Ao V2 VTI: 46.3 cm LV V1 VTI: 29.7 cm TODD(I,D): 2.1 cm2 TODD(V,D): 1.9 cm2 PA V2 max: 165.7 cm/sec PI end-d altaf: 92.0 cm/sec TR max altaf: 280.1 cm/sec TR max P.4 mmHg Interpretation Summary Normal LV size. Left ventricular systolic function is normal. The estimated ejection fraction is 60 %. Transmitral and pulmonary venous doppler flow suggestive of impaired relaxation of left ventricle Mild to moderate (1-2+) tricuspid valve insufficiency. Pulmonary artery systolic pressure is 35 mmHg. Ordering Physician: Matheus Driscoll Referring Physician: GLENNA ELIZONDO Performed By: Cathy Allred, KUSH, RVT
== END ==
PROVIDERS: Family Provider Family Medicine; PCP Family Medicine; Referring Provider Internal Medicine Cardiovascular Disease; Visit Provider Internal Medicine Cardiovascular Disease
DX: R01.1 Cardiac murmur, unspecified (principal)
CPT/HCPCS: 93306

== ENCOUNTER → 2018-06-18 08:06 | Outpatient (CLI) | payer MEDICARE, SELFPAY ==
[2018-04-24 08:02] VITALS: BMI 32.5
[2018-06-18 09:13] LABS: AST(SGOT) 23 U/L (15-37); Alanine Aminotransfer ALT/SGPT 42 U/L (16-61); Albumin, Serum 3.7 g/dL (3.2-5.0); Alkaline Phosphatase 85 U/L (45-117); Bilirubin, Direct 0.16 mg/dL (0.00-0.30); Cholesterol 147 mg/dL (200); Globulin 3.4 g/dL (2.2-4.2); High Density Lipoprotein 48 mg/dL; PSA,Total- Diagnostic 5.44 ng/mL (0.0-4.0); Protein, Total 7.1 g/dL (6.4-8.2); Thyroid Stim Hormone (TSH) 3.29 uIU/mL (0.358-3.74); Triglycerides 151 mg/dL; Very Low Density Lipoprotein 30 mg/dL (5-40)
== END ==
PROVIDERS: Family Provider Family Medicine; PCP Family Medicine; Referring Provider Family Medicine; Visit Provider Family Medicine
DX: E11.9 Type 2 diabetes mellitus without complications (principal); E78.00 Pure hypercholesterolemia, unspecified; E03.9 Hypothyroidism, unspecified; R97.20 Elevated prostate specific antigen [PSA]
CPT/HCPCS: 36415; 80061; 80076; 83036; 84153; 84443

== ENCOUNTER → 2018-07-14 07:48 | Outpatient (CLI) | payer MEDICARE, SELFPAY ==
[2018-04-24 08:02] VITALS: BMI 32.5
--- NOTE | 2018-07-14 07:51 | US_ITS ---
STUDY: RENAL ULTRASOUND - COMPLETE REASON FOR EXAM: Male, 83 years old. Chronic kidney disease TECHNIQUE: Ultrasound evaluation of the kidneys was performed with real-time and static mallory-scale imaging. COMPARISON: None available. FINDINGS: RIGHT KIDNEY: The right kidney is hyperechoic. The right kidney measures 10.0 cm. There is a normal cortex of the right kidney. There is no right renal mass or cyst. There are no right renal calculi. There is no right hydronephrosis. DISTAL RIGHT URETER: There is non-visualization of the distal right ureter. There is no demonstrated right ureterovesical junction calculus. There is a visualized right ureteral jet. LEFT KIDNEY: The left kidney is hyperechoic. The left kidney measures 10.4 cm. There is a normal cortex of the left kidney. There is a subcentimeter cyst in the left kidney. There are no left renal calculi. There is no left hydronephrosis. DISTAL LEFT URETER: There is non-visualization of the distal left ureter. There is no demonstrated left ureterovesical junction calculus. There is a visualized left ureteral jet. BLADDER: The urinary bladder is partially distended and appears unremarkable. US/Kidney and Bladder IMPRESSION: Bilateral hyperechoic kidneys, consistent with medical renal disease. Subcentimeter cyst in the left kidney. No additional renal lesions. No hydronephrosis. Electronically Signed: Shekhar Collins, at 17:26 EDT Tel , Service support ,
== END ==
PROVIDERS: Family Provider Family Medicine; PCP Family Medicine; Referring Provider Internal Medicine Nephrology; Visit Provider Internal Medicine Nephrology
DX: N18.3 Chronic kidney disease, stage 3 (moderate) (principal)
CPT/HCPCS: 76770

== ENCOUNTER → 2018-08-04 14:58 | Outpatient (CLI) | payer MEDICARE, SELFPAY ==
[2018-04-24 08:02] VITALS: BMI 32.5
[2018-08-04 16:24] LABS: Hematocrit 45.2 % (40-54); Hemoglobin 15.1 g/dl (13.0-16.5); Mean Corp Hgb Conc 33.4 g/gl (32-36); Mean Corpuscular Hgb 30.9 pg (27.0-32.0); Mean Corpuscular Volume 92.4 fL (80-94); Mean Platelet Vol. 9.7 fl (6.2-12.0); Platelet Count 207 K/mm3 (150-450); RBC Distribution Width CV 12.8 % (11.6-14.6); Red Blood Count 4.89 M/mm3 (4.6-6.2); White Blood Count 7.9 K/mm3 (4.4-11.0)
[2018-08-04 16:25] LABS: Scan Indicated on CBC? Y/N NO
[2018-08-04 16:33] LABS: Protein, Urine (Random) 6.4 mg/dL (<11.9); Protein:Creat Ratio 246 mg/g CRE (0-200)
[2018-08-04 16:55] LABS: Albumin, Serum 3.7 g/dL (3.2-5.0); BUN 24 mg/dL (7-18); BUN/Creat Ratio 14.7 RATIO (10-20); Calcium,Total 8.9 mg/dL (8.5-10.1); Chloride 105 mmol/L (98-107); Creatinine, Serum 1.63 mg/dL (0.70-1.30); EST Glomerular Filtration Rate 43 mL/min (>60); Est Glom Filt Rate - Afr Amer 52 mL/min (>60); Glucose 87 mg/dL (74-106); Phosphorus 2.6 mg/dL (2.5-4.9); Potassium 4.6 mmol/L (3.5-5.1); Sodium Level 140 mmol/L (136-145)
[2018-08-04 17:06] LABS: PTHIN 88.5 pg/mL (18.4-80.1); Vitamin D,25 Hydroxy 17.2 ng/mL (29.95-100.01)
== END ==
PROVIDERS: Family Provider Family Medicine; PCP Family Medicine; Referring Provider Internal Medicine Nephrology; Visit Provider Internal Medicine Nephrology
DX: N18.3 Chronic kidney disease, stage 3 (moderate) (principal)
CPT/HCPCS: 36415; 80069; 82306; 82570; 83970; 84156; 85027

== ENCOUNTER → 2019-01-28 07:52 | Outpatient (CLI) | payer MEDICARE, SELFPAY ==
[2018-04-24 08:02] VITALS: BMI 32.5
[2019-01-28 09:49] LABS: Color, Urine Yellow (Yellow); Glucose, Dipstick Normal (Normal); Ketone-Dipstick Negative (Negative); Leukocyte Esterase-Dipstick Negative /ul (Negative); Nitrite-Dipstick Negative (Negative); Occult Blood-Urine Negative /ul (Negative); Protein-Dipstick Negative (Negative); Urine Bilirubin Dipstick Negative (Negative); Urine Clarity Clear (Clear); Urine Urobilinogen Normal (Normal)
[2019-01-28 09:55] LABS: Absolute Lymphocyte Count 2.22 X10^3/uL (0.83-4.51); Absolute Neutrophil Count 4.3 X10^3/uL (2.0-7.7); Basophil# 0.07 X10^3/uL; Basophil% 0.9 % (0-1); Eosinophil# 0.28 X10^3/uL; Eosinophils% 3.7 % (0-5); Hemoglobin 15.3 g/dL (13.0-16.5); Lymphocyte # 2.22 X10^3/ul (4.0); Lymphocyte % 29.3 % (19-41); Mean Corp Hgb Conc 33.3 g/dL (32-36); Mean Corpuscular Hgb 31.3 pg (27.0-32.0); Mean Corpuscular Volume 94.1 fL (80-94); Mean Platelet Vol. 9.4 fl (6.2-12.0); Monocyte# 0.67 X10^3/uL; Monocyte% 8.9 % (0-10); NRBC Flagged by Analyzer 0 % (0-5); Neutrophil % 56.8 % (47-70); Platelet Count 204 K/mm3 (150-450); RBC Distribution Width CV 12.2 % (11.6-14.6); RBC Distribution Width SD 42.4 fl (35.1-43.9); Red Blood Count 4.89 M/mm3 (4.6-6.2); White Blood Count 7.6 K/mm3 (4.4-11.0)
[2019-01-28 10:23] LABS: Hemoglobin A1c 6.1 % (4.2-6.3)
[2019-01-28 10:27] LABS: PTHIN 63.4 pg/mL (18.4-80.1); Vitamin D,25 Hydroxy 49.4 ng/mL (29.95-100.01)
[2019-01-28 10:40] LABS: ALB/GLOB Ratio 1.1 RATIO (0.9-2.4); AST(SGOT) 19 U/L (15-37); Alanine Aminotransfer ALT/SGPT 33 U/L (16-61); Albumin, Serum 3.6 g/dL (3.2-5.0); Alkaline Phosphatase 83 U/L (45-117); Anion Gap 10 (5-15); BUN 21 mg/dL (7-18); BUN/Creat Ratio 13.6 RATIO (10-20); Calcium,Total 8.5 mg/dL (8.5-10.1); Chloride 101 mmol/L (98-107); Cholesterol 174 mg/dL (200); Creatinine, Serum 1.54 mg/dL (0.70-1.30); EST Glomerular Filtration Rate 46 mL/min (>60); Est Glom Filt Rate - Afr Amer 56 mL/min (>60); Globulin 3.3 g/dL (2.2-4.2); Glucose 105 mg/dL (74-106); High Density Lipoprotein 45 mg/dL; PSA,Total - Annual Screen 5.93 ng/mL (0.00-4.00); Phosphorus 2.6 mg/dL (2.5-4.9); Potassium 4.3 mmol/L (3.5-5.1); Protein, Total 6.9 g/dL (6.4-8.2); Protein, Urine (Random) 9.7 mg/dL (<11.9); Protein:Creat Ratio 81 mg/g CRE (0-200); Sodium Level 136 mmol/L (136-145); Thyroid Stim Hormone (TSH) 4.81 uIU/mL (0.358-3.74); Triglycerides 137 mg/dL; Very Low Density Lipoprotein 27 mg/dL (5-40)
== END ==
PROVIDERS: Family Provider Family Medicine; PCP Family Medicine; Referring Provider Internal Medicine Nephrology; Visit Provider Internal Medicine Nephrology
DX: Z00.00 Encounter for general adult medical examination without abnormal findings (principal); E11.22 Type 2 diabetes mellitus with diabetic chronic kidney disease; N18.3 Chronic kidney disease, stage 3 (moderate); N25.81 Secondary hyperparathyroidism of renal origin; E78.00 Pure hypercholesterolemia, unspecified; E03.9 Hypothyroidism, unspecified; E55.9 Vitamin D deficiency, unspecified; Z12.5 Encounter for screening for malignant neoplasm of prostate; Z13.0 Encounter for screening for diseases of the blood and blood-forming organs and certain disorders involving the immune mechanism
CPT/HCPCS: 36415; 80053; 80061; 81002; 82306; 82570; 83036; 83970; 84100; 84153; 84156; 84443; 85025; G0103

== ENCOUNTER → 2019-05-26 09:30 | Outpatient (CLI) | payer MEDICARE, SELFPAY ==
[2019-04-16 08:34] VITALS: BMI 32.9
[2019-05-26 11:04] LABS: Anion Gap 4 (5-15); BUN 23 mg/dL (7-18); BUN/Creat Ratio 14.7 RATIO (10-20); Calcium,Total 9.2 mg/dL (8.5-10.1); Chloride 103 mmol/L (98-107); Creatinine, Serum 1.56 mg/dL (0.70-1.30); EST Glomerular Filtration Rate 46 mL/min (>60); Est Glom Filt Rate - Afr Amer 55 mL/min (>60); Glucose 94 mg/dL (74-106); Magnesium 2.1 mg/dL (1.6-2.6); Potassium 4.3 mmol/L (3.5-5.1); Sodium Level 137 mmol/L (136-145)
== END ==
PROVIDERS: PCP Family Medicine; Referring Provider Internal Medicine Nephrology; Visit Provider Internal Medicine Nephrology
DX: N18.3 Chronic kidney disease, stage 3 (moderate) (principal)
CPT/HCPCS: 36415; 80048; 83735

== ENCOUNTER → 2019-09-16 08:39 | Outpatient (CLI) | payer MEDICARE, SELFPAY ==
[2019-04-16 08:34] VITALS: BMI 32.9
[2019-09-16 09:02] LABS: Hematocrit 45.4 % (40-54); Hemoglobin 14.8 g/dL (13.0-16.5); Mean Corp Hgb Conc 32.6 g/dL (32-36); Mean Corpuscular Hgb 31.6 pg (27.0-32.0); Mean Platelet Vol. 9.4 fl (6.2-12.0); Platelet Count 190 K/mm3 (150-450); RBC Distribution Width CV 12.5 % (11.6-14.6); RBC Distribution Width SD 44.8 fl (35.1-43.9); Red Blood Count 4.68 M/mm3 (4.6-6.2); White Blood Count 6.7 K/mm3 (4.4-11.0)
[2019-09-16 09:15] LABS: Protein, Urine (Random) < 6.0 mg/dL (<11.9); Protein:Creat Ratio 76 mg/g CRE (0-200)
[2019-09-16 09:32] LABS: PTHIN 80.6 pg/mL (18.4-80.1)
[2019-09-16 09:36] LABS: Vitamin D,25 Hydroxy 37.7 ng/mL
[2019-09-16 09:40] LABS: Albumin, Serum 3.7 g/dL (3.2-5.0); BUN 26 mg/dL (7-18); BUN/Creat Ratio 16.2 RATIO (10-20); Calcium,Total 8.8 mg/dL (8.5-10.1); Chloride 103 mmol/L (98-107); EST Glomerular Filtration Rate 44 mL/min (>60); Est Glom Filt Rate - Afr Amer 53 mL/min (>60); Glucose 111 mg/dL (74-106); PSA,Total- Diagnostic 5.91 ng/mL (0.0-4.0); Phosphorus 2.8 mg/dL (2.5-4.9); Potassium 4.2 mmol/L (3.5-5.1); Sodium Level 138 mmol/L (136-145); Thyroid Stim Hormone (TSH) 3.63 uIU/mL (0.358-3.74)
== END ==
PROVIDERS: PCP Family Medicine; Referring Provider Family Medicine; Visit Provider Family Medicine
DX: E03.9 Hypothyroidism, unspecified (principal); R97.20 Elevated prostate specific antigen [PSA]; N18.3 Chronic kidney disease, stage 3 (moderate); E55.9 Vitamin D deficiency, unspecified; N25.81 Secondary hyperparathyroidism of renal origin; Z13.0 Encounter for screening for diseases of the blood and blood-forming organs and certain disorders involving the immune mechanism
CPT/HCPCS: 36415; 80069; 82306; 82570; 83970; 84153; 84156; 84443; 85027

== ENCOUNTER → 2020-01-19 08:28 | Outpatient (CLI) | payer MEDICARE, SELFPAY ==
[2019-04-16 08:34] VITALS: BMI 32.9
[2020-01-19 08:55] LABS: Absolute Neutrophil Count 3.1 X10^3/uL (2.0-7.7); Basophil# 0.04 X10^3/uL; Basophil% 0.7 % (0-1); Eosinophil# 0.25 X10^3/uL; Eosinophils% 4.3 % (0-5); Hematocrit 46.6 % (40-54); Hemoglobin 14.9 g/dL (13.0-16.5); Lymphocyte % 27.4 % (19-41); Mean Corpuscular Hgb 30.7 pg (27.0-32.0); Mean Corpuscular Volume 95.9 fL (80-94); Mean Platelet Vol. 8.8 fl (6.2-12.0); Monocyte# 0.86 X10^3/uL; Monocyte% 14.7 % (0-10); NRBC Flagged by Analyzer 0 % (0-5); Neutrophil # 3.07 X10^3/uL (2.7-7.7); Neutrophil % 52.6 % (47-70); Platelet Count 199 K/mm3 (150-450); RBC Distribution Width CV 12.8 % (11.6-14.6); RBC Distribution Width SD 45.6 fl (35.1-43.9); Red Blood Count 4.86 M/mm3 (4.6-6.2); White Blood Count 5.8 K/mm3 (4.4-11.0)
[2020-01-19 09:22] LABS: Color, Urine Yellow (Yellow); Glucose, Dipstick Normal (Normal); Ketone-Dipstick Negative (Negative); Leukocyte Esterase-Dipstick Negative /ul (Negative); Nitrite-Dipstick Negative (Negative); Occult Blood-Urine Negative /ul (Negative); Protein-Dipstick Negative (Negative); Urine Bilirubin Dipstick Negative (Negative); Urine Clarity Clear (Clear); Urine Urobilinogen Normal (Normal)
[2020-01-19 09:28] LABS: AST(SGOT) 25 U/L (15-37); Alanine Aminotransfer ALT/SGPT 35 U/L (16-61); Albumin, Serum 3.5 g/dL (3.2-5.0); Alkaline Phosphatase 82 U/L (45-117); Anion Gap 3 (5-15); BUN 23 mg/dL (7-18); BUN/Creat Ratio 13.6 RATIO (10-20); Calcium,Total 8.7 mg/dL (8.5-10.1); Chloride 105 mmol/L (98-107); Cholesterol 240 mg/dL (200); Creatinine, Serum 1.69 mg/dL (0.70-1.30); EST Glomerular Filtration Rate 41 mL/min (>60); Est Glom Filt Rate - Afr Amer 50 mL/min (>60); Globulin 3.5 g/dL (2.2-4.2); Glucose 111 mg/dL (74-106); High Density Lipoprotein 42 mg/dL; Potassium 4.9 mmol/L (3.5-5.1); Sodium Level 137 mmol/L (136-145); Thyroid Stim Hormone (TSH) 5.25 uIU/mL (0.358-3.74); Triglycerides 188 mg/dL; Very Low Density Lipoprotein 38 mg/dL (5-40)
== END ==
PROVIDERS: PCP Family Medicine; Referring Provider Family Medicine; Visit Provider Family Medicine
DX: Z00.00 Encounter for general adult medical examination without abnormal findings (principal); E11.9 Type 2 diabetes mellitus without complications; I10 Essential (primary) hypertension; E78.00 Pure hypercholesterolemia, unspecified; E03.9 Hypothyroidism, unspecified
CPT/HCPCS: 36415; 80053; 80061; 81002; 83036; 84443; 85025

== ENCOUNTER → 2020-04-07 08:37 | Outpatient (CLI) | payer MEDICARE, SELFPAY ==
[2019-04-16 08:34] VITALS: BMI 32.9
== END ==
PROVIDERS: PCP Family Medicine; Referring Provider Family Medicine; Visit Provider Family Medicine
DX: E03.9 Hypothyroidism, unspecified (principal)
CPT/HCPCS: 36415; 84443

== ENCOUNTER → 2020-07-18 08:02 | Outpatient (CLI) | payer MEDICARE, SELFPAY ==
[2020-04-19 10:13] VITALS: BMI 32.5
[2020-07-18 09:08] LABS: Hemoglobin A1c 5.6 % (3.8-5.6)
[2020-07-18 09:11] LABS: AST(SGOT) 20 U/L (15-37); Alanine Aminotransfer ALT/SGPT 34 U/L (16-61); Albumin, Serum 3.7 g/dL (3.2-5.0); Alkaline Phosphatase 74 U/L (45-117); Bilirubin, Direct 0.17 mg/dL (0.00-0.30); Cholesterol 262 mg/dL (200); Globulin 3.4 g/dL (2.2-4.2); High Density Lipoprotein 50 mg/dL; Protein, Total 7.1 g/dL (6.4-8.2); Thyroid Stim Hormone (TSH) 1.96 uIU/mL (0.358-3.74); Triglycerides 124 mg/dL; Very Low Density Lipoprotein 25 mg/dL (5-40)
== END ==
PROVIDERS: PCP Family Medicine; Visit Provider Family Medicine
DX: E11.9 Type 2 diabetes mellitus without complications (principal); E78.00 Pure hypercholesterolemia, unspecified; I10 Essential (primary) hypertension; E03.9 Hypothyroidism, unspecified
CPT/HCPCS: 36415; 80061; 80076; 83036; 84443

== ENCOUNTER → 2020-08-30 08:07 | Outpatient (CLI) | payer MEDICARE, SELFPAY ==
[2020-04-19 10:13] VITALS: BMI 32.5
[2020-08-30 09:18] LABS: Hematocrit 44.7 % (40-54); Hemoglobin 14.6 g/dL (13.0-16.5); Mean Corp Hgb Conc 32.7 g/dL (32-36); Mean Corpuscular Volume 94.9 fL (80-94); Mean Platelet Vol. 9.5 fl (6.2-12.0); Platelet Count 227 K/mm3 (150-450); RBC Distribution Width CV 12.2 % (11.6-14.6); RBC Distribution Width SD 42.8 fl (35.1-43.9); Red Blood Count 4.71 M/mm3 (4.6-6.2); White Blood Count 6.6 K/mm3 (4.4-11.0)
[2020-08-30 09:27] LABS: Protein, Urine (Random) < 6.0 mg/dL (<11.9); Protein:Creat Ratio 82 mg/g CRE (0-200)
[2020-08-30 09:50] LABS: PTHIN 69.6 pg/mL (18.4-80.1)
[2020-08-30 09:52] LABS: Vitamin D,25 Hydroxy 38.9 ng/mL
[2020-08-30 09:53] LABS: Albumin, Serum 3.7 g/dL (3.2-5.0); BUN 22 mg/dL (7-18); BUN/Creat Ratio 14.6 RATIO (10-20); Calcium,Total 8.7 mg/dL (8.5-10.1); Chloride 101 mmol/L (98-107); Creatinine, Serum 1.51 mg/dL (0.70-1.30); EST Glomerular Filtration Rate 47 mL/min (>60); Est Glom Filt Rate - Afr Amer 57 mL/min (>60); Glucose 103 mg/dL (74-106); PSA,Total- Diagnostic 7.08 ng/mL (0.0-4.0); Phosphorus 2.6 mg/dL (2.5-4.9); Potassium 4.4 mmol/L (3.5-5.1); Sodium Level 136 mmol/L (136-145)
== END ==
PROVIDERS: PCP Family Medicine; Referring Provider Urology; Visit Provider Urology
DX: R97.20 Elevated prostate specific antigen [PSA] (principal); N18.30 Chronic kidney disease, stage 3 unspecified; N25.81 Secondary hyperparathyroidism of renal origin
CPT/HCPCS: 36415; 80069; 82306; 82570; 83970; 84153; 84156; 85027

== ENCOUNTER → 2021-01-11 08:14 | Outpatient (CLI) | payer MEDICARE, SELFPAY ==
[2021-01-11 09:06] LABS: Absolute Lymphocyte Count 1.89 X10^3/uL (0.83-4.51); Absolute Neutrophil Count 3.5 X10^3/uL (2.0-7.7); Basophil# 0.04 X10^3/uL; Basophil% 0.6 % (0-1); Eosinophil# 0.24 X10^3/uL; Eosinophils% 3.8 % (0-5); Hematocrit 43.4 % (40-54); Hemoglobin 14.4 g/dL (13.0-16.5); Lymphocyte # 1.89 X10^3/ul (0.83-4.51); Mean Corp Hgb Conc 33.2 g/dL (32-36); Mean Corpuscular Hgb 31.1 pg (27.0-32.0); Mean Corpuscular Volume 93.7 fL (80-94); Mean Platelet Vol. 9.4 fl (6.2-12.0); Monocyte# 0.65 X10^3/uL; Monocyte% 10.3 % (0-10); NRBC Flagged by Analyzer 0 % (0-5); Neutrophil # 3.46 X10^3/uL (2.7-7.7); Neutrophil % 54.8 % (47-70); Platelet Count 205 K/mm3 (150-450); RBC Distribution Width CV 12.7 % (11.6-14.6); RBC Distribution Width SD 43.6 fl (35.1-43.9); Red Blood Count 4.63 M/mm3 (4.6-6.2); White Blood Count 6.3 K/mm3 (4.4-11.0)
[2021-01-11 09:40] LABS: Hemoglobin A1c 5.9 % (3.8-5.6)
[2021-01-11 09:46] LABS: AST(SGOT) 21 U/L (15-37); Alanine Aminotransfer ALT/SGPT 28 U/L (16-61); Albumin, Serum 3.4 g/dL (3.2-5.0); Alkaline Phosphatase 70 U/L (45-117); Anion Gap 7 (5-15); BUN 25 mg/dL (7-18); BUN/Creat Ratio 15.2 RATIO (10-20); Calcium,Total 8.5 mg/dL (8.5-10.1); Chloride 100 mmol/L (98-107); Cholesterol 244 mg/dL (200); Creatinine, Serum 1.65 mg/dL (0.70-1.30); EST Glomerular Filtration Rate 43 mL/min (>60); Est Glom Filt Rate - Afr Amer 51 mL/min (>60); Globulin 3.5 g/dL (2.2-4.2); Glucose 99 mg/dL (74-106); High Density Lipoprotein 44 mg/dL; PSA,Total - Annual Screen 8.02 ng/mL (0.00-4.00); Potassium 4.5 mmol/L (3.5-5.1); Protein, Total 6.9 g/dL (6.4-8.2); Sodium Level 136 mmol/L (136-145); Thyroid Stim Hormone (TSH) 3.09 uIU/mL (0.358-3.74); Triglycerides 144 mg/dL; Very Low Density Lipoprotein 29 mg/dL (5-40)
== END ==
PROVIDERS: PCP Family Medicine; Visit Provider Family Medicine
DX: Z00.00 Encounter for general adult medical examination without abnormal findings (principal); E11.9 Type 2 diabetes mellitus without complications; I10 Essential (primary) hypertension; E78.00 Pure hypercholesterolemia, unspecified; E03.9 Hypothyroidism, unspecified; R97.20 Elevated prostate specific antigen [PSA]; Z12.5 Encounter for screening for malignant neoplasm of prostate
CPT/HCPCS: 36415; 80053; 80061; 83036; 84153; 84443; 85025; G0103

== ENCOUNTER 2021-04-25 18:37 | Emergency (ER) | payer MEDICARE, SELFPAY ==
[2021-04-25 18:37] VITALS: BP 171/84; PULSE 63; RESP 16; TEMP 36.2; O2SAT 96; BMI 32.1
[2021-04-25 19:34] VITALS: BP 143/70; PULSE 61; RESP 17; O2SAT 94
--- NOTE | 2021-04-25 19:37 | EDS_ITS ---
HPI History of Present Illness Chief Complaint: Hypertension Informant: patient and family Narrative Narrative: 86-year-old male presenting to the emergency department with asymptomatic hypertension. Patient states that yesterday he ate chicken and rice which did contain a large amount of sodium. To his knowledge he took his olmelosartan 40 mg yesterday. Today he was checking his blood pressure and it was elevated so he called his doctor and they prescribed amlodipine 2.5 mg but he has not made it to the pharmacy to pick it up. Tonight after dinner his blood pressure was 200 systolic and he was concerned about a stroke. He denies any neurologic symptoms or feeling any different than baseline. Laying in the bed in the room he is 143/70. Specifically no chest pain or shortness of breath. [facility] Medical History (Updated 04/25/21 @ 20:[address] Tom Arrieta, ) Aortic valve calcification Chronic kidney disease (CKD) Essential (primary) hypertension Hyperlipidemia Hypothyroidism Left carotid artery stenosis Osteoarthritis Home Medications aspirin 81 mg tablet,delayed release 81 mg PO QHS 04/10/17 [History Last Taken 03/27/18 20:00] tamsulosin 0.4 mg capsule 0.4 mg PO DAILY 04/10/17 [History Last Taken 03/27/18 17:00] ascorbic acid (vitamin C) 1,000 mg tablet,extended release 1,000 mg PO DAILY tab 04/19/20 [History Last Taken Unknown] cholecalciferol (vitamin D3) 50 mcg (2,000 unit) capsule 50 mcg PO DAILY 04/19/20 [History Last Taken Unknown] levothyroxine 88 mcg tablet 88 mcg PO DAILY tab 04/19/20 [History Last Taken Unknown] olmesartan 40 mg tablet 40 mg PO DAILY tab 04/19/20 [History Last Taken Unknown] omega-3 fatty acids 1,000 mg capsule 1,000 mg PO DAILY 04/19/20 [History Last Taken Unknown] amlodipine 2.5 mg tablet 2.5 mg PO DAILY #30 tab 04/25/21 [Rx Last Taken Unknown] Allergy/AdvReac Type Severity Reaction Status Date / Time Sulfa (Sulfonamide Allergy Itching Verified 04/25/21 18:40 Antibiotics) atorvastatin [From Lipitor] AdvReac Severe Depression Verified 04/25/21 18:40 rosuvastatin [From Crestor] AdvReac Severe Myalgia Verified 04/25/21 18:40 Family History Brother Heart disease Hypertension Sister Breast cancer Father Myocardial infarction Surgical History H/O colonoscopy History of carpal tunnel release History of left-sided carotid endarterectomy History of tonsillectomy Social History Smoking Status: Never smoker alcohol intake: never substance use type: does not use caffeine: Yes Type: coffee Number of servings: 1 what type of physical activity do you participate in: walking frequency: daily seatbelt use: always do you feel safe at home: Yes ROS ROS ED Constitutional Constitutional ED: Denies chills or weight loss Eyes Eyes: Denies change in vision or diplopia ENT ENT ED: Denies ear pain, rhinorrhea or sore throat Cardiovascular Cardiovascular: Denies chest pain, orthopnea, palpitations or racing heartbeat Respiratory/Chest Respiratory/Chest: Denies cough, dyspnea or orthopnea Gastrointestinal Gastrointestinal: Denies abdominal pain, diarrhea, nausea or vomiting Genitourinary Genitourinary ED: Denies dysuria, hematuria or urinary frequency Musculoskeletal Musculoskeletal: Denies arthralgias or myalgias Integumentary Denies abscess or rash Neurologic Neurologic: Denies headache(s) or weakness Psychiatric Psychiatric: Denies anxiety, depression, suicidal ideation or suicidal thoughts Endocrine Endocrinology: Denies polydipsia, polyphagia or polyuria Allergic/Immunologic Allergic/Immunologic ED: Denies mouth swelling, tongue swelling or urticaria EXAM Physical Exam Const Vital Signs: 04/25/21 18:37 04/25/21 19:27 04/25/21 19:34 Temperature 97.2 F L Temperature Source Temporal Pulse Rate 63 61 Respiratory Rate 16 17 Respiratory Pattern Normal Blood Pressure 171/84 H 143/70 H Blood Pressure Mean 113 94 Pulse Ox 96 94 Oxygen Delivery Method Room Air Room Air 04/25/21 20:00 04/25/21 20:33 Temperature Temperature Source Pulse Rate 53 L 58 L Respiratory Rate 18 Respiratory Pattern Blood Pressure 147/77 H 134/63 H Blood Pressure Mean 100 86 Pulse Ox 97 Oxygen Delivery Method Room Air Positive well nourished and well developed General Appearance ED: well developed HEENT Reports normocephalic, head/scalp atraumatic and moist mucous membranes Eyes PERRL and EOMs intact bilaterally Neck no lymphadenopathy, supple and no JVD Resp normal respiratory effort and clear to auscultation bilaterally Cardio regular rate, regular rhythm and no murmurs GI normal to inspection, nondistended, normoactive bowel sounds and non-tender Palpation: soft Back/Spine no CVA tenderness and normal ROM Extremity normal to inspection General Extremety ED: Negative for edema General Extremity: Negative for edema Neuro oriented x3 and CN's II-XII intact bilaterally Sensorium / Orientation: alert Motor Exam: strength 5/5 throughout Psych mental status grossly normal Mood & Affect: Negative for depressed or tearful Skin no rashes or lesions noted and no wounds MDM MDM MDM Narrative Medical decision making narrative: Patient was observed in the emergency department has been asymptomatic. His systolic readings have been in the 140s with diastolics in the 70s. At this point patient will be discharged home. He is to chart picker his prescription tomorrow and follow-up with his doctor scheduled Discharge Plan Triage Chief Complaint: Hypertension ED Provider: Tom Arrieta Dx/Rx/DC Orders Clinical Impression: Hypertension Instructions: ED High Blood Pressure Hypertension Prescriptions: No Action tamsulosin [Flomax] 0.4 mg capsule,extended release 24hr 0.4 mg PO DAILY RF: 0 aspirin [Adult Aspirin Regimen] 81 mg tablet,delayed release (DR/EC) 81 mg PO QHS RF: 0 olmesartan 40 mg tablet 40 mg PO DAILY RF: 0 levothyroxine 88 mcg tablet 88 mcg PO DAILY RF: 0 omega-3 fatty acids [Fish Oil Concentrate] 1,000 mg capsule 1,000 mg PO DAILY RF: 0 cholecalciferol (vitamin D3) 50 mcg (2,000 unit) capsule 50 mcg PO DAILY RF: 0 ascorbic acid (vitamin C) 1,000 mg tablet extended release 1,000 mg PO DAILY RF: 0 amlodipine 2.5 mg tablet 2.5 mg PO DAILY Qty: 30 RF: 6 Primary Care Provider: Julian Hill Referrals: Julian Hill MD [Primary Care Provider] - 1-2 Weeks Disposition Disposition: Home, Self Care
[2021-04-25 20:00] VITALS: BP 147/77; PULSE 53; RESP 18; O2SAT 97
[2021-04-25 20:33] VITALS: BP 134/63; PULSE 58
== END 2021-04-25 20:48 | disposition home or self-care (01) ==
PROVIDERS: Emergency Provider Emergency Medicine; PCP Family Medicine; Visit Provider Emergency Medicine
DX: I12.9 Hypertensive chronic kidney disease with stage 1 through stage 4 chronic kidney disease, or unspecified chronic kidney disease (principal); N18.9 Chronic kidney disease, unspecified; I65.22 Occlusion and stenosis of left carotid artery; E78.5 Hyperlipidemia, unspecified; E03.9 Hypothyroidism, unspecified; M19.90 Unspecified osteoarthritis, unspecified site; Z79.82 Long term (current) use of aspirin; Z79.899 Other long term (current) drug therapy
CPT/HCPCS: 99282

== ENCOUNTER 2021-05-02 12:31 | Outpatient (CLI) | payer MEDICARE, SELFPAY ==
--- NOTE | 2021-05-02 12:40 | ECHOD_ITS ---
Reason For Study: MURMUR Procedure This was a 2D Doppler, Color Flow transthoracic echocardiogram. The study was technically difficult. Exam performed in department. Left Ventricle Normal LV size. Left ventricular systolic function is normal. The estimated ejection fraction is 60 %. Stage 1 diastolic dysfunction. No regional wall motion abnormalities noted. Right Ventricle Normal RV size. Normal systolic function. Atria Normal left atrium. Normal right atrium. Mitral Valve Normal mitral valve. Tricuspid Valve Normal tricuspid valve. Mild (1+) tricuspid valve insufficiency. Pulmonary artery systolic pressure is 24 mmHg. Aortic Valve Trisinus/trileaflet aortic valve. Mild diffuse aortic valve thickening. Peak aortic valve gradient 27 mmHg. Mean aortic valve gradient 13 mmHg. Mild aortic stenosis. Great Vessels Mildly dilated aortic root. The pulmonary artery is normal size. Normal inferior vena cava. Pericardium/Pleural No pericardial effusion. MMode/2D Measurements & Calculations LVIDd: 3.5 cm IVSd: 1.00 cm LVOT diam: 2.0 cm LVPWd: 0.96 cm LVOT area: 3.0 cm2 Ao root diam: 4.2 cm LAV(MOD-bp): 31.6 ml LVAd ap4: 29.0 cm2 LAV(MOD-bp) Indexed: 14.7 ml/m2 LVLd ap4: 7.9 cm LAV(MOD-sp2): 26.8 ml EDV(MOD-sp4): 83.4 ml LAV(MOD-sp4): 36.2 ml EDV(sp4-el): 90.7 ml LVAs ap4: 15.1 cm2 LVLs ap4: 6.1 cm ESV(MOD-sp4): 30.2 ml ESV(sp4-el): 31.6 ml EF(MOD-sp4): 63.8 % EF(sp4-el): 65.1 % LVAd ap2: 24.0 cm2 SV(MOD-sp4): 53.2 ml SV(MOD-sp2): 41.0 ml LVLd ap2: 7.1 cm EDV(MOD-sp2): 66.0 ml EDV(sp2-el): 69.5 ml LVAs ap2: 13.3 cm2 LVLs ap2: 6.0 cm ESV(MOD-sp2): 25.1 ml ESV(sp2-el): 24.9 ml EF(MOD-sp2): 62.0 % SV(sp4-el): 59.1 ml LA dimension(2D): 4.2 cm LA A4 area: 14.7 cm2 RA A4 area: 12.9 cm2 Doppler Measurements & Calculations MV E max altaf: 82.9 cm/sec Lat Peak E' Altaf: 7.6 cm/sec Med Peak E' Altaf: 5.7 cm/sec MV A max altaf: 114.3 cm/sec E/E' lat: 11.0 E/E' med: 14.6 MV E/A: 0.73 Ao V2 max: 259.7 cm/sec LV V1 max: 143.4 cm/sec SV(LVOT): 77.7 ml Ao max P.1 mmHg LV V1 max P.2 mmHg Ao V2 mean: 169.6 cm/sec LV V1 mean P.7 mmHg Ao mean P.3 mmHg LV V1 mean: 86.3 cm/sec Ao V2 VTI: 48.4 cm LV V1 VTI: 25.8 cm TODD(I,D): 1.6 cm2 TODD(V,D): 1.7 cm2 PA V2 max: 185.7 cm/sec PI end-d altaf: 95.5 cm/sec TR max altaf: 226.1 cm/sec TR max P.5 mmHg ECHO/Echo Complete Interpretation Summary Normal LV size. Left ventricular systolic function is normal. The estimated ejection fraction is 60 %. Stage 1 diastolic dysfunction. Mild diffuse aortic valve thickening. Mean aortic valve gradient 13 mmHg. Mild aortic stenosis. Compared to the previous no significant changes are noted. Ordering Physician: Yahaira Escobedo Referring Physician: GLENNA ELIZONDO Performed By: Cathy Allred, ROSEMARIECS, RVT
--- NOTE | 2021-05-02 12:40 | CDU_ITS ---
Reason For Study: Carotid bruit Rt. Velocities/BP Lt. Velocities/BP Prox CCA 104.7/18.6 cm/sec. Prox CCA 92.4/11.4 cm/sec. Mid CCA 93/16 cm/sec. Mid CCA 87.5/16.3 cm/sec. Dist CCA 82.6/14.7 cm/sec. Dist CCA 78.9/15.1 cm/sec. Prox ICA 85.1/17.6 cm/sec. Prox ICA 86.4/17 cm/sec. Mid ICA 88.8/20 cm/sec. Mid ICA 95.5/22.5 cm/sec. Dist ICA 104.8/23.7 cm/sec. Dist ICA 102.8/22.5 cm/sec. Rt. ICA/CCA = 1.1. Lt. ICA/CCA = 1.2. Prox ECA 137.5/15.2 cm/sec. Prox ECA 163/16 cm/sec. Rt. Vert. 50.7/10.2 cm/sec. Lt. Vert. 42.1/9.1 cm/sec. Right Extracranial There is homogeneous, smooth atherosclerotic plaque noted in the right common carotid artery. There is homogeneous, smooth atherosclerotic plaque noted in the right internal carotid artery. There is homogeneous, smooth atherosclerotic plaque noted in the right external carotid artery. Antegrade flow is noted in the right vertebral artery. Left Extracranial There is homogeneous, smooth atherosclerotic plaque noted in the left common carotid artery. There is homogeneous, smooth atherosclerotic plaque noted in the left internal carotid artery. There is heterogeneous, smooth atherosclerotic plaque noted in the left external carotid artery. Antegrade flow is noted in the left vertebral artery. Procedure Carotid Duplex 23724. This is a Carotid Duplex examination using B-mode, color flow and specral Doppler. Exam performed in department. VL/Carotid Duplex Ultrasound Interpretation Summary Smooth plaque at the proximal right internal carotid artery with less than 50% stenosis Less than 50% stenosis right external carotid artery Smooth plaque at the proximal left internal carotid artery with postoperative c hanges with less than 50% stenosis Less than 50% stenosis left external carotid artery Patent and antegrade vertebral arteries bilaterally Ordering Physician: Yahaira Escobedo Referring Physician: Julian Hill Performed By: Valerie Peraza RVT
== END 2021-05-02 23:59 | disposition home or self-care (01) ==
LOC: CVS 12:32
PROVIDERS: PCP Family Medicine; Referring Provider Physician Assistant Medical; Visit Provider Physician Assistant Medical
DX: I65.22 Occlusion and stenosis of left carotid artery (principal); R01.1 Cardiac murmur, unspecified
CPT/HCPCS: 93306; 93880

== ENCOUNTER 2021-07-10 10:33 | Outpatient (CLI) | payer MEDICARE, SELFPAY ==
[2021-07-10 11:46] LABS: Uric Acid 5.3 mg/dL (3.5-7.2)
== END 2021-07-10 23:59 | disposition home or self-care (01) ==
LOC: LAB 10:34
PROVIDERS: PCP Family Medicine; Referring Provider Family Medicine; Visit Provider Family Medicine
DX: M13.179 Monoarthritis, not elsewhere classified, unspecified ankle and foot (principal)
CPT/HCPCS: 36415; 84550

== ENCOUNTER 2021-08-25 08:29 | Outpatient (CLI) | payer MEDICARE, SELFPAY ==
[2021-08-25 09:02] LABS: Protein, Urine (Random) 10.5 mg/dL (<11.9); Protein:Creat Ratio 113 mg/g CRE (0-200)
[2021-08-25 09:06] LABS: Hematocrit 38.4 % (40-54); Hemoglobin 13.2 g/dL (13.0-16.5); Mean Corp Hgb Conc 34.4 g/dL (32-36); Mean Corpuscular Hgb 31.7 pg (27.0-32.0); Mean Corpuscular Volume 92.3 fL (80-94); Platelet Count 238 K/mm3 (150-450); RBC Distribution Width CV 12.5 % (11.6-14.6); RBC Distribution Width SD 42.5 fl (35.1-43.9); Red Blood Count 4.16 M/mm3 (4.6-6.2); White Blood Count 7.2 K/mm3 (4.4-11.0)
[2021-08-25 09:12] LABS: PTHIN 69.8 pg/mL (18.4-80.1)
[2021-08-25 09:19] LABS: Hemoglobin A1c 5.8 % (3.8-5.6)
[2021-08-25 09:23] LABS: AST(SGOT) 19 U/L (15-37); Alanine Aminotransfer ALT/SGPT 25 U/L (16-61); Albumin, Serum 3.5 g/dL (3.2-5.0); Alkaline Phosphatase 63 U/L (45-117); Anion Gap 9 (5-15); BUN 27 mg/dL (7-18); Calcium,Total 8.5 mg/dL (8.5-10.1); Chloride 98 mmol/L (98-107); Cholesterol 227 mg/dL (200); Creatinine, Serum 1.59 mg/dL (0.70-1.30); EST Glomerular Filtration Rate 44 mL/min (>60); Est Glom Filt Rate - Afr Amer 54 mL/min (>60); Globulin 3.6 g/dL (2.2-4.2); Glucose 107 mg/dL (74-106); High Density Lipoprotein 47 mg/dL; PSA,Total- Diagnostic 9.86 ng/mL (0.0-4.0); Phosphorus 2.8 mg/dL (2.5-4.9); Potassium 4.4 mmol/L (3.5-5.1); Protein, Total 7.1 g/dL (6.4-8.2); Sodium Level 131 mmol/L (136-145); Triglycerides 124 mg/dL; Very Low Density Lipoprotein 25 mg/dL (5-40)
[2021-08-26 09:19] LABS: Vitamin D,25 Hydroxy 45.3 ng/mL
== END 2021-08-25 23:59 | disposition home or self-care (01) ==
LOC: LAB 08:29
PROVIDERS: PCP Family Medicine; Referring Provider Urology; Visit Provider Urology
DX: N18.31 Chronic kidney disease, stage 3a (principal); E11.22 Type 2 diabetes mellitus with diabetic chronic kidney disease; E78.00 Pure hypercholesterolemia, unspecified; I12.9 Hypertensive chronic kidney disease with stage 1 through stage 4 chronic kidney disease, or unspecified chronic kidney disease; E03.9 Hypothyroidism, unspecified; M13.179 Monoarthritis, not elsewhere classified, unspecified ankle and foot; R97.20 Elevated prostate specific antigen [PSA]
CPT/HCPCS: 36415; 80053; 80061; 82306; 82570; 83036; 83970; 84100; 84153; 84156; 84443; 85027

== ENCOUNTER → 2021-10-11 | Outpatient (CLI) | payer MEDICARE, SELFPAY ==
[2021-10-11 12:42] LABS: Bacteria 0 SEEN /hpf (None Seen); Mucous, Urine 0 SEEN /hpf (<or=2+); Red Blood Cells-Urine 0 SEEN /hpf (0-5); Squamous Epithelial Cells - UA 0 SEEN /hpf (0-5); White Blood Cells 0 SEEN /hpf (0-5)
[2021-10-11 12:47] LABS: Color, Urine Yellow (Yellow); Glucose, Dipstick Normal (Normal); Ketone-Dipstick Negative (Negative); Leukocyte Esterase-Dipstick Negative /ul (Negative); Nitrite-Dipstick Negative (Negative); Occult Blood-Urine Negative /ul (Negative); Protein-Dipstick Negative (Negative); Urine Bilirubin Dipstick Negative (Negative); Urine Clarity Clear (Clear); Urine Urobilinogen Normal (Normal)
== END | disposition home or self-care (01) ==
LOC: LABSPEC 12:32
PROVIDERS: PCP Family Medicine; Referring Provider Physician Assistant; Visit Provider Physician Assistant
DX: N39.0 Urinary tract infection, site not specified (principal)
CPT/HCPCS: 81001; 87086

== ENCOUNTER → 2021-11-02 | Outpatient (CLI) | payer MEDICARE, SELFPAY | END | disposition home or self-care (01) | PROVIDERS: PCP Family Medicine; Referring Provider Internal Medicine Cardiovascular Disease; Visit Provider Internal Medicine Cardiovascular Disease | DX: R00.1 Bradycardia, unspecified (principal) | CPT/HCPCS: 93225; 93226 ==

== ENCOUNTER → 2022-05-04 | Outpatient (CLI) | payer MEDICARE, SELFPAY ==
--- NOTE | 2022-05-04 16:49 | STRESSREP ---
Stress Test Report Exercise myocardial perfusion stress test. 87-year-old man with a history of coronary disease and chest tightness Stress protocol: Resting EKG demonstrates normal sinus rhythm with a rate of 50 bpm resting blood pressure is 130/78 mmHg. The patient exercised according to the regular Sravan protocol for a total duration of 3 minutes and 9 seconds attaining a maximum heart rate of 120 bpm which was 88% of maximum predicted heart rate; the maximum workload was 4.9 metabolic equivalents. At rest there were no ST or T wave changes noted to suggest ischemia and at peak exercise upsloping ST changes only were noted which did not meet the criteria for ischemia. Patient did experience mild chest tightness which was not exercise limiting. The test was terminated due to the target heart rate being achieved/fatigue. The peak blood pressure was 152/74 mmHg. Rate-pressure product was 17,600. Myocardial perfusion protocol. 14.9 mCi of technetium 99m sestamibi was injected at rest. The patient exercised according to regular Sravan protocol for total duration of 3 minutes and 9 seconds and at peak exercise 44.1 mCi of technetium 99m sestamibi was injected stress images were obtained stress and rest images were reconstructed in comparing the short axis vertical long and horizontal long axis. Gated images were also obtained. Perfusion SPECT analysis: Review of the stress images demonstrate normal uptake of tracer noted in all areas of the myocardium. The resting images similarly demonstrate normal uptake of tracer noted in all areas of the myocardium. No areas of reversibility are noted to suggest ischemia no previous infarct was noted. Gated SPECT analysis: The gated ejection fraction is 72%. Conclusion: Normal exercise myocardial perfusion stress test at a low workload Preserved ejection fraction. Low workload may affect sensitivity for detection of ischemia
== END | disposition home or self-care (01) ==
LOC: CVS 06:45
PROVIDERS: PCP Internal Medicine; Visit Provider Internal Medicine Cardiovascular Disease
DX: I25.119 Atherosclerotic heart disease of native coronary artery with unspecified angina pectoris (principal)
CPT/HCPCS: 78452; 93017; A9500; A4216; J2785

== ENCOUNTER → 2022-08-28 | Outpatient (CLI) | payer MEDICARE, SELFPAY ==
[2022-08-28 08:38] LABS: Absolute Lymphocyte Count 2.46 X10^3/uL (0.83-4.51); Basophil# 0.04 X10^3/uL; Basophil% 0.4 % (0-1); Eosinophil# 0.35 X10^3/uL; Eosinophils% 3.6 % (0-5); Hematocrit 40.2 % (40-54); Hemoglobin 13.6 g/dL (13.0-16.5); Lymphocyte # 2.46 X10^3/ul (0.83-4.51); Lymphocyte % 25.3 % (19-41); Mean Corp Hgb Conc 33.8 g/dL (32-36); Mean Corpuscular Hgb 31.8 pg (27.0-32.0); Mean Corpuscular Volume 93.9 fL (80-94); Mean Platelet Vol. 8.9 fl (6.2-12.0); Monocyte# 0.79 X10^3/uL; Monocyte% 8.1 % (0-10); NRBC Flagged by Analyzer 0 % (0-5); Neutrophil # 6.01 X10^3/uL (2.7-7.7); Neutrophil % 61.7 % (47-70); Platelet Count 230 K/mm3 (150-450); RBC Distribution Width SD 41.8 fl (35.1-43.9); Red Blood Count 4.28 M/mm3 (4.6-6.2); White Blood Count 9.7 K/mm3 (4.4-11.0)
[2022-08-28 08:47] LABS: Protein, Urine (Random) 6.6 mg/dL (<11.9); Protein:Creat Ratio 88 mg/g CRE (0-200)
[2022-08-28 09:07] LABS: Vitamin D,25 Hydroxy 50.6 ng/mL
[2022-08-28 09:14] LABS: PTHIN 51.4 pg/mL (18.4-80.1)
[2022-08-28 09:19] LABS: AST(SGOT) 19 U/L (15-37); Alanine Aminotransfer ALT/SGPT 28 U/L (16-61); Albumin, Serum 3.5 g/dL (3.2-5.0); Alkaline Phosphatase 54 U/L (45-117); Anion Gap 9 (5-15); BUN 29 mg/dL (7-18); BUN/Creat Ratio 18.7 RATIO (10-20); Calcium,Total 8.9 mg/dL (8.5-10.1); Chloride 97 mmol/L (98-107); Cholesterol 241 mg/dL (200); Creatinine, Serum 1.55 mg/dL (0.70-1.30); EST Glomerular Filtration Rate 46 mL/min (>60); Est Glom Filt Rate - Afr Amer 55 mL/min (>60); Free T3 1.7 pg/mL (2.18-3.98); Globulin 3.4 g/dL (2.2-4.2); Glucose 103 mg/dL (74-106); High Density Lipoprotein 56 mg/dL; PSA,Total- Diagnostic 6.96 ng/mL (0.0-4.0); Phosphorus 2.7 mg/dL (2.5-4.9); Potassium 4.3 mmol/L (3.5-5.1); Protein, Total 6.9 g/dL (6.4-8.2); Sodium Level 130 mmol/L (136-145); T4 Free Direct 1.05 ng/dL (0.76-1.46); Thyroid Stim Hormone (TSH) 1.99 uIU/mL (0.358-3.74); Triglycerides 143 mg/dL; Very Low Density Lipoprotein 29 mg/dL (5-40)
== END | disposition home or self-care (01) ==
LOC: LAB 07:51
PROVIDERS: PCP Internal Medicine; Referring Provider Internal Medicine; Visit Provider Urology
DX: E78.5 Hyperlipidemia, unspecified (principal); N25.81 Secondary hyperparathyroidism of renal origin; N18.31 Chronic kidney disease, stage 3a; I12.9 Hypertensive chronic kidney disease with stage 1 through stage 4 chronic kidney disease, or unspecified chronic kidney disease; Z13.220 Encounter for screening for lipoid disorders; E73.9 Lactose intolerance, unspecified; E03.9 Hypothyroidism, unspecified; N40.1 Benign prostatic hyperplasia with lower urinary tract symptoms; Z13.0 Encounter for screening for diseases of the blood and blood-forming organs and certain disorders involving the immune mechanism; R73.9 Hyperglycemia, unspecified
CPT/HCPCS: 36415; 80053; 80061; 82306; 82570; 83036; 83970; 84100; 84153; 84156; 84439; 84443; 84481; 85025

== ENCOUNTER 2022-09-20 11:29 | Emergency (ER) | payer MEDICARE, SELFPAY ==
[2022-09-20 11:31] VITALS: BP 175/85; PULSE 66; RESP 16; TEMP 36.1; O2SAT 96; BMI 31.8
--- NOTE | 2022-09-20 11:46 | EDS_ITS ---
HPI <LATASHA Villavicencio - Last Filed: 09/20/22 15:22> History of Present Illness Chief Complaint: Lower Extremity Injury Narrative Narrative: Patient presenting today with pain that radiates from his left lower back into his left hip and the anterior aspect of his left thigh that he has had chronically for, a long time but has been worse over the past 3 days. He reports that he regularly sees a chiropractor who is usually able to adjust him and control the pain, but he saw the chiropractor yesterday and it did not make any difference. He has been taking Tylenol with some relief. He denies any recent injuries, fever, chills, bowel/bladder incontinence, saddle paresthesia. [facility] <LATASHA Villavicencio - Last Filed: 09/20/22 15:22> [facility] Medical History Aortic valve calcification Chronic kidney disease (CKD) Diabetes Essential (primary) hypertension Hyperlipidemia Hypothyroidism Left carotid artery stenosis Osteoarthritis Ulcer Urinary frequency Home Medications aspirin 81 mg tablet,delayed release (Adult Aspirin Regimen) 81 mg PO QHS [facility] 04/10/17 [History Last Taken 03/27/18 20:00] tamsulosin 0.4 mg capsule (Flomax) 0.4 mg PO DAILY PROSTATE 04/10/17 [History Last Taken 03/27/18 17:00] cholecalciferol (vitamin D3) 50 mcg (2,000 unit) capsule 50 mcg PO DAILY 04/19/20 [History Last Taken Unknown] levothyroxine 88 mcg tablet 88 mcg PO DAILY 04/19/20 [History Last Taken Unknown] olmesartan 40 mg tablet 40 mg PO DAILY 04/19/20 [History Last Taken Unknown] omega-3 fatty acids 1,000 mg capsule (Fish Oil Concentrate) 1,000 mg PO DAILY 04/19/20 [History Last Taken Unknown] finasteride 5 mg tablet 5 mg PO DAILY 01/11/22 [History Last Taken Unknown] acetaminophen 500 mg tablet (Tylenol Extra Strength) 500 mg PO QHS 04/24/22 [History Last Taken Unknown] ascorbic acid (vitamin C) 500 mg capsule mg PO 04/24/22 [History Last Taken Unknown] turmeric root extract 500 mg capsule 500 mg PO DAILY 04/24/22 [History Last Taken Unknown] Allergy/AdvReac Type Severity Reaction Status Date / Time Sulfa (Sulfonamide Allergy Itching Verified 09/20/22 11:30 Antibiotics) atorvastatin [From Lipitor] AdvReac Severe Depression Verified 09/20/22 11:30 rosuvastatin [From Crestor] AdvReac Severe Myalgia Verified 09/20/22 11:30 Family History Brother Heart disease Hypertension Sister Breast cancer Father Myocardial infarction Surgical History H/O colonoscopy History of carpal tunnel release History of left-sided carotid endarterectomy History of tonsillectomy Social History adopted: No household members: spouse housing: house current occupational status: retired Smoking Status: Never smoker alcohol intake: never substance use type: does not use caffeine: Yes Type: coffee Number of servings: 1 what type of physical activity do you participate in: walking frequency: daily sarah/protestant: Episcopal seatbelt use: always do you feel safe at home: Yes ROS <LATASHA Villavicencio - Last Filed: 09/20/22 15:22> ROS ED Constitutional Constitutional ED: Denies chills or fever(s) Cardiovascular Cardiovascular: Denies chest pain Respiratory/Chest Respiratory/Chest: Denies cough or dyspnea Gastrointestinal Gastrointestinal: Denies abdominal pain, nausea or vomiting Musculoskeletal Musculoskeletal: Reports arthralgias, back pain and myalgias Integumentary Denies rash Neurologic Neurologic: Denies paresthesias or weakness EXAM <LATASHA Villavicencio - Last Filed: 09/20/22 15:22> Physical Exam Const Vital Signs: 09/20/22 11:31 09/20/22 13:41 Temperature 96.9 F L Temperature Source Temporal Pulse Rate 66 55 L Respiratory Rate 16 16 Blood Pressure 175/85 H 152/73 H Blood Pressure Mean 115 Pulse Ox 96 97 Oxygen Delivery Method Room Air Positive well nourished, well developed and no apparent distress General Appearance ED: well developed HEENT Reports normocephalic and head/scalp atraumatic Mouth ED: Yes moist mucous membranes normal Eyes PERRL and EOMs intact bilaterally Neck full ROM and supple Chest Wall inspection of chest normal Resp normal respiratory effort and clear to auscultation bilaterally Cardio regular rate and regular rhythm GI soft to palpation, non-tender, non-distended and no masses Back/Spine normal ROM and normal to inspection Extremity normal to inspection and full ROM Extremity Narrative: DP pulses 2+ and equal bilaterally. Neuro oriented x3, CN's II-XII intact bilaterally, moves all extremities, no focal motor deficits and no sensory deficits noted Sensorium / Orientation: awake and alert Motor Exam: strength 5/5 throughout Psych mental status grossly normal and thought process normal Skin no rashes or lesions noted and no wounds <Dr. Refugio Fernando MD - Last Filed: 09/20/22 19:27> Physical Exam Const Vital Signs: 09/20/22 11:31 09/20/22 13:41 Temperature 96.9 F L Temperature Source Temporal Pulse Rate 66 55 L Respiratory Rate 16 16 Blood Pressure 175/85 H 152/73 H Blood Pressure Mean 115 Pulse Ox 96 97 Oxygen Delivery Method Room Air MDM <LATASHA Villavicencio - Last Filed: 09/20/22 15:22> [facility] MDM Narrative Medical decision making narrative: Patient presenting today with an exacerbation of his chronic left lower back pain that radiates into his left hip and left anterior thigh. He denies any recent injury. Patient also reports that his PCP wanted him to be evaluated given he had an elevated blood pressure earlier today with systolics in the 180s. Initially, his blood pressure was 175/85. He reports he does not take his blood pressure medication until the afternoon. BMP obtained to rule out kidney dysfunction and is consistent with previous laboratory work. Hyponatremia consistent with previous lab work. On repeat exam his blood pressure has gone down to 152/73. I encouraged him to follow-up with his PCP regarding his back pain as he may need physical therapy. He is to take Tylenol for pain and will be discharged home in stable condition. He is comfortable with plan. Lab Data Attestation: I reviewed the patient's lab results. Lab results narrative: Hyponatremia consistent with previous lab work, BUN 28, consistent with prior lab work, creatinine 1.5, GFR 47 Labs: Laboratory Results - last 24 hr 09/20/22 12:50 Sodium 130 L Potassium 4.7 Chloride 97 L Carbon Dioxide 26.0 Anion Gap 7 BUN 28 H Creatinine 1.50 H Estim Creat Clear Calc 36.00 Est GFR (MDRD) Af Amer 57 L Est GFR (MDRD) Non-Af 47 L BUN/Creatinine Ratio 18.7 Glucose 159 H Calcium 9.4 <Dr. Refugio Fernando MD - Last Filed: 09/20/22 19:27> [facility] Narrative Medical decision making narrative: Patient presenting today with an exacerbation of his chronic left lower back pain that radiates into his left hip and left anterior thigh. He denies any recent injury. Patient also reports that his PCP wanted him to be evaluated given he had an elevated blood pressure earlier today with systolics in the 180s. Initially, his blood pressure was 175/85. He reports he does not take his blood pressure medication until the afternoon. BMP obtained to rule out kidney dysfunction and is consistent with previous laboratory work. Hyponatremia consistent with previous lab work. On repeat exam his blood pressure has gone down to 152/73. I encouraged him to follow-up with his PCP regarding his back pain as he may need physical therapy. He is to take Tylenol for pain and will be discharged home in stable condition. He is comfortable w ith plan. I have personally performed a face to face assessment of the patient and have reviewed the RISHABH Note. I performed a substantive portion of the visit including all aspects of the following. My dang findings include: History is remarkable for left low back pain with pain in the distribution of L3 dermatome. He presents however because of low blood pressure. He states his systolic blood pressure is 130. The pain is chronic. He denies recent trauma. Nuys bowel bladder dysfunction. No saddle paresthesia or anesthesia. Denies foot drop. He denies buckling of his knees going up or down steps. He denies fever, chills night sweats. Denies recent dental procedure or any surgical procedure. He denies skin lesion. He denies headache. He denies visual, ocular auditory symptoms. He denies cardiac symptoms. He denies back pain. Exam is remarkable for equivocal femoral stretch test on the left. Patella and ankle reflex are 1+ and symmetric. EHLs intact. Normal sensation over L3, L4, L5 and S1 dermatome. Patient able to ambulate on heels and toes. Patient will perform 1 legged squat right and left. Patient has normal sensation in the gluteal area. Straight leg test was negative right and left. Patient's blood pressure is elevated. BMP was obtained to assess BUN and creatinine. His BUN/creatinine are slightly elevated. Glucose is also slightly elevated. This is close to baseline. His pressure is now 152/73 which does not necessitate treatment. Medical Decision Making suspect patient's back pain is due to L3 disc disease with radiculopathy. He also has hypertension. This can be followed as an outpatient as does not require emergent intervention. Other additions or changes: [None] Lab Data Lab results narrative: Hyponatremia consistent with previous lab work, BUN 28, consistent with prior lab work, creatinine 1.5, GFR 47. Creatinine is unchanged from prior. Labs: Laboratory Results - last 24 hr 09/20/22 12:50 Sodium 130 L Potassium 4.7 Chloride 97 L Carbon Dioxide 26.0 Anion Gap 7 BUN 28 H Creatinine 1.50 H Estim Creat Clear Calc 36.00 Est GFR (MDRD) Af Amer 57 L Est GFR (MDRD) Non-Af 47 L BUN/Creatinine Ratio 18.7 Glucose 159 H Calcium 9.4 Differential Diagnosis Chest pain/SOB: pulmonary embolism Reason(s) PE less likely: Positive for not tachycardic and not hypoxic, ACS ACS: Positive for no evidence of ACS based on cardiac biomarkers, pneumothorax and aortic dissection Reason(s) Aortic dissection less likely:: Positive for normal vascular exam, no history of HTN, normal neurological exam, no significant risk factors for dissection, pain not sudden onset, no ripping/tearing pain, no pain to back (Back pain is left lower back with L3 radicular pain consistent with a section) and blood pressure appropriate in ED Discharge Plan Triage Chief Complaint: Lower Extremity Injury Other Complaint: Hypertension ED Midlevel Provider: Princess Padilla ED Provider: Refugio Fernando Dx/Rx/DC Orders Clinical Impression: Essential (primary) hypertension, Low back pain, Hip pain, left Instructions: Controlling High Blood Pressure, ED RICE Prescriptions: No Action tamsulosin [Flomax] 0.4 mg capsule,extended release 24hr 0.4 mg PO DAILY aspirin [Adult Aspirin Regimen] 81 mg tablet,delayed release (DR/EC) 81 mg PO QHS olmesartan 40 mg tablet 40 mg PO DAILY levothyroxine 88 mcg tablet 88 mcg PO DAILY Label Comments: take 1 tablet by mouth once daily omega-3 fatty acids [Fish Oil Concentrate] 1,000 mg capsule 1,000 mg PO DAILY cholecalciferol (vitamin D3) 50 mcg (2,000 unit) capsule 50 mcg PO DAILY turmeric root extract 500 mg capsule 500 mg PO DAILY ascorbic acid (vitamin C) 500 mg capsule PO acetaminophen [Tylenol Extra Strength] 500 mg tablet 500 mg PO QHS finasteride 5 mg tablet 5 mg PO DAILY Primary Care Provider: Ketty Adler Referrals: Ketty Adler MD [Primary Care Provider] - 3-5 Days Activity Restrictions/Additional Instructions: You can take Tylenol for your pain, follow-up with your PCP. Disposition Disposition: Home, Self Care Discharge Date/Time: 09/20/22 13:43
[2022-09-20 13:14] LABS: Anion Gap 7 (5-15); BUN 28 mg/dL (7-18); BUN/Creat Ratio 18.7 RATIO (10-20); Calcium,Total 9.4 mg/dL (8.5-10.1); Chloride 97 mmol/L (98-107); EST Glomerular Filtration Rate 47 mL/min (>60); Est Glom Filt Rate - Afr Amer 57 mL/min (>60); Glucose 159 mg/dL (74-106); Potassium 4.7 mmol/L (3.5-5.1); Sodium Level 130 mmol/L (136-145)
[2022-09-20 13:41] VITALS: BP 152/73; PULSE 55; RESP 16; O2SAT 97
== END 2022-09-20 13:43 | disposition home or self-care (01) ==
PROVIDERS: Physician Assistant; Emergency Provider Emergency Medicine; PCP Internal Medicine; Visit Provider Emergency Medicine
DX: M54.50 Low back pain, unspecified (principal); E11.22 Type 2 diabetes mellitus with diabetic chronic kidney disease; E11.65 Type 2 diabetes mellitus with hyperglycemia; E87.1 Hypo-osmolality and hyponatremia; E78.5 Hyperlipidemia, unspecified; N18.9 Chronic kidney disease, unspecified; I12.9 Hypertensive chronic kidney disease with stage 1 through stage 4 chronic kidney disease, or unspecified chronic kidney disease; G89.29 Other chronic pain; M25.552 Pain in left hip
CPT/HCPCS: 80048; 99283

== ENCOUNTER 2022-09-21 15:34 | Emergency (ER) | payer MEDICARE, SELFPAY ==
[2022-09-21 15:35] VITALS: BP 154/71; PULSE 63; RESP 18; TEMP 36.3; O2SAT 97; BMI 31.7
[2022-09-21] MEDS: predniSONE 20 MG Tablet 40 MG PO (16:11)
[2022-09-21] MEDS: HYDROcodone Bitartrate/Apap 5/325 Tablet PO (16:11)
--- NOTE | 2022-09-21 16:11 | EX.ED.DYSGE1 ---
HPI History of Present Illness Chief Complaint: Lower Extremity Injury Narrative Narrative: Patient presents secondary to left hip pain. He has a history of sciatica and states that he gets his low back pain that wraps around his left hip and down his left leg. Usually going to the chiropractor will help. Patient was seen in the ER for this yesterday as well as high blood pressure. He had a BMP obtained in the ED that revealed chronic changes consistent with his prior values. He was advised to take Tylenol and follow-up with his primary care physician. He states he went to the chiropractor this morning. The chiropractor feels that the hip is sliding in and out. He was advised to follow-up with his primary care physician. He called his PCPs office. His doctor is out today but advised to come to the emergency room for x-rays as they are concerned that he is dislocating his hip. He has had no prior hip surgeries. He is only taking Tylenol at home at this time for pain. [facility] Medical History Aortic valve calcification Chronic kidney disease (CKD) Diabetes Essential (primary) hypertension Hyperlipidemia Hypothyroidism Left carotid artery stenosis Osteoarthritis Ulcer Urinary frequency Home Medications aspirin 81 mg tablet,delayed release (Adult Aspirin Regimen) 81 mg PO QHS [facility] 04/10/17 [History Last Taken 03/27/18 20:00] tamsulosin 0.4 mg capsule (Flomax) 0.4 mg PO DAILY PROSTATE 04/10/17 [History Last Taken 03/27/18 17:00] cholecalciferol (vitamin D3) 50 mcg (2,000 unit) capsule 50 mcg PO DAILY 04/19/20 [History Last Taken Unknown] levothyroxine 88 mcg tablet 88 mcg PO DAILY 04/19/20 [History Last Taken Unknown] olmesartan 40 mg tablet 40 mg PO DAILY 04/19/20 [History Last Taken Unknown] omega-3 fatty acids 1,000 mg capsule (Fish Oil Concentrate) 1,000 mg PO DAILY 04/19/20 [History Last Taken Unknown] finasteride 5 mg tablet 5 mg PO DAILY 01/11/22 [History Last Taken Unknown] acetaminophen 500 mg tablet (Tylenol Extra Strength) 500 mg PO QHS 04/24/22 [History Last Taken Unknown] ascorbic acid (vitamin C) 500 mg capsule mg PO 04/24/22 [History Last Taken Unknown] turmeric root extract 500 mg capsule 500 mg PO DAILY 04/24/22 [History Last Taken Unknown] hydrocodone-acetaminophen 5-325mg 5mg-325mg 1 tab PO Q6H PRN PRN Pain 3 days #10 TABLETS 09/21/22 [Rx Last Taken Unknown] prednisone 20 mg tablet 40 mg PO DAILY #8 tabs 09/21/22 [Rx Last Taken Unknown] Allergy/AdvReac Type Severity Reaction Status Date / Time Sulfa (Sulfonamide Allergy Itching Verified 09/21/22 15:39 Antibiotics) atorvastatin [From Lipitor] AdvReac Severe Depression Verified 09/21/22 15:39 rosuvastatin [From Crestor] AdvReac Severe Myalgia Verified 09/21/22 15:39 Family History Brother Heart disease Hypertension Sister Breast cancer Father Myocardial infarction Surgical History H/O colonoscopy History of carpal tunnel release History of left-sided carotid endarterectomy History of tonsillectomy Social History adopted: No household members: spouse housing: house current occupational status: retired Smoking Status: Never smoker alcohol intake: never substance use type: does not use caffeine: Yes Type: coffee Number of servings: 1 what type of physical activity do you participate in: walking frequency: daily sarah/roman catholic: Evangelical seatbelt use: always do you feel safe at home: Yes ROS ROS ED Constitutional Constitutional ED: Denies chills or fever(s) Eyes Eyes: Denies change in vision or discharge from eye(s) ENT ENT ED: Denies discharge from eye(s), rhinorrhea or sore throat Cardiovascular Cardiovascular: Denies chest pain or palpitations Respiratory/Chest Respiratory/Chest: Denies cough or dyspnea Gastrointestinal Gastrointestinal: Denies abdominal pain, nausea or vomiting Genitourinary Genitourinary ED: Denies difficulty urinating or dysuria Musculoskeletal Musculoskeletal: Reports back pain and extremity pain Integumentary Denies Abrasions or rash Neurologic Neurologic: Denies headache(s) or weakness Psychiatric Psychiatric: Denies anxiety or depression Allergic/Immunologic Allergic/Immunologic ED: Denies lip swelling or urticaria EXAM Physical Exam Const Vital Signs: 09/21/22 15:35 Temperature 97.3 F L Temperature Source Temporal Pulse Rate 63 Respiratory Rate 18 Blood Pressure 154/71 H Blood Pressure Mean 98 Pulse Ox 97 Oxygen Delivery Method Room Air Positive well nourished and well developed General Appearance ED: well developed HEENT Reports moist mucous membranes Eyes EOMs intact bilaterally Chest Wall inspection of chest normal and palpation of chest normal Resp normal respiratory effort and clear to auscultation bilaterally Cardio regular rate and regular rhythm GI normal to inspection, nondistended, normoactive bowel sounds Back/Spine Back/Spine Narrative: Mild tenderness in the left posterior pelvis. No ecchymosis or erythema. Extremity normal to inspection Extremity Narrative: Equal leg lengths. No significant pain with logroll of the leg. Strong distal pulses. Neuro oriented x3 and no sensory deficits noted Psych mental status grossly normal Skin no rashes or lesions noted MDM MDM MDM Narrative Medical decision making narrative: Patient's note from yesterday is reviewed. He is sent for x-rays of the pelvis and left hip. Patient is given a tab of Dawson and prednisone for pain control. 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 Left hip unremarkable. Electronically Signed: Carson Sandra MD at 16:31 EDT Reading Location ID and State: [address] [place] [id number] , Service support , Treatment and Re-Evaluation :: On repeat evaluation patient resting more comfortably. Pelvis and left hip x-rays per my interpretation reveal no acute bony finding. Radiology interpretation is reviewed and agrees. Test results are discussed with patient and family at bedside. I will write him a short course of Dawson and prednisone for home. Return instructions are given. Discharge Plan Triage Chief Complaint: Lower Extremity Injury ED Provider: Xuan Machuca Dx/Rx/DC Orders Clinical Impression: Sciatica Instructions: ED Sciatica Prescriptions: New hydrocodone-acetaminophen 5-325 mg tablet 1 tab PO Q6H PRN PRN (Reason: Pain) 3 Days Qty: 10 0RF prednisone 20 mg tablet 40 mg PO DAILY Qty: 8 0RF No Action tamsulosin [Flomax] 0.4 mg capsule,extended release 24hr 0.4 mg PO DAILY aspirin [Adult Aspirin Regimen] 81 mg tablet,delayed release (DR/EC) 81 mg PO QHS olmesartan 40 mg tablet 40 mg PO DAILY levothyroxine 88 mcg tablet 88 mcg PO DAILY Label Comments: take 1 tablet by mouth once daily omega-3 fatty acids [Fish Oil Concentrate] 1,000 mg capsule 1,000 mg PO DAILY cholecalciferol (vitamin D3) 50 mcg (2,000 unit) capsule 50 mcg PO DAILY turmeric root extract 500 mg capsule 500 mg PO DAILY ascorbic acid (vitamin C) 500 mg capsule PO acetaminophen [Tylenol Extra Strength] 500 mg tablet 500 mg PO QHS finasteride 5 mg tablet 5 mg PO DAILY Primary Care Provider: Ketty Adler Referrals: Ketty Adler MD [Primary Care Provider] - 5-7 Days Disposition Disposition: Home, Self Care
--- NOTE | 2022-09-21 16:14 | RAD_ITS ---
STUDY: X-RAY - PELVIS AND LEFT HIP REASON FOR EXAM: Male, 87 years old. pain TECHNIQUE: 3 views of the pelvis and hip. COMPARISON: None. FINDINGS: There is a non-specific bowel gas pattern. Normal visualized soft tissue structures. Spondylosis lumbar spine. Bony ankylosis sacroiliac joints, right greater than left. Normal bilateral iliac wings, and visualized sacrum. Normal bilateral superior and inferior pubic rami. Normal pubic symphysis. Normal bilateral ischial tuberosities. Normal visualized femoral head. Normal acetabulum. Normal hip joint. RAD/HIP, UNI W/ Pelvis 2-3 Views IMPRESSION: Degenerative changes lumbar spine and right sacroiliac joint. Left hip unremarkable. Electronically Signed: Carson Sandra MD at 16:31 EDT ,
== END 2022-09-21 17:08 | disposition home or self-care (01) ==
PROVIDERS: Emergency Provider Emergency Medicine; PCP Internal Medicine; Visit Provider Emergency Medicine
DX: M54.32 Sciatica, left side (principal); E11.22 Type 2 diabetes mellitus with diabetic chronic kidney disease; N18.9 Chronic kidney disease, unspecified; I12.9 Hypertensive chronic kidney disease with stage 1 through stage 4 chronic kidney disease, or unspecified chronic kidney disease; E78.5 Hyperlipidemia, unspecified; E03.9 Hypothyroidism, unspecified; Z79.82 Long term (current) use of aspirin; Z79.890 Hormone replacement therapy; Z79.899 Other long term (current) drug therapy
CPT/HCPCS: 73502; 99283

== ENCOUNTER → 2022-09-27 | Outpatient (CLI) | payer MEDICARE, SELFPAY ==
--- NOTE | 2022-09-27 14:46 | US_ITS ---
STUDY: RENAL ULTRASOUND - COMPLETE REASON FOR EXAM: Male, 87 years old. Urinary retention -- PVR PLEASE! TECHNIQUE: Ultrasound evaluation of the kidneys was performed with real-time and static mallory-scale imaging. COMPARISON: None. FINDINGS: RIGHT KIDNEY: Normal location of the right kidney, which is normal in size. The right kidney measures 10 cm x 5 cm x 4.7 cm. Increased echotexture of the renal cortex. The renal cortex measures 1.2 cm. There is no right renal mass or cyst. There are no right renal calculi. There is no right hydronephrosis. DISTAL RIGHT URETER: There is non-visualization of the distal right ureter. There is no demonstrated right ureterovesical junction calculus. There is no demonstrated right ureteral jet. LEFT KIDNEY: Normal location of the left kidney, which is normal in size. The left kidney measures 10.8 cm x 5.1 cm x 5.5 cm. Increased echotexture of the renal cortex suggesting medical renal disease. The renal cortex measures 1.1 cm. There is no left renal mass or cyst. There are no left renal calculi. There is no left hydronephrosis. DISTAL LEFT URETER: There is non-visualization of the distal left ureter. There is no demonstrated left ureterovesical junction calculus. There is no demonstrated left ureteral jet. BLADDER: The distended urinary bladder has a volume of 113 ml. The empty urinary bladder has a volume of 20 ml. There is a normal wall thickness of the distended urinary bladder. There is no demonstrated mass within the urinary bladder. There are no demonstrated bladder calculi. US/Kidney and Bladder IMPRESSION: There is evidence of increased echogenicity of the renal cortices bilaterally suggestive of medical renal disease. Electronically Signed: Adonis Zeng MD at 15:49 EDT ,
== END | disposition home or self-care (01) ==
LOC: US 14:34
PROVIDERS: PCP Internal Medicine; Referring Provider Internal Medicine; Visit Provider Internal Medicine
DX: R33.8 Other retention of urine (principal)
CPT/HCPCS: 76770

== ENCOUNTER → 2022-11-01 | Outpatient (CLI) | payer MEDICARE, SELFPAY ==
--- NOTE | 2022-11-01 10:22 | MRI_ITS ---
INDICATION: Lumbar radiculopathy, L5-S1 left X 2 MONTHS EXAMINATION: MRI - MR Spine Lumbar W/O Contrast TECHNIQUE: Multiplanar and multisequence MR images of the lumbar spine. IV Contrast Dosage and Agent: None. COMPARISON: None. FINDINGS: VERTEBRAE: Vertebral body heights are preserved. Normal vertebral bodies and posterior elements. VERTEBRAL ALIGNMENT: No spondylolisthesis. There is preservation of the normal lumbar lordosis. CORD: Normal position and signal intensity of the conus medullaris. L1/L2: Endplate spondylosis. Decreased disc height and small circumferential disc bulge. Superimposed right paracentral and foraminal disc herniation impinging on the right L2 and L1 nerve roots. Degenerative changes of the bilateral facet joints. Moderate narrowing of the central canal and bilateral intervertebral neural foramina. L2/L3, L3/L4, L4/L5: Endplate spondylosis. Decreased disc height and moderate circumferential disc bulge. Degenerative changes of the bilateral facet joints. Mild narrowing of the central canal and severe narrowing of the bilateral intervertebral neural foramina. L5/S1: Endplate spondylosis. Decreased disc height and moderate circumferential disc bulge. Degenerative changes of the bilateral facet joints more prominent on the right side. Mild narrowing of the central canal and moderate to severe narrowing of the bilateral intervertebral neural foramina more prominent on the right side. SOFT TISSUES: Unremarkable. MRI/Spine Lumbar (Routine) IMPRESSION: Multilevel degenerative changes with spinal canal and neural foraminal stenosis as described above. Electronically Signed: Mir Zamudio MD at 11:45 EDT ,
== END | disposition home or self-care (01) ==
LOC: MRI 10:14
PROVIDERS: PCP Internal Medicine; Referring Provider Internal Medicine; Visit Provider Internal Medicine
DX: M54.17 Radiculopathy, lumbosacral region (principal)
CPT/HCPCS: 72148

== ENCOUNTER 2023-07-14 08:56 | Observation (INO) | payer MEDICARE, SELFPAY ==
[2023-07-14 08:57] VITALS: BP 113/60; PULSE 79; RESP 18; TEMP 36.4; O2SAT 95
--- NOTE | 2023-07-14 09:15 | RAD_ITS ---
STUDY: X-RAY - RIGHT HUMERUS REASON FOR EXAM: Male, 88 years old. Pain after fall TECHNIQUE: 2 view(s) of the humerus. COMPARISON: None. FINDINGS: Bones are diffusely demineralized. There is an acute, impacted, multi fragmented fracture of the surgical neck of the humerus with soft tissue swelling. Arthritic narrowing of the glenohumeral and acromioclavicular joints without dislocation, subluxation, or separation. RAD/Humerus min 2 Views IMPRESSION: Diffuse osteopenia with an acute impacted multifragmented fracture of the surgical neck of the humerus Electronically Signed: Bienvenido Simons MD at 10:21 EDT ,
--- NOTE | 2023-07-14 09:15 | RAD_ITS ---
STUDY: X-RAY - RIGHT SHOULDER REASON FOR EXAM: Male, 88 years old. Acute pain after fall TECHNIQUE: 2 view(s) of the shoulder. COMPARISON: None. FINDINGS: Bones are demineralized. There is an acute, impacted, multi fragmented fracture of the surgical neck of the humerus with associated soft tissue swelling. There is arthritic narrowing of the glenohumeral joint, but without a scapular Y view I cannot assess for dislocation or subluxation. There is arthritic narrowing of the AC joint. No upper rib fracture or pneumothorax RAD/Shoulder min 2 Views IMPRESSION: Diffuse osteopenia with an acute impacted multifragmented surgical neck fracture of the humerus with soft tissue swelling Electronically Signed: Bienvenido Simons MD at 10:19 EDT ,
--- NOTE | 2023-07-14 09:17 | EDS_ITS ---
HPI HPI - Fall History of Present Illness Chief Complaint: Fall Detail of Chief Complaint: Fall Informant: patient and family Narrative Narrative: Patient resents to the emergency department with complaint of a fall that occurred 2 days ago. Patient states that he got up from a chair to answer his 's phone and when he turned and lost his balance and fell onto his right side. Patient injured his right shoulder and right hip. He has been having hard time standing and bearing weight and has a lift chair that he has been using to sleep in. Comes in today for evaluation. He denies striking his head. No loss of consciousness. He denies neck pain. He is not on blood thinners. [facility] Medical History Aortic valve calcification Chronic kidney disease (CKD) Diabetes Essential (primary) hypertension Hyperlipidemia Hypothyroidism Left carotid artery stenosis Osteoarthritis Ulcer Urinary frequency Home Medications aspirin 81 mg tablet,delayed release (Adult Aspirin Regimen) 81 mg PO QHS HE[facility] 04/10/17 [History Last Taken 03/27/18 20:00] tamsulosin 0.4 mg capsule (Flomax) 0.4 mg PO DAILY PROSTATE 04/10/17 [History Last Taken 03/27/18 17:00] cholecalciferol (vitamin D3) 50 mcg (2,000 unit) capsule 50 mcg PO DAILY 04/19/20 [History Last Taken Unknown] omega-3 fatty acids 1,000 mg capsule (Fish Oil Concentrate) 1,000 mg PO DAILY 04/19/20 [History Last Taken Unknown] finasteride 5 mg tablet 5 mg PO DAILY 01/11/22 [History Last Taken Unknown] acetaminophen 500 mg tablet (Tylenol Extra Strength) 500 mg PO QHS 04/24/22 [History Last Taken Unknown] ascorbic acid (vitamin C) 500 mg capsule mg PO 04/24/22 [History Last Taken Unknown] turmeric root extract 500 mg capsule 500 mg PO DAILY 04/24/22 [History Last Taken Unknown] olmesartan 40 mg tablet 40 mg PO DAILY #90 tabs 10/01/22 [Rx Last Taken Unknown] Handicap placard #1 ea 10/29/22 [Rx Last Taken Unknown] basic stairlift #1 ea 11/22/22 [Rx Last Taken Unknown] lift chair #1 ea 11/22/22 [Rx Last Taken Unknown] levothyroxine 88 mcg tablet 88 mcg PO DAILY #90 tabs 01/14/23 [Rx Last Taken Unknown] Allergy/AdvReac Type Severity Reaction Status Date / Time Sulfa (Sulfonamide Allergy Itching Verified 07/14/23 08:58 Antibiotics) atorvastatin [From Lipitor] AdvReac Severe Depression Verified 07/14/23 08:58 rosuvastatin [From Crestor] AdvReac Severe Myalgia Verified 07/14/23 08:58 Family History Brother Heart disease Hypertension Sister Breast cancer Father Myocardial infarction Surgical History H/O colonoscopy History of carpal tunnel release History of left-sided carotid endarterectomy History of tonsillectomy Social History adopted: No household members: spouse housing: house current occupational status: retired Smoking Status: Never smoker alcohol intake: never substance use type: does not use caffeine: Yes Type: coffee Number of servings: 1 what type of physical activity do you participate in: walking frequency: daily sarah/christian: Nondenominational seatbelt use: always do you feel safe at home: Yes ROS ROS ED Review of Systems ROS Unobtainable: other Constitutional Constitutional ED: Reports lethargy; Denies chills, fever(s), sweats or weight loss Eyes Eyes: Denies blurry vision, change in vision or diplopia ENT ENT ED: Denies rhinorrhea or sore throat Cardiovascular Cardiovascular: Denies chest pain, orthopnea or racing heartbeat Respiratory/Chest Respiratory/Chest: Denies cough, dyspnea, dyspnea on exertion, orthopnea or spu isaac Gastrointestinal Gastrointestinal: Denies abdominal pain, diarrhea, nausea or vomiting Genitourinary Genitourinary ED: Denies dysuria, hematuria or urinary frequency Musculoskeletal Musculoskeletal: Reports other Details: Right shoulder pain, right hip pain ; Denies arthralgias, back pain, myalgias or neck pain Integumentary Denies abscess, Abrasions or rash Neurologic Neurologic: Denies headache(s) or weakness Psychiatric Psychiatric: Denies anxiety, depression or suicidal thoughts Endocrine Endocrinology: Denies polydipsia, polyphagia or polyuria Hematologic/Lymphatic Hematologic/Lymphatic: Denies easy bleeding, easy bruising or lymphadenopathy Allergic/Immunologic Allergic/Immunologic ED: Denies mouth swelling, tongue swelling or urticaria EXAM Physical Exam Const Vital Signs: 07/14/23 08:57 07/14/23 08:56 Temperature 97.5 F L Temperature Source Temporal Pulse Rate 79 Respiratory Rate 18 Respiratory Effort Normal Non-Labored Respiratory Depth Normal Respiratory Pattern Normal Blood Pressure 113/60 Blood Pressure Mean 77 Pulse Ox 95 Oxygen Delivery Method Room Air Room Air Positive well nourished and well developed General Appearance ED: well developed and NAD HEENT Reports TM's clear and moist mucous membranes normocephalic and atraumatic; Negative for trauma or tenderness Tympanic Membrane ED: Yes TM's clear Eyes PERRL and EOMs intact bilaterally General Eye ED: Negative for pale conjunctiva or scleral icterus Neck no lymphadenopathy, supple and no JVD General: Negative for tenderness Chest Wall inspection of chest normal and palpation of chest normal Chest: Negative for tenderness Resp normal respiratory effort and clear to auscultation bilaterally Effort and Inspection: Negative for respiratory distress or pain with movement Auscultation: Negative for rhonchi, wheezes or diminished lung sounds Cardio regular rate, regular rhythm, S1 normal heart sound, S2 normal heart sound and no murmurs Peripheral Pulses: pulses 2+ throughout GI normal to inspection, nondistended, normoactive bowel sounds, soft to palpation, non-tender, non-distended and no masses Back/Spine no CVA tenderness and no thoracic nor lumbar tenderness Extremity Extremity Narrative: Right shoulder-no obvious sulcus sign or deformity. He does have some soft tissue swelling to the proximal humerus with some ecchymosis and bruising noted. Limited range of motion at the glenohumeral joint secondary to pain. Neurovascular intact distally. Right hip-patient has tenderness to palpation over the right hip and sacrum. No significant pain with logrolling or straight leg raising. No shortening or rotational deformity noted. Neurovascular intact distally. General Extremety ED: Negative for edema General Extremity: Negative for edema Neuro oriented x3, CN's II-XII intact bilaterally, no sensory deficits noted and gait normal Sensorium / Orientation: awake, alert, oriented to person, oriented to place and oriented to time Motor Exam: strength 5/5 throughout and strength abnormal Psych mental status grossly normal Skin no rashes or lesions noted and no wounds MDM MDM MDM Narrative Medical decision making narrative: Patient presents to the emergency department with a fall and injury to the right shoulder and right hip. Patient having hard time ambulating and caring for himself. IV line established. CBC with differential obtained for white count of 10.4 with hemoglobin 12.6 and platelet count of 192. Chemistries were unre markable. BUN was 30 and creatinine 1.52. On x-ray it is noted that patient has a proximal humerus fracture. I did order a sling. Discussed results with patient and his family member and they do not feel patient can care for himself at home as he is unable to ambulate or use his right arm currently. Will discuss case with hospitalist to evaluate patient for admission. Lab Data Attestation: I reviewed the patient's lab results. Labs: Laboratory Results - last 24 hr 07/14/23 09:26 WBC 10.4 RBC 4.00 L Hgb 12.6 L Hct 38.2 L MCV 95.5 H MCH 31.5 MCHC 33.0 RDW Std Deviation 43.0 RDW Coeff of [place] 12.2 Plt Count 192 MPV 8.6 Immature Gran % (Auto) 0.900 Neut % (Auto) 82.2 H Lymph % (Auto) 7.1 L [place] % (Auto) 5.8 Eos % (Auto) 3.5 Baso % (Auto) 0.5 Absolute Neuts (auto) 8.6 H Absolute Lymphs (auto) 0.74 L Nucleated RBC % 0 Sodium 132 L Potassium 4.5 Chloride 98 Carbon Dioxide 25.0 Anion Gap 9 BUN 30 H Creatinine 1.52 H Est GFR (MDRD) Af Amer 56 L Est GFR (MDRD) Non-Af 46 L BUN/Creatinine Ratio 19.7 Glucose 203 H Calcium 8.8 Radiography Diagnostic Testin view x-rays of the right humerus obtained interpreted by myself as impacted proximal humerus fracture. 2 view x-rays of the right shoulder obtained interpreted by myself as an impacted proximal humerus fracture. Three-view x-rays of the right hip and pelvis obtained interpreted by myself as no evidence of fracture or dislocation. Discharge Plan Triage Chief Complaint: Fall ED Provider: Betito Bautista Dx/Rx/DC Orders Clinical Impression: Closed fracture of proximal end of right humerus, Unable to ambulate, Contusion of hip, right Prescriptions: No Action tamsulosin [Flomax] 0.4 mg capsule,extended release 24hr 0.4 mg PO DAILY aspirin [Adult Aspirin Regimen] 81 mg tablet,delayed release (DR/EC) 81 mg PO QHS omega-3 fatty acids [Fish Oil Concentrate] 1,000 mg capsule 1,000 mg PO DAILY cholecalciferol (vitamin D3) 50 mcg (2,000 unit) capsule 50 mcg PO DAILY turmeric root extract 500 mg capsule 500 mg PO DAILY ascorbic acid (vitamin C) 500 mg capsule PO acetaminophen [Tylenol Extra Strength] 500 mg tablet 500 mg PO QHS finasteride 5 mg tablet 5 mg PO DAILY olmesartan 40 mg tablet 40 mg PO DAILY Qty: 90 3RF (DME) Handicap placard See Rx Instructions .Route .MEDSUPPLY Qty: 1 0RF Rx Instructions: 5 year rx 10/29/22-10/30/27 (DME) basic stairlift See Rx Instructions .Route .MEDSUPPLY Qty: 1 0RF Rx Instructions: As directed (DME) lift chair See Rx Instructions .Route .MEDSUPPLY Qty: 1 0RF Rx Instructions: As directed levothyroxine 88 mcg tablet 88 mcg PO DAILY Qty: 90 3RF Primary Care Provider: Ketty Adler Referrals: Ketty Adler MD [Primary Care Provider] - Disposition Disposition: Acute Care Hospital [facility]
[2023-07-14 09:32] LABS: Absolute Lymphocyte Count 0.74 X10^3/uL (0.83-4.51); Absolute Neutrophil Count 8.6 X10^3/uL (2.0-7.7); Basophil# 0.05 X10^3/uL; Basophil% 0.5 % (0-1); Eosinophil# 0.36 X10^3/uL; Eosinophils% 3.5 % (0-5); Hematocrit 38.2 % (40-54); Hemoglobin 12.6 g/dL (13.0-16.5); Lymphocyte # 0.74 X10^3/ul (0.83-4.51); Lymphocyte % 7.1 % (19-41); Mean Corpuscular Hgb 31.5 pg (27.0-32.0); Mean Corpuscular Volume 95.5 fL (80-94); Mean Platelet Vol. 8.6 fl (6.2-12.0); Monocyte% 5.8 % (0-10); NRBC Flagged by Analyzer 0 % (0-5); Neutrophil # 8.57 X10^3/uL (2.7-7.7); Neutrophil % 82.2 % (47-70); Platelet Count 192 K/mm3 (150-450); RBC Distribution Width CV 12.2 % (11.6-14.6); White Blood Count 10.4 K/mm3 (4.4-11.0)
--- NOTE | 2023-07-14 09:36 | RAD_ITS ---
STUDY: X-RAY - PELVIS AND RIGHT HIP REASON FOR EXAM: Male, 88 years old. Pain after fall TECHNIQUE: 2 views of the pelvis and hip. COMPARISON: None. FINDINGS: There is a non-specific bowel gas pattern. Normal visualized soft tissue structures. There is diffuse demineralization of the osseous structures. There is narrowing with cortical sclerosis and osteophyte formation of the sacroiliac joint consistent with degenerative osteoarthritic changes. Normal bilateral superior and inferior pubic rami. Normal pubic symphysis. Normal bilateral ischial tuberosities. Normal visualized femoral head. Normal acetabulum. There is moderate articular joint space narrowing of the hip. Similar arthritic narrowing noted in the left hip. RAD/HIP, UNI W/ Pelvis 2-3 Views IMPRESSION: Osteopenia with age consistent hip and SI joint arthrosis. No demonstrated fracture. However, hip and pelvic fractures in patients of this age can be subtle. If there is strong clinical suspicion of a fracture, recommend further evaluation with cross-sectional imaging Electronically Signed: Bienvenido Simons MD at 10:23 EDT ,
[2023-07-14 09:51] LABS: Anion Gap 9 (5-15); BUN 30 mg/dL (7-18); BUN/Creat Ratio 19.7 RATIO (10-20); Calcium,Total 8.8 mg/dL (8.5-10.1); Chloride 98 mmol/L (98-107); Creatinine, Serum 1.52 mg/dL (0.70-1.30); EST Glomerular Filtration Rate 46 mL/min (>60); Est Glom Filt Rate - Afr Amer 56 mL/min (>60); Glucose 203 mg/dL (74-106); Potassium 4.5 mmol/L (3.5-5.1); Sodium Level 132 mmol/L (136-145)
[2023-07-14 10:43] VITALS: BMI 31.6
[2023-07-14 10:44] VITALS: BP 114/64; PULSE 84; RESP 18; TEMP 36.8; O2SAT 95
[2023-07-14 10:45] VITALS: BP 114/64
--- NOTE | 2023-07-14 10:47 | CT_ITS ---
STUDY: CT PELVIS WITHOUT CONTRAST REASON FOR EXAM: Male, 88 years old. Hip and pelvic pain after a fall RADIATION DOSAGE (If Supplied By Facility): CTDIvol = ( 31.39 ) mGy, DLP = ( 979.74 ) mGycm TECHNIQUE: Transaxial imaging of the pelvis was performed with oral contrast, and without intravenous administration of contrast material. Multiplanar coronal and sagittal images were reformatted. Individualized dose optimization techniques were used for this CT. COMPARISON: Plain film from earlier today FINDINGS: Normal urinary bladder. Normal visualized small intestine. Retained stool noted in the colon with scattered diverticula but no CT evidence of acute diverticulitis. There is no pelvic fluid. There is no pelvic mass lesion or lymphadenopathy. There is nonspecific induration of the mesenteric fat in the lower abdomen. There is diffuse atherosclerotic calcification of the pelvic arteries. Normal abdominal wall. Bones are demineralized. No demonstrated fracture or suspicious osseous lesion. Age consistent hip and SI joint arthrosis. CT/Pelvis without IV Contrast IMPRESSION: Osteopenia with age consistent hip and SI joint arthrosis, no demonstrated fracture or suspicious osseous lesion Retained stool in the colon with scattered diverticula, no CT evidence of acute diverticulitis Diffuse atherosclerosis Electronically Signed: Bienvenido Simons MD at 11:44 EDT ,
--- NOTE | 2023-07-14 11:39 | PCM.HP.STD ---
[facility] - General General Date of Admission: 07/14/23 Date of Service: 07/14/23 Chief Complaint: Right shoulder pain and right hip pain/inability to ambulate HPI Finn MENDEZ, is a 88 M who presented to the emergency department at [facility] on 07/14/2023 with a chief complaint of right shoulder pain and right hip pain after a mechanical fall that occurred 2 days prior to presentation. Patient reported that he got up from a chair to answer his 's phone when he turned and lost his balance and fell onto his right side. He injured his right shoulder and right hip at that time. Since then he has been having a hard time standing and bearing weight on his right side and not been able to use his right arm all that much. He has a lift chair that he has been sleeping in but since he is having ongoing pain he decided come in for evaluation today. He denied striking his head and reported no loss of consciousness. He is not anticoagulated at baseline. Patient states if he had not fallen and was having pain he would be here. Vital signs on presentation showed a temperature of 97.5, heart rate 79, respiratory 18, blood pressure 113/60 and oxygen saturations were 95% on room air. His CBC was overtly unremarkable other than a chronic stable macrocytic anemia with a hemoglobin of 12.6. His chemistry panel showed hyponatremia which appears to be chronic having a sodium of 132, elevated BUN and creatinine which appears to be at his baseline as well with a serum creatinine of 1.52 (baseline 1.5-1.7), his blood glucose was elevated at 203. The last hemoglobin A1c we have in our [employer] system is from July 2022 and at that time his A1c was 6.0. An x-ray of his right humerus was performed and showed diffuse osteopenia with an acute impacted multifragmented fracture of the surgical neck of the right humerus. Shoulder x-ray demonstrated the same with soft tissue swelling. Hip and pelvic x-rays were unremarkable for any acute fracture however he does have osteopenia consistent with age and hip and SI joint arthrosis. CT of the pelvis was performed and showed He was not able to return home due to the inability to ambulate and significant right arm pain. This markedly limits his ability to use an assistive device. [facility] Medical History Aortic valve calcification Chronic kidney disease (CKD) Diabetes Essential (primary) hypertension Hyperlipidemia Hypothyroidism Left carotid artery stenosis Macrocytic anemia Osteoarthritis Ulcer Urinary frequency Home Medications aspirin 81 mg tablet,delayed release (Adult Aspirin Regimen) 81 mg PO QHS HEART HEALTH 04/10/17 [History Last Taken 03/27/18 20:00] tamsulosin 0.4 mg capsule (Flomax) 0.4 mg PO DAILY PROSTATE 04/10/17 [History Last Taken 03/27/18 17:00] cholecalciferol (vitamin D3) 50 mcg (2,000 unit) capsule 50 mcg PO DAILY 04/19/20 [History Last Taken Unknown] omega-3 fatty acids 1,000 mg capsule (Fish Oil Concentrate) 1,000 mg PO DAILY 04/19/20 [History Last Taken Unknown] finasteride 5 mg tablet 5 mg PO DAILY 01/11/22 [History Last Taken Unknown] acetaminophen 500 mg tablet (Tylenol Extra Strength) 500 mg PO QHS 04/24/22 [History Last Taken Unknown] ascorbic acid (vitamin C) 500 mg capsule 500 mg PO DAILY 04/24/22 [History Last Taken Unknown] olmesartan 40 mg tablet 40 mg PO DAILY #90 tabs 10/01/22 [Rx Last Taken Unknown] Handicap placard #1 ea 10/29/22 [Rx Last Taken Unknown] basic stairlift #1 ea 11/22/22 [Rx Last Taken Unknown] lift chair #1 ea 11/22/22 [Rx Last Taken Unknown] levothyroxine 88 mcg tablet 88 mcg PO DAILY #90 tabs 01/14/23 [Rx Last Taken Unknown] Allergy/AdvReac Type Severity Reaction Status Date / Time Sulfa (Sulfonamide Allergy Itching Verified 07/14/23 08:58 Antibiotics) atorvastatin [From Lipitor] AdvReac Severe Depression Verified 07/14/23 08:58 rosuvastatin [From Crestor] AdvReac Severe Myalgia Verified 07/14/23 08:58 Family History Brother Heart disease Hypertension Sister Breast cancer Father Myocardial infarction Surgical History H/O colonoscopy History of carpal tunnel release History of left-sided carotid endarterectomy History of tonsillectomy Social History adopted: No household members: spouse housing: house current occupational status: retired Smoking Status: Never smoker alcohol intake: never substance use type: does not use caffeine: Yes Type: coffee Number of servings: 1 what type of physical activity do you participate in: walking frequency: daily sarah/rastafarian: Yarsani seatbelt use: always do you feel safe at home: Yes ROS Constitutional Constitutional: Denies anorexia, change in weight, chills, fatigue, fever(s), malaise, night sweats, weakness or other Eyes Eyes: Denies blurry vision, change in eye color, change in vision, discharge from eye(s), double vision, erythema, eye pain, loss of vision or other ENT HEENT: Denies abnormal hearing, dysphagia, ear pain, epistaxis, headache(s), hearing loss, nasal congestion, nasal discharge, post nasal drip, sinus pressure, sore throat or other Cardiovascular Cardiovascular: Denies chest pain, claudication, dyspnea on exertion, edema, lightheadedness, orthopnea, palpitations, paroxysmal nocturnal dyspnea, rapid heart rate, syncope or other Respiratory/Chest Respiratory/Chest: Denies cough, dyspnea, excessive phlegm production, hemoptysis, productive cough, shortness of breath at rest, shortness of breath with exertion, wheezing or other Gastrointestinal Gastrointestinal: Denies abdominal pain, coffee ground emesis, constipation, diarrhea, dyspepsia, hematemesis, hematochezia, loose stools, melena, nausea, vomiting or other Genitourinary Genitourinary: Reports nocturia, urinary frequency and urinary hesitancy; Denies burning urination, difficulty urinating, dysuria, hematuria, urinary incontinence, urinary urgency or other Musculoskeletal Musculoskeletal: Reports back pain, joint pain and joint stiffness; Denies arthralgias, joint swelling, myalgias, neck pain or other Neurologic Neurologic: Denies abnormal gait, abnormal speech, confusion, disequilibrium, dizziness, focal weakness, headache(s), numbness, paresthesias, seizure-like activity, seizures, syncope, tingling, tremor(s) or other Psychiatric Psychiatric: Denies anxiety, depression, homicidal ideation, suicidal ideation or other Endocrine Endocrinology: Denies change in body appearance, cold intolerance, excessive sweating, heat intolerance, polydipsia, polyuria or other Hematologic/Lymphatic Hematologic/Lymphatic: Denies anemia, easy bleeding, easy bruising, lymphadenopathy or other Allergic/Immunologic Allergic/Immunologic: Denies rhinitis, hives, eczemia, asthma or other Vital Signs Vital Signs Vital Signs: 07/14/23 08:57 07/14/23 08:56 07/14/23 10:44 Temperature 97.5 F L 98.3 F Temperature Source Temporal Pulse Rate 79 84 Respiratory Rate 18 18 Respiratory Effort Normal Non-Labored Respiratory Depth Normal Respiratory Pattern Normal Blood Pressure 113/60 114/64 Blood Pressure Mean 77 80 Pulse Ox 95 95 Oxygen Delivery Method Room Air Room Air 07/14/23 10:45 Temperature Temperature Source Pulse Rate Respiratory Rate Respiratory Effort Respiratory Depth Respiratory Pattern Blood Pressure 114/64 Blood Pressure Mean 80 Pulse Ox Oxygen Delivery Method Weight Weight: 97.1 kg Body Mass Index (BMI) 31.6 Physical Exam Const alert, oriented x3, no apparent distress and well nourished Constitutional Narrative: Obese, elderly, white male, lying in bed, family at bedside, patient appears comfortable at this time, nontoxic General Appearance: cooperative HEENT normocephalic, head/scalp atraumatic and moist oral mucous membranes; Negative for dentition normal HEENT Narrative: Mild hearing loss, dentition is poor, Mallampati is 2-3, no thrush Eyes PERRL, EOMs intact bilaterally and conjunctivae normal Eyes Narrative: No scleral icterus Neck no lymphadenopathy, supple and no JVD Neck Narrative: Cardiac murmur that radiates to carotids bilaterally but no bruits present, trachea midline, no thyroid enlargement Resp normal respiratory effort, no retractions, no use of accessory muscles and clear to auscultation bilaterally Auscultation: Negative for rales, rhonchi or wheezes Cardio regular rate, regular rhythm, S1 normal heart sound, S2 normal heart sound, no rub, no gallops and no clicks; Negative for no murmurs Cardio Narrative: 3 out of 6 systolic murmur loudest at right upper sternal border and radiates to bilateral carotids GI normal to inspection, nondistended, normoactive bowel sounds, soft to palpation and non-tender Extremity no clubbing, cyanosis or edema Extremity Narrative: Decreased movement in right lower extremity which is limited by pain only, joint changes consistent with osteoarthritis, right arm is in a sling with a Matthew bandage around to help support the joint/humerus, radial pulse on the side is 2+ and patient able to move hand well Skin no rashes or lesions noted, no wounds, skin turgor normal, no jaundice, no petechiae and no mottling Neuro oriented x3, CN's II-XII intact bilaterally and no focal motor deficits Neuro Narrative: Decreased movement right upper and lower extremity due to injuries but no focal deficits noted Speech: speech normal Psych affect normal Psych Narrative: Extremely pleasant, patient interacts appropriately, eye contact is good Results Lab / Micro Data Attestation: I reviewed the patient's lab results. 07/14/23 09:26 07/14/23 09:26 Labs: Laboratory Results - last 24 hr 07/14/23 09:26: WBC 10.4, RBC 4.00 L, Hgb 12.6 L, Hct 38.2 L, MCV 95.5 H, MCH 31.5, MCHC 33.0, RDW Std Deviation 43.0, RDW Coeff of Palmer 12.2, Plt Count 192, MPV 8.6, Immature Gran % (Auto) 0.900, Neut % (Auto) 82.2 H, Lymph % (Auto) 7.1 L, [place] % (Auto) 5.8, Eos % (Auto) 3.5, Baso % (Auto) 0.5, Absolute Neuts (auto) 8.6 H, Absolute Lymphs (auto) 0.74 L, Nucleated RBC % 0, Sodium 132 L, Potassium 4.5, Chloride 98, Carbon Dioxide 25.0, Anion Gap 9, BUN 30 H, Creatinine 1.52 H, Est GFR (MDRD) Af Amer 56 L, Est GFR (MDRD) Non-Af 46 L, BUN/Creatinine Ratio 19.7, Glucose 203 H, Calcium 8.8 Imaging Radiology Impression Humerus X-Ray 07/14/23 09:15 IMPRESSION: Diffuse osteopenia with an acute impacted multifragmented fracture of the surgical neck of the humerus Electronically Signed: Bienvenido Simons MD at 10:21 EDT Reading Location ID and State: [facility] / [place] , Service support , Shoulder X-Ray 07/14/23 09:15 IMPRESSION: Diffuse osteopenia with an acute impacted multifragmented surgical neck fracture of the humerus with soft tissue swelling Electronically Signed: Bienvenido Simons MD at 10:19 EDT , Hip/Pelvis X-Ray 07/14/23 09:36 IMPRESSION: Osteopenia with age consistent hip and SI joint arthrosis. No demonstrated fracture. However, hip and pelvic fractures in patients of this age can be subtle. If there is strong clinical suspicion of a fracture, recommend further evaluation with cross-sectional imaging Electronically Signed: Bienvenido Simons MD at 10:23 EDT , Assessment & Plan Assessment/Plan (1) Unable to ambulate: (2) Closed fracture of proximal end of right humerus: PLAN: Plan Surgical neck fracture of the right humerus -Nonoperative--> outpatient follow-up with orthopedic surgery after discharge -Nonweightbearing for now -Placed in a sling -Tylenol 1000 mg 3 times daily -As needed oxycodone 2.5 mg every 4 hours as needed pain -Check vitamin D level--> will continue home supplementation but if less than 30 will need to increase home supplemented dose -Lidocaine patch to right shoulder area where painful -Will utilize a as needed and scheduled bowel regimen with decreased mobility and use of narcotics -Patient will need PT/OT Right hip/inability ambulate -Plain films are unremarkable -CT of the pelvis shows -Pain management as above -PT/OT consultation Falls -PT/OT consultation -Case management/social work consultation as I do anticipate patient will need some sort of placement at discharge CKD stage IIIb -Baseline serum creatinine runs between 1.5 and 1.7 -Currently baseline -Avoid nephrotoxins as it be able -Would avoid NSAIDs for pain control -Previous ultrasound shows bilateral hyperechoic kidneys consistent with medical renal disease Hypothyroidism -Will check a.m. TSH -Continue home levothyroxine Hypertension -Continue home ARB -Continue to monitor -As needed hydralazine for systolic pressure greater than 160 Hyperlipidemia -Patient has been intolerant of statins in the past -Plan is for risk factor modification Carotid artery stenosis -Status post left-sided carotid endarterectomy -Continue home aspirin -Continue outpatient follow-up Mild aortic valve stenosis -Has evidence of calcification with mild stenosis on most recent echocardiogram from May 2021 -EF was 60% with stage I diastolic dysfunction -Continued outpatient follow-up -Fall was not related to syncopal episode Spinal stenosis -Pain medicine as above BPH with obstruction -Continue home Proscar -Continue home Flomax Obesity BMI 31.6 -Complicates treatment, prognosis, outcomes -Recommend weight loss DVT prophylaxis -Heparin 3 times daily Charges/Coding Visit Charges Inpatient E&M: 30506 Init Hosp L2
[2023-07-14 12:56] VITALS: BMI 31.2
[2023-07-14 13:48] VITALS: BP 138/69; PULSE 73; RESP 18; TEMP 36.6; O2SAT 95
[2023-07-14 14:23] LABS: Hemoglobin A1c 5.9 % (3.8-5.6)
[2023-07-14] MEDS: Polyethylene Glycol 3350 17 GM PACKET PO (15:54)
[2023-07-14] MEDS: Heparin Injection (Vial) 5,000 UNIT/ML VIAL 5000 UNIT SC ×2 (15:54→22:34)
[2023-07-14] MEDS: Acetaminophen 500 MG Tablet 1000 MG PO ×2 (15:55→22:34)
[2023-07-14] MEDS: Finasteride 5 MG Tablet PO (15:56)
[2023-07-14] MEDS: Tamsulosin HCl 0.4 MG Capsule PO (15:56)
[2023-07-14] MEDS: Losartan Potassium 100 MG Tablet PO (15:57)
[2023-07-14 16:23] VITALS: BP 131/70; PULSE 64; RESP 18; TEMP 36.6; O2SAT 95
[2023-07-14 20:45] VITALS: BP 107/63; PULSE 74; RESP 18; TEMP 36.9; O2SAT 92
[2023-07-14] MEDS: Aspirin E.C. 81 MG Tablet PO (22:34)
[2023-07-14 23:04] LABS: Bedside Glucose 149 mg/dL (74-106)
[2023-07-15] VITALS (7 sets, daily range): BP systolic 88–142; BP diastolic 44–78; PULSE 57–67; RESP 16–20; TEMP 36.2–36.8; O2SAT 93–97; BMI 31.2
[2023-07-15] MEDS: Acetaminophen 500 MG Tablet 1000 MG PO ×3 (05:20→21:42)
[2023-07-15] MEDS: Levothyroxine 88 MCG Tablet PO (05:21)
[2023-07-15] MEDS: Heparin Injection (Vial) 5,000 UNIT/ML VIAL 5000 UNIT SC ×3 (05:21→21:43)
[2023-07-15 06:23] LABS: Absolute Lymphocyte Count 1.69 X10^3/uL (0.83-4.51); Absolute Neutrophil Count 5.8 X10^3/uL (2.0-7.7); Basophil# 0.06 X10^3/uL; Basophil% 0.7 % (0-1); Eosinophil# 0.62 X10^3/uL; Eosinophils% 6.8 % (0-5); Hemoglobin 12.5 g/dL (13.0-16.5); Lymphocyte # 1.69 X10^3/ul (0.83-4.51); Lymphocyte % 18.5 % (19-41); Mean Corp Hgb Conc 33.8 g/dL (32-36); Mean Corpuscular Hgb 32.4 pg (27.0-32.0); Mean Corpuscular Volume 95.9 fL (80-94); Monocyte# 0.87 X10^3/uL; Monocyte% 9.5 % (0-10); NRBC Flagged by Analyzer 0 % (0-5); Neutrophil # 5.79 X10^3/uL (2.7-7.7); Neutrophil % 63.5 % (47-70); Platelet Count 189 K/mm3 (150-450); RBC Distribution Width CV 12.5 % (11.6-14.6); RBC Distribution Width SD 43.8 fl (35.1-43.9); Red Blood Count 3.86 M/mm3 (4.6-6.2); White Blood Count 9.1 K/mm3 (4.4-11.0)
[2023-07-15 07:23] LABS: Anion Gap 6 (5-15); BUN 28 mg/dL (7-18); BUN/Creat Ratio 21.2 RATIO (10-20); Calcium,Total 8.8 mg/dL (8.5-10.1); Chloride 99 mmol/L (98-107); Creatinine, Serum 1.32 mg/dL (0.70-1.30); EST Glomerular Filtration Rate 55 mL/min (>60); Est Glom Filt Rate - Afr Amer 66 mL/min (>60); Estimated Creatinine Clearance 45.92 ml/min; Glucose 127 mg/dL (74-106); Magnesium 2.1 mg/dL (1.6-2.6); Phosphorus 3.3 mg/dL (2.5-4.9); Potassium 4.5 mmol/L (3.5-5.1); Sodium Level 130 mmol/L (136-145); Thyroid Stim Hormone (TSH) 3.49 uIU/mL (0.358-3.74)
[2023-07-15 09:20] LABS: Vitamin D,25 Hydroxy 36.1 ng/mL
[2023-07-15] MEDS: Lidocaine 5% Patch 1 PATCH TOPICAL (10:19)
[2023-07-15] MEDS: Ascorbic Acid 500 MG Tablet PO (10:19)
[2023-07-15] MEDS: Cholecalciferol (VIT D3) 25 MCG TABLET (1,000 UNITS) 50 MCG PO (10:19)
--- NOTE | 2023-07-15 11:09 | PN.HOSP_ITS ---
Reason for Visit Reason for Visit: Diagnoses Difficulty in walking, not elsewhere classified (07/14/23) Unspecified fracture of upper end of right humerus, initial encounter for closed fracture (07/14/23) Subjective Subjective No acute overnight. Patient seen at bedside this morning. Sitting up comfortably in bedside chair, conversing normally, in no acute distress. Patient states therapy worked with him earlier this morning and they were able to get up from a bed to the bedside chair without significant issue. He had no pain when putting weight on his right hip this morning. He states that the right shoulder sling has been very helpful for him. No other acute concerns at this time. Objective Data Objective Data Vital Signs: Vital Signs Temp Pulse Resp BP Pulse Ox O2 Del Method 98.2 F 57 L 16 118/66 97 Room Air 07/15/23 02:45 07/15/23 02:45 07/15/23 02:45 07/15/23 02:45 07/15/23 02:45 07/15/23 02:45 Oxygen Delivery Method Room Air Weight: 96 kg Body Mass Index (BMI) 31.2 Intake & Output: Intake and Output for Last 24 Hours 07/13/23 07/14/23 07/15/23 23:59 23:59 23:59 Intake Total 220 / 220 Output Total 450 / 450 575 / 575 Balance -230 / -230 -575 / -575 Lab / Micro Data 07/15/23 05:55 07/15/23 05:55 Labs: Laboratory Results - last 24 hr 07/14/23 09:26: Hemoglobin A1c 5.9 H 07/14/23 22:32: POC Glucose 149 H 07/15/23 05:55: WBC 9.1, RBC 3.86 L, Hgb 12.5 L, Hct 37.0 L, MCV 95.9 H, MCH 32.4 H, MCHC 33.8, RDW Std Deviation 43.8, RDW Coeff of Palmer 12.5, Plt Count 189, MPV 9.0, Immature Gran % (Auto) 1.000 H, Neut % (Auto) 63.5, Lymph % (Auto) 18.5 L, [place] % (Auto) 9.5, Eos % (Auto) 6.8 H, Baso % (Auto) 0.7, Absolute Neuts (auto) 5.8, Absolute Lymphs (auto) 1.69, Nucleated RBC % 0, Sodium 130 L, Potassium 4.5, Chloride 99, Carbon Dioxide 25.0, Anion Gap 6, BUN 28 H, Creatinine 1.32 H, Estim Creat Clear Calc 45.92, Est GFR (MDRD) Af Amer 66, Est GFR (MDRD) Non-Af 55 L, BUN/Creatinine Ratio 21.2 H, Glucose 127 H, Calcium 8.8, Phosphorus 3.3, Magnesium 2.1, Vitamin D 25-Hydroxy 36.1, TSH 3.49 Radiography Diagnostic Testing: Radiology Impression Pelvis CT 07/14/23 10:47 IMPRESSION: Osteopenia with age consistent hip and SI joint arthrosis, no demonstrated fracture or suspicious osseous lesion Retained stool in the colon with scattered diverticula, no CT evidence of acute diverticulitis Diffuse atherosclerosis Electronically Signed: Bienvenido Simons MD at 11:44 EDT Reading Location ID and State: [address] [place] [address] , Service support , Physical Exam Const alert, oriented x3 and no apparent distress Constitutional Narrative: Pleasant elderly male, obese, sitting up comfortably in bedside chair, conversing normally, no acute distress. General Appearance: cooperative and comfortable HEENT normocephalic, head/scalp atraumatic, hearing grossly normal bilaterally, nasal mucous membranes and turbinates normal and moist oral mucous membranes Eyes PERRL, EOMs intact bilaterally and conjunctivae normal Neck full ROM Chest inspection of chest normal Resp normal respiratory effort, normal air movement, no use of accessory muscles and clear to auscultation bilaterally Cardio regular rate, regular rhythm, no murmurs and peripheral pulses 2+ throughout GI normal to inspection, nondistended, normoactive bowel sounds, soft to palpation, non-tender and non-distended Back/Spine normal ROM Extremity Extremity Narrative: Right upper extremity in sling. Right hip with no abnormalities on visual exam. Skin no rashes or lesions noted Neuro no focal motor deficits and no sensory deficits noted Speech: speech normal Psych mental status grossly normal Assessment & Plan Assessment/Plan (1) Contusion of hip, right: (2) Closed fracture of proximal end of right humerus: (3) Debility: PLAN: Plan Patient is an 88-year-old male who presented to [facility] ED on 07/14/2023 after a fall at home with subsequent right arm and right hip pain. 1. Surgical neck fracture of right humerus Secondary to fall onto right side. Right shoulder/humerus x-ray showed acute impacted multifragmented surgical neck fracture of humerus with soft tissue swelling, as well as diffuse osteopenia. ? Discussed with orthopedics on admission, recommended nonoperative management and outpatient follow-up. Sling in place. PT/OT/case management following. Pain control with scheduled Tylenol, oxycodone every 4 hours as needed, lidocaine patch. 2. Right hip pain, acute debility, falls ? PT/OT/case management following. Hip/pelvis x-ray and CT pelvis on admit negative for fracture. Was nonambulatory on admission. Improving, was ambulatory with assistance on hospital day 2. Continue pain management as noted above. Planning for SNF versus home with home health care on discharge. 3. Osteopenia, history of vitamin D deficiency ? X-rays and CT pelvis on admit showed diffuse osteopenia. Vitamin D level 36, within normal range. Continue home vitamin D supplement. Outpatient follow-up. Chronic medical conditions: ? CKD stage IIIb: Baseline creatinine 1.5-1.7, at baseline on admission. Stable. ? Hypothyroidism: TSH normal on admit. Continue home Synthroid. ? Hypertension: Mild hypotension on admission, holding home losartan, restart when able. ? Hyperlipidemia: Intolerant of statins. Continue risk factor modification in outpatient setting. ? Carotid artery stenosis: S/p left-sided carotid endarterectomy. Continue home aspirin. ? Mild aortic valve stenosis: Stable. Continue outpatient follow-up. ? Spinal stenosis: Stable. Pain management as above. ? BPH with obstructive symptoms: Continue home tamsulosin and finasteride. ? Obesity: BMI 31 on admit. Encouraged lifestyle modifications. Complicates treatment, prognosis and outcomes. DVT prophylaxis: Heparin subcu CODE STATUS: DNR CCA, DNI Expected disposition: SNF versus home with home health care, 1 to 2 days Total clinical time spent by myself addressing the patient's medical issues, reviewing all the data, and collaborating with patient's care team: 35 minutes. Charges/Coding Visit Charges Inpatient E&M: 81663 Subs Hosp L2
--- NOTE | 2023-07-15 13:15 | CASEMGMT ---
RN?CM?WIND FARM DESIGNER?CM?to room to meet with patient for initial transition planning/care coordination?assessment.?RN?CM?introduced self and role at [facility].? Pt voices understanding and consents to?assessment?at this time.? Pt sitting up in chair in no distress at this time.? Nephew at bedside and pt agreeable to him being present during assessment. Pt is A/O at this time and answers all questions appropriately.?? Care providers, pharmacy, and demographics verified/updated at this time. PCP: Dr Adler Specialists: ROBBY/Cardiology, Dr Alcaraz-urology, Dr Brasher-nephrology, Dr Zavala-pain mgnt. Preferred Pharmacy: [facility] Insurance: [place] [facility] Prescription Benefit:?yes LNOK: , Jhoana. 5 living adult children (had another son who ) Living Arrangements: Lives w/his in one-story home w/basement and 3 steps to enter. There is a stair lift to the basement. Pt is independent w/ADL's and IADL's. recently inured her ribs and pt has been helping w/the laundry. Transportation:?Pt states he does most of the driving. DME: ?States has the following DME:?shower chair, RTS, hand-held shower, cane, walker, rollator, lift chair, stair lift. If pt would be able to discharge home, follow for possible need of hanna-walker. HHC/SNF: Pt interested in going to [facility] TCU and declines wanting list of other SNF options unless TCU unable to accept him. MARGARITA Liang, made aware PLAN:??SNF Ilir GALLOWAYN?RN?CM
[2023-07-15 14:32] LABS: Vitamin B12 241 pg/mL (211-911)
[2023-07-15 14:41] LABS: Ferritin 1016 ng/mL (26-388); Iron 44 ug/dL (65-175); Iron Binding Capacity,Total 265 ug/dL (250-450); PERCENT IRON SATURATION 16.6 % (15.0-55.0)
--- NOTE | 2023-07-15 15:48 | CASEMGMT ---
Social Work SW met with pt, and dgt in law and introduced self and role of SW. Pt requested to go to [facility] TCU. SW made referral and TCU has no available beds. Pt and family updated. A list of SNF providers including quality and resource use data and consistent with the patient?s preferred geographic region, medical needs, and insurance network were provided from the [employer] Guide. Pt and family reviewed and next choice of provider is [facility]. SW sent referral to [facility]. Will await determination of acceptance. Pt will need precert prior to return. Plan: [facility], pending acceptance and precert TIA Barrios
[2023-07-15] MEDS: Finasteride 5 MG Tablet PO (17:13)
[2023-07-15] MEDS: Tamsulosin HCl 0.4 MG Capsule PO (17:53)
[2023-07-15] MEDS: Aspirin E.C. 81 MG Tablet PO (21:43)
[2023-07-15] MEDS: 0.9% Saline Lock 10 ML Syringe IV (21:43)
[2023-07-16 03:14] VITALS: BP 122/86; PULSE 64; RESP 18; TEMP 36.6; O2SAT 96
[2023-07-16 05:33] VITALS: BMI 31.3
[2023-07-16] MEDS: Levothyroxine 88 MCG Tablet PO (07:20)
[2023-07-16] MEDS: Acetaminophen 500 MG Tablet 1000 MG PO ×2 (07:20→13:49)
[2023-07-16] MEDS: Heparin Injection (Vial) 5,000 UNIT/ML VIAL 5000 UNIT SC ×2 (07:21→13:51)
[2023-07-16 08:02] VITALS: BP 131/81; PULSE 64; RESP 18; TEMP 36.5; O2SAT 95
[2023-07-16 08:59] VITALS: O2SAT 93
[2023-07-16] MEDS: Ascorbic Acid 500 MG Tablet PO (09:14)
[2023-07-16] MEDS: Cholecalciferol (VIT D3) 25 MCG TABLET (1,000 UNITS) 50 MCG PO (09:14)
[2023-07-16] MEDS: Lidocaine 5% Patch 1 PATCH TOPICAL (09:15)
--- NOTE | 2023-07-16 09:31 | CASEMGMT ---
Addendum entered by Christine Krause 07/16/23 09:44: Social Work SW Viola spoke w/pt and granddaughter in room, they would prefer [facility]. SW let Marsha know, will await response now from [facility]. HILTON Willson Addendum entered by Christine Krause 07/16/23 09:39: Social Work SW yesterday was informed by family they actually wanted [facility] over [facility]. Referral made, awaiting response. SW spoke w/, she seems indecisive in regards to first choice, [facility] vs. [facility]. She states to ask pt to see what he prefers. SW will follow up w/pt. HILTON Willson Original Note: Social Work SW sent referral to [facility]. SW called, spoke w/Lisa, she states they do have beds, will review the referral and let SW know if they can take pt. HILTON Willson
--- NOTE | 2023-07-16 09:57 | PCM.PN.HOSP ---
Reason for Visit Reason for Visit: Diagnoses Difficulty in walking, not elsewhere classified (07/14/23) Other malaise (07/14/23) Unspecified fracture of upper end of right humerus, initial encounter for closed fracture (07/14/23) Contusion of right hip, initial encounter (07/14/23) Objective Data Objective Data Vital Signs: Vital Signs Temp Pulse Resp BP Pulse Ox O2 Del Method 97.7 F L 64 18 131/81 H 93 Room Air 07/16/23 08:02 07/16/23 08:02 07/16/23 08:02 07/16/23 08:02 07/16/23 08:59 07/16/23 09:10 Oxygen Delivery Method Room Air Weight: 96 kg Body Mass Index (BMI) 31.3 Intake & Output: Intake and Output for Last 24 Hours 07/14/23 07/15/23 07/16/23 23:59 23:59 23:59 Intake Total 220 / 220 Output Total 450 / 450 875 / 875 500 / 500 Balance -230 / -230 -875 / -875 -500 / -500 Lab / Micro Data 07/15/23 05:55 07/15/23 05:55 Labs: Laboratory Results - last 24 hr 07/15/23 05:55: Iron 44 L, TIBC 265, Iron Saturation 16.6, Ferritin 1016 H, Vitamin B12 241, Folate 17.20
--- NOTE | 2023-07-16 11:37 | CASEMGMT ---
Social Work SW spoke w/Lisa from [facility], they can take pt, SW asked them to start precert as pt is medically ready. MARGARITA Rod let pt know, pt agreeable. SW called Marsha, also let her know that [facility] can take pt, and that they are starting the precert process w/insurance. SW did explain it it anticipated that they may get precert tomorrow and pt would be discharged then. states understanding. SW will continue to follow. HILTON Willson
--- NOTE | 2023-07-16 11:54 | TREXTCAR_ITS ---
Diet Diet Order/Speech Therapy: 07/14/23 12:56 Diet: Cardiac - Heart Healthy Food consistency:: Regular Liquid Consistency:: Regular/Thin Is pt able to select menu?: Yes Routine Orders/Code Status Code Status: DNRCC-A (DO NOT INTUBATE) Therapies Weight Bearing: Full weight bearing Extremity Affected:: Bilateral Lower and Right Upper Physical Therapy: Eval and Treat Occupational Therapy: Eval and Treat Problem/Diagnosis (1) Contusion of hip, right: Status: Acute Code(s): S70.01XA - Contusion of right hip, initial encounter (2) Closed fracture of proximal end of right humerus: Status: Acute Code(s): S42.201A - Unspecified fracture of upper end of right humerus, initial encounter for closed fracture (3) Debility: Status: Acute Code(s): R53.81 - Other malaise Plan Patient is an 88-year-old male who presented to [facility] ED on 07/14/2023 after a fall at home with subsequent right arm and right hip pain. Short hospital course as noted below. Patient discharged to SNF in stable condition on 07/15. 1. Surgical neck fracture of right humerus Secondary to fall onto right side. Right shoulder/humerus x-ray showed acute impacted multifragmented surgical neck fracture of humerus with soft tissue swelling, as well as diffuse osteopenia. ? Discussed with orthopedics on admission, recommended nonoperative management and outpatient follow-up. Continue sling versus right arm wrap for st abilization on discharge. Pain control with scheduled Tylenol, oxycodone every 6 hours as needed, lidocaine patch. PT/OT/case management followed as noted below. 2. Right hip pain, acute debility, falls ? PT/OT/case management followed. Hip/pelvis x-ray and CT pelvis on admit negative for fracture. Was nonambulatory on admission, improved on hospital day 2, was ambulatory with assistance. Continue pain management as noted above. Stable for discharge to SNF on 07/15. 3. Osteopenia, history of vitamin D deficiency ? X-rays and CT pelvis on admit showed diffuse osteopenia. Vitamin D level 36, within normal range. Continue home vitamin D supplement. Outpatient follow-up. Chronic medical conditions: ? CKD stage IIIb: Baseline creatinine 1.5-1.7, at baseline on admission. Stable. ? Hypothyroidism: TSH normal on admit. Continue home Synthroid. ? Hypertension: Normotensive to mildly hypotensive during hospitalization despite adequate p.o. intake. Will hold home olmesartan on discharge, can restart in the outpatient setting as needed. ? Hyperlipidemia: Intolerant of statins. Continue risk factor modification in outpatient setting. ? Carotid artery stenosis: S/p left-sided carotid endarterectomy. Continue home aspirin. ? Mild aortic valve stenosis: Stable. Continue outpatient follow-up. ? Spinal stenosis: Stable. Pain management as above. ? BPH with obstructive symptoms: Continue home tamsulosin and finasteride. ? Obesity: BMI 31 on admit. Encouraged lifestyle modifications. Complicated treatment, prognosis and outcomes. Allergies/Procedures Done in Hospital Allergies Sulfa (Sulfonamide Antibiotics) Allergy (Verified 07/14/23 08:58) Itching atorvastatin [From Lipitor] Adverse Reaction (Severe, Verified 07/14/23 08:58) Depression rosuvastatin [From Crestor] Adverse Reaction (Severe, Verified 07/14/23 08:58) Myalgia Procedures: - (Right humerus and shoulder x-ray, hip/pelvis x-ray, CT pelvis) Type of Care/Length of Stay Estimated LOS: Convalescent Care Less Than 30 days Type of Care Needed: Skilled Rehab Potential: Fair Prognosis: Fair Additional Orders/Day of Discharge H&P will serve as current which was dated: 07/14/23 Day of Discharge: 07/16/23 Dietary and Speech Recommendations Dietitian Recommendations/Changes: Will continue Cardiac diet - consider CHO Control diet if gluc >200. Monitor for changes in pt nutritional status - provide diet education if desired prior to discharge. Discharge Plan Admission Admit Date/Time: 07/14/23 12:06 Primary Reason for Your Visit: Fall onto right side Attending Provider: Walker Ellis Primary Care Provider: Ketty Adler Consulting Providers: Adilene Loo Discharge Orders/Prescriptions Prescriptions: New acetaminophen 500 mg Tablet 1,000 mg PO Q8 Qty: 0 0RF lidocaine 5 % Adhesive Patch,Medicated 1 patch topical DAILY Qty: 0 0RF Protocol: *Topical Application Instructions APPLICATION INSTRUCTIONS: R shoulder Continued tamsulosin [Flomax] 0.4 mg capsule,extended release 24hr 0.4 mg PO DAILY aspirin [Adult Aspirin Regimen] 81 mg tablet,delayed release (DR/EC) 81 mg PO QHS omega-3 fatty acids [Fish Oil Concentrate] 1,000 mg capsule 1,000 mg PO DAILY cholecalciferol (vitamin D3) 50 mcg (2,000 unit) capsule 50 mcg PO DAILY ascorbic acid (vitamin C) 500 mg capsule 500 mg PO DAILY finasteride 5 mg tablet 5 mg PO DAILY (DME) Handicap placard See Rx Instructions .Route .MEDSUPPLY Qty: 1 0RF Rx Instructions: 5 year rx 10/29/22-10/30/27 (DME) basic stairlift See Rx Instructions .Route .MEDSUPPLY Qty: 1 0RF Rx Instructions: As directed (DME) lift chair See Rx Instructions .Route .MEDSUPPLY Qty: 1 0RF Rx Instructions: As directed levothyroxine 88 mcg tablet 88 mcg PO DAILY Qty: 90 3RF Discontinued acetaminophen [Tylenol Extra Strength] 500 mg tablet 500 mg PO QHS olmesartan 40 mg tablet 40 mg PO DAILY Qty: 90 3RF Referrals / Follow Up: Ketty Adler MD [Primary Care Provider] - Disposition Disposition (needs filled in before D/C Order can be placed): Group Home Facility
--- NOTE | 2023-07-16 11:54 | PCM.DC.SUM ---
Providers Date of Admission: 07/14/23 Date of Discharge: 07/16/23 Primary Care Physician: Dr. Ketty Adler MD Reason For Visit: R HUMERAL FX/HIP CONTUSION WITH INABILITY TO Diagnosis Discharge Diagnosis (1) Contusion of hip, right: Status: Acute Code(s): S70.01XA - Contusion of right hip, initial encounter (2) Closed fracture of proximal end of right humerus: Status: Acute Code(s): S42.201A - Unspecified fracture of upper end of right humerus, initial encounter for closed fracture (3) Debility: Status: Acute Code(s): R53.81 - Other malaise Medications at Discharge Home Medications aspirin 81 mg tablet,delayed release (Adult Aspirin Regimen) 81 mg PO QHS HEART [facility] 04/10/17 tamsulosin 0.4 mg capsule (Flomax) 0.4 mg PO DAILY PROSTATE 04/10/17 cholecalciferol (vitamin D3) 50 mcg (2,000 unit) capsule 50 mcg PO DAILY 04/19/20 omega-3 fatty acids 1,000 mg capsule (Fish Oil Concentrate) 1,000 mg PO DAILY 04/19/20 finasteride 5 mg tablet 5 mg PO DAILY 01/11/22 ascorbic acid (vitamin C) 500 mg capsule 500 mg PO DAILY 04/24/22 Handicap placard #1 ea 10/29/22 basic stairlift #1 ea 11/22/22 lift chair #1 ea 11/22/22 levothyroxine 88 mcg tablet 88 mcg PO DAILY #90 tabs 01/14/23 acetaminophen 500 mg tablet 1,000 mg (2 x 500 mg) PO Q8 #0 tabs 07/16/23 lidocaine 5 % topical patch 1 patch topical DAILY #0 ea 07/16/23 Hospital Course Operations None Procedures - (Right humerus and shoulder x-ray, hip/pelvis x-ray, CT pelvis) Summary of Care Provided Minutes Spent on Discharge: 35 Hospital Course: Patient is an 88-year-old male who presented to [facility] ED on 07/14/2023 after a fall at home with subsequent right arm and right hip pain. Short hospital course as noted below. Patient discharged to SNF in stable condition on 07/15. 1. Surgical neck fracture of right humerus Secondary to fall onto right side. Right shoulder/humerus x-ray showed acute impacted multifragmented surgical neck fracture of humerus with soft tissue swelling, as well as diffuse osteopenia. ? Discussed with orthopedics on admission, recommended nonoperative management and outpatient follow-up. Continue sling versus right arm wrap for stabilization on discharge. Pain control with scheduled Tylenol, oxycodone every 6 hours as needed, lidocaine patch. PT/OT/case management followed as noted below. 2. Right hip pain, acute debility, falls ? PT/OT/case management followed. Hip/pelvis x-ray and CT pelvis on admit negative for fracture. Was nonambulatory on admission, improved on hospital day 2, was ambulatory with assistance. Continue pain management as noted above. Stable for discharge to SNF on 07/15. 3. Osteopenia, history of vitamin D deficiency ? X-rays and CT pelvis on admit showed diffuse osteopenia. Vitamin D level 36, within normal range. Continue home vitamin D supplement. Outpatient follow-up. Chronic medical conditions: ? CKD stage IIIb: Baseline creatinine 1.5-1.7, at baseline on admission. Stable. ? Hypothyroidism: TSH normal on admit. Continue home Synthroid. ? Hypertension: Normotensive to mildly hypotensive during hospitalization despite adequate p.o. intake. Will hold home olmesartan on discharge, can restart in the outpatient setting as needed. ? Hyperlipidemia: Intolerant of statins. Continue risk factor modification in outpatient setting. ? Carotid artery stenosis: S/p left-sided carotid endarterectomy. Continue home aspirin. ? Mild aortic valve stenosis: Stable. Continue outpatient follow-up. ? Spinal stenosis: Stable. Pain management as above. ? BPH with obstructive symptoms: Continue home tamsulosin and finasteride. ? Obesity: BMI 31 on admit. Encouraged lifestyle modifications. Complicated treatment, prognosis and outcomes. Total clinical time spent by myself addressing the patient's medical issues, reviewing all the data, and collaborating with patient's care team: 35 minutes. Physical Exam Const alert, oriented x3 and no apparent distress Constitutional Narrative: Pleasant elderly male, obese, sitting up comfortably in bedside chair, conversing normally, no acute distress. General Appearance: cooperative and comfortable HEENT normocephalic, head/scalp atraumatic, hearing grossly normal bilaterally, nasal mucous membranes and turbinates normal and moist oral mucous membranes Eyes PERRL, EOMs intact bilaterally and conjunctivae normal Neck full ROM Chest inspection of chest normal Resp normal respiratory effort, normal air movement, no use of accessory muscles and clear to auscultation bilaterally Cardio regular rate, regular rhythm, no murmurs and peripheral pulses 2+ throughout GI normal to inspection, nondistended, normoactive bowel sounds, soft to palpation, non-tender and non-distended Back/Spine normal ROM Extremity Extremity Narrative: Right upper extremity in sling. Right hip with no abnormalities on visual exam. Skin no rashes or lesions noted Neuro no focal motor deficits and no sensory deficits noted Speech: speech normal Psych mental status grossly normal Weight / BMI Weight Weight: 96 kg Body Mass Index (BMI) 31.3 ABG / Lab / Microbiology Data 07/15/23 05:55 07/15/23 05:55 Laboratory: Laboratory Results - last 24 hr 07/15/23 05:55: Iron 44 L, TIBC 265, Iron Saturation 16.6, Ferritin 1016 H, Vitamin B12 241, Folate 17.20 Meaningful Use Info Meaningful Use Diagnoses (Choose all that apply): None applicable Discharge Plan Admission Admit Date/Time: 07/14/23 12:06 Primary Reason for Your Visit: Fall onto right side Attending Provider: Walker Ellis Primary Care Provider: Ketty Adler Consulting Providers: Adilene Loo Discharge Orders/Prescriptions Prescriptions: New acetaminophen 500 mg Tablet 1,000 mg PO Q8 Qty: 0 0RF lidocaine 5 % Adhesive Patch,Medicated 1 patch topical DAILY Qty: 0 0RF Protocol: *Topical Application Instructions APPLICATION INSTRUCTIONS: R shoulder Continued tamsulosin [Flomax] 0.4 mg capsule,extended release 24hr 0.4 mg PO DAILY aspirin [Adult Aspirin Regimen] 81 mg tablet,delayed release (DR/EC) 81 mg PO QHS omega-3 fatty acids [Fish Oil Concentrate] 1,000 mg capsule 1,000 mg PO DAILY cholecalciferol (vitamin D3) 50 mcg (2,000 unit) capsule 50 mcg PO DAILY ascorbic acid (vitamin C) 500 mg capsule 500 mg PO DAILY finasteride 5 mg tablet 5 mg PO DAILY (DME) Handicap placard See Rx Instructions .Route .MEDSUPPLY Qty: 1 0RF Rx Instructions: 5 year rx 10/29/22-10/30/27 (DME) basic stairlift See Rx Instructions .Route .MEDSUPPLY Qty: 1 0RF Rx Instructions: As directed (DME) lift chair See Rx Instructions .Route .MEDSUPPLY Qty: 1 0RF Rx Instructions: As directed levothyroxine 88 mcg tablet 88 mcg PO DAILY Qty: 90 3RF Discontinued acetaminophen [Tylenol Extra Strength] 500 mg tablet 500 mg PO QHS olmesartan 40 mg tablet 40 mg PO DAILY Qty: 90 3RF Referrals / Follow Up: Ketty Adler MD [Primary Care Provider] - Disposition Disposition (needs filled in before D/C Order can be placed): Residential Facility Charges/Coding Visit Charges Inpatient E&M: 72230 Disch Hosp >30min
--- NOTE | 2023-07-16 13:15 | CASEMGMT ---
Social Work Pt was approved today to go to [facility]. SW completed the hospital exemption in the [facility] system. SW sent all discharge paperwork via [facility] to [facility]. SW set up ambulette for 3pm. MARGARITA Rod let pt know, this SW let pt's know(did also make her aware that he may get a bill for transportation), let [employer] know as well as pt's bedside RN. No further needs, pt to [facility] today skilled, 3pm. HILTON Willson
--- NOTE | 2023-07-16 13:24 | NURSING ---
Called report to Ifrah at [facility], pt to be picked up at 15:00 today.
--- NOTE | 2023-07-16 13:54 | PHA.DC.MR.R ---
Pharmacy [place] Med Reconciliation Pharmacy Service has performed discharge medication reconciliation for this patient. The patient's discharge medication list was reviewed for discrepancies and discrepancies were resolved. Medications at Discharge Home Medications aspirin 81 mg tablet,delayed release (Adult Aspirin Regimen) 81 mg PO QHS [facility] 04/10/17 tamsulosin 0.4 mg capsule (Flomax) 0.4 mg PO DAILY PROSTATE 04/10/17 cholecalciferol (vitamin D3) 50 mcg (2,000 unit) capsule 50 mcg PO DAILY 04/19/20 omega-3 fatty acids 1,000 mg capsule (Fish Oil Concentrate) 1,000 mg PO DAILY 04/19/20 finasteride 5 mg tablet 5 mg PO DAILY 01/11/22 ascorbic acid (vitamin C) 500 mg capsule 500 mg PO DAILY 04/24/22 Handicap placard #1 ea 10/29/22 basic stairlift #1 ea 11/22/22 lift chair #1 ea 11/22/22 levothyroxine 88 mcg tablet 88 mcg PO DAILY #90 tabs 01/14/23 acetaminophen 500 mg tablet 1,000 mg (2 x 500 mg) PO Q8 #0 tabs 07/16/23 lidocaine 5 % topical patch 1 patch topical DAILY #0 ea 07/16/23
[2023-07-16 14:27] VITALS: BP 117/60; PULSE 66; RESP 18; TEMP 36.3; O2SAT 95
[2023-07-16 14:45] VITALS: BP 117/75; PULSE 65; RESP 18; TEMP 36.7; O2SAT 95
== END 2023-07-16 15:27 | DRG 563 ==
LOC: ED 11:04 → MS3 12:16
PROVIDERS: Admitting Provider Internal Medicine; Emergency Provider Emergency Medicine; PCP Internal Medicine; Visit Provider Hospitalist
DX: S42.211A Unspecified displaced fracture of surgical neck of right humerus, initial encounter for closed fracture (principal); E11.22 Type 2 diabetes mellitus with diabetic chronic kidney disease; N18.32 Chronic kidney disease, stage 3b; N13.8 Other obstructive and reflux uropathy; I95.9 Hypotension, unspecified; E03.9 Hypothyroidism, unspecified; I12.9 Hypertensive chronic kidney disease with stage 1 through stage 4 chronic kidney disease, or unspecified chronic kidney disease; I35.0 Nonrheumatic aortic (valve) stenosis; S70.01XA Contusion of right hip, initial encounter; E78.5 Hyperlipidemia, unspecified; M48.00 Spinal stenosis, site unspecified; W18.30XA Fall on same level, unspecified, initial encounter; R26.2 Difficulty in walking, not elsewhere classified; E66.9 Obesity, unspecified; M85.821 Other specified disorders of bone density and structure, right upper arm; Z68.31 Body mass index [BMI] 31.0-31.9, adult; N40.1 Benign prostatic hyperplasia with lower urinary tract symptoms; R53.81 Other malaise; Z66 Do not resuscitate; Z79.82 Long term (current) use of aspirin; Z79.890 Hormone replacement therapy; Z79.899 Other long term (current) drug therapy; D53.9 Nutritional anemia, unspecified; E87.1 Hypo-osmolality and hyponatremia
CPT/HCPCS: 36415; 72192; 73030; 73060; 73502; 80048; 82306; 82607; 82728; 82746; 82962; 83036; 83540; 83550; 83735; 84100; 84443; 85025; 87426; 94668; 96372; 97162; 97166; 97530; 97535; 97802; 99221; 99285; A4216; G0378

== ENCOUNTER → 2023-08-30 | Outpatient (CLI) | payer MEDICARE, SELFPAY ==
[2023-08-30 10:34] LABS: Absolute Lymphocyte Count 1.68 X10^3/uL (0.83-4.51); Absolute Neutrophil Count 4.4 X10^3/uL (2.0-7.7); Basophil# 0.04 X10^3/uL; Basophil% 0.6 % (0-1); Eosinophil# 0.32 X10^3/uL; Eosinophils% 4.4 % (0-5); Hematocrit 42.7 % (40-54); Hemoglobin 14.1 g/dL (13.0-16.5); Lymphocyte # 1.68 X10^3/ul (0.83-4.51); Lymphocyte % 23.2 % (19-41); Mean Corpuscular Hgb 32.1 pg (27.0-32.0); Mean Corpuscular Volume 97.3 fL (80-94); Mean Platelet Vol. 9.3 fl (6.2-12.0); Monocyte# 0.77 X10^3/uL; Monocyte% 10.6 % (0-10); NRBC Flagged by Analyzer 0 % (0-5); Neutrophil # 4.38 X10^3/uL (2.7-7.7); Neutrophil % 60.5 % (47-70); Platelet Count 229 K/mm3 (150-450); RBC Distribution Width CV 12.5 % (11.6-14.6); RBC Distribution Width SD 44.9 fl (35.1-43.9); Red Blood Count 4.39 M/mm3 (4.6-6.2); White Blood Count 7.2 K/mm3 (4.4-11.0)
[2023-08-30 11:25] LABS: ALB/GLOB Ratio 1.1 RATIO (0.9-2.4); AST(SGOT) 21 U/L (15-37); Alanine Aminotransfer ALT/SGPT 32 U/L (16-61); Albumin, Serum 3.6 g/dL (3.2-5.0); Alkaline Phosphatase 80 U/L (45-117); Anion Gap 8 (5-15); BUN 23 mg/dL (7-18); BUN/Creat Ratio 17.2 RATIO (10-20); Chloride 98 mmol/L (98-107); Cholesterol 258 mg/dL (200); Creatinine, Serum 1.34 mg/dL (0.70-1.30); EST Glomerular Filtration Rate 54 mL/min (>60); Est Glom Filt Rate - Afr Amer 65 mL/min (>60); Free T3 2.1 pg/mL (2.18-3.98); Globulin 3.2 g/dL (2.2-4.2); Glucose 108 mg/dL (74-106); High Density Lipoprotein 61 mg/dL; PSA,Total - Annual Screen 5.95 ng/mL (0.00-4.00); Phosphorus 2.8 mg/dL (2.5-4.9); Potassium 4.2 mmol/L (3.5-5.1); Protein, Total 6.8 g/dL (6.4-8.2); Sodium Level 133 mmol/L (136-145); T4 Free Direct 1.11 ng/dL (0.76-1.46); Thyroid Stim Hormone (TSH) 2.31 uIU/mL (0.358-3.74); Triglycerides 168 mg/dL; Very Low Density Lipoprotein 34 mg/dL (5-40)
[2023-08-30 11:54] LABS: PTHIN 46.3 pg/mL (18.4-80.1)
[2023-08-30 11:57] LABS: Vitamin D,25 Hydroxy 35.8 ng/mL
[2023-08-30 12:05] LABS: Microalbumin:Creatinine Ratio 8.1 mg/g CRE (<30 mg/g CRE)
== END | disposition home or self-care (01) ==
LOC: MTLAB 09:10
PROVIDERS: PCP Internal Medicine; Referring Provider Internal Medicine; Visit Provider Internal Medicine
DX: E55.9 Vitamin D deficiency, unspecified (principal); N18.31 Chronic kidney disease, stage 3a; N25.81 Secondary hyperparathyroidism of renal origin; Z13.0 Encounter for screening for diseases of the blood and blood-forming organs and certain disorders involving the immune mechanism; M54.17 Radiculopathy, lumbosacral region; E78.5 Hyperlipidemia, unspecified; I65.22 Occlusion and stenosis of left carotid artery; E03.9 Hypothyroidism, unspecified; Z12.5 Encounter for screening for malignant neoplasm of prostate; I12.9 Hypertensive chronic kidney disease with stage 1 through stage 4 chronic kidney disease, or unspecified chronic kidney disease
CPT/HCPCS: 36415; 80053; 80061; 82043; 82306; 82570; 83735; 83970; 84100; 84153; 84439; 84443; 84481; 85025; G0103

== ENCOUNTER → 2023-09-06 | Outpatient (CLI) | payer MEDICARE, SELFPAY ==
--- NOTE | 2023-09-06 08:46 | CDU_ITS ---
Reason For Study: Carotid Stenosis Rt. Velocities/BP Lt. Velocities/BP Prox CCA 72.1/9.5 cm/sec. Prox CCA 107.0/21.2 cm/sec. Mid CCA 86.4/14.9 cm/sec. Mid CCA 108.9/21.2 cm/sec. Dist CCA 91.9/14.9 cm/sec. Dist CCA 74.3/11.7 cm/sec. Prox ICA 106.7/23.3 cm/sec. Prox ICA 105.2/26.7 cm/sec. Mid ICA 119.2/31.4 cm/sec. Mid ICA 90.6/23.0 cm/sec. Dist ICA 97.0/20.3 cm/sec. Dist ICA 73.2/21.5 cm/sec. Rt. ICA/CCA = 1.4. Lt. ICA/CCA = 1.0. Prox ECA 119.9/16.7 cm/sec. Prox ECA 176.9/12.3 cm/sec. Rt. Vert. 62.2/11.7 cm/sec. Lt. Vert. 35.5/8.1 cm/sec. Right Extracranial There is homogeneous, smooth atherosclerotic plaque noted in the right common carotid artery. There is heterogeneous, smooth atherosclerotic plaque noted in the right internal carotid artery. There is homogeneous, smooth atherosclerotic plaque noted in the right external carotid artery. Antegrade flow is noted in the right vertebral artery. Left Extracranial There is homogeneous, smooth atherosclerotic plaque noted in the left common carotid artery. There is heterogeneous, irregular atherosclerotic plaque noted in the left internal carotid artery. HX CEA. There is heterogeneous, smooth atherosclerotic plaque noted in the left external carotid artery. Antegrade flow is noted in the left vertebral artery. Procedure Carotid Duplex [id number]. This is a Carotid Duplex examination using B-mode, color flow and specral Doppler. The exam was diagnostic. Exam performed in department. VL/Carotid Duplex Ultrasound Interpretation Summary Heterogenous smooth plaque at the right carotid bulb and proximal internal perez tid artery with less than 50% stenosis Less than 50% stenosis right external carotid artery Widely patent postoperative changes of left carotid bulb and proximal internal carotid artery with minimal irregular plaque and less than 50% stenosis Less than 50% stenosis of the left external carotid artery Patent antegrade vertebral arteries bilaterally No change from the previous examination of May 02, 2021 Ordering Physician: Yahaira Escobedo Referring Physician: Ketty Adler M.D. Performed By: Driss Daley RVT
== END | disposition home or self-care (01) ==
PROVIDERS: PCP Internal Medicine; Referring Provider Physician Assistant Medical; Visit Provider Physician Assistant Medical
DX: R09.89 Other specified symptoms and signs involving the circulatory and respiratory systems (principal)
CPT/HCPCS: 93880

== ENCOUNTER 2024-06-21 18:35 | Emergency (ER) | payer MEDICARE, SELFPAY ==
[2024-06-21 18:36] VITALS: BP 171/87; PULSE 64; RESP 17; TEMP 36.3; O2SAT 98; BMI 32.3
--- NOTE | 2024-06-21 18:50 | EX.ED.DYSGE1 ---
HPI <LATASHA Villavicencio - Last Filed: 06/21/24 21:00> History of Present Illness Chief Complaint: Hypertension Narrative Narrative: Patient presenting today due to concerns for elevated blood pressure. He has a history of hypertension, he takes olmesartan for this and checks his blood pressure daily. It is usually around 130 systolic. Over the past few days, it has been around 150 systolic. He checked it this morning and it was 175 systolic, prompting him to come in today to be seen. He reports that he has had a slight headache over the past few days that comes and goes. He reports a slight headache at this time. He denies sudden onset headache. He reports that over the past month he has had intermittent pain below his left breast. He does not have any pain at this time. He denies fevers, chills, chest pain, shortness of breath, visual changes, and dizziness. He reports increased urinary frequency over the past day, no history of UTI, no dysuria or hematuria. FORMERLY [facility], 1928–1983 <LATASAH Villavicencio - Last Filed: 06/21/24 21:00> FOR[facility]LY [facility], [facility]1983 Medical History Macrocytic anemia Ulcer Diabetes Urinary frequency Chronic kidney disease (CKD) Left carotid artery stenosis Hypothyroidism Osteoarthritis Aortic valve calcification Essential (primary) hypertension Hyperlipidemia Home Medications ?Medication ?Instructions ?Recorded ?Last Taken ?Type aspirin 81 mg tablet,delayed 81 mg PO [facility] 04/10/17 03/27/18 20:00 History release (Adult Aspirin Regimen) tamsulosin 0.4 mg capsule (Flomax) 0.4 mg PO DAILY PROSTATE 04/10/17 03/27/18 17:00 History cholecalciferol (vitamin D3) 50 50 mcg PO DAILY 04/19/20 Unknown History mcg (2,000 unit) capsule omega-3 fatty acids 1,000 mg 1,000 mg PO DAILY 04/19/20 Unknown History capsule (Fish Oil Concentrate) finasteride 5 mg tablet 5 mg PO DAILY 01/11/22 Unknown History ascorbic acid (vitamin C) 500 mg 500 mg PO DAILY 04/24/22 Unknown History capsule Handicap placard #1 ea 10/29/22 Unknown Rx basic stairlift #1 ea 11/22/22 Unknown Rx lift chair #1 ea 11/22/22 Unknown Rx mecobalamin (vitamin B12) 1,000 1,000 mcg PO DAILY 08/20/23 Unknown History mcg chewable tablet levothyroxine 88 mcg tablet 88 mcg PO DAILY #90 tabs 01/29/24 Unknown Rx amoxicillin 500 mg tablet 500 mg PO TID #30 tabs 03/31/24 Unknown Rx acetaminophen 650 mg 1,300 mg PO Q8H 04/03/24 Unknown History tablet,extended release (Tylenol Arthritis Pain) doxycycline hyclate 100 mg tablet 100 mg PO BID #14 tabs 04/10/24 Unknown Rx olmesartan 40 mg tablet 40 mg PO DAILY #90 tabs 05/12/24 Unknown Rx Allergy/AdvReac Type Severity Reaction Status Date / Time Sulfa (Sulfonamide Allergy Itching Verified 06/21/24 18:36 Antibiotics) atorvastatin (From Lipitor) AdvReac Severe Depression Verified 06/21/24 18:36 rosuvastatin (From Crestor) AdvReac Severe Myalgia Verified 06/21/24 18:36 Family History Brother Heart disease Hypertension Sister Breast cancer Father Myocardial infarction Surgical History History of left-sided carotid endarterectomy H/O colonoscopy History of carpal tunnel release History of tonsillectomy Social History adopted: No household members: spouse housing: house current occupational status: retired Smoking Status: Never smoker alcohol intake: never substance use type: does not use caffeine: Yes Type: coffee Number of servings: 1 what type of physical activity do you participate in: walking frequency: daily sarah/orthodoxy: Pentecostalism seatbelt use: always do you feel safe at home: Yes ROS <LATASHA Villavicencio - Last Filed: 06/21/24 21:00> ROS ED Constitutional Constitutional ED: Denies chills or fever(s) Cardiovascular Cardiovascular: Denies chest pain Respiratory/Chest Respiratory/Chest: Denies dyspnea Gastrointestinal Gastrointestinal: Denies abdominal pain, nausea or vomiting Genitourinary Genitourinary ED: Reports urinary frequency and other Details: Negative for flank pain ; Denies dysuria or hematuria Integumentary Denies abscess, Abrasions or rash Neurologic Neurologic: Reports headache(s); Denies weakness EXAM <LATASHA Villavicencio - Last Filed: 06/21/24 21:00> Physical Exam Const Vital Signs: 06/21/24 18:36 06/21/24 18:53 06/21/24 20:35 Temperature 97.4 F L Temperature Source Temporal Pulse Rate 64 54 L Respiratory Rate 17 18 Respiratory Effort Normal Respiratory Pattern Normal Blood Pressure 171/87 H 147/75 H Blood Pressure Mean 115 99 Pulse Ox 98 97 Oxygen Delivery Method Room Air Room Air 06/21/24 21:00 Temperature 98 F Temperature Source Pulse Rate 54 L Respiratory Rate 18 Respiratory Effort Respiratory Pattern Blood Pressure 157/81 H Blood Pressure Mean 106 Pulse Ox 97 Oxygen Delivery Method Positive well nourished, well developed and no apparent distress General Appearance ED: well developed HEENT Reports normocephalic and head/scalp atraumatic Mouth ED: Yes moist mucous membranes normal Eyes PERRL and EOMs intact bilaterally Neck full ROM and supple Chest Wall inspection of chest normal Resp normal respiratory effort and clear to auscultation bilaterally Cardio regular rate and regular rhythm GI soft to palpation, non-tender, non-distended and no masses Back/Spine normal ROM and normal to inspection Extremity normal to inspection and full ROM Neuro oriented x3, CN's II-XII intact bilaterally, moves all extremities, no focal motor deficits and no sensory deficits noted Sensorium / Orientation: awake and alert Psych mental status grossly normal and thought process normal Skin no rashes or lesions noted and no wounds <Dr. Rodrigo Flanagan, - Last Filed: 06/22/24 01:22> Physical Exam Const Vital Signs: 06/21/24 18:36 06/21/24 18:53 06/21/24 20:35 Temperature 97.4 F L Temperature Source Temporal Pulse Rate 64 54 L Respiratory Rate 17 18 Respiratory Effort Normal Respiratory Pattern Normal Blood Pressure 171/87 H 147/75 H Blood Pressure Mean 115 99 Pulse Ox 98 97 Oxygen Delivery Method Room Air Room Air 06/21/24 21:00 Temperature 98 F Temperature Source Pulse Rate 54 L Respiratory Rate 18 Respiratory Effort Respiratory Pattern Blood Pressure 157/81 H Blood Pressure Mean 106 Pulse Ox 97 Oxygen Delivery Method MDM <LATASHA Villavicencio - Last Filed: 06/21/24 21:00> MDM MDM Narrative Medical decision making narrative: Patient presenting today due to concerns for elevated blood pressure over the past few days. He is normally around 130 systolic, over the past few days he has been around 150 systolic. Blood pressure elevated here at 171/87. He otherwise is well-appearing and in no acute distress. He really is asymptomatic with this aside from a slight intermittent headache. His headache does not sound consistent with SAH. He does report intermittent left-sided chest pain below his left breast over the past month, he does not currently have any chest pain. BMP obtained to assess for kidney dysfunction, he does have a history of CKD and his kidney function does appear to be near baseline. Sodium slightly low at 127. UA obtained given his urinary frequency that started today, there is 100 leukocytes with 5-10 WBCs. This will be cultured. Reexamination his blood pressure is 147/75. He is feeling well. Chest x-ray negative for cardiopulmonary abnormality. His EKG is sinus bradycardia. At this point, I feel patient is stable to be discharged home. I recommended he continue to keep track of his blood pressures at home and follow-up with his PCP in the next 5 to 7 days. Patient discharged home stable condition. Lab Data Attestation: I reviewed the patient's lab results. Labs: Laboratory Results - last 24 hr 06/21/24 06/21/24 19:01 19:31 Sodium 127 L Potassium 4.7 Chloride 92 L Carbon Dioxide 23.1 Anion Gap 12 BUN 34 H Creatinine 1.30 H Estim Creat Clear Calc 46.53 L Est GFR (MDRD) Non-Af 53 L BUN/Creatinine Ratio 26.5 H Glucose 152 H Calcium 9.3 Urine Color Yellow Urine Clarity Sl. Cloudy Urine pH 6.0 Ur Specific [place] 1.010 Urine Protein 15 H Urine Glucose (UA) Normal Urine Ketones Negative Urine Occult Blood Negative Urine Nitrite Negative Urine Bilirubin Negative Urine Urobilinogen Normal Ur Leukocyte Esterase 100 H Urine RBC 0 SEEN Urine WBC 5-10 SEEN Ur Squamous Epith Cells 0-5 SEEN Urine Bacteria 0 SEEN Urine Mucus 0 SEEN Radiography Diagnostic Testing: Clinical Impression(s) from Imaging Studies Chest X-Ray 06/21/24 19:10 IMPRESSION: No focal infiltrate. Reading Location: [facility] EKG Initial EKG: Comments: 57 bpm, sinus bradycardia, no ST elevation <Dr. Rodrigo Flanagan, DO - Last Filed: 06/22/24 01:22> [facility] Lab Data Labs: Laboratory Results - last 24 hr 06/21/24 06/21/24 19:01 19:31 Sodium 127 L Potassium 4.7 Chloride 92 L Carbon Dioxide 23.1 Anion Gap 12 BUN 34 H Creatinine 1.30 H Estim Creat Clear Calc 46.53 L Est GFR (MDRD) Non-Af 53 L BUN/Creatinine Ratio 26.5 H Glucose 152 H Calcium 9.3 Urine Color Yellow Urine Clarity Sl. Cloudy Urine pH 6.0 Ur Specific [place] 1.010 Urine Protein 15 H Urine Glucose (UA) Normal Urine Ketones Negative Urine Occult Blood Negative Urine Nitrite Negative Urine Bilirubin Negative Urine Urobilinogen Normal Ur Leukocyte Esterase 100 H Urine RBC 0 SEEN Urine WBC 5-10 SEEN Ur Squamous Epith Cells 0-5 SEEN Urine Bacteria 0 SEEN Urine Mucus 0 SEEN Radiography Diagnostic Testing: Clinical Impression(s) from Imaging Studies Chest X-Ray 06/21/24 19:10 IMPRESSION: No focal infiltrate. Reading Location: [facility] Treatment and Re-Evaluation :: I have personally performed a face to face assessment of the patient and have reviewed the RISHABH Note. I performed a substantive portion of the visit including all aspects of the following. My dang findings include: History: Patient presents with elevated blood pressure that has been getting worse over the past few days. Patient states it is gradually getting worse. Patient states that has been in the 150s systolic for the past couple days and today went up to 170 systolic. Patient admits to a mild headache. Patient admits to some intermittent pain over his left lower chest and ribs. Daughter states patient appears to be a little more short of breath than usual. Patient admits to some nausea but denies any vomiting. Patient states nothing makes his symptoms worse and nothing makes them better. Exam: Vital signs are stable except for elevated blood pressure 171/87. Patient is afebrile. Patient is in no acute distress. Oral mucosa is pink and moist. Neck is supple. Trachea is midline. There is no JVD. Heart was regular rate and rhythm. Lungs are clear and equal bilaterally. There is good respiratory effort noted. There is some mild reproducible tenderness over the left lower chest wall. There is no edema or ecchymosis. There is no bony crepitance or step-off. There is no subcutaneous emphysema. Abdomen is soft. Bowel sounds are normal. There is no tenderness. Cranial nerves II through XII are intact. There are no focal motor or sensory deficits noted. Medical Decision Making: Differential diagnosis includes hypertensive urgency, hypertensive emergency, pneumonia, urinary tract infection, cardiac dysrhythmia, and cardiac ischemia. EKG will be obtained to assess for cardiac dysrhythmia and cardiac ischemia. Chest x-ray will be obtained to assess for pneumonia or bronchitis. Urinalysis will be obtained to assess for urinary tract infection and hematuria. Basic metabolic profile will be obtained to assess for renal function and electrolyte abnormality. EKG was obtained. On my independent interpretation, it shows sinus bradycardia with a rate of 57. There is first-degree AV block with a MS interval of 232. QRS interval and QTc intervals are within normal limits. Arab is normal. There are no acute ST or T wave changes noted. There is no change compared to previous EKG dated 05/04/2022. PA and lateral chest x-ray was obtained. There are 2 views. On my independent interpretation, lung wallis are clear. There is normal cardiac silhouette. Bony thorax is normal. There is no acute process noted. Radiologist also interpreted the x-ray and agrees. Basic metabolic profile was reviewed. Sodium was slightly low at 127 and chloride was 92. BUN was 34 and creatinine was 1.30. These are consistent with previous results. Urinalysis was reviewed. Leukocyte esterase was 100. There are 5-10 white blood cells. There is no bacteria noted. Nitrites are negative. Urine culture was ordered. Patient was advised of his findings. Patient's blood pressure improved to 157/81. Patient was instructed to continue to monitor his blood pressures. Patient was instructed to follow-up with his primary care physician in 3 to 5 days. Patient understood and was agreeable with the plan. All questions were answered. Discharge Plan Triage Chief Complaint: Hypertension ED Midlevel Provider: Princess Padilla ED Provider: Rodrigo Flanagan Dx/Rx/DC Orders Clinical Impression: Essential (primary) hypertension, Urinary frequency Instructions: Hypertension Dc Prescriptions: No Action tamsulosin [Flomax] 0.4 mg capsule,extended release 24hr 0.4 mg PO DAILY aspirin [Adult Aspirin Regimen] 81 mg tablet,delayed release (DR/EC) 81 mg PO QHS omega-3 fatty acids [Fish Oil Concentrate] 1,000 mg capsule 1,000 mg PO DAILY cholecalciferol (vitamin D3) 50 mcg (2,000 unit) capsule 50 mcg PO DAILY ascorbic acid (vitamin C) 500 mg capsule 500 mg PO DAILY finasteride 5 mg tablet 5 mg PO DAILY acetaminophen [Tylenol Arthritis Pain] 650 mg tablet extended release 1,300 mg PO Q8H mecobalamin (vitamin B12) 1,000 mcg tablet,chewable 1,000 mcg PO DAILY amoxicillin 500 mg tablet 500 mg PO TID Qty: 30 0RF (DME) Handicap placard See Rx Instructions .Route .MEDSUPPLY Qty: 1 0RF Rx Instructions: 5 year rx 10/29/22-10/30/27 (DME) basic stairlift See Rx Instructions .Route .MEDSUPPLY Qty: 1 0RF Rx Instructions: As directed (DME) lift chair See Rx Instructions .Route .MEDSUPPLY Qty: 1 0RF Rx Instructions: As directed levothyroxine 88 mcg tablet 88 mcg PO DAILY Qty: 90 3RF doxycycline hyclate 100 mg tablet 100 mg PO BID Qty: 14 0RF olmesartan 40 mg tablet 40 mg PO DAILY Qty: 90 1RF Primary Care Provider: Ketty Adler Referrals: Ketty Adler MD [Primary Care Provider] - 5-7 Days Activity Restrictions/Additional Instructions: Follow-up with PCP. Return for any other concerns. Print Language: Korean Disposition Disposition: Home, Self Care Discharge Date/Time: 06/21/24 21:16
--- NOTE | 2024-06-21 18:56 | EKG12_ITS ---
Test Reason : DYRHYTHMIA Blood Pressure : */* mmHG Vent. Rate : 57 BPM Atrial Rate : 57 BPM P-R Int : 232 ms QRS Dur : 88 ms QT Int : 376 ms P-R-T Axes : -13 3 82 degrees QTcB Int : 365 ms Sinus bradycardia with 1st degree A-V block Otherwise normal ECG Confirmed by MARVIN HUDSON, LOBO ([id number]), editor trade journal OUSMANE SQUIRES ([id number]) on 06/22/2024 8:21:30 AM Referred By: Confirmed By: LOBO WONG MD
--- NOTE | 2024-06-21 19:10 | RAD_ITS ---
PROCEDURE: CHEST PA AND LATERAL 06/21/2024 REASON FOR EXAM: CHEST PAIN TECHNIQUE: Two-view chest COMPARISON: 2018 FINDINGS: Bronchial thickening. No focal infiltrate, effusion or pneumothorax.. Stable heart size and mediastinum RAD/Chest PA and Lateral IMPRESSION: No focal infiltrate. Reading Location: [id number]
[2024-06-21 19:38] LABS: Bacteria 0 SEEN /hpf (None Seen); Mucous, Urine 0 SEEN /hpf (<or=2+)
[2024-06-21 19:40] LABS: Anion Gap 12 (5-15); BUN 34 mg/dL (4-19); BUN/Creat Ratio 26.5 RATIO (10-20); Calcium,Total 9.3 mg/dL (7.6-11.0); Carbon Dioxide 23.1 mmol/L (21.0-32.0); Chloride 92 mmol/L (98-108); EST Glomerular Filtration Rate 53 (>60); Estimated Creatinine Clearance 46.53 ml/min (50-250); Glucose 152 mg/dL (70-99); Potassium 4.7 mmol/L (3.3-5.1); Sodium Level 127 mmol/L (133-145)
[2024-06-21 19:56] LABS: Color, Urine Yellow (Yellow); Glucose, Dipstick Normal (Normal); Ketone-Dipstick Negative (Negative); Leukocyte Esterase-Dipstick 100 /ul (Negative); Nitrite-Dipstick Negative (Negative); Occult Blood-Urine Negative /ul (Negative); Protein-Dipstick 15 mg/dl (Negative); Urine Bilirubin Dipstick Negative (Negative); Urine Clarity Sl. Cloudy (Clear); Urine Urobilinogen Normal (Normal)
[2024-06-21 20:18] LABS: Red Blood Cells-Urine 0 SEEN /hpf (0-5); Squamous Epithelial Cells - UA 0-5 SEEN /hpf (0-5); White Blood Cells 5-10 SEEN /hpf (0-5)
[2024-06-21 20:35] VITALS: BP 147/75; PULSE 54; RESP 18; O2SAT 97
[2024-06-21 21:00] VITALS: BP 157/81; PULSE 54; RESP 18; TEMP 36.6; O2SAT 97
--- NOTE | 2024-06-23 08:55 | ED.RN ---
Called and spoke with pt. Pt states that he is feeling much better. He doesn't have any urinary symptoms, his BP is better and blood sugar is better. He said that his BS was 114 yesterday and [address] Arrieta, since he is feeling better no antibiotic at this time.
== END 2024-06-21 21:16 | disposition home or self-care (01) ==
PROVIDERS: Physician Assistant; Emergency Provider Emergency Medicine; PCP Internal Medicine; Visit Provider Emergency Medicine
DX: I12.9 Hypertensive chronic kidney disease with stage 1 through stage 4 chronic kidney disease, or unspecified chronic kidney disease (principal); E11.22 Type 2 diabetes mellitus with diabetic chronic kidney disease; R35.0 Frequency of micturition; N18.9 Chronic kidney disease, unspecified
CPT/HCPCS: 71046; 80048; 81001; 87077; 87086; 87088; 87186; 93005; 99282

== ENCOUNTER → 2024-07-13 | Outpatient (CLI) | payer MEDICARE, SELFPAY ==
[2024-07-13 11:27] LABS: Absolute Lymphocyte Count 1.58 X10^3/uL (0.83-4.51); Absolute Neutrophil Count 4.5 X10^3/uL (2.0-7.7); Basophil# 0.05 X10^3/uL; Basophil% 0.7 % (0-1); Eosinophil# 0.34 X10^3/uL; Eosinophils% 4.7 % (0-5); Hematocrit 39.8 % (40-54); Hemoglobin 13.4 g/dL (13.0-16.5); Lymphocyte # 1.58 X10^3/ul (0.83-4.51); Lymphocyte % 21.8 % (19-41); Mean Corp Hgb Conc 33.7 g/dL (32-36); Mean Corpuscular Hgb 32.8 pg (27.0-32.0); Mean Corpuscular Volume 97.5 fL (80-94); Mean Platelet Vol. 9.5 fl (6.2-12.0); Monocyte# 0.71 X10^3/uL; Monocyte% 9.8 % (0-10); NRBC Flagged by Analyzer 0 % (0-5); Neutrophil # 4.51 X10^3/uL (2.7-7.7); Platelet Count 259 K/mm3 (150-450); RBC Distribution Width CV 12.4 % (11.6-14.6); RBC Distribution Width SD 44.8 fl (35.1-43.9); Red Blood Count 4.08 M/mm3 (4.6-6.2); White Blood Count 7.3 K/mm3 (4.4-11.0)
[2024-07-13 11:46] LABS: ALB/GLOB Ratio 1.6 RATIO (0.9-2.4); AST(SGOT) 20 U/L (<=37); Alanine Aminotransfer ALT/SGPT 23 U/L (<=46); Albumin, Serum 4.3 g/dL (3.4-4.8); Alkaline Phosphatase 50 U/L (40-129); Anion Gap 11 (5-15); BUN 37 mg/dL (4-19); BUN/Creat Ratio 25.1 RATIO (10-20); Calcium,Total 9.7 mg/dL (7.6-11.0); Carbon Dioxide 24.1 mmol/L (21.0-32.0); Chloride 96 mmol/L (98-108); Creatinine, Serum 1.47 mg/dL (0.70-1.20); EST Glomerular Filtration Rate 46 (>60); Free T3 2.4 pg/mL (2.18-3.98); Globulin 2.7 g/dL (2.2-4.2); Glucose 112 mg/dL (70-99); Magnesium 2.2 mg/dL (1.5-2.2); Potassium 4.9 mmol/L (3.3-5.1); Protein, Total 6.9 g/dL (5.9-8.4); Sodium Level 131 mmol/L (133-145); Total Bilirubin 0.41 mg/dL (0.00-1.30); Vitamin B12 1378 pg/mL (180-914); Vitamin D,25 Hydroxy 41.2 ng/mL (30-100)
== END | disposition home or self-care (01) ==
LOC: MTLAB 08:22
PROVIDERS: PCP Internal Medicine; Referring Provider Internal Medicine; Visit Provider Internal Medicine
DX: I12.9 Hypertensive chronic kidney disease with stage 1 through stage 4 chronic kidney disease, or unspecified chronic kidney disease (principal); N18.9 Chronic kidney disease, unspecified; E03.9 Hypothyroidism, unspecified; E55.9 Vitamin D deficiency, unspecified; E53.8 Deficiency of other specified B group vitamins; M48.061 Spinal stenosis, lumbar region without neurogenic claudication; M54.17 Radiculopathy, lumbosacral region; I35.9 Nonrheumatic aortic valve disorder, unspecified; R73.9 Hyperglycemia, unspecified
CPT/HCPCS: 36415; 80053; 82306; 82607; 83036; 83735; 84439; 84443; 84481; 85025

== ENCOUNTER → 2025-01-12 | Outpatient (CLI) | payer MEDICARE, SELFPAY ==
[2025-01-12 10:49] LABS: Hematocrit 41.5 % (40-54); Hemoglobin 13.8 g/dL (13.0-16.5); Immature Granulocytes Count 0.100 X10^3/uL (0.0-0.0); Mean Corp Hgb Conc 33.3 g/dL (32-36); Mean Corpuscular Volume 97.0 fL (80-94); Mean Platelet Vol. 9.6 fl (6.2-12.0); NRBC Flagged by Analyzer 0 % (0-5); POSITIVE COUNT YES; RBC Distribution Width CV 12.6 % (11.6-14.6); RBC Distribution Width SD 44.9 fl (35.1-43.9); Red Blood Count 4.28 M/mm3 (4.6-6.2); White Blood Count 7.3 K/mm3 (4.4-11.0)
[2025-01-12 11:15] LABS: Differential Indicated SCAN CRITERIA MET
[2025-01-12 11:41] LABS: AST(SGOT) 25 U/L (<=37); Alanine Aminotransfer ALT/SGPT 44 U/L (<=46); Albumin, Serum 4.3 g/dL (3.4-4.8); Alkaline Phosphatase 53 U/L (40-129); Anion Gap 12 (5-15); BUN 33 mg/dL (4-19); BUN/Creat Ratio 23.0 RATIO (10-20); Calcium,Total 10.1 mg/dL (7.6-11.0); Carbon Dioxide 25.3 mmol/L (21.0-32.0); Chloride 97 mmol/L (98-108); Cholesterol 298 mg/dL (<=200); Free T3 2.2 pg/mL (2.18-3.98); Globulin 2.7 g/dL (2.2-4.2); Glucose 117 mg/dL (70-99); Low Density Lipoprotein Calc. 196 mg/dL; PSA,Total - Annual Screen 7.57 ng/mL (0.02-4.00); Potassium 4.5 mmol/L (3.3-5.1); Triglycerides 213 mg/dL; Very Low Density Lipoprotein 43 mg/dL (5-40); Vitamin B12 733 pg/mL (180-914); Vitamin D,25 Hydroxy 49.9 ng/mL (30-100); cholesterol:hdl ratio screen 5.00
== END | disposition home or self-care (01) ==
LOC: MTLAB 07:46
PROVIDERS: PCP Internal Medicine; Referring Provider Internal Medicine; Visit Provider Internal Medicine
DX: E03.9 Hypothyroidism, unspecified (principal); I65.22 Occlusion and stenosis of left carotid artery; I10 Essential (primary) hypertension; E53.8 Deficiency of other specified B group vitamins; E55.9 Vitamin D deficiency, unspecified; E78.00 Pure hypercholesterolemia, unspecified; R33.8 Other retention of urine; Z13.220 Encounter for screening for lipoid disorders; Z12.5 Encounter for screening for malignant neoplasm of prostate
CPT/HCPCS: 36415; 80053; 80061; 82306; 82607; 84153; 84439; 84443; 84481; 85025; G0103

== ENCOUNTER 2025-01-17 09:05 | Emergency (ER) | payer MEDICARE, SELFPAY ==
[2025-01-17 09:06] VITALS: BP 116/74; PULSE 63; RESP 14; TEMP 36.8; O2SAT 97; BMI 32.3
[2025-01-17] MEDS: 0.9% Normal Saline (1000mL) 1,000 ML 125 ML IV (09:49)
[2025-01-17 09:55] LABS: Hematocrit 40.7 % (40-54); Hemoglobin 13.8 g/dL (13.0-16.5); Immature Granulocytes Count 0.150 X10^3/uL (0.0-0.0); Mean Corp Hgb Conc 33.9 g/dL (32-36); Mean Corpuscular Volume 94.9 fL (80-94); Mean Platelet Vol. 8.8 fl (6.2-12.0); NRBC Flagged by Analyzer 0 % (0-5); Platelet Count 237 K/mm3 (150-450); RBC Distribution Width CV 12.6 % (11.6-14.6); RBC Distribution Width SD 43.7 fl (35.1-43.9); Red Blood Count 4.29 M/mm3 (4.6-6.2); White Blood Count 11.1 K/mm3 (4.4-11.0)
[2025-01-17 10:19] LABS: Mucous, Urine 0 SEEN /hpf (<or=2+); Red Blood Cells-Urine 0 SEEN /hpf (0-5); Squamous Epithelial Cells - UA 0 SEEN /hpf (0-5)
[2025-01-17 10:33] LABS: Anion Gap 12 (5-15); BUN 35 mg/dL (4-19); BUN/Creat Ratio 27.4 RATIO (10-20); Calcium,Total 9.6 mg/dL (7.6-11.0); Carbon Dioxide 24.0 mmol/L (21.0-32.0); Chloride 96 mmol/L (98-108); Estimated Creatinine Clearance 47.62 ml/min (50-250); Glucose 119 mg/dL (70-99); Potassium 4.6 mmol/L (3.3-5.1)
[2025-01-17 10:41] LABS: Color, Urine Yellow (Yellow); Glucose, Dipstick Normal (Normal); Ketone-Dipstick Negative (Negative); Leukocyte Esterase-Dipstick 500 /ul (Negative); Nitrite-Dipstick Negative (Negative); Occult Blood-Urine 10 /ul (Negative); Protein-Dipstick 30 mg/dl (Negative); Specific Gravity, Urine 1.015 (1.002-1.030); Urine Bilirubin Dipstick Negative (Negative)
[2025-01-17 11:05] VITALS: BP 107/64; PULSE 68; RESP 18; O2SAT 99
[2025-01-17 13:00] VITALS: BP 148/68; PULSE 82; RESP 16; O2SAT 99; BMI 32.5
[2025-01-17 13:36] VITALS: BP 148/68; PULSE 82; RESP 16; TEMP 37.1; O2SAT 99
== END 2025-01-17 13:39 | disposition home or self-care (01) ==
PROVIDERS: Emergency Provider Emergency Medicine; PCP Internal Medicine; Visit Provider Emergency Medicine
DX: R10.31 Right lower quadrant pain (principal); E11.22 Type 2 diabetes mellitus with diabetic chronic kidney disease; R10.32 Left lower quadrant pain; N39.0 Urinary tract infection, site not specified; N18.9 Chronic kidney disease, unspecified; E78.5 Hyperlipidemia, unspecified; I12.9 Hypertensive chronic kidney disease with stage 1 through stage 4 chronic kidney disease, or unspecified chronic kidney disease; N40.1 Benign prostatic hyperplasia with lower urinary tract symptoms; Z79.82 Long term (current) use of aspirin; Z79.890 Hormone replacement therapy; Z79.899 Other long term (current) drug therapy; Z87.19 Personal history of other diseases of the digestive system
CPT/HCPCS: 74177; 80048; 81001; 83605; 85025; 87077; 87086; 87088; 87186; 96361; 96365; 96375; 96376; 99282; Q9967; A4216; J2405

== ENCOUNTER → 2025-02-10 | Outpatient (CLI) | payer MEDICARE, SELFPAY ==
[2025-02-10 08:19] LABS: Mucous, Urine 0 SEEN /hpf (<or=2+); Red Blood Cells-Urine 0 SEEN /hpf (0-5); Squamous Epithelial Cells - UA 0 SEEN /hpf (0-5)
[2025-02-10 10:20] LABS: Color, Urine Yellow (Yellow); Glucose, Dipstick Normal (Normal); Ketone-Dipstick Negative (Negative); Leukocyte Esterase-Dipstick Negative /ul (Negative); Nitrite-Dipstick Negative (Negative); Occult Blood-Urine Negative /ul (Negative); Protein-Dipstick 15 mg/dl (Negative); Specific Gravity, Urine 1.015 (1.002-1.030); Urine Bilirubin Dipstick Negative (Negative)
== END | disposition home or self-care (01) ==
LOC: MTLAB 08:16
PROVIDERS: PCP Internal Medicine; Referring Provider Internal Medicine; Visit Provider Internal Medicine
DX: N39.0 Urinary tract infection, site not specified (principal)
CPT/HCPCS: 81001; 87086; 87088